=== PATIENT | female | born 1975 | race Caucasian/White ===

== ENCOUNTER 2017-04-06 07:52 | Emergency (ER) | payer OTHER ==
[2017-04-06 07:59] VITALS: TEMP 98.1; BMI 21.4
[2017-04-06] MEDS ORDERED: morphine CARPU-JECT 2 MG/1 ML DISP.SYRIN IVPUSH ONE ×2 (08:31→10:58)
[2017-04-06] MEDS ORDERED: SODIUM CHLORIDE 1,000 ML IV STA (08:31)
[2017-04-06] MEDS ORDERED: ONDANSETRON 4 MG/2 ML VIAL IVPUSH ONE ×2 (08:31→10:58)
--- NOTE | 2017-04-06 08:42 | PDOC ---
History of Present Illness - General Chief Complaint: Pain Stated Complaint: ABDOMINAL PAIN Time Seen by Provider: 04/06/17 08:20 History Source: Patient Exam Limitations: No Limitations - History of Present Illness Travel History: No Initial Comments: 04/06/17 09:10 41-year-old female presents to the emergency room with complaints of left lower abdominal pain which she describes as sharp and intermittent worsening severity over the past few days now associated with nausea and vomiting along with diarrhea and chills. Patient denies fever but states feels strain in weeks and she is unable to tolerate by mouth. Patient also states has frequency of urination the day prior to onset symptoms 2 days ago. Patient does have history of pancreatitis 6 years ago, gastric bypass 13 years ago, twisted bowel approximately 6 years ago secondary to adhesions from bypass, and anemia. Patient also states history of lumbar fusion is currently on oxycodone and morphine with good effect. Timing/Duration: reports: getting worse Quality: reports: moderate, cramping Abdominal Pain Onset Location: reports: LLQ Pain Radiation: reports: periumbilical Activities at Onset: reports: none Aggravating Factors: improves with: None Alleviating Factors: improves with: None Past History - Travel Traveled outside of the country in the last 30 days: No - Past Medical History Allergies/Adverse Reactions: Allergies Allergy/AdvReac Type Severity Reaction Status Date / Time ibuprofen [From Motrin] Allergy Severe Swelling Verified 04/06/17 07:59 Home Medications: Ambulatory Orders Morphine *Sr* [MS Contin -] 100 mg PO Q12H 07/13/15 Oxycodone HCl 10 mg PO TID PRN #0 07/15/15 Nitrofurantoin Monohyd/M-Cryst [Macrobid -] 100 mg PO BID #14 capsule 04/06/17 Ondansetron HCl [Zofran] 4 mg PO TID PRN #12 tablet 04/06/17 Oxycodone HCl/Acetaminophen [Percocet 5-325 mg Tablet] 1 - 2 tab PO Q6H PRN #6 tab MDD 4 04/06/17 Phenazopyridine HCl [Pyridium] 200 mg PO TID #6 tablet 04/06/17 Anemia: Yes Asthma: Yes Cardiac Disorders: Yes (SVT,MVP) COPD: No GI Disorders: Yes (ULCER,TWISTED BOWELS) HTN: (HYPOTENSION) Psychiatric Problems: Yes (ANXIETY) - Surgical History Abdominal Surgery: Yes (GASTRIC BYPASS, VENTRAL HERNIA, SCAR TISSUE REMOVAL FROM ABD.) Cholecystectomy: Yes - Immunization History Td Vaccination: Yes TDAP Vaccination: Yes Immunization Up to Date: Yes - Suicide/Smoking/Psychosocial Hx Smoking Status: Yes Smoking History: Never smoked Years of Tobacco Use: 25 Have you smoked in the past 12 months: Yes Number of Cigarettes Smoked Daily: 20 Cigars Per Day: 0 Information on smoking cessation initiated: Yes 'Breaking Loose' booklet given: 04/06/17 Hx Alcohol Use: No Drug/Substance Use Hx: No Substance Use Type: None Hx Substance Use Treatment: No Patient Lives Alone: Yes Lives with/in: lives alone Abd/GI Specific PMHX - Complaint Specific PMHX Diverticulitis: No Irritable Bowel Synd (IBS): No Pancreatitis: Yes Other History: gastric bypass, Review of Systems - Review of Systems Able to Perform ROS?: Yes Constitutional: Yes: Chills, Weakness. No: Fever, Unintentional Wgt. Loss Respiratory: No: Symptoms reported Cardiac (ROS): No: Symptoms Reported ABD/GI: Yes: Diarrhea, Nausea, Poor Appetite, Poor Fluid Intake, Vomiting, Abdominal cramping : Yes: Dysuria, Frequency Musculoskeletal: No: Symptoms Reported Integumentary: No: Symptoms Reported Neurological: No: Symptoms reported Hematologic/Lymphatic: Yes: Anemia *Physical Exam - Vital Signs Last Vital Signs Temp Pulse Resp BP Pulse Ox 98.1 F 100 H 19 140/82 99 04/06/17 07:56 04/06/17 07:56 04/06/17 07:56 04/06/17 07:56 04/06/17 07:56 - Physical Exam General Appearance: Yes: Nourished, Appropriately Dressed. No: Apparent Distress HEENT: positive: EOMI, KAREL, TMs Normal, Pharynx Normal (dry) Neck: positive: Supple Respiratory/Chest: positive: Lungs Clear, Normal Breath Sounds. negative: Respiratory Distress, Accessory Muscle Use Cardiovascular: positive: Regular Rhythm, Regular Rate. negative: Murmur Gastrointestinal/Abdominal: positive: Normal Bowel Sounds, Soft, Tenderness ( left lower quadrant left flank, left periumbilical/ mid suprapubic). negative: Distended, Guarding, Rebound Musculoskeletal: negative: CVA Tenderness Extremity: positive: Normal Range of Motion Integumentary: positive: Dry, Warm, Pale Neurologic: positive: Normal Mood/Affect, Motor Strength 5/5 (ambulatory) ED Treatment Course - LABORATORY CBC & Chemistry Diagram: 04/06/17 09:06 04/06/17 09:06 Medical Decision Making - Medical Decision Making 04/06/17 08:39 Patient complains of nausea vomiting diarrhea along with abdominal pain. Patient on exam had left lower quadrant tenderness and midsuprapubic tenderness. pt with urinary complaints. Patient also appears pale and dry. Patient ordered for labs including lipase, magnesium, urine and urine , Zofran, morphine IV and IV fluids. 04/06/17 10:39 Laboratory Tests 04/06/17 04/06/17 04/06/17 09:06 09:06 09:06 WBC 13.3 H Hgb 9.8 L D Hct 34.5 MCV 64.1 L MCH 18.2 L MCHC 28.4 L Plt Count 372 D Neutrophils % 77.3 Sodium 139 Potassium 4.9 D Chloride 106 Carbon Dioxide 27 Anion Gap 6 L BUN 9 D Creatinine 0.6 Random Glucose 97 Calcium 8.8 Magnesium 2.1 AST 23 D ALT 19 Lipase 103 Urine Ketones Negative Urine Nitrite Negative Urine Urobilinogen Negative Ur Leukocyte Esterase Pending Urine WBC (Auto) 5 Urine HCG, Qual Negative Patient tolerated saltines. Patient requesting more pain medication since she states the pain has gotten better but not completely resolved. Patient also will be given a second dose of Zofran since she states after she tolerated saltines the nausea returned slightly.Patient be discharged home with Macrobid and Pyridium, Zofran and a few tablets of Percocet due to her pain tolerance and daily opiate use *DC/Admit/Observation/Transfer Diagnosis at time of Disposition: UTI (urinary tract infection) Qualifiers: Urinary tract infection type: acute cystitis Hematuria presence: without hematuria Qualified Code(s): N30.00 - Acute cystitis without hematuria Abdominal pain Qualifiers: Abdominal location: lower abdomen, unspecified Qualified Code(s): R10.30 - Lower abdominal pain, unspecified - Discharge Dispostion Disposition: HOME Condition at time of disposition: Improved - Prescriptions Prescriptions: Nitrofurantoin Monohyd/M-Cryst [Macrobid -] 100 mg PO BID #14 capsule Ondansetron HCl [Zofran] 4 mg PO TID PRN #12 tablet PRN Reason: Nausea And/Or Vomiting Oxycodone HCl/Acetaminophen [Percocet 5-325 mg Tablet] 1 - 2 tab PO Q6H PRN #6 tab MDD 4 PRN Reason: Pain Phenazopyridine HCl [Pyridium] 200 mg PO TID #6 tablet - Referrals Referrals: Katia Campbell [Primary Care Provider] - Mathew Mendes MD [Staff Physician] - - Patient Instructions Printed Discharge Instructions: DI for Urinary Tract Infection (UTI) Additional Instructions: Please take Percocet as needed for severe pain otherwise continue with your previous pain medication, take the antibiotic and use Zofran as needed for nausea. I also given your new referral to a insurance processor that should take your insurance. - Post Discharge Activity
[2017-04-06] MEDS ORDERED: ONDANSETRON 4 MG/2 ML VIAL ONE ×2 (08:52→11:17)
[2017-04-06] MEDS ORDERED: morphine CARPU-JECT 8 MG/1 ML DISP.SYRIN ONE ×2 (08:52→11:17)
[2017-04-06 09:20] LABS: URINE APPEARANCE SLCLOUDY; URINE BILIRUBIN NEGATIVE (NEGATIVE); URINE BLOOD NEGATIVE (NEGATIVE); URINE COLOR YELLOW; URINE GLUCOSE (UA) NEGATIVE (NEGATIVE); URINE KETONE NEGATIVE (NEGATIVE); URINE NITRITE NEGATIVE (NEGATIVE); URINE PROTEIN NEGATIVE (NEGATIVE); URINE UROBILINOGEN NEGATIVE mg/dL (0.2-1.0)
[2017-04-06 09:26] LABS: BASO % 0.6 % (0-2.0); EOS % 1.2 % (0-4.5); MCHC 28.4 g/dl (32.0-36.0); MEAN CELL VOLUME 64.1 fl (80-96); MEAN PLT VOLUME 7.5 fl (7.5-11.1); NEUT % 77.3 % (42.8-82.8); PLATELET COUNT 372 K/MM3 (134-434); RDW 19.5 % (11.6-15.6); WHITE BLOOD COUNT 13.3 K/mm3 (4.0-10.0)
[2017-04-06 09:36] LABS: ALBUMIN 3.6 g/dl (3.4-5.0); ALK PHOS 91 U/L (45-117); ANION GAP 6 (8-16); BILIRUBIN,TOTAL 0.4 mg/dL (0.2-1.0); CALCIUM 8.8 mg/dL (8.5-10.1); CO2 27 mmol/L (21-32); CREATININE 0.6 mg/dL (0.55-1.02); GLUCOSE,RANDOM 97 mg/dL (74-106); MAGNESIUM 2.1 mg/dL (1.8-2.4); SGOT/AST 23 U/L (15-37); SGPT/ALT 19 U/L (12-78); TOT PROT 6.8 g/dl (6.4-8.2)
[2017-04-06 09:38] LABS: URINE LEUK ESTERASE 2+ (NEGATIVE)
[2017-04-06 09:40] LABS: MCH 18.2 pg (25.7-33.7)
[2017-04-06 09:41] LABS: URINE MUCUS RARE; URINE RBC <1 /hpf (0-3); URINE WBC 5 /hpf (3-5)
[2017-04-06 11:34] VITALS: BP 121/73; PULSE 85
[2017-04-06 12:26] LABS: ANISOCYTOSIS 1+; HYPOCHROMIA 3+; MICROCYTOSIS 2+
[2017-04-06 12:27] LABS: OVALOCYTE 1+; TARGET CELLS 1+; TEAR DROP CELLS 1+
[2017-04-06 14:37] LABS: URINE LEUK ESTERASE TRACE (NEGATIVE)
== END 2017-04-06 11:30 | disposition home or self-care (01) ==
LOC: JER 07:52
DX: N30.00 Acute cystitis without hematuria (principal)
CPT/HCPCS: 36415; 80053; 81003; 81015; 83690; 83735; 84703; 85025; 87086; 99284-25

== ENCOUNTER 2017-06-05 16:57 | Emergency (ER) | payer OTHER ==
[2017-06-05 17:16] VITALS: BP 99/61; PULSE 105; TEMP 98.2; BMI 22.3
--- NOTE | 2017-06-05 20:32 | PDOC ---
History of Present Illness - General Chief Complaint: Weakness Stated Complaint: PAIN Time Seen by Provider: 06/05/17 20:16 History Source: Patient Exam Limitations: No Limitations - History of Present Illness Initial Comments: 06/05/17 20:59 41-year-old female with a history of chronic back pains presents to the emergency department complaining of left-sided occipital dull nonradiating intermittent headache with ringing in the left ear and pins and needles to the left foot since yesterday. Patient states she woke up yesterday morning at approximately 0900 hrs. with a dull headache and slight weakness. Patient denies dizziness, lightheadedness, visual disturbance, diplopia, sore throat, facial pains, neck pain/stiffness, unusual back pains, chest pain, shortness of breath, abdominal pains, flank pains, urinary symptoms, bladder or bowel dysfunction. Patient states her pain is described as 6/10 dull nonradiating intermittent left-sided headache which is alleviated at rest and there are no exacerbating factors. Patient states she is able to eat and bili without any difficulties. Timing/Duration: 24 hours Past History - Past Medical History Allergies/Adverse Reactions: Allergies Allergy/AdvReac Type Severity Reaction Status Date / Time ibuprofen [From Motrin] Allergy Severe Swelling Verified 06/05/17 17:12 Home Medications: Ambulatory Orders Morphine *Sr* [MS Contin -] 100 mg PO Q12H 07/13/15 Oxycodone HCl 10 mg PO TID PRN #0 07/15/15 Nitrofurantoin Monohyd/M-Cryst [Macrobid -] 100 mg PO BID #14 capsule 04/06/17 Ondansetron HCl [Zofran] 4 mg PO TID PRN #12 tablet 04/06/17 Oxycodone HCl/Acetaminophen [Percocet 5-325 mg Tablet] 1 - 2 tab PO Q6H PRN #6 tab MDD 4 04/06/17 Phenazopyridine HCl [Pyridium] 200 mg PO TID #6 tablet 04/06/17 Anemia: Yes Asthma: Yes Cardiac Disorders: Yes (SVT,MVP) COPD: No GI Disorders: Yes (ULCER,TWISTED BOWELS) HTN: (HYPOTENSION) Psychiatric Problems: Yes (ANXIETY) - Surgical History Abdominal Surgery: Yes (GASTRIC BYPASS, VENTRAL HERNIA, SCAR TISSUE REMOVAL FROM ABD.) Cholecystectomy: Yes - Immunization History Td Vaccination: Yes TDAP Vaccination: Yes Immunization Up to Date: Yes - Suicide/Smoking/Psychosocial Hx Smoking Status: Yes Smoking History: Current every day smoker Years of Tobacco Use: 25 Have you smoked in the past 12 months: Yes Number of Cigarettes Smoked Daily: 20 Cigars Per Day: 0 Information on smoking cessation initiated: No 'Breaking Loose' booklet given: 04/06/17 Hx Alcohol Use: No Drug/Substance Use Hx: No Substance Use Type: None Hx Substance Use Treatment: No Review of Systems - Review of Systems Able to Perform ROS?: Yes Comments:: 06/05/17 21:01 CONSTITUTIONAL: Absent: fever, chills, diaphoresis, generalized weakness, malaise, loss of appetite HEENT: +left ear ringing Absent: rhinorrhea, nasal congestion, throat pain, throat swelling, difficulty swallowing, mouth swelling, ear pain, eye pain, visual Changes CARDIOVASCULAR: Absent: chest pain, loss of consciousness, palpitations, irregular heart rate, peripheral edema RESPIRATORY: Absent: cough, shortness of breath, dyspnea with exertion, orthopnea, wheezing, stridor, hemoptysis GASTROINTESTINAL: Absent: abdominal pain, abdominal distension, nausea, vomiting, diarrhea, constipation, melena, hematochezia GENITOURINARY: Absent: dysuria, frequency, urgency, hesitancy, hematuria, flank pain, genital pain MUSCULOSKELETAL: Absent: myalgia, arthralgia, joint swelling SKIN: Absent: rash, itching, pallor HEMATOLOGIC/IMMUNOLOGIC: Absent: easy bleeding, easy bruising, lymphadenopathy, frequent infections ENDOCRINE: Absent: unexplained weight gain, unexplained weight loss, heat intolerance, cold intolerance NEUROLOGIC: +left sided diego Absent: focal weakness or paresthesias, dizziness, unsteady gait, seizure, mental status changes, bladder or bowel incontinence PSYCHIATRIC: Absent: anxiety, depression, suicidal or homicidal ideation, hallucinations. Is the patient limited Congolese proficient: No *Physical Exam - Vital Signs Last Vital Signs Temp Pulse Resp BP Pulse Ox 98.2 F 105 H 19 99/61 100 06/05/17 17:12 18 17:12 06/05/17 17:12 06/05/17 17:12 06/05/17 17:12 - Physical Exam Comments: 06/05/17 21:02 GENERAL: Well developed, well nourished. Awake and alert. No acute distress. HEENT: Normocephalic, atraumatic. PERRLA, EOMI. No conjunctival pallor. Sclera are non- icteric. Moist mucous membranes. Oropharynx is clear. NECK: Supple. Full ROM. No JVD. Carotid pulses 2+ and symmetric, without bruits. No thyromegaly. No lymphadenopathy. CARDIOVASCULAR: Regular rate and rhythm. No murmurs, rubs, or gallops. Distal pulses are 2+ and symmetric. PULMONARY: No evidence of respiratory distress. Lungs clear to auscultation bilaterally. No wheezing, rales or rhonchi. ABDOMINAL: Soft. Non-tender. Non-distended. No rebound or guarding. No organomegaly. Normoactive bowel sounds. MUSCULOSKELETAL Normal range of motion at all joints. No bony deformities or tenderness. No CVA tenderness. EXTREMITIES: No cyanosis. No clubbing. No edema. No calf tenderness. SKIN: Warm and dry. Normal capillary refill. No rashes. No jaundice. NEUROLOGICAL: Alert, awake, appropriate. Cranial nerves 2-12 intact. No deficits to light touch and temperature in face, upper extremities and lower extremities. No motor deficits in the in face, upper extremities and lower extremities. Normoreflexic in the upper and lower extremities. Normal speech. Toes are down- going bilaterally. Gait is normal without ataxia. PSYCHIATRIC: Cooperative. Good eye contact. Appropriate mood and affect. ED Treatment Course - LABORATORY CBC & Chemistry Diagram: 06/05/17 20:24 06/05/17 20:24 - RADIOLOGY Radiograph Interpretation: 06/05/17 21:02 CT head w/o contrast: *DC/Admit/Observation/Transfer Diagnosis at time of Disposition: Headache - Discharge Dispostion Disposition: AGAINST MEDICAL ADVICE - Referrals Referrals: Katia Campbell [Primary Care Provider] - Anoop Mayer MD [Staff Physician] - - Patient Instructions Additional Instructions: You have fine our AGAINST MEDICAL ADVICE, You insists on going home prior to CAT scan results and blood results. You have been informed that signing out AGAINST MEDICAL ADVICE may result in , bleed, stroke, recurrent/worsening symptoms - Post Discharge Activity
[2017-06-05] MEDS ORDERED: SODIUM CHLORIDE 1,000 ML IV STA (20:33)
[2017-06-05] MEDS ORDERED: METOCLOPRAMIDE HCL INJECTION 10 MG/2 ML VIAL IVPB ONE (20:33)
[2017-06-05 20:51] LABS: BASO % 0.8 % (0-2.0); EOS % 0.4 % (0-4.5); HEMATOCRIT 33.4 % (32.4-45.2); HEMOGLOBIN 9.8 GM/dL (10.7-15.3); MCHC 29.4 g/dl (32.0-36.0); MEAN CELL VOLUME 62.5 fl (80-96); MEAN PLT VOLUME 7.7 fl (7.5-11.1); MONO % 6.8 % (3.8-10.2); PLATELET COUNT 480 K/MM3 (134-434); RBC 5.33 M/mm3 (3.60-5.2); RDW 18.8 % (11.6-15.6); WHITE BLOOD COUNT 11.3 K/mm3 (4.0-10.0)
[2017-06-05 21:03] LABS: MCH 18.4 pg (25.7-33.7)
[2017-06-05] MEDS ORDERED: METOCLOPRAMIDE HCL INJECTION 10 MG/2 ML VIAL ONE (21:10)
[2017-06-05 21:26] LABS: ALBUMIN 3.8 g/dl (3.4-5.0); ALK PHOS 93 U/L (45-117); ANION GAP 7 (8-16); BILIRUBIN,TOTAL 0.5 mg/dL (0.2-1.0); BLOOD UREA NITROGEN 21 mg/dL (7-18); CALCIUM 8.3 mg/dL (8.5-10.1); CHLORIDE 100 mmol/L (98-107); CO2 27 mmol/L (21-32); CREATININE 0.7 mg/dL (0.55-1.02); GLUCOSE,RANDOM 86 mg/dL (74-106); POTASSIUM 4.3 mmol/L (3.5-5.1); SGOT/AST 82 U/L (15-37); SGPT/ALT 76 U/L (12-78); SODIUM 134 mmol/L (136-145); TOT PROT 6.7 g/dl (6.4-8.2)
== END 2017-06-05 22:27 | disposition left against medical advice (07) ==
LOC: JER 16:57
PROC: 3E033GC Introduction of Other Therapeutic Substance into Peripheral Vein, Percutaneous Approach (ICD-10-PCS; principal; 2017-06-05)
DX: R51 Headache (principal); H93.11 Tinnitus, right ear
CPT/HCPCS: 70450-TC; 80053; 85025; 99282-25

== ENCOUNTER 2017-08-11 04:26 | Emergency (ER) | payer OTHER ==
[2017-08-11 04:39] VITALS: BP 103/61; PULSE 78; TEMP 98.9; BMI 20.4
--- NOTE | 2017-08-11 04:47 | PDOC ---
History of Present Illness - General Chief Complaint: Pain Stated Complaint: BI LATERAL KNEE PAIN Time Seen by Provider: 08/11/17 04:30 History Source: Patient Exam Limitations: No Limitations - History of Present Illness Initial Comments: 08/11/17 04:49 Best Contact:[phone] Pmhx: Chronic abdominal pains, chronic back pains Pshx: Gastric bypass, laparoscopic cholecystectomy, intestinal surgery/unknown procedure, lysis of adhesions, ventral hernia repair Allergies:NKDA 42-year-old female presents to the ER complaining of bilateral knee pain 4 hours without trauma/fall or injury. Patient states pain is described as 6/10 dull nonradiating intermittent discomfort. Patient denies neck/back pains, extremity numbness or tingling sensation. Patient is under the care of pain management And is currently on morphine 30 mg , oxycodone, Percocet. Past History - Past Medical History Allergies/Adverse Reactions: Allergies Allergy/AdvReac Type Severity Reaction Status Date / Time ibuprofen [From Motrin] Allergy Severe Swelling Verified 08/11/17 04:36 Home Medications: Ambulatory Orders Morphine *Sr* [MS Contin -] 60 mg PO Q12H 07/13/15 Gabapentin [Neurontin -] 800 mg PO Q8H 08/11/17 Oxycodone HCl 15 mg PO TID PRN 08/11/17 Anemia: Yes Asthma: Yes Cardiac Disorders: Yes (SVT,MVP) COPD: No GI Disorders: Yes (ULCER,TWISTED BOWELS) HTN: (HYPOTENSION) Psychiatric Problems: Yes (ANXIETY) - Surgical History Abdominal Surgery: Yes (GASTRIC BYPASS, VENTRAL HERNIA, SCAR TISSUE REMOVAL FROM ABD.) Cholecystectomy: Yes Neurologic Surgery: Yes (back) - Immunization History Td Vaccination: Yes TDAP Vaccination: Yes Immunization Up to Date: Yes - Suicide/Smoking/Psychosocial Hx Smoking Status: Yes Smoking History: Unknown if ever smoked Years of Tobacco Use: 25 Have you smoked in the past 12 months: Yes Number of Cigarettes Smoked Daily: 20 Cigars Per Day: 0 'Breaking Loose' booklet given: 04/06/17 Hx Alcohol Use: No Drug/Substance Use Hx: No Substance Use Type: None Hx Substance Use Treatment: No Review of Systems - Review of Systems Able to Perform ROS?: Yes Comments:: 08/11/17 04:53 CONSTITUTIONAL: Absent: fever, chills, diaphoresis, generalized weakness, malaise, loss of appetite HEENT: Absent: rhinorrhea, nasal congestion, throat pain, throat swelling, difficulty swallowing, mouth swelling, ear pain, eye pain, visual Changes CARDIOVASCULAR: Absent: chest pain, loss of consciousness, palpitations, irregular heart rate, peripheral edema RESPIRATORY: Absent: cough, shortness of breath, dyspnea with exertion, orthopnea, wheezing, stridor, hemoptysis GASTROINTESTINAL: Absent: abdominal pain, abdominal distension, nausea, vomiting, diarrhea, constipation, melena, hematochezia GENITOURINARY: Absent: dysuria, frequency, urgency, hesitancy, hematuria, flank pain, genital pain MUSCULOSKELETAL: Absent: myalgia, arthralgia, joint swelling SKIN: Absent: rash, itching, pallor HEMATOLOGIC/IMMUNOLOGIC: Absent: easy bleeding, easy bruising, lymphadenopathy, frequent infections ENDOCRINE: Absent: unexplained weight gain, unexplained weight loss, heat intolerance, cold intolerance NEUROLOGIC: Absent: headache, focal weakness or paresthesias, dizziness, unsteady gait, seizure, mental status changes, bladder or bowel incontinence PSYCHIATRIC: Absent: anxiety, depression, suicidal or homicidal ideation, hallucinations. Is the patient limited [place]utanese proficient: No *Physical Exam - Vital Signs Last Vital Signs Temp Pulse Resp BP Pulse Ox 98.9 F 78 20 103/61 100 08/11/17 04:37 08/11/17 04:37 08/11/17 04:37 08/11/17 04:37 08/11/17 04:37 - Physical Exam Comments: 08/11/17 04:53 GENERAL: Well developed, well nourished. Awake and alert. No acute distress. HEENT: Normocephalic, atraumatic. PERRLA, EOMI. No conjunctival pallor. Sclera are non- icteric. Moist mucous membranes. Oropharynx is clear. NECK: Supple. Full ROM. No JVD. Carotid pulses 2+ and symmetric, without bruits. No thyromegaly. No lymphadenopathy. CARDIOVASCULAR: Regular rate and rhythm. No murmurs, rubs, or gallops. Distal pulses are 2+ and symmetric. PULMONARY: No evidence of respiratory distress. Lungs clear to auscultation bilaterally. No wheezing, rales or rhonchi. ABDOMINAL: Soft. Non-tender. Non-distended. No rebound or guarding. No organomegaly. Normoactive bowel sounds. MUSCULOSKELETAL B/L knees: F.R.O.M. neg swelling Neg pain on palp Neg ant/posterior drawer Neg valrus/valgus B/L ankle 2+dp pulse Neg pain on pa;[p F.R.O.M. B/L hip F.R>O.M. neg pain on palp (excluding B/L knees) Normal range of motion at all joints. No bony deformities or tenderness. No CVA tenderness. EXTREMITIES: No cyanosis. No clubbing. No edema. No calf tenderness. SKIN: Warm and dry. Normal capillary refill. No rashes. No jaundice. ED Treatment Course - RADIOLOGY Radiograph Interpretation: 08/11/17 04:56 Xray right knee 2v neg xray left knee 2 v neg *DC/Admit/Observation/Transfer Diagnosis at time of Disposition: Knee pain, bilateral Qualifiers: Chronicity: acute Qualified Code(s): M25.561 - Pain in right knee - Discharge Dispostion Condition at time of disposition: Stable Admit: No - Referrals Referrals: Katia Campbell [Primary Care Provider] - Anoop Espinoza MD [Staff Physician] - - Patient Instructions Printed Discharge Instructions: DI for Knee Pain Additional Instructions: Ice; 20 mins on alternating with 20 mins off for 48 hours while awake. Rest Elevate Follow up with your orthopedic surgeon or the one listed on the discharge form. Return to the ER for severe/persistent/worsening symptoms, extremity numbness/ tingling sensation. - Post Discharge Activity
== END 2017-08-11 05:21 | disposition home or self-care (01) ==
LOC: JER 04:26
DX: M25.562 Pain in left knee (principal); M25.561 Pain in right knee; Z86.79 Personal history of other diseases of the circulatory system; Z87.09 Personal history of other diseases of the respiratory system; F41.9 Anxiety disorder, unspecified
CPT/HCPCS: 73560-TC-LT-FY; 73560-TC-RT-FY; 99281-25

== ENCOUNTER 2017-09-11 17:33 | Emergency (ER) | payer OTHER ==
--- NOTE | 2017-09-11 17:42 | PDOC ---
Rapid Medical Evaluation Time Seen by Provider: 09/11/17 17:36 Medical Evaluation: Allergies Allergy/AdvReac Type Severity Reaction Status Date / Time ibuprofen [From Motrin] Allergy Severe Swelling Verified 08/11/17 04:36 09/11/17 17:37 I have performed a brief in-person evaluation of this patient. The patient presents with a chief complaint of: R chest pain, worse w/ deep breath. Fell onto R chest 2 days ago after R side "went completely numb" per pt (numbness have been occurring for 1 month per pt). Pertinent physical exam findings:+ttp to r chest I have ordered the following:ekg, CXR and rib series The patient will proceed to the ED for further evaluation Discharge Disposition - Diagnosis Chest injury Qualifiers: Encounter type: initial encounter Qualified Code(s): S29.9XXA - Unspecified injury of thorax, initial encounter - Referrals Referrals: Katia Campbell [Primary Care Provider] - - Patient Instructions - Post Discharge Activity
[2017-09-11 17:47] VITALS: BP 123/81; PULSE 118; TEMP 99.2; BMI 21.0
--- NOTE | 2017-09-11 19:27 | PDOC ---
History of Present Illness - General Chief Complaint: Chest Pain Stated Complaint: CHEST PAIN Time Seen by Provider: 09/11/17 17:36 - History of Present Illness Initial Comments: Patient is a 42 year old female, with a significant past medical history of anxiety, asthma, anemia, SVT, SBO, HTN, who presents to the emergency department complaining of R sided chest pain for last two days after trauma to anterior chest from a mechanical fall. Pt states that she walking to bed around 230AM when the right side of her body went numbness and she suffered a mechanical fall onto the anterior right side of her body. Pt denies any LOC, dizziness, palpitations, SOB at the time. Denies any sensation of gross fractures. Since this fall, pt states she has had R sided anterior chest wall pain, worsened by deep inspiration for the last two days. Pt also endorses some residual numbness in her R arm and leg since incident, however this numbness was prior to fall. The patient denies shortness of breath, headache or dizziness. Denies fever, chills, nausea, vomiting, diarrhea and constipation. Denies dysuria, frequency, urgency and hematuria. Allergies: NKDA Past surgical history:Gastric bypass, laparoscopic cholecystectomy, intestinal surgery/unknown procedure, lysis of adhesions, ventral hernia repair, melissa tumor removal Social History: Current smoker, 1ppd; Denies alcohol, drug use PMD: Dr. Campbell 09/11/17 19:24 Past History - Past Medical History Allergies/Adverse Reactions: Allergies Allergy/AdvReac Type Severity Reaction Status Date / Time No Known Allergies Allergy Verified 09/11/17 17:38 Home Medications: Ambulatory Orders Morphine *Sr* [MS Contin -] 60 mg PO Q12H 07/13/15 Oxycodone HCl 15 mg PO TID PRN 08/11/17 Anemia: Yes Asthma: Yes Cardiac Disorders: Yes (SVT,MVP) COPD: No GI Disorders: Yes (ULCER,TWISTED BOWELS) HTN: (HYPOTENSION) Psychiatric Problems: Yes (ANXIETY) - Surgical History Abdominal Surgery: Yes (GASTRIC BYPASS, VENTRAL HERNIA, SCAR TISSUE REMOVAL FROM ABD.) Cholecystectomy: Yes Neurologic Surgery: Yes (back) - Immunization History Td Vaccination: Yes TDAP Vaccination: Yes Immunization Up to Date: Yes - Suicide/Smoking/Psychosocial Hx Smoking Status: Yes Smoking History: Current every day smoker Years of Tobacco Use: 25 Have you smoked in the past 12 months: Yes Number of Cigarettes Smoked Daily: 10 Cigars Per Day: 0 Information on smoking cessation initiated: No 'Breaking Loose' booklet given: 04/06/17 Hx Alcohol Use: No Drug/Substance Use Hx: No Substance Use Type: None Hx Substance Use Treatment: No Review of Systems - Review of Systems Comments:: GENERAL/CONSTITUTIONAL: No fever or chills. No weakness. HEAD, EYES, EARS, NOSE AND THROAT: No change in vision. No ear pain or discharge. No sore throat. CARDIOVASCULAR: No chest pain or shortness of breath RESPIRATORY: No cough, wheezing, or hemoptysis. GASTROINTESTINAL: No nausea, vomiting, diarrhea or constipation. GENITOURINARY: No dysuria, frequency, or change in urination. MUSCULOSKELETAL: Pain in anterior and lateral upper chest wall, in addition to pain in R upper back. No joint or muscle swelling or pain. No neck or back pain. SKIN: No rash NEUROLOGIC: +weakness at in R arm and leg. No headache, vertigo, loss of consciousness, or change in strength/sensation. ENDOCRINE: No increased thirst. No abnormal weight change HEMATOLOGIC/LYMPHATIC: No anemia, easy bleeding, or history of blood clots. ALLERGIC/IMMUNOLOGIC: No hives or skin allergy. 09/11/17 19:26 *Physical Exam - Vital Signs Last Vital Signs Temp Pulse Resp BP Pulse Ox 99.2 F 118 H 20 123/81 100 09/11/17 17:38 09/11/17 17:38 09/11/17 17:38 09/11/17 17:38 09/11/17 17:38 - Physical Exam Comments: GENERAL: Awake, alert, and fully oriented, in mild distress. HEAD: No signs of trauma, normocephalic, atraumatic EYES: PERRLA, EOMI, sclera anicteric, conjunctiva clear ENT: Auricles normal inspection, hearing grossly normal, nares patent, oropharynx clear without exudates. Moist mucosa NECK: Normal ROM, supple, no lymphadenopathy, JVD, or masses LUNGS: Poor effort secondary to pain. No distress, speaks full sentences. HEART: Pain on R anterior and lateral chest wall with palpation and passive movement of R arm. No obvious bony deformities or gross step-offs. Regular rate and rhythm, normal S1 and S2, no murmurs, rubs or gallops, peripheral pulses normal and equal bilaterally. ABDOMEN: Soft, nontender, normoactive bowel sounds. No guarding, no rebound. No masses EXTREMITIES : Normal inspection, Normal range of motion, no edema. No clubbing or cyanosis. NEUROLOGICAL: 4/5 strength flexion/extension in R arm at elbow, clinical director strength. 4 /5 flexion/extension at R knee and dorsi/plantarflexion. ALl other muscle groups 5/5. Decreased sensation to light touch in R arm and leg across all dermatomes. Cranial nerves II through XII grossly intact. Decreased sensation to palpation along V3 distribution of L face. Normal speech, slow gait, no focal sensorimotor deficits SKIN: Warm, Dry, normal turgor, no rashes or lesions noted 09/11/17 19:26 Medical Decision Making - Medical Decision Making Patient is a 42 year old female, with a significant past medical history of anxiety, asthma, anemia, SVT, SBO, HTN, who presents to the emergency department complaining of R sided chest pain for last two days after trauma to anterior chest from a mechanical fall. Pt likely suffering from occult rib fracture vs. soft tissue trauma of anterior chest. Plan for r/o pneumothorax given pain with deep breath. Plan: - f/u CXR, Rib XR - Pain control - Likely discharge with outpt follow-up with PMD - Will require neurology referral for lateralizing neuro symptoms. 09/11/17 19:46 Pt states R arm and leg weakness/numbness has been occurring intermittently, lasting 30 seconds in length, for the last month. Will discharge home with pain control and outpt f/u with neurology. Pt VSS, pain better controlled on current regimen. Will discharge home. 09/11/17 21:18 *DC/Admit/Observation/Transfer Diagnosis at time of Disposition: Chest injury Qualifiers: Encounter type: initial encounter Qualified Code(s): S29.9XXA - Unspecified injury of thorax, initial encounter - Discharge Dispostion Disposition: HOME Condition at time of disposition: Good Decision to Admit order: No - Referrals Referrals: Katia Campbell [Primary Care Provider] - 1 week Avel Luis MD [Staff Physician] - Call tomorrow - Patient Instructions Additional Instructions: During your visit to the [facility] ED, you were evaluated for right sided chest wall pain after your fall. You received pain medication and imaging of your chest wall, which was negative for any gross fractures or lung pathology. You are being discharged home with outpatient follow-up with your primary care provider and are being provided a referral to see our neurologist, Dr. Luis. Please take tylenol 650mg every four hours if you experience pain in your chest wall You may also take your home pain regimen of Oxycodone 15mg, three times a day by mouth for additional pain control. You are being provided a referral for follow-up with Dr. Luis, our neurologist for further evaluation of your intermittent right-sided arm and leg weakness. Please call the number provided in this packet to schedule an appointment as soon as possible. If you experience any of the following symptoms, please return to the ED: - Sudden shortness of breathing, significant worsening of pain with breathing - New pain or tightness in your chest, or numbness in your jaw, left arm or upper back. - Changes in vision, numbness/weakness in any extremities, or persistent dizziness/loss of consciousness - Any new or concerning symptoms - Post Discharge Activity
[2017-09-11] MEDS ORDERED: IBUPROFEN 600 MG TABLET (FP) PO ONE ×2 (19:49→19:53)
[2017-09-11] MEDS ORDERED: KETOROLAC TROMETHAMINE 30 MG/1 ML VIAL ONE (20:11)
[2017-09-11] MEDS ORDERED: KETOROLAC TROMETHAMINE 30 MG/1 ML VIAL IM ONE (20:11)
--- NOTE | 2017-09-11 22:06 | PDOC ---
Attending Attestation - Resident Resident Name: Dick Post - ED Attending Attestation I have performed the following: I have examined & evaluated the patient, The case was reviewed & discussed with the resident, I agree w/resident's findings & plan, Exceptions are as noted - Medical Decision Making 09/11/17 22:04 42yoF w/ 1 ryan hhistory of intermittent sudden onset episode of 30-second of hemibody numnbess (sometimes R side, sometimes L side) presents w/ severe R chest wall pain 2d after she had one of these episodes causing her to fall. Has not seen neurology for these episodes of hemibody numbness. - cxr and rib films WNL on my read, no PTX. - pain control - incentive spirometer given w/ instructions for use. - f/u w/ neurology.
--- NOTE | 2017-09-12 17:30 | EKG ---
Test Reason : Blood Pressure : / mmHG Vent. Rate : 114 BPM Atrial Rate : 114 BPM P-R Int : 130 ms QRS Dur : 078 ms QT Int : 328 ms P-R-T Axes : 078 056 066 degrees QTc Int : 452 ms SINUS TACHYCARDIA OTHERWISE NORMAL ECG WHEN COMPARED WITH ECG OF 13-JUL-2015 17:43, VENT. RATE HAS INCREASED BY 47 BPM Confirmed by BRUNILDA MORENO MD ([id number]) on 09/12/2017 5:30:07 PM Referred By: Confirmed By:BRUNILDA MORENO MD
== END 2017-09-11 21:38 | disposition home or self-care (01) ==
LOC: JER 17:33
PROC: 3E0233Z Introduction of Anti-inflammatory into Muscle, Percutaneous Approach (ICD-10-PCS; principal; 2017-09-11)
DX: S29.8XXA Other specified injuries of thorax, initial encounter (principal); W18.39XA Other fall on same level, initial encounter; Y93.89 Activity, other specified; Y92.013 Bedroom of single-family (private) house as the place of occurrence of the external cause; Y99.8 Other external cause status; F41.9 Anxiety disorder, unspecified; D64.9 Anemia, unspecified; J45.909 Unspecified asthma, uncomplicated; I10 Essential (primary) hypertension; Z86.79 Personal history of other diseases of the circulatory system
CPT/HCPCS: 71046-TC-FY; 71111-TC-FY; 93005; 93010; 96372; 99283-25

== ENCOUNTER 2017-09-15 18:05 | Inpatient (IN) | payer OTHER ==
--- NOTE | 2017-09-15 18:13 | PDOC ---
Rapid Medical Evaluation Chief Complaint: Chest Pain Time Seen by Provider: 09/15/17 18:07 Medical Evaluation: Allergies Allergy/AdvReac Type Severity Reaction Status Date / Time No Known Allergies Allergy Verified 09/15/17 18:06 09/15/17 18:07 Pt. with chest pain starting today with shortness of breath for one hour. States her right side is going numb, lost vision in her R eye, now blurry. Also with pain to R side of head. States she had similar episode a couple of days ago Exam: ambulatory, HR 125. Orders: CBC, CMP, PT/INR, Trop, EKG, CXR, magnesium, UA, urine preg, head CT Pt. to proceed to ED for further evaluation
--- NOTE | 2017-09-15 18:27 | PDOC ---
Attending Attestation - Resident Resident Name: Ang Logan - ED Attending Attestation I have performed the following: I have examined & evaluated the patient, The case was reviewed & discussed with the resident, I agree w/resident's findings & plan, Exceptions are as noted - HPI HPI: 09/15/17 18:26 42yo female has been experiencing tingling and numbness to her right side. This been intermittent. She said also earlier she experienced total right sided weakness and had temporary blurry vision when this occurred. 09/15/17 22:21 - Physicial Exam PE: 09/15/17 22:25 thin 42 yo female in acute distress head temporal wasting neck supple lungs cta b/l cvs [id number] abd flat,nontender ext no edema skin warm and dry neuro axox3,ambulates w cane,no drift on extremities,motor strength 5/5,no facila droop,no slurred speech - Medical Decision Making 09/15/17 22:22 Repeat vital signs blood pressure was 102/74, pulse is 86, she is 100% pulse ox on room ER and she is afebrile 09/15/17 22:31 pt admitted for MRI and neuro eval
--- NOTE | 2017-09-15 18:40 | PDOC ---
History of Present Illness - General Chief Complaint: CVA/TIA Stated Complaint: CHEST PAIN Time Seen by Provider: 09/15/17 18:07 History Source: Patient Exam Limitations: No Limitations - History of Present Illness Initial Comments: 09/15/17 18:29 The patient is a 42F with a PMH of anxiety, asthma, anemia, SVT, SBO, HTN, who presents to the ER with R sided numbness and pain. The patient states that 3-4 days ago, she had numbness on the entire R side of her body that caused her to lose balance and fall on her R chest. Since then, she states she's had pleuritic CP and shortness of breath. She states that this resolved and approximately 1 hour ago she felt tingling and numbness in her leg with blurred vision in her R eye and a headache on the R side of her body. She states that she still feels the CP, and currently has blurred vision. Last known well is 3 days ago. tPA Exclusion checklist 3-4.5h - Time Elapsed Date last known well: 09/11/17 Time last known well: 09:00 Elaspsed time: 4 Day(s) and 9 Hour(s) and 52 Minutes - Thrombolytic Therapy Candidate Is patient eligible for thrombolytic therapy: No - Ineligibility reason(s) Reasons No tPA given: Outside of window - delayed arrival NIH Stroke Scale - Last Known Well Date/Time & Onset Date Last Known Well: 09/11/17 Time Last Known Well: 09:00 - Initial Evaluation Level of consciousness: Alert Ask patient the month and their age: Answers both correctly Ask patient to open & close eyes; make fist and let go: Obeys both correctly Best gaze (horizontal eye movement): Normal Visual field testing: Partial hemianopia Facial paresis (Show teeth/raise eyebrows/close eyes tight): Normal symmetrical movement Motor Function: Left Arm: Normal Motor Function: Right Arm: Normal (extends arm 90 (or 45) degrees for 10 seconds without drift Motor Function: Left Leg: Normal (extends leg 30 degrees for 5 seconds without drift) Motor Function: Right Leg: Normal (extends leg 30 degrees for 5 seconds without drift) Limb Ataxia: Present in one limb Sensory(Use pinprick test arms,legs,trunk,face/side to side): Mild to moderate decrease in sensation Best language (Describe picture, name items, read sentences): No Aphasia Dysarthria (read several words): Normal articulation Extinction and Inattention: No abnormality - Total Score NIH Stroke Scale Score: 3 Past History - Past Medical History Allergies/Adverse Reactions: Allergies Allergy/AdvReac Type Severity Reaction Status Date / Time No Known Allergies Allergy Verified 09/15/17 18:06 Home Medications: Ambulatory Orders Morphine *Sr* [MS Contin -] 60 mg PO Q12H 07/13/15 Oxycodone HCl 15 mg PO TID PRN 08/11/17 Miscellaneous Drug Not in Syst 1 each .ROUTE ASDIR #1 each 09/11/17 Anemia: Yes Asthma: Yes Cardiac Disorders: Yes (SVT,MVP) COPD: No DVT: No Dementia: No GI Disorders: Yes (ULCER,TWISTED BOWELS,COLITIS) HTN: (HYPOTENSION) Psychiatric Problems: Yes (ANXIETY) - Surgical History Abdominal Surgery: Yes (GASTRIC BYPASS, VENTRAL HERNIA, SCAR TISSUE REMOVAL FROM ABD.) Cholecystectomy: Yes Neurologic Surgery: Yes (back X2) - Immunization History Td Vaccination: Yes TDAP Vaccination: Yes Immunization Up to Date: Yes - Suicide/Smoking/Psychosocial Hx Smoking Status: Yes Smoking History: Current every day smoker Years of Tobacco Use: 25 Have you smoked in the past 12 months: Yes Number of Cigarettes Smoked Daily: 10 Cigars Per Day: 0 Information on smoking cessation initiated: Yes 'Breaking Loose' booklet given: 04/06/17 Hx Alcohol Use: No Drug/Substance Use Hx: No Substance Use Type: None Hx Substance Use Treatment: No Review of Systems - Review of Systems Able to Perform ROS?: Yes Comments:: 09/15/17 18:41 GENERAL/CONSTITUTIONAL: No fever or chills. No weakness. HEAD, EYES, EARS, NOSE AND THROAT: No change in vision. No ear pain or discharge. No sore throat. CARDIOVASCULAR: Positive for chest pain. No palpitations, or lightheadedness. RESPIRATORY: Positive for shortness of breath. No cough, wheezing, or hemoptysis. GASTROINTESTINAL: No nausea, vomiting, diarrhea, constipation, or abdominal pain. GENITOURINARY: No dysuria, frequency, hematuria, or change in urination. MUSCULOSKELETAL: No joint or muscle swelling or pain. No neck or back pain. SKIN: No rash or lesions. NEUROLOGIC: Positive for headache, numbness, tingling, and unsteady gait. No weakness, loss of consciousness, or change in strength/sensation. ENDOCRINE: No increased thirst. No abnormal weight change. HEMATOLOGIC/LYMPHATIC: No anemia, easy bleeding, or history of blood clots. ALLERGIC/IMMUNOLOGIC: No hives or skin allergy. Is the patient limited [place] proficient: No *Physical Exam - Vital Signs Last Vital Signs Temp Pulse Resp BP Pulse Ox 99.0 F 120 H 18 111/74 100 09/15/17 18:07 09/15/17 18:07 09/15/17 18:07 09/15/17 18:07 09/15/17 18:07 - Physical Exam Comments: 09/15/17 18:47 GENERAL: Well developed, well nourished. Awake and alert. No acute distress. HEENT: Normocephalic, atraumatic. Hearing grossly normal. Moist mucous membranes. PERRLA, EOMI. No conjunctival pallor. Sclera are non-icteric. Oropharynx is mildly erythematous. NECK: Supple. Full ROM. No lymphadenopathy. CARDIOVASCULAR: Regular rate and rhythm. No murmurs, rubs, or gallops. PULMONARY: No evidence of respiratory distress. Lungs clear to auscultation bilaterally. No wheezing, rales or rhonchi. ABDOMINAL: Soft. Non-tender. Non-distended. No rebound or guarding. GENITOURINARY: No CVA tenderness bilaterally. MUSCULOSKELETAL: Normal range of motion at all joints. No bony deformities or tenderness. EXTREMITIES: No cyanosis. No clubbing. No edema. No calf tenderness or swelling. SKIN: Warm and dry. Normal capillary refill. No rashes. No jaundice. NEUROLOGICAL: Alert, awake, appropriate. Cranial nerves 2-12 intact. Deficits present in facial sensation 2/2 to facial surgery. Changes in sensation in upper extremities, sensation greater in L than R. No deficits in sensation in LE. No motor deficits in the in face, upper extremities and lower extremities. Finger to nose normal bilaterally. Normal speech. Gait is ataxic. PSYCHIATRIC: Cooperative. Good eye contact. Appropriate mood and affect. Medical Decision Making - Medical Decision Making 09/15/17 18:51 The patient is a 42F with a PMH of anxiety, asthma, anemia, SVT, SBO, HTN, who presents with worsening of her CP, headache, and numnbess on her R side since 3- 4 days ago. Last known well is 3-4 days ago when she came to the ER on the 25 for similar symptoms. Orders placed by RME which I agree with. Will likely need to admit the pt for an MRI. Pending labs/imaging. 09/15/17 19:03 Pt signed out to Dr. Rodrigues, night team.
[2017-09-15 18:57] LABS: BASO % 0.4 % (0-2.0); EOS % 2.8 % (0-4.5); HEMATOCRIT 28.3 % (32.4-45.2); HEMOGLOBIN 8.2 GM/dL (10.7-15.3); LYMPH % 22.8 % (8-40); MCH 18.2 pg (25.7-33.7); MEAN CELL VOLUME 62.7 fl (80-96); MEAN PLT VOLUME 7.5 fl (7.5-11.1); PLATELET COUNT 377 K/MM3 (134-434); RBC 4.52 M/mm3 (3.60-5.2); RDW 18.9 % (11.6-15.6); WHITE BLOOD COUNT 8.2 K/mm3 (4.0-10.0)
[2017-09-15 19:24] LABS: ALBUMIN 3.1 g/dl (3.4-5.0); ANION GAP 6 (8-16); BILIRUBIN,TOTAL 0.2 mg/dL (0.2-1.0); BLOOD UREA NITROGEN 8 mg/dL (7-18); CALCIUM 8.2 mg/dL (8.5-10.1); CHLORIDE 105 mmol/L (98-107); CO2 27 mmol/L (21-32); CREATININE 0.6 mg/dL (0.55-1.02); GLUCOSE,RANDOM 92 mg/dL (74-106); SGOT/AST 24 U/L (15-37); SGPT/ALT 13 U/L (12-78); SODIUM 138 mmol/L (136-145); TOT PROT 6.3 g/dl (6.4-8.2)
[2017-09-15 19:25] LABS: ALK PHOS 120 U/L (45-117)
[2017-09-15 19:29] LABS: INR 1.12 (0.82-1.09); PROTHROMBIN TIME (PATIENT) 12.6 SEC (9.7-13.0)
[2017-09-15 20:27] LABS: ANISOCYTOSIS 2+
[2017-09-15 20:28] LABS: PLATELET ESTIMATE ADEQUATE
[2017-09-15] MEDS ORDERED: ACETAMINOPHEN 1000 MG/100 ML VIAL (NON FORMULARY) IVPB ONE (21:36)
[2017-09-15] MEDS ORDERED: METOCLOPRAMIDE HCL INJECTION 10 MG/2 ML VIAL IVPUSH ONE (21:36)
--- NOTE | 2017-09-15 21:44 | PDOC ---
*Physical Exam - Vital Signs Last Vital Signs Temp Pulse Resp BP Pulse Ox 99.0 F 120 H 18 111/74 100 09/15/17 18:07 09/15/17 18:07 09/15/17 18:07 09/15/17 18:07 09/15/17 18:07 - Physical Exam Comments: 09/15/17 21:43 GENERAL: Awake, alert, and fully oriented, in no acute distress HEAD: No signs of trauma, normocephalic, atraumatic EYES: PERRLA, EOMI, sclera anicteric, conjunctiva clear ENT: Auricles normal inspection, hearing grossly normal, nares patent, oropharynx clear without exudates. Moist mucosa NECK: Normal ROM, supple, no lymphadenopathy, JVD, or masses LUNGS: No distress, speaks full sentences, clear to auscultation bilaterally HEART: Regular rate and rhythm, normal S1 and S2, no murmurs, rubs or gallops, peripheral pulses normal and equal bilaterally. EXTREMITIES: Normal inspection, Normal range of motion, no edema. No clubbing or cyanosis. NEUROLOGICAL: Cranial nerves II through XII grossly intact. Normal speech, no focal sensorimotor deficits SKIN: Warm, Dry, normal turgor, no rashes or lesions noted. ED Treatment Course - LABORATORY CBC & Chemistry Diagram: 09/15/17 18:43 09/15/17 18:43 - ADDITIONAL ORDERS Additional order review: Laboratory Results 09/15/17 09/15/17 09/15/17 18:52 18:52 18:52 PT with INR 12.60 INR 1.12 Sodium Potassium Chloride Carbon Dioxide Anion Gap BUN Creatinine Creat Clearance w eGFR Random Glucose Calcium Magnesium Total Bilirubin AST ALT Alkaline Phosphatase Creatine Kinase 45 Troponin I < 0.02 Total Protein Albumin Serum , Qual Negative 09/15/17 18:43 PT with INR INR Sodium 138 Potassium 4.0 Chloride 105 Carbon Dioxide 27 Anion Gap 6 L BUN 8 Creatinine 0.6 Creat Clearance w eGFR > 60 Random Glucose 92 Calcium 8.2 L Magnesium 2.0 Total Bilirubin 0.2 D AST 24 ALT 13 Alkaline Phosphatase 120 H Creatine Kinase Troponin I Total Protein 6.3 L Albumin 3.1 L Serum , Qual 09/15/17 18:43 RBC 4.52 MCV 62.7 L MCHC 29.0 L RDW 18.9 H MPV 7.5 Neutrophils % 66.0 Lymphocytes % 22.8 D Monocytes % 8.0 Eosinophils % 2.8 D Basophils % 0.4 Medical Decision Making - Medical Decision Making 09/15/17 21:[address] Logan. Patient PMH of anxiety, asthma, anemia, SVT, SBO, HTN, who presents to the ER with R sided numbness and pain. She is also complaining of headache at this time that she states started around this entire event. Patient still reporting chest pain. Patient reports that she is very anxious and normally takes klonopin at this time. Labs reviewed, no obvious abnormalities. Head ct negative. EKG shows sinus tachycardic. Not tachycardic on my exam. Given tylenol and reglan for headache. Given 0.5mg of ativan for anxiety. Patient will be admitted for further neuro deficits. 09/15/17 22:14 Accepted to obs tele by Angeles Huff. *DC/Admit/Observation/Transfer Diagnosis at time of Disposition: Neuropathy, Headache - Discharge Dispostion Condition at time of disposition: Stable Decision to Admit order: Yes - Referrals Referrals: Katia Campbell [Primary Care Provider] - - Patient Instructions - Post Discharge Activity
[2017-09-15] MEDS ORDERED: SODIUM CHLORIDE 1,000 ML IV STA (22:10)
[2017-09-15] MEDS ORDERED: ASPIRIN 81 MG CHEWABLE TABLETS PO ONE (22:13)
--- NOTE | 2017-09-15 22:22 | HP ---
CHIEF COMPLAINT: Chest Pain, R- sided Numbness PCP: Dr. Campbell HISTORY OF PRESENT ILLNESS: This is a 42 y/o woman PMH Anxiety, Asthma, Anemia, SVT, HTN, SBO, Chronic Pain (Pain Mgmt). Who presents to the ED with Chest Pain, R- sided numbness and syncope. Patient reports over the last 3-4 days she had right sided numbness. The patient reports having right chest wall pain after falling onto her right side after ?syncope. Patient had endorsed to the ED having right vision loss- now resolved, ER course was notable for: (1) CT Brain- neg ICH (2) Chest Xray image- no acute pathology (3) Trop I- 0.02 Recent Travel: None PAST MEDICAL HISTORY: See HPI PAST SURGICAL HISTORY: Social History: Smoking: Smokes cigarettes daily Alcohol: Denies Drugs: Denies Family History: Allergies No Known Allergies Allergy (Verified 09/15/17 18:06) HOME MEDICATIONS: Home Medications Medication Instructions Recorded Morphine *Sr* [MS Contin -] 60 mg PO Q12H 07/13/15 Oxycodone HCl 15 mg PO TID PRN 08/11/17 Miscellaneous Drug Not in Syst 1 each .ROUTE ASDIR #1 each 09/11/17 REVIEW OF SYSTEMS CONSTITUTIONAL: Absent: fever, chills, diaphoresis, generalized weakness, malaise, loss of appetite, weight change HEENT: visual changes Absent: rhinorrhea, nasal congestion, throat pain, throat swelling, difficulty swallowing, mouth swelling, ear pain, eye pain CARDIOVASCULAR: chest pain, syncope, Absent: palpitations, irregular heart rate, lightheadedness, peripheral edema RESPIRATORY: Absent: cough, shortness of breath, dyspnea with exertion, orthopnea, wheezing, stridor, hemoptysis GASTROINTESTINAL: Absent: abdominal pain, abdominal distension, nausea, vomiting, diarrhea, constipation, melena, hematochezia GENITOURINARY: Absent: dysuria, frequency, urgency, hesitancy, hematuria, flank pain, genital pain MUSCULOSKELETAL: back pain Absent: myalgia, arthralgia, joint swelling, neck pain SKIN: Absent: rash, itching, pallor HEMATOLOGIC/IMMUNOLOGIC: Absent: easy bleeding, easy bruising, lymphadenopathy, frequent infections ENDOCRINE: Absent: unexplained weight gain, unexplained weight loss, heat intolerance, cold intolerance NEUROLOGIC: paresthesias, focal weakness Absent: headache, dizziness, unsteady gait, seizure, mental status changes, bladder or bowel incontinence PSYCHIATRIC: Absent: anxiety, depression, suicidal or homicidal ideation, hallucinations. PHYSICAL EXAMINATION Vital Signs - 24 hr 09/15/17 18:07 Temperature 99.0 F Pulse Rate 120 H Respiratory 18 Rate Blood Pressure 111/74 O2 Sat by Pulse 100 Oximetry (%) GENERAL: Asleep but arousable, alert, and fully oriented, in no acute distress. HEAD: Normal with no signs of trauma. EYES: Pupils equal, round and reactive to light, extraocular movements intact, sclera anicteric, conjunctiva clear. No lid lag. EARS, NOSE, THROAT: Ears normal, nares patent, oropharynx clear without exudates. Moist mucous membranes. NECK: Normal range of motion, supple without lymphadenopathy, JVD, or masses. LUNGS: Breath sounds equal, clear to auscultation bilaterally. No wheezes, and no crackles. No accessory muscle use. HEART: Regular rate and rhythm, normal S1 and S2 without murmur, rub or gallop. CP is reproducible ABDOMEN: Soft, nontender, not distended, normoactive bowel sounds, no guarding, no rebound, no masses. No hepatomegaly or splenomegaly. MUSCULOSKELETAL: Normal range of motion at all joints. No bony deformities or tenderness. No CVA tenderness. UPPER EXTREMITIES: 2+ pulses, warm, well-perfused. No cyanosis. No clubbing. No peripheral edema. LOWER EXTREMITIES: 2+ pulses, warm, well-perfused. No calf tenderness. No peripheral edema. NEUROLOGICAL: Cranial nerves II-XII intact. Normal speech. Gait not observed. PSYCHIATRIC: Cooperative. Good eye contact. Appropriate mood and affect. SKIN: Warm, dry, normal turgor, no rashes or lesions noted, normal capillary refill. Laboratory Results - last 24 hr 09/15/17 09/15/17 09/15/17 18:43 18:43 18:52 WBC 8.2 RBC 4.52 Hgb 8.2 L D Hct 28.3 L D MCV 62.7 L MCH 18.2 L MCHC 29.0 L RDW 18.9 H Plt Count 377 D MPV 7.5 Neutrophils % 66.0 Lymphocytes % 22.8 D Monocytes % 8.0 Eosinophils % 2.8 D Basophils % 0.4 Nucleated RBC % 0 Hypochromia 3+ Platelet Estimate Adequate Platelet Comment Few lg.plts Anisocytosis 2+ PT with INR INR Sodium 138 Potassium 4.0 Chloride 105 Carbon Dioxide 27 Anion Gap 6 L BUN 8 Creatinine 0.6 Creat Clearance w eGFR > 60 Random Glucose 92 Calcium 8.2 L Magnesium 2.0 Total Bilirubin 0.2 D AST 24 ALT 13 Alkaline Phosphatase 120 H Creatine Kinase 45 Troponin I < 0.02 Total Protein 6.3 L Albumin 3.1 L Serum , Qual 09/15/17 09/15/17 18:52 18:52 WBC RBC Hgb Hct MCV MCH MCHC RDW Plt Count MPV Neutrophils % Lymphocytes % Monocytes % Eosinophils % Basophils % Nucleated RBC % Hypochromia Platelet Estimate Platelet Comment Anisocytosis PT with INR 12.60 INR 1.12 Sodium Potassium Chloride Carbon Dioxide Anion Gap BUN Creatinine Creat Clearance w eGFR Random Glucose Calcium Magnesium Total Bilirubin AST ALT Alkaline Phosphatase Creatine Kinase Troponin I Total Protein Albumin Serum , Qual Negative ASSESSMENT/PLAN: This is a 42 y/o woman with PMH Anxiety, Asthma, Anemia, SVT, HTN, SBO. Placed in Tele Observation for Chest Pain, TIA secondary to R-sided numbness, vision loss. Plan: Admit to Telemetry Observation for Chest Pain, TIA Serial Enzymes Cardiac Monitoring HEART Score 3 Appreciate Cardiology Consult Continue Asa Echo Neurochecks Appreciate Neurology consult NIHSS 3 Lipid Panel HgbA1c Repeat CBC, BMP in am UA- pending Fall precautions DVT ppx- OOB, SCDs, consider AC if LOS> 48hrs Code Status: Dispo: Tele Observation Problem List - Problem (1) Chest pain Code(s): R07.9 - CHEST PAIN, UNSPECIFIED (2) TIA (transient ischemic attack) Code(s): G45.9 - TRANSIENT CEREBRAL ISCHEMIC ATTACK, UNSPECIFIED (3) Neuropathy Code(s): G62.9 - POLYNEUROPATHY, UNSPECIFIED Visit type - Emergency Visit Emergency Visit: Yes ED Registration Date: 09/15/17 Care time: The patient presented to the Emergency Department on the above date and was hospitalized for further evaluation of their emergent condition. - New Patient This patient is new to me today: Yes Date on this admission: 09/16/17 - Critical Care Critical Care patient: No Hospitalist Screening - Colonoscopy Questionnaire Colonoscopy Questionnaire: Colonoscopy Questionnaire - Patient: 50 - 75 years old and never had a screening colonoscopy: No History of colon or rectal polyps, or CA: No History of IBD, Crohn's disease or UC: No History of abdominal radiation therapy as a child: No - Relative: 1 with colon or rectal CA, or polyps at age 60 or younger: No Colon or rectal CA diagnosed at age 45 or younger: No Multiple relatives with colon or rectal CA: No - Outcome: Screening Result: Negative Screen
[2017-09-15] MEDS ORDERED: METOCLOPRAMIDE HCL INJECTION 10 MG/2 ML VIAL ONE (23:01)
[2017-09-15] MEDS ORDERED: LORazepam 2 MG/ML SDV VIAL ONE (23:01)
[2017-09-15] MEDS ORDERED: ASPIRIN COATED 81 MG TABLET.EC ONE (23:02)
[2017-09-15] MEDS ORDERED: ACETAMINOPHEN INJECTION 100 ML IVPB ONE (23:02)
[2017-09-16 07:00] LABS: EOS % 5.4 % (0-4.5); HEMATOCRIT 24.7 % (32.4-45.2); HEMOGLOBIN 7.2 GM/dL (10.7-15.3); LYMPH % 35.2 % (8-40); MCHC 29.2 g/dl (32.0-36.0); MEAN CELL VOLUME 62.8 fl (80-96); MEAN PLT VOLUME 7.2 fl (7.5-11.1); MONO % 10.1 % (3.8-10.2); NEUT % 48.3 % (42.8-82.8); PLATELET COUNT 323 K/MM3 (134-434); RBC 3.94 M/mm3 (3.60-5.2); RDW 18.7 % (11.6-15.6); WHITE BLOOD COUNT 5.9 K/mm3 (4.0-10.0)
[2017-09-16 07:13] LABS: MCH 18.3 pg (25.7-33.7)
[2017-09-16 07:27] LABS: ANION GAP 4 (8-16); BLOOD UREA NITROGEN 10 mg/dL (7-18); CHLORIDE 106 mmol/L (98-107); CO2 30 mmol/L (21-32); GLUCOSE,RANDOM 80 mg/dL (74-106); POTASSIUM 4.1 mmol/L (3.5-5.1); SODIUM 140 mmol/L (136-145)
[2017-09-16 07:35] LABS: CHOLESTEROL 115 mg/dL (50-200); CREATININE 0.5 mg/dL (0.55-1.02); HDL CHOLESTEROL 19 mg/dL (40-60); TRIGLYCERIDES 123 mg/dL (35-160)
--- NOTE | 2017-09-16 09:47 | EKG ---
Test Reason : Blood Pressure : / mmHG Vent. Rate : 119 BPM Atrial Rate : 119 BPM P-R Int : 136 ms QRS Dur : 076 ms QT Int : 316 ms P-R-T Axes : 071 047 063 degrees QTc Int : 444 ms SINUS TACHYCARDIA OTHERWISE NORMAL ECG WHEN COMPARED WITH ECG OF 11-SEP-2017 17:40, NO SIGNIFICANT CHANGE WAS FOUND Confirmed by BRUNILDA MORENO MD ([id number]) on 09/16/2017 9:47:20 AM Referred By: Confirmed By:BRUNILDA MORENO MD
[2017-09-16] MEDS: ASPIRIN 81 MG CHEWABLE TABLETS PO SCH (10:21)
--- NOTE | 2017-09-16 10:30 | PN ---
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 She also had MRSA infection post laminectomy in 2014, was treated for it Patient sees Pain management Dr Dudley in the [place] Patient Name: Padmini Phillips Date: 1975 Address: [address] [place] [address] Sex: Female Rx Written Rx Dispensed Drug Quantity Days Supply Prescriber Name 08/31/2017 08/31/2017 clonazepam 1 mg tablet 60 30 Luis Enrique Bell M D 08/27/2017 08/29/2017 oxycodone hcl 15 mg tablet 90 30 Luis Enrique Bell M D 08/27/2017 08/27/2017 morphine sulf er 60 mg tablet 60 30 Luis Enrique Bell M D 08/26/2017 08/26/2017 oxycodone hcl 15 mg tablet 10 3 Lisa Tsang MD 08/26/2017 08/26/2017 morphine sulf er 30 mg tablet 12 4 Lisa Tsang MD 08/26/2017 08/26/2017 zolpidem tartrate 10 mg tablet 15 15 Lisa Tsang MD 08/13/2017 08/14/2017 diazepam 10 mg tablet 1 1 Katia Campbell MD 07/29/2017 07/31/2017 morphine sulf er 60 mg tablet 60 30 Luis Enrique Bell M D 07/29/2017 07/31/2017 oxycodone hcl 15 mg tablet 90 30 Luis Enrique Bell M D 07/29/2017 07/31/2017 zolpidem tartrate 10 mg tablet 30 30 Luis Enrique Bell M D 07/29/2017 07/29/2017 clonazepam 1 mg tablet 60 30 Luis Enrique Bell M D 07/24/2017 07/24/2017 oxycodone-acetaminophen 5-325 mg tab 20 3 Hunter Cook MD 07/15/2017 07/16/2017 morphine sulf er 60 mg tablet 30 15 Luis Enrique Bell M D 07/01/2017 07/02/2017 morphine sulf er 60 mg tablet 30 15 Luis Enrique Bell M D 07/01/2017 07/02/2017 oxycodone hcl 15 mg tablet 90 30 Luis Enrique Bell M D 07/01/2017 07/01/2017 zolpidem tartrate 10 mg tablet 30 30 Luis Enrique Bell M D 06/29/2017 06/29/2017 morphine sulf er 100 mg tablet 6 3 Lisa Tsang MD 06/29/2017 06/29/2017 oxycodone hcl 15 mg tablet 10 3 Lisa sTang MD 06/02/2017 06/06/2017 morphine sulf er 60 mg tablet 20 10 Luis Enrique Bell M D 05/26/2017 05/27/2017 oxycodone hcl 15 mg tablet 90 30 Luis Enrique Bell M D 05/26/2017 05/27/2017 zolpidem tartrate 10 mg tablet 30 30 Luis Enrique Bell M D 04/28/2017 05/11/2017 morphine sulf er 100 mg tablet 60 30 Luis Enrique Bell M D 04/28/2017 04/28/2017 oxycodone hcl 15 mg tablet 90 30 Luis Enrique Bell M D 04/28/2017 04/28/2017 zolpidem tartrate 10 mg tablet 30 30 Luis Enrique Bell M D - Current Medication List Current Medications: Active Medications Aspirin (Asa -) 81 mg PO DAILY MICHAEL Last Admin: 09/16/17 10:21 Dose: Not Given Iron Sucrose 300 mg/ Sodium (Chloride) 250 mls @ 250 mls/hr IVPB ONCE ONE Stop: 09/16/17 11:24 - Objective Vital Signs: Vital Signs Temperature 99.0 F 09/15/17 18:07 Pulse Rate 70 09/16/17 07:02 Respiratory Rate 16 09/16/17 07:02 Blood Pressure 97/66 09/16/17 07:02 O2 Sat by Pulse Oximetry (%) 97 09/16/17 07:02 Constitutional: Yes: Well Nourished, No Distress, Calm Cardiovascular: Yes: Regular Rate and Rhythm Respiratory: Yes: Regular Gastrointestinal: Yes: Normal Bowel Sounds, Soft Musculoskeletal: Yes: WNL Extremities: Yes: WNL Edema: No Peripheral Pulses WNL: Yes Neurological: Yes: Alert, Oriented Psychiatric: Yes: Alert, Oriented Labs: CBC, BMP 09/16/17 06:48 09/16/17 06:48 INR, PTT INR 1.12 (0.82-1.09) 09/15/17 18:52 Problem List - Problems (1) Syncope Assessment/Plan: -Cardiology and neurology consult -CT head unremarkable -EKG-ST -Tele monitoring -labs unremarkable except she is chronically anemic and gets iron infusions -MRI on neurology discretion- has had MRI post back surgery Code(s): R55 - SYNCOPE AND COLLAPSE (2) Chronic back pain Assessment/Plan: -restart Morphine ER 60 bid -Oxycodone 15 mg po TID PRN Code(s): M54.9 - DORSALGIA, UNSPECIFIED; G89.29 - OTHER CHRONIC PAIN (3) Chest pain Assessment/Plan: -EKG-ST -Cardiology consult -Serial Trops negative -Tele monitor -Echo pending -2/2 to anemia? Code(s): R07.9 - CHEST PAIN, UNSPECIFIED (4) Microcytic anemia Assessment/Plan: -Chronic -normal transfusion parameters, transfuse if Hg <7.0 -Venofer 300 mg IVPB once -stool OB Code(s): D50.9 - IRON DEFICIENCY ANEMIA, UNSPECIFIED Assessment/Plan see problem list
[2017-09-16] MEDS ORDERED: diphenhydrAMINE HCL 25 MG CAPSULE (FP) PO PRN (10:57)
[2017-09-16] MEDS ORDERED: IRON SUCROSE INJECTION 300 MG in SODIUM CHLORIDE 235 ML IVPB ONE (11:00)
[2017-09-16] MEDS ORDERED: oxyCODONE HCL 5 MG TABLET ONE (11:55)
[2017-09-16] MEDS ORDERED: clonazePAM 0.5 MG TABLET ONE (11:56)
[2017-09-16] MEDS ORDERED: morphine SULFATE IMMEDIATE RELEASE 30 MG TAB ONE (11:57)
[2017-09-16] MEDS ORDERED: morphine SO4 SUSTAINED ACTING 15 MG TABLET.SA ONE (12:06)
[2017-09-16] MEDS: clonazePAM 0.5 MG TABLET PO PRN ×2 (12:07→22:16)
[2017-09-16] MEDS: oxyCODONE HCL 5 MG TABLET PO PRN ×2 (12:08→19:05)
[2017-09-16] MEDS: morphine SO4 SUSTAINED ACTING 30 MG TABLET.SA PO SCH ×2 (12:12→22:16)
--- NOTE | 2017-09-16 15:00 | CON.CARD ---
Consult Consult Specialty:: Cardiology Referred by:: Hospitalist Reason for Consultation:: Chest pain - History of Present Illness Chief Complaint: R sided weakness History of Present Illness: 42 year old woman h/o HTN, PSVT, asthma, anemia, chronic back pain, admitted with R sided numbness and weakness and blurry vision. Pt seen and examined today in nad. Pt states that her symptoms began approx 3 days ago. states that she became weak on the right side and fell to the ground hitting the right side of her chest. States that she has had pain on the right side of her chest from the fall. Denies any syncope or near syncope. states the fall was from the right sided weakness. Continues to have numbness and weakness R side as well as intermittent blurry vision. Denies any other chest pain. No sob. Does feel her heart beating fast. H/o admission here approx 7 years ago with PSVT, never followed with a nutritional chemist. - Past Medical History ...LMP: 07/19/15 - Alcohol/Substance Use Hx Alcohol Use: No - Smoking History Smoking history: Current every day smoker Have you smoked in the past 12 months: Yes Aproximately how many cigarettes per day: 10 Home Medications - Allergies Allergies/Adverse Reactions: Allergies Allergy/AdvReac Type Severity Reaction Status Date / Time No Known Allergies Allergy Verified 09/15/17 18:06 - Home Medications Home Medications: Ambulatory Orders Morphine *Sr* [MS Contin -] 60 mg PO Q12H 07/13/15 Oxycodone HCl 15 mg PO TID PRN 08/11/17 Miscellaneous Drug Not in Syst 1 each .ROUTE ASDIR #1 each 09/11/17 Vital Signs: Vital Signs Temperature 98.2 F 09/16/17 13:38 Pulse Rate 75 09/16/17 13:38 Respiratory Rate 18 09/16/17 13:38 Blood Pressure 116/70 09/16/17 13:38 O2 Sat by Pulse Oximetry (%) 97 09/16/17 09:00 - Other Data Labs, Other Data: CBC, BMP 09/16/17 06:48 09/16/17 06:48 INR, PTT INR 1.12 (0.82-1.09) 09/15/17 18:52 Troponin, BNP 09/15/17 09/16/17 18:52 06:48 Troponin I < 0.02 < 0.02 Troponin, BNP 09/15/17 09/16/17 18:52 06:48 Troponin I < 0.02 < 0.02 Assessment/Plan 42 year old woman h/o HTN, PSVT, asthma, anemia, chronic back pain, admitted with R sided numbness and weakness and blurry vision. Pt states that her symptoms began approx 3 days ago. states that she became weak on the right side and fell to the ground hitting the right side of her chest. States that she has had pain on the right side of her chest from the fall. Denies any syncope or near syncope. states the fall was from the right sided weakness. Continues to have numbness and weakness R side as well as intermittent blurry vision. Chest pain-Right sided, pt states she hit this area of her chest when she fell 3 days ago -unlikely cardiac in origin -cardiac enzymes wnl -no ischemia on ekg -echo 09/06/17 showed normal LV systolic function, mild MR -No additional inpatient cardiac work up is needed at this point for chest pain R sided weakness/numbness/blurry vision -Neurology to consult -echo as above wnl -pt has a h/o PSVT but not Afib or aflutter -neurology to evaluate for CVA/TIA -if felt to be a CVA/TIA would arrange for longer term event monitor as outpatient -no additional inpatient cardiac work up is needed at this point Tachycardia-Sinus tachycardia, no arrhythmias recorded -would not medically treat at this time -check TFTs -maintain adequate hydration Please call with any additional questions.
[2017-09-16 17:16] VITALS: BMI 21.4
--- NOTE | 2017-09-16 18:46 | CONSULT ---
Consult Consult Specialty:: Hematology - History of Present Illness History of Present Illness: 42 y/o woman PMH Anxiety, Asthma, Anemia, SVT, HTN, SBO, Chronic Pain (Pain Mgmt ). Who presents to the ED with Chest Pain, R- sided numbness and syncope. Patient reports over the last 3-4 days she had right sided numbness. The patient reports having right chest wall pain after falling onto her right side after ?syncope.?TIA. Hematology consulted for severe anemia - Past Medical History ...LMP: 07/19/15 - Alcohol/Substance Use Hx Alcohol Use: No - Smoking History Smoking history: Current every day smoker Have you smoked in the past 12 months: Yes Aproximately how many cigarettes per day: 10 Home Medications - Allergies Allergies/Adverse Reactions: Allergies Allergy/AdvReac Type Severity Reaction Status Date / Time No Known Allergies Allergy Verified 09/15/17 18:06 - Home Medications Home Medications: Ambulatory Orders Morphine *Sr* [MS Contin -] 60 mg PO Q12H 07/13/15 Oxycodone HCl 15 mg PO TID PRN 08/11/17 Miscellaneous Drug Not in Syst 1 each .ROUTE ASDIR #1 each 09/11/17 Physical Exam Vital Signs: Vital Signs Temperature 98.3 F 09/16/17 14:45 Pulse Rate 76 09/16/17 14:45 Respiratory Rate 18 09/16/17 14:45 Blood Pressure 100/64 09/16/17 14:45 O2 Sat by Pulse Oximetry (%) 97 09/16/17 14:45 Constitutional: Yes: [place], Cachectic HENT: Yes: Atraumatic, Normocephalic Neck: Yes: Supple, Trachea Midline Cardiovascular: Yes: Regular Rate and Rhythm Respiratory: Yes: Regular, CTA Bilaterally Gastrointestinal: Yes: Normal Bowel Sounds, Soft Extremities: Yes: WNL Labs: CBC, BMP 09/16/17 06:48 09/16/17 06:48 Problem List - Problems (1) Microcytic anemia Code(s): D50.9 - IRON DEFICIENCY ANEMIA, UNSPECIFIED (2) TIA (transient ischemic attack) Code(s): G45.9 - TRANSIENT CEREBRAL ISCHEMIC ATTACK, UNSPECIFIED (3) Neuropathy Code(s): G62.9 - POLYNEUROPATHY, UNSPECIFIED (4) Chronic back pain Code(s): M54.9 - DORSALGIA, UNSPECIFIED; G89.29 - OTHER CHRONIC PAIN Assessment/Plan Chronic severe Iron deficiency anemia: s/p Gastric bypass poor compliance as per pt with 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
[2017-09-16] MEDS ORDERED: ACETAMINOPHEN 1000 MG/100 ML VIAL (NON FORMULARY) IVPB ONE (20:44)
[2017-09-16] MEDS ORDERED: SODIUM CHLORIDE 1,000 ML IV SCH (21:00)
--- NOTE | 2017-09-16 21:07 | HOSP ---
Physical Examination Vital Signs: Vital Signs Temperature 98.3 F 09/16/17 14:45 Pulse Rate 76 09/16/17 14:45 Respiratory Rate 18 09/16/17 14:45 Blood Pressure 100/64 09/16/17 14:45 O2 Sat by Pulse Oximetry (%) 97 09/16/17 14:45 Labs: CBC, BMP 09/16/17 06:48 09/16/17 06:48 Hospitalist Encounter Assessment: Called for fever 103 Will order urine cx, ua, blood cx, cxr, stool guiac Give 1gm tylenol x1 now CXR ordered 1L ns bolus for hypotension discussed with RN, pt has not received blood products yet
[2017-09-16] MEDS: ALBUTEROL SO4 0.083% IH SOL 2.5 MG/3 ML VIAL.NEB. NEB PRN (21:21)
[2017-09-16 21:33] LABS: URINE APPEARANCE CLEAR; URINE BILIRUBIN NEGATIVE (<2.0 mg/dL); URINE BLOOD NEGATIVE (NEGATIVE); URINE COLOR LTYELLOW; URINE GLUCOSE (UA) NEGATIVE (NEGATIVE); URINE KETONE NEGATIVE (NEGATIVE); URINE LEUK ESTERASE NEGATIVE (NEGATIVE); URINE NITRITE NEGATIVE (NEGATIVE); URINE PROTEIN NEGATIVE (NEGATIVE); URINE UROBILINOGEN NEGATIVE mg/dL (0.2-1.0)
[2017-09-16] MEDS ORDERED: morphine SO4 SUSTAINED ACTING 30 MG TABLET.SA PO SCH (22:00)
[2017-09-16] MEDS: DOCUSATE SODIUM 100 MG CAPSULE (FP) PO SCH (22:13)
[2017-09-17] MEDS: oxyCODONE HCL 5 MG TABLET PO PRN ×2 (07:59→23:00)
[2017-09-17 08:11] LABS: SERUM IRON SATURATION 3 % (15-55); TOTAL IRON BINDING CAPACITY 371 ug/dL (250-450); UIBC 360 ug/dL (131-425)
--- NOTE | 2017-09-17 09:19 | PN ---
Progress Note, Physician - Current Medication List Current Medications: Active Medications Albuterol Sulfate (Ventolin 0.083% Nebulizer Soln -) 1 amp NEB Q6H PRN PRN Reason: SHORT OF BREATH/WHEEZING Last Admin: 09/16/17 21:21 Dose: 1 amp Aspirin (Asa -) 81 mg PO DAILY [facility] Last Admin: 09/16/17 10:21 Dose: Not Given Clonazepam (Klonopin -) 1 mg PO BID PRN PRN Reason: ANXIETY Last Admin: 09/16/17 22:16 Dose: 1 mg Diphenhydramine HCl (Benadryl -) 50 mg PO HS PRN PRN Reason: INSOMNIA Last Admin: 09/16/17 22:18 Dose: 50 mg Docusate Sodium (Colace -) 300 mg PO HS [facility] Last Admin: 09/16/17 22:13 Dose: 300 mg Morphine Sulfate (Ms Contin -) 60 mg PO BID [facility] Last Admin: 09/16/17 22:16 Dose: Not Given Oxycodone HCl (Roxicodone -) 15 mg PO TID PRN PRN Reason: PAIN LEVEL 6-10 Last Admin: 09/17/17 07:59 Dose: 15 mg - Objective Vital Signs: Vital Signs Temperature 99.6 F 09/17/17 05:00 Pulse Rate 77 09/17/17 05:00 Respiratory Rate 19 09/17/17 05:00 Blood Pressure 102/58 09/17/17 05:00 O2 Sat by Pulse Oximetry (%) 96 09/16/17 21:00 Cardiovascular: Yes: Regular Rate and Rhythm Respiratory: Yes: Rhonchi, Wheezes Gastrointestinal: Yes: Normal Bowel Sounds, Soft, Tenderness (minimal left lower quadrant) Edema: No Labs: CBC, BMP 09/16/17 06:48 09/16/17 06:48 INR, PTT INR 1.12 (0.82-1.09) 09/15/17 18:52 Assessment/Plan - Problems (1) Syncope Assessment/Plan: -Cardiology and neurology consult -CT head unremarkable -EKG-ST -Tele monitoring -labs unremarkable except she is chronically anemic and gets iron infusions -MRI on neurology discretion- has had MRI post back surgery Code(s): R55 - SYNCOPE AND COLLAPSE (2) Chronic back pain Assessment/Plan: -restart Morphine ER 60 bid -Oxycodone 15 mg po TID PRN Code(s): M54.9 - DORSALGIA, UNSPECIFIED; G89.29 - OTHER CHRONIC PAIN (3) Chest pain Assessment/Plan: -EKG-ST -Cardiology consult -Serial Trops negative -Tele monitor -Echo pending -2/2 to anemia? Code(s): R07.9 - CHEST PAIN, UNSPECIFIED (4) Microcytic anemia Assessment/Plan: -Chronic -normal transfusion parameters, transfuse if Hg <7.0 -Venofer 300 mg IVPB once -stool OB Code(s): D50.9 - IRON DEFICIENCY ANEMIA, UNSPECIFIED (5) Fever Assessment/Plan: -Cultures -ID consult -ct abd
--- NOTE | 2017-09-17 10:35 | PN ---
Progress Note (short form) - Note Progress Note: ID Full note dictated Fever 103 says prior to transfusion Says feel like has "flu" but no respiratory complaints and no fever now Selected Entries 09/16/17 09/17/17 21:00 05:00 Temperature 103.8 F H 99.6 F Pulse Rate 77 Respiratory 19 Rate Blood Pressure 102/58 Exam Alert NAD Laboratory Tests 09/15/17 09/16/17 09/16/17 18:43 06:48 06:48 WBC 5.9 Hgb 7.2 L D Plt Count 323 Neutrophils % 48.3 D Lymphocytes % 35.2 D Monocytes % 10.1 BUN 10 Creatinine 0.5 L Total Bilirubin 0.2 D AST 24 ALT 13 Alkaline Phosphatase 120 H Ur Leukocyte Esterase 09/16/17 20:30 WBC Hgb Plt Count Neutrophils % Lymphocytes % Monocytes % BUN Creatinine Total Bilirubin AST ALT Alkaline Phosphatase Ur Leukocyte Esterase Negative Assessment Isolated fever Low grade now not acutely ill NO clear source ?Viral 1. Cultures sent chest xray neg 2. Observe for now off antibiotics 3. If fever recurs would not hesitate to start empiric antibiotic Vanco 1gr q 12H Cefepime 2 grs q 8 H 4. ESR CRP Ronda GALVEZ Problem List - Problems (1) FUO (fever of unknown origin) Code(s): R50.9 - FEVER, UNSPECIFIED (2) Neuropathy Code(s): G62.9 - POLYNEUROPATHY, UNSPECIFIED
[2017-09-17 10:48] LABS: BASO % 0.9 % (0-2.0); HEMATOCRIT 31.3 % (32.4-45.2); HEMOGLOBIN 9.5 GM/dL (10.7-15.3); LYMPH % 11.1 % (8-40); MCHC 30.3 g/dl (32.0-36.0); MEAN PLT VOLUME 7.9 fl (7.5-11.1); MONO % 8.2 % (3.8-10.2); NEUT % 75.8 % (42.8-82.8); PLATELET COUNT 292 K/MM3 (134-434); RBC 4.82 M/mm3 (3.60-5.2); RDW 21.2 % (11.6-15.6); WHITE BLOOD COUNT 6.7 K/mm3 (4.0-10.0)
[2017-09-17] MEDS: clonazePAM 0.5 MG TABLET PO PRN ×2 (10:52→21:30)
[2017-09-17] MEDS: ASPIRIN 81 MG CHEWABLE TABLETS PO SCH (10:52)
[2017-09-17] MEDS: morphine SO4 SUSTAINED ACTING 30 MG TABLET.SA PO SCH ×2 (10:52→21:29)
[2017-09-17 11:02] LABS: MCH 19.7 pg (25.7-33.7)
--- NOTE | 2017-09-17 11:15 | CONS ---
DATE OF CONSULTATION: DATE OF DICTATION: 09/17/2017 This is a 42-year-old female with a history of multiple medical issues including anxiety disorder, asthma, iron deficiency anemia, hypertension, SVT, small-bowel obstruction, status post lumbar laminectomy with hardware 2016. The patient is admitted with complaints of numbness on the entire right side of her body, mostly from the hip down, but also noted in the right arm. She experienced what was described as loss of balance and apparently fell on her right chest. She complained of some shortness of breath and pleuritic chest pain when she was initially admitted. She has now been in the hospital for 2 days, and though she did not come in with fever, she subsequently spiked temperature to 103.8 yesterday. She has been seen by Hematology, Dr. Krueger, on September 16 with clinical impression of iron deficiency anemia status post gastric bypass surgery, for which 2 units of packed cells was recommend. She was also given intravenous iron yesterday. I am not positive of the timing of the iron and red blood cell transfusion, but according to the patient, she had fever before transfusion. Subjectively, she notes feeling like she has the flu with generalized body aches. She currently has no fever, was not started on any antibiotic. She denies cough, abdominal pain, shortness of breath, or urinary complaints. She has no history of rash. She lives locally in a 2-family home with her mother. She has been HIV tested negative in the past. She has 2 cats at home which she has had for some time. She does occasional gardening but denies any history of tick bite. There was no travel or history of unusual hobbies or unusual exposures to persons with communicable illness. The patient had a history of lumbar laminectomy with hardware in the spring. She said that surgery was complicated by postoperative infection with Staph aureus for which she was taken back to the operating room with apparently debridement, but the hardware was left in place. She was treated with 6 weeks of antibiotics and possibly some oral antibiotic for a short period of time thereafter. She has had no recurrence of infection during this past year. PAST MEDICAL HISTORY: As noted above. CURRENT MEDICATIONS: Include Klonopin, aspirin, MS Contin. FAMILY HISTORY: Noncontributory. REVIEW OF SYSTEMS: Respiratory: No shortness of breath, cough. Cardiac: No chest pain, palpitations, murmur. History of SVT. Gastrointestinal: No abdominal pain, nausea, vomiting, diarrhea. Genitourinary: No dysuria, hematuria, urinary frequency. PHYSICAL EXAMINATION: General: She was an alert, thin woman in no acute distress. Vital Signs: Her temperature now 99.6, pulse 77, blood pressure 102/58, respirations 19. HEENT: Oropharynx benign. Neck: Supple. No adenopathy. Healed surgical scar, left neck. Lungs: Clear to P and A. Heart: S1, S2, regular rhythm without audible murmur. Abdomen: Soft, nontender, without hepatosplenomegaly. Extremities: Without clubbing, cyanosis, or edema. LABORATORY: White count yesterday 5.9, hemoglobin 7.2, hematocrit 24.7, platelets 323, with a normal differential counts, exception of mildly elevated eosinophil count of 5.4. The BUN, creatinine, liver enzymes within normal limit. Urinalysis negative. Two sets of blood cultures currently no growth. A urine culture pending. Chest x-ray was reviewed, shows no evidence of active infiltrate. ASSESSMENT: A 42-year-old Chinese female with history of a staphylococcal infection complicating spinal surgery September 2016 with no obvious recurrence since that time, presents with new onset of fever, "flu-like symptoms" but nothing specific at this time, and her temperature is down toward normal, 99. She appears stable hemodynamically. As no obvious source of infection and all IV sites look clean, I would elect to observe her off antibiotic at this time pending final blood and urine cultures. Fever may have been related to transfusion, although the patient says that this was prior to getting blood. Her chest x-ray was reviewed and shows no evidence of infiltrate. PLAN: Await final cultures. Observe off of antibiotics. Obtain a CRP and ESR to evaluate for possible chronic persistent spinal infection, and should there be any change in her condition and/or recurrent fever, would empirically start her on antibiotics with a combination of vancomycin and cefepime. BENI BUNCH M.D. JUSTIN/[id number]
--- NOTE | 2017-09-17 12:08 | CON.GI ---
Consult Consult Specialty:: GI Reason for Consultation:: anemia - History of Present Illness History of Present Illness: chart reviewed. Events noted. As per initial intake: 42 y/o woman PMH Anxiety , Asthma, Anemia, SVT, HTN, SBO, Chronic Pain (Pain Mgmt). Who presents to the ED with Chest Pain, R- sided numbness and syncope. Patient reports over the last 3-4 days she had right sided numbness. The patient reports having right chest wall pain after falling onto her right side after ?syncope.?TIA. Gastric dose was conducted for anemia. admission blood work reviewed reveals microcytic, hypochromic anemia with iron deficiency. Similar hematologic npicture was documented 1 year ago as well. At the time of this encountered the patient appears comfortable and not in distress. Denies recent, or recurrent melena, hematochezia, hematemesis. No reports of excessive bleeding, bruising. Had gastric bypass in 2002. Head post surgery EGD many years ago and was told she had inflammation. She was prescribed Protonix at that time. Patient reports no overt GERD-like symptoms however describes intermittent dysphagia to solids. Nonprogressive, occurring once or twice per month, short-lived, usually gets resolved without residual symptoms. The dysphagia is unrelated to any specific diet, activities, or stressors. - History Source History Provided By: Patient, Medical Record - Past Medical History ...LMP: 07/19/15 - Alcohol/Substance Use Hx Alcohol Use: No - Smoking History Smoking history: Current every day smoker Have you smoked in the past 12 months: Yes Aproximately how many cigarettes per day: 10 Home Medications - Allergies Allergies/Adverse Reactions: Allergies Allergy/AdvReac Type Severity Reaction Status Date / Time No Known Allergies Allergy Verified 09/15/17 18:06 - Home Medications Home Medications: Ambulatory Orders Morphine *Sr* [MS Contin -] 60 mg PO Q12H 07/13/15 Oxycodone HCl 15 mg PO TID PRN 08/11/17 Miscellaneous Drug Not in Syst 1 each .ROUTE ASDIR #1 each 09/11/17 Family Disease History - Family Disease History Family History: Unremarkable Review of Systems Findings/Remarks: As per H&P and HPI Physical Exam-GI Vital Signs: Vital Signs Temperature 98.6 F 09/17/17 09:00 Pulse Rate 76 09/17/17 09:00 Respiratory Rate 18 09/17/17 09:00 Blood Pressure 98/64 09/17/17 09:00 O2 Sat by Pulse Oximetry (%) 96 09/16/17 21:00 Constitutional: Yes: Calm, Ashen, Thin Eyes: Yes: Conjunctiva Clear HENT: Yes: Other ( stomatitis) Neck: Yes: Supple Respiratory: Yes: Regular Gastrointestinal Inspection: No: Distention ...Auscultate: Yes: Normoactive Bowel Sounds ...Palpate: Yes: Soft. No: Firm/Rigid, Guarding, Tenderness Neurological: Yes: Alert, Oriented Labs: CBC, BMP 09/17/17 10:25 09/16/17 06:48 INR, PTT INR 1.12 (0.82-1.09) 09/15/17 18:52 Laboratory Last Values WBC 6.7 K/mm3 (4.0-10.0) 09/17/17 10:25 RBC 4.82 M/mm3 (3.60-5.2) D 09/17/17 10:25 Hgb 9.5 GM/dL (10.7-15.3) L D 09/17/17 10:25 Hct 31.3 % (32.4-45.2) L D 09/17/17 10:25 MCV 65.0 fl (80-96) L 09/17/17 10:25 MCH 19.7 pg (25.7-33.7) L 09/17/17 10:25 MCHC 30.3 g/dl (32.0-36.0) L 09/17/17 10:25 RDW 21.2 % (11.6-15.6) H 09/17/17 10:25 Plt Count 292 K/MM3 (134-434) 09/17/17 10:25 MPV 7.9 fl (7.5-11.1) 09/17/17 10:25 Neutrophils % 75.8 % (42.8-82.8) D 09/17/17 10:25 Lymphocytes % 11.1 % (8-40) D 09/17/17 10:25 Monocytes % 8.2 % (3.8-10.2) 09/17/17 10:25 Eosinophils % 4.0 % (0-4.5) 09/17/17 10:25 Basophils % 0.9 % (0-2.0) 09/17/17 10:25 Nucleated RBC % 0 % (0-0) 09/17/17 10:25 Hypochromia 3+ 09/15/17 18:43 Platelet Estimate Adequate 09/15/17 18:43 Platelet Comment Few lg.plts 09/15/17 18:43 Anisocytosis 2+ 09/15/17 18:43 PT with INR 12.60 SEC (9.7-13.0) 09/15/17 18:52 INR 1.12 (0.82-1.09) 09/15/17 18:52 Sodium 140 mmol/L (136-145) 09/16/17 06:48 Potassium 4.1 mmol/L (3.5-5.1) 09/16/17 06:48 Chloride 106 mmol/L (98-107) 09/16/17 06:48 Carbon Dioxide 30 mmol/L (21-32) 09/16/17 06:48 Anion Gap 4 (8-16) L 09/16/17 06:48 BUN 10 mg/dL (7-18) 09/16/17 06:48 Creatinine 0.5 mg/dL (0.55-1.02) L 09/16/17 06:48 Creat Clearance w eGFR > 60 (>60) 09/15/17 18:43 Random Glucose 80 mg/dL (74-106) 09/16/17 06:48 Hemoglobin A1c % 4.8 % (4.8-6.0) 09/16/17 06:48 Calcium 8.0 mg/dL (8.5-10.1) L 09/16/17 06:48 Magnesium 2.0 mg/dL (1.8-2.4) 09/15/17 18:43 Iron 11 ug/dL (27-159) L 09/16/17 11:19 TIBC 371 ug/dL (250-450) 09/16/17 11:19 Iron Saturation 3 % (15-55) L 09/16/17 11:19 Ferritin 5.267 ng/ml (6.9-282.5) L 09/16/17 11:19 Total Bilirubin 0.2 mg/dL (0.2-1.0) D 09/15/17 18:43 AST 24 U/L (15-37) 09/15/17 18:43 ALT 13 U/L (12-78) 09/15/17 18:43 Alkaline Phosphatase 120 U/L (45-117) H 09/15/17 18:43 Creatine Kinase 45 IU/L (26-192) 09/15/17 18:52 Troponin I < 0.02 ng/ml (0.00-0.05) 09/16/17 06:48 C-Reactive Protein 3.1 MG/DL (0.00-0.3) H 09/17/17 10:25 Total Protein 6.3 g/dl (6.4-8.2) L 09/15/17 18:43 Albumin 3.1 g/dl (3.4-5.0) L 09/15/17 18:43 Triglycerides 123 mg/dL (35-160) 09/16/17 06:48 Cholesterol 115 mg/dL (50-200) 09/16/17 06:48 Total LDL Cholesterol 70 mg/dL (5-100) 09/16/17 06:48 HDL Cholesterol 19 mg/dL (40-60) L 09/16/17 06:48 Vitamin B12 412 pg/ml (180-914) 09/17/17 10:25 Serum Folate 20 ng/ml (3.1-17.5) H 09/17/17 10:25 TSH 0.35 uIU/ml (0.358-3.74) L 09/17/17 10:25 Free T4 0.79 ng/dl (0.76-1.46) 09/16/17 11:19 Serum , Qual Negative 09/15/17 18:52 Urine Color Ltyellow 09/16/17 20:30 Urine Appearance Clear 09/16/17 20:30 Urine pH 7.0 (5.0-8.0) D 09/16/17 20:30 Ur Specific [employer] 1.012 (1.001-1.035) 09/16/17 20:30 Urine Protein Negative (NEGATIVE) 09/16/17 20:30 Urine Glucose (UA) Negative (NEGATIVE) 09/16/17 20:30 Urine Ketones Negative (NEGATIVE) 09/16/17 20:30 Urine Blood Negative (NEGATIVE) 09/16/17 20:30 Urine Nitrite Negative (NEGATIVE) 09/16/17 20:30 Urine Bilirubin Negative (<2.0 mg/dL) 09/16/17 20:30 Urine Urobilinogen Negative mg/dL (0.2-1.0) 09/16/17 20:30 Ur Leukocyte Esterase Negative (NEGATIVE) 09/16/17 20:30 Blood Type O POSITIVE 09/16/17 20:00 Antibody Screen Negative 09/16/17 20:00 Crossmatch See Detail 09/16/17 20:00 Problem List - Problems (1) Iron deficiency anemia Code(s): D50.9 - IRON DEFICIENCY ANEMIA, UNSPECIFIED (2) Chronic anemia Code(s): D64.9 - ANEMIA, UNSPECIFIED (3) Microcytic hypochromic anemia Code(s): D50.9 - IRON DEFICIENCY ANEMIA, UNSPECIFIED (4) Dysphagia Code(s): R13.10 - DYSPHAGIA, UNSPECIFIED Assessment/Plan a 42-year-old female with the above medical problems presents with microcytic, hypochromic, iron deficiency, anemia which appears to be chronic. There is no stigmata of recent, or ongoing gastrointestinal blood loss. There is history of gastritis on EGD many years ago, after gastric bypass in 2002. As discussed with the patient, plan upper endoscopy to rule out ongoing gastritis, esophagitis, marginal ulcers, duodenitis, celiac, etc.. We will plan colonoscopy at the same time to rule rule out malignancy, angiectasia, colitis.
[2017-09-17 18:41] LABS: URINE APPEARANCE CLEAR; URINE BILIRUBIN NEGATIVE (<2.0 mg/dL); URINE BLOOD NEGATIVE (NEGATIVE); URINE COLOR LTYELLOW; URINE GLUCOSE (UA) NEGATIVE (NEGATIVE); URINE KETONE NEGATIVE (NEGATIVE); URINE LEUK ESTERASE NEGATIVE (NEGATIVE); URINE NITRITE NEGATIVE (NEGATIVE); URINE PROTEIN NEGATIVE (NEGATIVE)
[2017-09-17] MEDS: DOCUSATE SODIUM 100 MG CAPSULE (FP) PO SCH (21:29)
--- NOTE | 2017-09-17 21:33 | CONSULT ---
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 H/O recurrent anemia often requiring transfusions over many years. +Anxiety, insomnia. Chronic "migraine headaches" since age 12. Often with menses (catamenial). LI's have gradually increased in frequency and severity and now occur 3/week. Can be awakened from sleep with severe headaches. Rarely has warning during the day. Hemicranial or holocranial throbbing and pressing headaches witn nausea. vomiting, photophobia, phonophobia, osmophobia and kinesiophobia. H/O severe headaches in her mother. Takes imitrex PRN. Now admitted after transient right-sided numbness and tingling with right sided visual loss associated with a severe right sided headaches. CT of brain (reviewed): Normal Fe++=11; Fe Sat= 3%; Ferritin = 5.3 Progressive LB pain and b/l leg pains since 2006. Initially at night now "all day." Burning, shooting, stabbing pains worse at night with severe insomnia. s/p LS laminectomy 2014 complicated by staph infection. Leg pains "only got worse." Over the last few years, similar, albeit milder, pains in the legs at night. Legs stiff and painful in the morning. Can take up to 3 hours to loosen up. Chronic and severe Bruxism. Pt can find "bits of teeth" on her pillow in the morning. CHRISTOPHE: Thin. No head trauma. No bruits. - SLR. Well-healed LS scar. Poor dentition. NEURO: MS/speech: Normal CN II-XII: normal including monocular and binocular palacios. Motor: No drift or tremor. Normal strength, tone, bulk, and reflexes. Toes downgoing. Coord: NO FTN dystaxia Sensory: Normal. Romberg neg Gait: Initially stiff-legged then improves. IMP: Normal neurological exam. Migraine headaches. Admission event was a complicated migraine with prolonged aura. 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 Will be exacerbated by Iron deficiency. Thalassemia Minor (?). SUGGEST: Start depakote ER 250 mg/d x 4 days then 500 mg/day Start Pramipexole 0.125 mg q hs x 4 days then 0.25 mg PO q hs Iron supplementation (consider IV Iron). Neuro follow-up as out paatient. Thank you very much, Anoop Mayer MD
[2017-09-17] MEDS ORDERED: IRON SUCROSE INJECTION 200 MG in SODIUM CHLORIDE 240 ML IVPB ONE ×2 (22:40→22:56)
[2017-09-17] MEDS ORDERED: IRON SUCROSE INJECTION 200 MG in SODIUM CHLORIDE 100 ML IVPB ONE (23:15)
[2017-09-17] MEDS: PRAMIPEXOLE DIHYDROCHLORIDE 0.125 MG TABLET PO SCH (23:31)
[2017-09-17] MEDS: DIVALPROEX NA *ER* EXTEND REL 250 MG TABLET.SA PO SCH (23:32)
[2017-09-18] MEDS: ALBUTEROL SO4 0.083% IH SOL 2.5 MG/3 ML VIAL.NEB. NEB PRN ×2 (08:30→16:53)
[2017-09-18] MEDS: morphine SO4 SUSTAINED ACTING 30 MG TABLET.SA PO SCH ×2 (09:46→21:19)
[2017-09-18] MEDS: ASPIRIN 81 MG CHEWABLE TABLETS PO SCH (09:46)
[2017-09-18] MEDS: clonazePAM 0.5 MG TABLET PO PRN ×2 (10:12→21:20)
[2017-09-18] MEDS: oxyCODONE HCL 5 MG TABLET PO PRN ×2 (10:12→18:20)
--- NOTE | 2017-09-18 11:27 | PN ---
Progress Note, Physician Chief Complaint: AWAKE ALERT MILD DISTRESS C/O SOB AND CHILLS CHART REVIEWED - Current Medication List Current Medications: Active Medications Albuterol Sulfate (Ventolin 0.083% Nebulizer Soln -) 1 amp NEB Q6H PRN PRN Reason: SHORT OF BREATH/WHEEZING Last Admin: 09/18/17 08:30 Dose: 1 amp Aspirin (Asa -) 81 mg PO DAILY [facility] Last Admin: 09/18/17 09:46 Dose: 81 mg Clonazepam (Klonopin -) 1 mg PO BID PRN PRN Reason: ANXIETY Last Admin: 09/18/17 10:12 Dose: 1 mg Divalproex Sodium (Depakote *Er* -) 250 mg PO HS [facility] Last Admin: 09/17/17 23:32 Dose: 250 mg Docusate Sodium (Colace -) 300 mg PO HS [facility] Last Admin: 09/17/17 21:29 Dose: 300 mg Iron Sucrose 200 mg/ Sodium (Chloride) 250 mls @ 250 mls/hr IVPB DAILY ONE Stop: 09/17/17 23:39 Morphine Sulfate (Ms Contin -) 60 mg PO BID [facility] Last Admin: 09/18/17 09:46 Dose: 60 mg Oxycodone HCl (Roxicodone -) 15 mg PO TID PRN PRN Reason: PAIN LEVEL 6-10 Last Admin: 09/18/17 10:12 Dose: 15 mg Pramipexole Dihydrochloride (Mirapex -) 0.125 mg PO HS@2000 [facility] Last Admin: 09/17/17 23:31 Dose: 0.125 mg - Objective Vital Signs: Vital Signs Temperature 98.4 F 09/18/17 09:00 Pulse Rate 66 09/18/17 09:00 Respiratory Rate 18 09/18/17 09:00 Blood Pressure 91/58 09/18/17 09:00 O2 Sat by Pulse Oximetry (%) 98 09/18/17 09:00 Constitutional: Yes: Mild Distress Eyes: Yes: WNL HENT: Yes: WNL Neck: Yes: WNL Cardiovascular: Yes: WNL Respiratory: Yes: On Nasal O2, SOB Gastrointestinal: Yes: WNL Genitourinary: Yes: WNL Musculoskeletal: Yes: Back Pain Extremities: Yes: WNL Edema: No Peripheral Pulses WNL: Yes Integumentary: Yes: WNL Wound/Incision: Yes: Clean/Dry Neurological: Yes: Other ...Motor Strength: LLE Psychiatric: Yes: WNL Labs: CBC, BMP 09/17/17 10:25 09/16/17 06:48 INR, PTT INR 1.12 (0.82-1.09) 09/15/17 18:52 Problem List - Problems (1) Encephalitis and encephalomyelitis, unspecified Code(s): G04.90 - ENCEPHALITIS AND ENCEPHALOMYELITIS, UNSPECIFIED (2) Chest pain Code(s): R07.9 - CHEST PAIN, UNSPECIFIED (3) Chronic anemia Code(s): D64.9 - ANEMIA, UNSPECIFIED (4) Chronic back pain Code(s): M54.9 - DORSALGIA, UNSPECIFIED; G89.29 - OTHER CHRONIC PAIN (5) FUO (fever of unknown origin) Code(s): R50.9 - FEVER, UNSPECIFIED (6) Headache Code(s): R51 - HEADACHE (7) Iron deficiency anemia Code(s): D50.9 - IRON DEFICIENCY ANEMIA, UNSPECIFIED (8) Microcytic hypochromic anemia Code(s): D50.9 - IRON DEFICIENCY ANEMIA, UNSPECIFIED (9) Neuropathy Code(s): G62.9 - POLYNEUROPATHY, UNSPECIFIED (10) Abdominal pain Code(s): R10.9 - UNSPECIFIED ABDOMINAL PAIN Qualifiers: Abdominal location: lower abdomen, unspecified Qualified Code(s): R10.30 - Lower abdominal pain, unspecified (11) UTI (urinary tract infection) Code(s): N39.0 - URINARY TRACT INFECTION, SITE NOT SPECIFIED Qualifiers: Urinary tract infection type: acute cystitis Hematuria presence: without hematuria Qualified Code(s): N30.00 - Acute cystitis without hematuria (12) Back pain Code(s): M54.9 - DORSALGIA, UNSPECIFIED Assessment/Plan ANEMIA WORKUP IN PROGRESS EGD THURSDAY MORNING IRON VENOFER INJECTIONS CHECK CBC NOW NEUROLOGY WORKUP FOR HEADACHE INFCTION VS MIGRAINE ELEVATED ESR CHECK LYME TITERS, HSV, CMV, INFECTIOUS DISEASE WORKUP FOR FEVER 02 SUPPORT CHEST PAIN EKG, TROPONIN CHECKS
[2017-09-18 11:58] LABS: HEMOGLOBIN 9.7 GM/dL (10.7-15.3); MCHC 30.4 g/dl (32.0-36.0); MEAN CELL VOLUME 65.6 fl (80-96); PLATELET COUNT 271 K/MM3 (134-434); RBC 4.89 M/mm3 (3.60-5.2); RDW 20.9 % (11.6-15.6)
[2017-09-18 11:59] LABS: MCH 19.9 pg (25.7-33.7)
--- NOTE | 2017-09-18 12:19 | PN ---
Progress Note, Physician History of Present Illness: No acute events overnight. Tolerating liquids. Avoiding solid food. Pain- free. Comfortable. No stigmata of active gastrointestinal bleeding. - Current Medication List Current Medications: Active Medications Albuterol Sulfate (Ventolin 0.083% Nebulizer Soln -) 1 amp NEB Q6H PRN PRN Reason: SHORT OF BREATH/WHEEZING Last Admin: 09/18/17 08:30 Dose: 1 amp Aspirin (Asa -) 81 mg PO DAILY [facility] Last Admin: 09/18/17 09:46 Dose: 81 mg Clonazepam (Klonopin -) 1 mg PO BID PRN PRN Reason: ANXIETY Last Admin: 09/18/17 10:12 Dose: 1 mg Divalproex Sodium (Depakote *Er* -) 250 mg PO [facility] Last Admin: 09/17/17 23:32 Dose: 250 mg Docusate Sodium (Colace -) 300 mg PO [facility] Last Admin: 09/17/17 21:29 Dose: 300 mg Morphine Sulfate (Ms Contin -) 60 mg PO BID [facility] Last Admin: 09/18/17 09:46 Dose: 60 mg Oxycodone HCl (Roxicodone -) 15 mg PO TID PRN PRN Reason: PAIN LEVEL 6-10 Last Admin: 09/18/17 10:12 Dose: 15 mg Pramipexole Dihydrochloride (Mirapex -) 0.125 mg PO HS@2000 [facility] Last Admin: 09/17/17 23:31 Dose: 0.125 mg - Objective Vital Signs: Vital Signs Temperature 98.4 F 09/18/17 09:00 Pulse Rate 66 09/18/17 09:00 Respiratory Rate 18 09/18/17 09:00 Blood Pressure 91/58 09/18/17 09:00 O2 Sat by Pulse Oximetry (%) 98 09/18/17 09:00 Constitutional: Yes: Calm Eyes: Yes: Conjunctiva Clear Gastrointestinal: Yes: Normal Bowel Sounds, Soft. No: Tenderness Neurological: Yes: Alert, Oriented Labs: CBC, BMP 09/18/17 11:35 INR, PTT INR 1.12 (0.82-1.09) 09/15/17 18:52 Problem List - Problems (1) Iron deficiency anemia Code(s): D50.9 - IRON DEFICIENCY ANEMIA, UNSPECIFIED (2) Chronic anemia Code(s): D64.9 - ANEMIA, UNSPECIFIED (3) Microcytic hypochromic anemia Code(s): D50.9 - IRON DEFICIENCY ANEMIA, UNSPECIFIED (4) Dysphagia Code(s): R13.10 - DYSPHAGIA, UNSPECIFIED Assessment/Plan As discussed with the patient, plan upper endoscopy to rule out ongoing gastritis, esophagitis, marginal ulcers, duodenitis, celiac, etc.. We will plan colonoscopy at the same time to rule rule out malignancy, angiectasia, colitis.
[2017-09-18 12:43] LABS: ALBUMIN 2.8 g/dl (3.4-5.0); ANION GAP 4 (8-16); BILIRUBIN,TOTAL 0.4 mg/dL (0.2-1.0); BLOOD UREA NITROGEN 6 mg/dL (7-18); CALCIUM 8.2 mg/dL (8.5-10.1); CHLORIDE 105 mmol/L (98-107); CO2 31 mmol/L (21-32); CREATININE 0.6 mg/dL (0.55-1.02); GLUCOSE,RANDOM 114 mg/dL (74-106); POTASSIUM 4.4 mmol/L (3.5-5.1); SGOT/AST 46 U/L (15-37); SGPT/ALT 25 U/L (12-78); SODIUM 140 mmol/L (136-145); TOT PROT 5.7 g/dl (6.4-8.2)
[2017-09-18 12:44] LABS: ALK PHOS 117 U/L (45-117)
[2017-09-18] MEDS ORDERED: PT OWN MED DRAWER 7, Y5N ONE (20:25)
[2017-09-18] MEDS: PRAMIPEXOLE DIHYDROCHLORIDE 0.125 MG TABLET PO SCH (20:28)
[2017-09-18] MEDS: DIVALPROEX NA *ER* EXTEND REL 250 MG TABLET.SA PO SCH (21:19)
[2017-09-18] MEDS: DOCUSATE SODIUM 100 MG CAPSULE (FP) PO SCH (21:19)
--- NOTE | 2017-09-19 00:01 | PN ---
Progress Note (short form) - Note Progress Note: Patient seen and examined 42 y/o woman PMH Anxiety, Asthma, Anemia, SVT, HTN, SBO, Chronic Pain (Pain Mgmt ). Who presents to the ED with Chest Pain, R- sided numbness and syncope. Patient reports over the last 3-4 days she had right sided numbness. The patient reports having right chest wall pain after falling onto her right side after ?syncope.?TIA. We have been consulted for anemia--which has improved post transfusion reports some abdominal discomfort AFVSS Constitutional: Yes: Ashen, Cachectic HENT: Yes: Atraumatic, Normocephalic Neck: Yes: Supple, Trachea Midline Cardiovascular: Yes: Regular Rate and Rhythm Respiratory: Yes: Regular, CTA Bilaterally Gastrointestinal: Yes: Normal Bowel Sounds, Soft Extremities: Yes: WNL Labs: Abnormal Lab Results 09/18/17 09/18/17 09/18/17 07:52 11:35 11:35 Hgb 9.7 L Hct 32.0 L MCV 65.6 L MCH 19.9 L MCHC 30.4 L RDW 20.9 H ESR 22 H Anion Gap 4 L BUN 6 L Random Glucose 114 H Calcium 8.2 L AST 46 H Total Protein 5.7 L Albumin 2.8 L 09/19/17 06:00 Hgb 9.5 L Hct 31.7 L MCV 66.2 L MCH 19.8 L MCHC 29.9 L RDW 21.5 H ESR Anion Gap BUN Random Glucose Calcium AST Total Protein Albumin Problem List - Problems (1) Microcytic anemia Code(s): D50.9 - IRON DEFICIENCY ANEMIA, UNSPECIFIED (2) TIA (transient ischemic attack) Code(s): G45.9 - TRANSIENT CEREBRAL ISCHEMIC ATTACK, UNSPECIFIED (3) Neuropathy Code(s): G62.9 - POLYNEUROPATHY, UNSPECIFIED (4) Chronic back pain Code(s): M54.9 - DORSALGIA, UNSPECIFIED; G89.29 - OTHER CHRONIC PAIN Assessment/Plan Chronic severe Iron deficiency anemia: s/p Gastric bypass s/p PRBCS ferritin 5 will need ongoing iv iron replacement gor gi w/u CT abdomen--pancreatic divisum, thickening of stomach, mild splenomegaly will order iv iron
[2017-09-19 08:06] LABS: HEMATOCRIT 31.7 % (32.4-45.2); HEMOGLOBIN 9.5 GM/dL (10.7-15.3); MCHC 29.9 g/dl (32.0-36.0); MEAN CELL VOLUME 66.2 fl (80-96); MEAN PLT VOLUME 8.4 fl (7.5-11.1); PLATELET COUNT 277 K/MM3 (134-434); RBC 4.78 M/mm3 (3.60-5.2); RDW 21.5 % (11.6-15.6); WHITE BLOOD COUNT 6.1 K/mm3 (4.0-10.0)
[2017-09-19 08:23] LABS: MCH 19.8 pg (25.7-33.7)
[2017-09-19 08:35] LABS: CHLORIDE 104 mmol/L (98-107); POTASSIUM 4.4 mmol/L (3.5-5.1); SODIUM 141 mmol/L (136-145)
[2017-09-19 08:46] LABS: ANION GAP 8 (8-16); BLOOD UREA NITROGEN 7 mg/dL (7-18); CO2 29 mmol/L (21-32); CREATININE 0.5 mg/dL (0.55-1.02); GLUCOSE,RANDOM 67 mg/dL (74-106)
--- NOTE | 2017-09-19 09:03 | PN ---
Progress Note, Physician - Current Medication List Current Medications: Active Medications Albuterol Sulfate (Ventolin 0.083% Nebulizer Soln -) 1 amp NEB Q6H PRN PRN Reason: SHORT OF BREATH/WHEEZING Last Admin: 09/18/17 16:53 Dose: 1 amp Aspirin (Asa -) 81 mg PO DAILY [facility] Last Admin: 09/18/17 09:46 Dose: 81 mg Bisacodyl (Dulcolax -) 20 mg PO ONCE ONE Stop: 09/20/17 12:18 Clonazepam (Klonopin -) 1 mg PO BID PRN PRN Reason: ANXIETY Last Admin: 09/18/17 21:20 Dose: 1 mg Divalproex Sodium (Depakote *Er* -) 250 mg PO [facility] Last Admin: 09/18/17 21:19 Dose: 250 mg Docusate Sodium (Colace -) 300 mg PO HS [facility] Last Admin: 09/18/17 21:19 Dose: 300 mg Morphine Sulfate (Ms Contin -) 60 mg PO BID [facility] Last Admin: 09/18/17 21:19 Dose: 60 mg Oxycodone HCl (Roxicodone -) 15 mg PO TID PRN PRN Reason: PAIN LEVEL 6-10 Last Admin: 09/18/17 18:20 Dose: 15 mg Polyethylene Glycol/Electrolytes (Golytely Solution -) 4,000 ml PO ONCE ONE Stop: 09/20/17 17:01 Pramipexole Dihydrochloride (Mirapex -) 0.125 mg PO HS@1999 [facility] Last Admin: 09/18/17 20:28 Dose: 0.125 mg - Objective Vital Signs: Vital Signs Temperature 98.2 F 09/19/17 06:00 Pulse Rate 65 09/19/17 06:00 Respiratory Rate 18 09/19/17 06:00 Blood Pressure 102/52 09/19/17 06:00 O2 Sat by Pulse Oximetry (%) 98 09/18/17 21:00 Cardiovascular: Yes: Regular Rate and Rhythm Respiratory: Yes: Regular, CTA Bilaterally Gastrointestinal: Yes: Normal Bowel Sounds, Soft Labs: CBC, BMP 09/19/17 06:00 INR, PTT INR 1.12 (0.82-1.09) 09/15/17 18:52 Assessment/Plan - Problems (1) Syncope Assessment/Plan: -Cardiology and neurology consult -CT head unremarkable -EKG-ST -Tele monitoring -labs unremarkable except she is chronically anemic and gets iron infusions -MRI on neurology discretion- has had MRI post back surgery Code(s): R55 - SYNCOPE AND COLLAPSE (2) Chronic back pain Assessment/Plan: -restart Morphine ER 60 bid -Oxycodone 15 mg po TID PRN Code(s): M54.9 - DORSALGIA, UNSPECIFIED; G89.29 - OTHER CHRONIC PAIN (3) Chest pain Assessment/Plan: -EKG-ST -Cardiology consult -Serial Trops negative -Tele monitor -Echo pending -05/22 to anemia? Code(s): R07.9 - CHEST PAIN, UNSPECIFIED (4) Microcytic anemia Assessment/Plan: -Chronic -normal transfusion parameters, transfuse if Hg <7.0 -Venofer 300 mg IVPB once -endoscopy on thursday Code(s): D50.9 - IRON DEFICIENCY ANEMIA, UNSPECIFIED (5) Fever Assessment/Plan: -Cultures -ID consult -ct abd (6) abdominal Pain Assessment/Plan: -Endoscopies on thursday -Follow Labs
[2017-09-19 09:09] LABS: CALCIUM 8.2 mg/dL (8.5-10.1)
[2017-09-19] MEDS ORDERED: IRON SUCROSE INJECTION 100 MG in SODIUM CHLORIDE 95 ML IVPB ONE (09:16)
[2017-09-19] MEDS: ASPIRIN 81 MG CHEWABLE TABLETS PO SCH (09:24)
[2017-09-19] MEDS: morphine SO4 SUSTAINED ACTING 30 MG TABLET.SA PO SCH ×2 (09:24→21:23)
[2017-09-19] MEDS: oxyCODONE HCL 5 MG TABLET PO PRN ×2 (09:57→20:19)
[2017-09-19] MEDS: clonazePAM 0.5 MG TABLET PO PRN ×2 (09:57→21:22)
[2017-09-19] MEDS: ALBUTEROL SO4 0.083% IH SOL 2.5 MG/3 ML VIAL.NEB. NEB PRN (20:03)
[2017-09-19] MEDS ORDERED: PT OWN MED DRAWER 7, Y5N ONE (21:18)
[2017-09-19] MEDS: DOCUSATE SODIUM 100 MG CAPSULE (FP) PO SCH (21:23)
[2017-09-19] MEDS: DIVALPROEX NA *ER* EXTEND REL 250 MG TABLET.SA PO SCH (21:23)
[2017-09-20] MEDS: PRAMIPEXOLE DIHYDROCHLORIDE 0.125 MG TABLET PO SCH ×2 (01:37→21:02)
[2017-09-20] MEDS: ASPIRIN 81 MG CHEWABLE TABLETS PO SCH (09:16)
[2017-09-20] MEDS: morphine SO4 SUSTAINED ACTING 30 MG TABLET.SA PO SCH ×2 (09:16→21:01)
[2017-09-20] MEDS: clonazePAM 0.5 MG TABLET PO PRN (09:19)
--- NOTE | 2017-09-20 10:43 | PN ---
Progress Note, Physician - Current Medication List Current Medications: Active Medications Albuterol Sulfate (Ventolin 0.083% Nebulizer Soln -) 1 amp NEB Q6H PRN PRN Reason: SHORT OF BREATH/WHEEZING Last Admin: 09/19/17 20:03 Dose: 1 amp Aspirin (Asa -) 81 mg PO DAILY [facility] Last Admin: 09/20/17 09:16 Dose: 81 mg Bisacodyl (Dulcolax -) 20 mg PO ONCE ONE Stop: 09/20/17 12:18 Clonazepam (Klonopin -) 1 mg PO BID PRN PRN Reason: ANXIETY Last Admin: 09/20/17 09:19 Dose: 1 mg Divalproex Sodium (Depakote *Er* -) 250 mg PO [facility] Last Admin: 09/19/17 21:23 Dose: 250 mg Docusate Sodium (Colace -) 300 mg PO [facility] Last Admin: 09/19/17 21:23 Dose: 300 mg Morphine Sulfate (Ms Contin -) 60 mg PO BID [facility] Last Admin: 09/20/17 09:16 Dose: 60 mg Oxycodone HCl (Roxicodone -) 15 mg PO TID PRN PRN Reason: PAIN LEVEL 6-10 Last Admin: 09/19/17 20:19 Dose: 15 mg Polyethylene Glycol/Electrolytes (Golytely Solution -) 4,000 ml PO ONCE ONE Stop: 09/20/17 17:01 Pramipexole Dihydrochloride (Mirapex -) 0.125 mg PO HS@1999 [facility] Last Admin: 09/20/17 01:37 Dose: Not Given - Objective Vital Signs: Vital Signs Temperature 97.5 F L 09/20/17 06:00 Pulse Rate 66 09/20/17 08:39 Respiratory Rate 18 09/20/17 08:39 Blood Pressure 96/57 09/20/17 08:39 O2 Sat by Pulse Oximetry (%) 96 09/19/17 21:00 Cardiovascular: Yes: Regular Rate and Rhythm Respiratory: Yes: Regular, CTA Bilaterally Gastrointestinal: Yes: Normal Bowel Sounds, Soft, Tenderness Labs: CBC, BMP 09/19/17 06:00 09/19/17 07:30 INR, PTT INR 1.12 (0.82-1.09) 09/15/17 18:52 Assessment/Plan - Problems (1) Syncope Assessment/Plan: -Cardiology and neurology consult -CT head unremarkable -EKG-ST -Tele monitoring -labs unremarkable except she is chronically anemic and gets iron infusions -MRI on neurology discretion- has had MRI post back surgery Code(s): R55 - SYNCOPE AND COLLAPSE (2) Chronic back pain Assessment/Plan: -restart Morphine ER 60 bid -Oxycodone 15 mg po TID PRN Code(s): M54.9 - DORSALGIA, UNSPECIFIED; G89.29 - OTHER CHRONIC PAIN (3) Chest pain Assessment/Plan: -EKG-ST -Cardiology consult -Serial Trops negative -Tele monitor -Echo pending -05/22 to anemia? Code(s): R07.9 - CHEST PAIN, UNSPECIFIED (4) Microcytic anemia Assessment/Plan: -Chronic -normal transfusion parameters, transfuse if Hg <7.0 -Venofer 300 mg IVPB once -endoscopy on thursday Code(s): D50.9 - IRON DEFICIENCY ANEMIA, UNSPECIFIED (5) Fever Assessment/Plan: -Cultures -ID consult -ct abd (6) abdominal Pain Assessment/Plan: -Endoscopies on thursday -Follow Labs
[2017-09-20] MEDS: oxyCODONE HCL 5 MG TABLET PO PRN ×2 (12:07→21:01)
[2017-09-20] MEDS ORDERED: BISACODYL 5 MG TABLET.DR (FP) PO ONE (12:17)
[2017-09-20] MEDS ORDERED: PEG 3350/NA SULF BICARB CL/KCL 4000 ML SOLN.RECON PO ONE (17:00)
[2017-09-20] MEDS ORDERED: PT OWN MED DRAWER 7, Y5N ONE (20:47)
[2017-09-20] MEDS: DOCUSATE SODIUM 100 MG CAPSULE (FP) PO SCH (21:02)
[2017-09-20] MEDS: DIVALPROEX NA *ER* EXTEND REL 250 MG TABLET.SA PO SCH (21:03)
--- NOTE | 2017-09-21 01:35 | CONSULT ---
Consult Consult Specialty:: endocrine Referred by:: dr.annabi romero Reason for Consultation:: abnormal thyroid function - History of Present Illness Chief Complaint: palpitation restless and weight loss History of Present Illness: 42 y/o woman PMH Anxiety, Asthma, Anemia, SVT, HTN, SBO, Chronic Pain (Pain Mgmt ). Who presents to the ED with Chest Pain, R- sided numbness and syncope. Patient reports over the last 3-4 days she had right sided numbness. The patient reports having right chest wall pain after falling onto her right side she has lost weight and has difficulty gaining weight despite eating frequent meals,she gets panic attacks,and feels jittery at times - Past Medical History ...LMP: 07/19/15 - Alcohol/Substance Use Hx Alcohol Use: No - Smoking History Smoking history: Current every day smoker Have you smoked in the past 12 months: Yes Aproximately how many cigarettes per day: 10 Home Medications - Allergies Allergies/Adverse Reactions: Allergies Allergy/AdvReac Type Severity Reaction Status Date / Time No Known Allergies Allergy Verified 09/15/17 18:06 - Home Medications Home Medications: Ambulatory Orders Morphine *Sr* [MS Contin -] 60 mg PO Q12H 07/13/15 Oxycodone HCl 15 mg PO TID PRN 08/11/17 Miscellaneous Drug Not in Syst 1 each .ROUTE ASDIR #1 each 09/11/17 Review of Systems - Review of Systems Constitutional: reports: Loss of Appetite, Weakness Eyes: reports: No Symptoms HENT: reports: Throat Pain Neck: reports: No Symptoms Cardiovascular: reports: Shortness of Breath Respiratory: reports: SOB on Exertion Gastrointestinal: reports: Bloating, Constipation Genitourinary: reports: Frequency Breasts: reports: No Symptoms Reported Musculoskeletal: reports: Extremity Pain, Joint Swelling, Muscle Pain, Muscle Cramps Neurological: reports: Unsteady Gait Endocrine: reports: Unexplained Weight Loss Physical Exam Vital Signs: Vital Signs Temperature 97.9 F 09/20/17 22:00 Pulse Rate 62 09/20/17 22:00 Respiratory Rate 20 09/20/17 22:00 Blood Pressure 89/55 09/20/17 22:00 O2 Sat by Pulse Oximetry (%) 100 09/20/17 21:00 Constitutional: Yes: Anxious Eyes: Yes: EOM Intact HENT: Yes: Normocephalic Neck: Yes: Trachea Midline, Thyromegaly Cardiovascular: Yes: Regular Rate and Rhythm Respiratory: Yes: CTA Bilaterally Gastrointestinal: Yes: Normal Bowel Sounds ...Rectal Exam: Yes: Deferred Renal/: Yes: WNL Musculoskeletal: Yes: WNL, Back Pain, Muscle Weakness Neurological: Yes: Alert, Oriented Labs: CBC, BMP 09/19/17 06:00 09/19/17 07:30 Problem List - Problems (1) Autoimmune thyroiditis Code(s): E06.3 - AUTOIMMUNE THYROIDITIS (2) Chronic anemia Code(s): D64.9 - ANEMIA, UNSPECIFIED (3) Chronic back pain Code(s): M54.9 - DORSALGIA, UNSPECIFIED; G89.29 - OTHER CHRONIC PAIN (4) FUO (fever of unknown origin) Code(s): R50.9 - FEVER, UNSPECIFIED (5) Headache Code(s): R51 - HEADACHE (6) Iron deficiency anemia Code(s): D50.9 - IRON DEFICIENCY ANEMIA, UNSPECIFIED Assessment/Plan Current Active Problems Chest pain (Acute) Chronic anemia (Acute) Chronic back pain (Acute) Dysphagia (Acute) Encephalitis and encephalomyelitis, unspecified (Acute) FUO (fever of unknown origin) (Acute) Headache (Acute) Iron deficiency anemia (Acute) Microcytic hypochromic anemia (Acute) Neuropathy (Acute) Syncope (Acute) TIA (transient ischemic attack) (Acute) thyroiditis autoimmune thyroiditis Abnormal Lab Results 09/16/17 20:00 Crossmatch See Detail Laboratory Results - last 24 hr 09/16/17 20:00 Blood Type O POSITIVE Antibody Screen Negative Crossmatch See Detail Laboratory Tests 09/16/17 09/17/17 09/19/17 11:19 10:25 06:00 WBC 6.1 RBC 4.78 Hgb 9.5 L Hct 31.7 L MCV 66.2 L MCH 19.8 L MCHC 29.9 L Plt Count 277 Chloride Carbon Dioxide Anion Gap BUN Creatinine Random Glucose Calcium TSH 0.83 0.35 L Free T4 0.79 09/19/17 07:30 WBC RBC Hgb Hct MCV MCH MCHC Plt Count Chloride 104 Carbon Dioxide 29 Anion Gap 8 BUN 7 Creatinine 0.5 L Random Glucose 67 L Calcium 8.2 L TSH Free T4 plan: thyroid sonogram ck tpo thyroid antibody will need outpatient thyroid scan
[2017-09-21] MEDS ORDERED: SODIUM CHLORIDE 500 ML IV ONE (10:00)
[2017-09-21 10:13] LABS: HGB SOLUBILITY Negative (Negative); Hgb A 98.5 % (96.4-98.8); Hgb C 0 % (0.0); Hgb F 0 % (0.0-2.0); Hgb S 0 % (0.0)
[2017-09-21] MEDS ORDERED: SODIUM CHLORIDE 1,000 ML IV ONE (10:30)
[2017-09-21] MEDS: morphine SO4 SUSTAINED ACTING 30 MG TABLET.SA PO SCH ×2 (11:52→21:04)
[2017-09-21] MEDS: ASPIRIN 81 MG CHEWABLE TABLETS PO SCH (11:53)
[2017-09-21] MEDS: clonazePAM 0.5 MG TABLET PO PRN (11:54)
[2017-09-21] MEDS: oxyCODONE HCL 5 MG TABLET PO PRN ×2 (11:55→20:14)
--- NOTE | 2017-09-21 12:07 | PROC ---
Endoscopy Procedure Endoscopy procedure completed. Please see scanned procedure report. Gastro-duodenal anastomosis appeared edematous and erythematous. No marginal ulcers noted. Multiple biopsies taken. Small hiatal hernia and mild esophagitis were found, distal and mid esophageal biopsies taken. Inadequate colon prep. Liquid carafate 1 mg po qid x 2 weeks Protonix 40 mg po bid x 2 weeks Soft diet Repeat colonoscopy in 2-3 days after 2-day colon prep. Discussed with the patient
--- NOTE | 2017-09-21 16:10 | PN ---
Progress Note, Physician Chief Complaint: needs a bowel prep for her colonoscopy scheduled for tomorrow still having atypical chest pain no alarms on telemetry - Current Medication List Current Medications: Active Medications Albuterol Sulfate (Ventolin 0.083% Nebulizer Soln -) 1 amp NEB Q6H PRN PRN Reason: SHORT OF BREATH/WHEEZING Last Admin: 09/19/17 20:03 Dose: 1 amp Aspirin (Asa -) 81 mg PO DAILY [facility] Last Admin: 09/21/17 11:53 Dose: 81 mg Clonazepam (Klonopin -) 1 mg PO BID PRN PRN Reason: ANXIETY Last Admin: 09/21/17 11:54 Dose: 1 mg Divalproex Sodium (Depakote *Er* -) 250 mg PO [facility] Last Admin: 09/20/17 21:03 Dose: 250 mg Docusate Sodium (Colace -) 300 mg PO HS [facility] Last Admin: 09/20/17 21:02 Dose: 300 mg Sodium Chloride (Normal Saline -) 1,000 mls @ 100 mls/hr IV ONCE ONE Stop: 09/21/17 20:29 Last Admin: 09/21/17 11:54 Dose: 100 mls/hr Morphine Sulfate (Ms Contin -) 60 mg PO BID [facility] Last Admin: 09/21/17 11:52 Dose: 60 mg Oxycodone HCl (Roxicodone -) 15 mg PO TID PRN PRN Reason: PAIN LEVEL 6-10 Last Admin: 09/21/17 11:55 Dose: 15 mg Pantoprazole Sodium (Protonix -) 40 mg PO BID [facility] Pramipexole Dihydrochloride (Mirapex -) 0.125 mg PO HS@2000 [facility] Last Admin: 09/20/17 21:02 Dose: 0.125 mg Sucralfate (Carafate Oral Suspension -) 1 gm PO QID [facility] - Objective Vital Signs: Vital Signs Temperature 97.9 F 09/21/17 13:50 Pulse Rate 65 09/21/17 13:50 Respiratory Rate 18 09/21/17 13:50 Blood Pressure 98/66 09/21/17 13:50 O2 Sat by Pulse Oximetry (%) 99 09/21/17 11:37 Constitutional: Yes: Mild Distress Eyes: Yes: WNL HENT: Yes: WNL Neck: Yes: WNL Cardiovascular: Yes: WNL Respiratory: Yes: WNL Gastrointestinal: Yes: Tenderness Genitourinary: Yes: WNL Musculoskeletal: Yes: WNL Extremities: Yes: WNL Edema: No Peripheral Pulses WNL: Yes Integumentary: Yes: WNL Wound/Incision: Yes: Clean/Dry Neurological: Yes: WNL ...Motor Strength: WNL Psychiatric: Yes: Other Labs: CBC, BMP 09/19/17 06:00 09/19/17 07:30 INR, PTT INR 1.12 (0.82-1.09) 09/15/17 18:52 Problem List - Problems (1) Encephalitis and encephalomyelitis, unspecified Code(s): G04.90 - ENCEPHALITIS AND ENCEPHALOMYELITIS, UNSPECIFIED (2) Chest pain Code(s): R07.9 - CHEST PAIN, UNSPECIFIED (3) Chronic anemia Code(s): D64.9 - ANEMIA, UNSPECIFIED (4) Chronic back pain Code(s): M54.9 - DORSALGIA, UNSPECIFIED; G89.29 - OTHER CHRONIC PAIN (5) FUO (fever of unknown origin) Code(s): R50.9 - FEVER, UNSPECIFIED (6) Headache Code(s): R51 - HEADACHE (7) Iron deficiency anemia Code(s): D50.9 - IRON DEFICIENCY ANEMIA, UNSPECIFIED (8) Microcytic hypochromic anemia Code(s): D50.9 - IRON DEFICIENCY ANEMIA, UNSPECIFIED (9) Neuropathy Code(s): G62.9 - POLYNEUROPATHY, UNSPECIFIED (10) Abdominal pain Code(s): R10.9 - UNSPECIFIED ABDOMINAL PAIN Qualifiers: Abdominal location: lower abdomen, unspecified Qualified Code(s): R10.30 - Lower abdominal pain, unspecified (11) UTI (urinary tract infection) Code(s): N39.0 - URINARY TRACT INFECTION, SITE NOT SPECIFIED Qualifiers: Urinary tract infection type: acute cystitis Hematuria presence: without hematuria Qualified Code(s): N30.00 - Acute cystitis without hematuria (12) Back pain Code(s): M54.9 - DORSALGIA, UNSPECIFIED Assessment/Plan clear liquids started now remove all bread and solid food from room bowel prep per gi for colonoscopy scheduled pain control monitor labs
[2017-09-21] MEDS: SUCRALFATE 1 GM/10 ML UNIT DOSE CUPS PO SCH ×3 (17:04→21:04)
[2017-09-21] MEDS: PANTOPRAZOLE 40 MG TABLET (FP) PO SCH ×2 (17:05→21:04)
[2017-09-21] MEDS ORDERED: PT OWN MED DRAWER 7, Y5N ONE ×2 (20:13→21:03)
[2017-09-21] MEDS: PRAMIPEXOLE DIHYDROCHLORIDE 0.125 MG TABLET PO SCH (20:14)
[2017-09-21] MEDS: DIVALPROEX NA *ER* EXTEND REL 250 MG TABLET.SA PO SCH (21:04)
[2017-09-21] MEDS: DOCUSATE SODIUM 100 MG CAPSULE (FP) PO SCH (21:04)
[2017-09-22] MEDS: clonazePAM 0.5 MG TABLET PO PRN ×2 (01:37→14:51)
[2017-09-22] MEDS: SODIUM CHLORIDE 1,000 ML IV SCH ×2 (06:52→17:27)
[2017-09-22 06:53] LABS: HEMATOCRIT 32.2 % (32.4-45.2); HEMOGLOBIN 9.8 GM/dL (10.7-15.3); MCH 20.8 pg (25.7-33.7); MCHC 30.5 g/dl (32.0-36.0); MEAN CELL VOLUME 68.3 fl (80-96); MEAN PLT VOLUME 8.8 fl (7.5-11.1); PLATELET COUNT 262 K/MM3 (134-434); RBC 4.71 M/mm3 (3.60-5.2); RDW 22.8 % (11.6-15.6); WHITE BLOOD COUNT 5.5 K/mm3 (4.0-10.0)
[2017-09-22 07:15] LABS: ANION GAP 6 (8-16); BLOOD UREA NITROGEN 8 mg/dL (7-18); CALCIUM 8.4 mg/dL (8.5-10.1); CHLORIDE 105 mmol/L (98-107); CO2 30 mmol/L (21-32); GLUCOSE,RANDOM 74 mg/dL (74-106); MAGNESIUM 2.2 mg/dL (1.8-2.4); POTASSIUM 4.2 mmol/L (3.5-5.1); SODIUM 141 mmol/L (136-145)
[2017-09-22 07:17] LABS: CREATININE 0.5 mg/dL (0.55-1.02)
[2017-09-22] MEDS: morphine SO4 SUSTAINED ACTING 30 MG TABLET.SA PO SCH ×2 (09:35→22:07)
[2017-09-22] MEDS: ASPIRIN 81 MG CHEWABLE TABLETS PO SCH (09:35)
[2017-09-22] MEDS: SUCRALFATE 1 GM/10 ML UNIT DOSE CUPS PO SCH ×4 (09:35→22:07)
[2017-09-22] MEDS: PANTOPRAZOLE 40 MG TABLET (FP) PO SCH ×2 (09:35→22:06)
[2017-09-22] MEDS ORDERED: oxyCODONE HCL 5 MG TABLET ONE (11:46)
[2017-09-22] MEDS: oxyCODONE HCL 5 MG TABLET PO PRN ×2 (12:10→19:49)
--- NOTE | 2017-09-22 14:38 | PN ---
Progress Note, Physician Chief Complaint: ON A CLEAR DIET IN PREPERATION FOR COLONOSCOPY NAD FAMILY BEDSIDE NEEDS SLEEP AID - Current Medication List Current Medications: Active Medications Aspirin (Asa -) 81 mg PO DAILY [facility] Last Admin: 09/22/17 09:35 Dose: 81 mg Divalproex Sodium (Depakote *Er* -) 250 mg PO HS [facility] Last Admin: 09/21/17 21:04 Dose: 250 mg Docusate Sodium (Colace -) 300 mg PO HS [facility] Last Admin: 09/21/17 21:04 Dose: 300 mg Sodium Chloride (Normal Saline -) 1,000 mls @ 100 mls/hr IV ASDIR [facility] Last Admin: 09/22/17 06:52 Dose: 100 mls/hr Morphine Sulfate (Ms Contin -) 60 mg PO BID [facility] Last Admin: 09/22/17 09:35 Dose: 60 mg Oxycodone HCl (Roxicodone -) 15 mg PO Q8H PRN PRN Reason: PAIN LEVEL 6-10 Last Admin: 09/22/17 12:10 Dose: 15 mg Pantoprazole Sodium (Protonix -) 40 mg PO BID [facility] Last Admin: 09/22/17 09:35 Dose: 40 mg Pramipexole Dihydrochloride (Mirapex -) 0.125 mg PO HS@2000 [facility] Last Admin: 09/21/17 20:14 Dose: 0.125 mg Sucralfate (Carafate Oral Suspension -) 1 gm PO QID [facility] Last Admin: 09/22/17 09:35 Dose: 1 gm - Objective Vital Signs: Vital Signs Temperature 97.6 F 09/22/17 10:00 Pulse Rate 60 09/22/17 10:00 Respiratory Rate 20 09/22/17 10:00 Blood Pressure 99/58 09/22/17 10:00 O2 Sat by Pulse Oximetry (%) 97 09/22/17 10:00 Constitutional: Yes: No Distress Eyes: Yes: WNL HENT: Yes: WNL Neck: Yes: WNL Cardiovascular: Yes: WNL Respiratory: Yes: WNL Gastrointestinal: Yes: WNL Genitourinary: Yes: WNL Musculoskeletal: Yes: WNL Extremities: Yes: WNL Edema: Yes Peripheral Pulses WNL: Yes Integumentary: Yes: WNL Wound/Incision: Yes: Clean/Dry Neurological: Yes: WNL ...Motor Strength: WNL Psychiatric: Yes: WNL Labs: CBC, BMP 09/22/17 06:00 09/22/17 06:00 INR, PTT INR 1.12 (0.82-1.09) 09/15/17 18:52 Problem List - Problems (1) Encephalitis and encephalomyelitis, unspecified Code(s): G04.90 - ENCEPHALITIS AND ENCEPHALOMYELITIS, UNSPECIFIED (2) Chest pain Code(s): R07.9 - CHEST PAIN, UNSPECIFIED (3) Chronic anemia Code(s): D64.9 - ANEMIA, UNSPECIFIED (4) Chronic back pain Code(s): M54.9 - DORSALGIA, UNSPECIFIED; G89.29 - OTHER CHRONIC PAIN (5) FUO (fever of unknown origin) Code(s): R50.9 - FEVER, UNSPECIFIED (6) Headache Code(s): R51 - HEADACHE (7) Iron deficiency anemia Code(s): D50.9 - IRON DEFICIENCY ANEMIA, UNSPECIFIED (8) Microcytic hypochromic anemia Code(s): D50.9 - IRON DEFICIENCY ANEMIA, UNSPECIFIED (9) Neuropathy Code(s): G62.9 - POLYNEUROPATHY, UNSPECIFIED (10) Abdominal pain Code(s): R10.9 - UNSPECIFIED ABDOMINAL PAIN Qualifiers: Abdominal location: lower abdomen, unspecified Qualified Code(s): R10.30 - Lower abdominal pain, unspecified (11) UTI (urinary tract infection) Code(s): N39.0 - URINARY TRACT INFECTION, SITE NOT SPECIFIED Qualifiers: Urinary tract infection type: acute cystitis Hematuria presence: without hematuria Qualified Code(s): N30.00 - Acute cystitis without hematuria (12) Back pain Code(s): M54.9 - DORSALGIA, UNSPECIFIED Assessment/Plan COLONOSCOPYU PER GI ON CLEAR LIQUID DIET SERAQUEL QHS MONITO LABS AND H/H FOR ANMEIA
[2017-09-22] MEDS: ONDANSETRON 4 MG/2 ML VIAL IVPUSH PRN ×2 (14:51→22:05)
--- NOTE | 2017-09-22 17:27 | PATH ---
Surgical Pathology Report Patient Name: JELANI CUNNINGHAM [facility]. Rec. #: [id number] /Age/Gender: 1975 (Age: 42) / F Account: [id number] Location: [facility] PEDS/ADOL Taken: 09/21/2017 Received: 09/21/2017 Reported: 09/22/2017 Physicians: Rishabh Judd M.D. Specimen(s) Received A: SMALL BOWEL, BIOPSY B: BX BODY C: BX GE JUNCTION D: BX MID ESOPHAGUS Clinical History Dysphagia, anemia Postoperative diagnosis: Gastritis, esophagitis, poor prep, incomplete colonoscopy Final Diagnosis A. SMALL BOWEL, BIOPSY: SMALL INTESTINAL MUCOSA WITH NO DIAGNOSTIC ABNORMALITIES. B. GASTRIC BODY, BIOPSY: GASTRIC MUCOSA WITH MILD CHRONIC GASTRITIS. IMMUNOSTAIN IS NEGATIVE FOR H. PYLORI ORGANISMS. SEPARATE FRAGMENTS OF SMALL INTESTINAL VILLI WITH NO DIAGNOSTIC ABNORMALITIES. C. GE JUNCTION, BIOPSY: GASTROESOPHAGEAL JUNCTIONAL MUCOSA WITH MILD CHRONIC INFLAMMATION, IN A BACKGROUND OF FEATURES SUGGESTIVE OF REFLUX ESOPHAGITIS. NEGATIVE FOR INTESTINAL METAPLASIA. D. MID ESOPHAGUS, BIOPSY: ESOPHAGEAL (SQUAMOUS) MUCOSA WITH CHRONIC INFLAMMATION AND FEATURES COMPATIBLE WITH REFLUX ESOPHAGITIS. ONE SCANTY FRAGMENT OF COLUMNAR EPITHELIUM WITH CHRONIC INFLAMMATION, LYMPHOID AGGREGATE AND EPITHELIAL EROSION. NEGATIVE FOR INTESTINAL METAPLASIA. Electronically Signed Tamie Garcia M.D. Gross Description A. Received in formalin, labeled "biopsy small bowel" are 3 schwab, irregular portions of soft tissue ranging from 0.4-0.5 cm. in greatest dimension. The specimens are submitted in toto in one cassette. B. Received in formalin, labeled "biopsy gastric body" are 4 schwab, irregular portions of soft tissue ranging from 0.3-0.4 cm. in greatest dimension. The specimens are submitted in toto in one cassette. C. Received in formalin, labeled "biopsy GE junction" is a schwab, irregular portion of soft tissue measuring 0.5 cm. in greatest dimension. The specimen is submitted in toto in one cassette. D. Received in formalin, labeled "biopsy mid esophagus" are 3 schwab, irregular portions of soft tissue ranging from 0.2-0.3 cm. in greatest dimension. The specimens are submitted in toto in one cassette. DL/09/21/2017 saudi/09/21/2017
[2017-09-22] MEDS ORDERED: MAGNESIUM CITRATE 300 ML BOTTLE PO ONE (19:30)
[2017-09-22] MEDS ORDERED: BISACODYL 5 MG TABLET.DR (FP) PO ONE (19:30)
[2017-09-22] MEDS ORDERED: PT OWN MED DRAWER 7, Y5N ONE ×2 (19:41→22:01)
[2017-09-22] MEDS: PRAMIPEXOLE DIHYDROCHLORIDE 0.125 MG TABLET PO SCH (19:49)
[2017-09-22] MEDS: DOCUSATE SODIUM 100 MG CAPSULE (FP) PO SCH (22:06)
[2017-09-22] MEDS: DIVALPROEX NA *ER* EXTEND REL 250 MG TABLET.SA PO SCH (22:07)
[2017-09-22] MEDS: QUEtiapine FUMARATE 25 MG TABLET (FP) PO SCH (22:07)
[2017-09-23] MEDS: SUCRALFATE 1 GM/10 ML UNIT DOSE CUPS PO SCH ×4 (09:45→22:10)
[2017-09-23] MEDS: morphine SO4 SUSTAINED ACTING 30 MG TABLET.SA PO SCH (09:45)
[2017-09-23] MEDS: PANTOPRAZOLE 40 MG TABLET (FP) PO SCH ×2 (09:45→22:06)
[2017-09-23] MEDS: clonazePAM 0.5 MG TABLET PO PRN ×2 (09:46→22:06)
[2017-09-23] MEDS: ASPIRIN 81 MG CHEWABLE TABLETS PO SCH (09:46)
[2017-09-23] MEDS: oxyCODONE HCL 5 MG TABLET PO PRN ×3 (09:46→22:06)
--- NOTE | 2017-09-23 09:56 | PN ---
Progress Note, Physician Chief Complaint: AWAKE ALERT +BOWEL MOVEMENTS OVERNIGHT DENIES DIZZINESS OR CHEST PAIN - Current Medication List Current Medications: Active Medications Aspirin (Asa -) 81 mg PO DAILY [facility] Last Admin: 09/23/17 09:46 Dose: 81 mg Clonazepam (Klonopin -) 1 mg PO BID PRN PRN Reason: ANXIETY Last Admin: 09/23/17 09:46 Dose: 1 mg Divalproex Sodium (Depakote *Er* -) 250 mg PO [facility] Last Admin: 09/22/17 22:07 Dose: 250 mg Docusate Sodium (Colace -) 300 mg PO HS [facility] Last Admin: 09/22/17 22:06 Dose: 300 mg Sodium Chloride (Normal Saline -) 1,000 mls @ 100 mls/hr IV ASDIR [facility] Last Admin: 09/22/17 17:27 Dose: 100 mls/hr Morphine Sulfate (Ms Contin -) 60 mg PO BID [facility] Last Admin: 09/23/17 09:45 Dose: 60 mg Ondansetron HCl (Zofran Injection) 4 mg IVPUSH Q6H PRN PRN Reason: NAUSEA AND/OR VOMITING Last Admin: 09/22/17 22:05 Dose: 4 mg Oxycodone HCl (Roxicodone -) 15 mg PO Q8H PRN PRN Reason: PAIN LEVEL 6-10 Last Admin: 09/23/17 09:46 Dose: 15 mg Pantoprazole Sodium (Protonix -) 40 mg PO BID [facility] Last Admin: 09/23/17 09:45 Dose: 40 mg Pramipexole Dihydrochloride (Mirapex -) 0.125 mg PO HS@1999 [facility] Last Admin: 09/22/17 19:49 Dose: 0.125 mg Quetiapine Fumarate (Seroquel -) 25 mg PO HS [facility] Last Admin: 09/22/17 22:07 Dose: 25 mg Sucralfate (Carafate Oral Suspension -) 1 gm PO QID [facility] Last Admin: 09/23/17 09:45 Dose: 1 gm - Objective Vital Signs: Vital Signs Temperature 97.6 F 09/23/17 06:00 Pulse Rate 57 L 09/23/17 06:00 Respiratory Rate 18 09/23/17 06:00 Blood Pressure 90/54 09/23/17 06:00 O2 Sat by Pulse Oximetry (%) 97 09/22/17 21:00 Constitutional: Yes: No Distress Eyes: Yes: WNL HENT: Yes: WNL Neck: Yes: WNL Cardiovascular: Yes: WNL Respiratory: Yes: WNL Gastrointestinal: Yes: WNL Genitourinary: Yes: WNL Musculoskeletal: Yes: WNL Extremities: Yes: WNL Edema: No Peripheral Pulses WNL: Yes Integumentary: Yes: WNL Wound/Incision: Yes: Clean/Dry Neurological: Yes: Pre-Existing Deficit ...Motor Strength: WNL Psychiatric: Yes: WNL Labs: CBC, BMP 09/22/17 06:00 09/22/17 06:00 INR, PTT INR 1.12 (0.82-1.09) 09/15/17 18:52 Problem List - Problems (1) Encephalitis and encephalomyelitis, unspecified Code(s): G04.90 - ENCEPHALITIS AND ENCEPHALOMYELITIS, UNSPECIFIED (2) Chest pain Code(s): R07.9 - CHEST PAIN, UNSPECIFIED (3) Chronic anemia Code(s): D64.9 - ANEMIA, UNSPECIFIED (4) Chronic back pain Code(s): M54.9 - DORSALGIA, UNSPECIFIED; G89.29 - OTHER CHRONIC PAIN (5) FUO (fever of unknown origin) Code(s): R50.9 - FEVER, UNSPECIFIED (6) Headache Code(s): R51 - HEADACHE (7) Iron deficiency anemia Code(s): D50.9 - IRON DEFICIENCY ANEMIA, UNSPECIFIED (8) Microcytic hypochromic anemia Code(s): D50.9 - IRON DEFICIENCY ANEMIA, UNSPECIFIED (9) Neuropathy Code(s): G62.9 - POLYNEUROPATHY, UNSPECIFIED (10) Abdominal pain Code(s): R10.9 - UNSPECIFIED ABDOMINAL PAIN Qualifiers: Abdominal location: lower abdomen, unspecified Qualified Code(s): R10.30 - Lower abdominal pain, unspecified (11) UTI (urinary tract infection) Code(s): N39.0 - URINARY TRACT INFECTION, SITE NOT SPECIFIED Qualifiers: Urinary tract infection type: acute cystitis Hematuria presence: without hematuria Qualified Code(s): N30.00 - Acute cystitis without hematuria (12) Back pain Code(s): M54.9 - DORSALGIA, UNSPECIFIED Assessment/Plan COLONOSCOPY TODAY CAN RESTART FULL LIQUID DIET AFTER COLONOSCOPY TODAY ADVANCE TO FULL DIET TOMORROW ME PLANNING FOR TOMORROW HOME HEALTH AID WITH [facility]
[2017-09-23] MEDS ORDERED: LIDOCAINE HCL/PF 1% SDV 5ML VIAL ONE (11:56)
[2017-09-23] MEDS ORDERED: PROPOFOL 20 ML ONE ×3 (11:56)
--- NOTE | 2017-09-23 12:13 | PROC ---
Endoscopy Procedure Endoscopy procedure completed. Please see scanned procedure report. Inadequate colon prep. Procedure terminated. Resume previous diet. Follow up with GI as OP in 1 week.
[2017-09-23] MEDS: SODIUM CHLORIDE 1,000 ML IV SCH (14:13)
[2017-09-23] MEDS ORDERED: ACETAMINOPHEN 325 MG TABLET (FP) PO PRN (17:30)
[2017-09-23] MEDS ORDERED: SUMAtriptan SUCCINATE 50 MG TABLET PO ONE (17:30)
[2017-09-23] MEDS ORDERED: PT OWN MED DRAWER 7, Y5N ONE (22:01)
[2017-09-23] MEDS: DIVALPROEX NA *ER* EXTEND REL 250 MG TABLET.SA PO SCH (22:05)
[2017-09-23] MEDS: PRAMIPEXOLE DIHYDROCHLORIDE 0.125 MG TABLET PO SCH (22:06)
[2017-09-23] MEDS: QUEtiapine FUMARATE 25 MG TABLET (FP) PO SCH (22:07)
[2017-09-23] MEDS: DOCUSATE SODIUM 100 MG CAPSULE (FP) PO SCH (22:09)
[2017-09-23] MEDS ORDERED: morphine SO4 SUSTAINED ACTING 30 MG TABLET.SA PO ONE (22:15)
[2017-09-24 06:38] LABS: HEMATOCRIT 31.9 % (32.4-45.2); HEMOGLOBIN 9.6 GM/dL (10.7-15.3); MCH 20.9 pg (25.7-33.7); MCHC 30.2 g/dl (32.0-36.0); MEAN CELL VOLUME 69.3 fl (80-96); MEAN PLT VOLUME 8.8 fl (7.5-11.1); PLATELET COUNT 222 K/MM3 (134-434); RBC 4.61 M/mm3 (3.60-5.2); RDW 22.7 % (11.6-15.6); WHITE BLOOD COUNT 5.6 K/mm3 (4.0-10.0)
[2017-09-24 06:54] LABS: CHLORIDE 107 mmol/L (98-107); POTASSIUM 4.8 mmol/L (3.5-5.1); SODIUM 143 mmol/L (136-145)
[2017-09-24 07:07] LABS: ANION GAP 6 (8-16); BLOOD UREA NITROGEN 5 mg/dL (7-18); CALCIUM 8.5 mg/dL (8.5-10.1); CO2 30 mmol/L (21-32); CREATININE 0.4 mg/dL (0.55-1.02); GLUCOSE,RANDOM 77 mg/dL (74-106); MAGNESIUM 2.2 mg/dL (1.8-2.4)
[2017-09-24] MEDS ORDERED: PT OWN MED DRAWER 7, Y5N ONE (09:37)
[2017-09-24] MEDS: SODIUM CHLORIDE 1,000 ML IV SCH (09:42)
[2017-09-24] MEDS: SUCRALFATE 1 GM/10 ML UNIT DOSE CUPS PO SCH (09:45)
[2017-09-24] MEDS: PANTOPRAZOLE 40 MG TABLET (FP) PO SCH (09:45)
[2017-09-24] MEDS: ASPIRIN 81 MG CHEWABLE TABLETS PO SCH (09:45)
--- NOTE | 2017-09-24 10:06 | DS ---
Physical Examination Vital Signs: Vital Signs Temperature 97.7 F 09/24/17 06:00 Pulse Rate 67 09/24/17 06:00 Respiratory Rate 18 09/24/17 06:00 Blood Pressure 117/73 09/24/17 06:00 O2 Sat by Pulse Oximetry (%) 98 09/23/17 21:00 Constitutional: Yes: No Distress Eyes: Yes: WNL HENT: Yes: WNL Neck: Yes: WNL Cardiovascular: Yes: WNL Respiratory: Yes: WNL Gastrointestinal: Yes: WNL Renal/: Yes: WNL Musculoskeletal: Yes: WNL Extremities: Yes: WNL Edema: No Peripheral Pulses WNL: Yes Integumentary: Yes: WNL Wound/Incision: Yes: Clean/Dry Neurological: Yes: Pre-Existing Deficit ...Motor Strength: WNL Psychiatric: Yes: WNL Labs: CBC, BMP 09/24/17 06:00 09/24/17 06:00 Discharge Summary Reason For Visit: NEUROPATHY Current Active Problems Autoimmune thyroiditis (Acute) Chest pain (Acute) Chronic anemia (Acute) Chronic back pain (Acute) Dysphagia (Acute) Encephalitis and encephalomyelitis, unspecified (Acute) FUO (fever of unknown origin) (Acute) Headache (Acute) Iron deficiency anemia (Acute) Microcytic hypochromic anemia (Acute) Neuropathy (Acute) Syncope (Acute) TIA (transient ischemic attack) (Acute) Procedures: Principal: CT SCAN/ENDOSCOPY/COLONOSCOPY Hospital Course: ADMITTED GI BLEED ACUTE BLOOD LOSS, GASTRITIS, TREATED WITH IV PROTONIX CARAFATE AND ENDOSCOPY/COLONOSCOPY AND WILL F/U OUTPATIENT Condition: Stable - Instructions Referrals: Katia Campbell [Primary Care Provider] - Disposition: VNS/HOME HEALTH CARE - Home Medications Comprehensive Discharge Medication List: Ambulatory Orders Morphine *Sr* [MS Contin -] 60 mg PO Q12H 07/13/15 Oxycodone HCl 15 mg PO TID PRN 08/11/17 Miscellaneous Drug Not in Syst 1 each .ROUTE ASDIR #1 each 09/11/17 Acetaminophen [Tylenol .Regular Strength -] 650 mg PO Q6H PRN tablet 09/24/17 Divalproex *ER* [Depakote *ER* -] 250 mg PO HS #30 tablet.sa 09/24/17 Docusate Sodium [Colace -] 300 mg PO HS #30 capsule 09/24/17 Pantoprazole Sodium [Protonix -] 40 mg PO BID #60 tablet.ec 09/24/17 Pramipexole Dihydrochloride [Mirapex -] 0.125 mg PO HS@2000 #30 tablet 09/24/17 Quetiapine Fumarate [Seroquel -] 25 mg PO HS #30 tablet 09/24/17 Sucralfate Oral Suspension [Carafate Oral Suspension -] 1 gm PO QID 10 Days ml 09/24/17 clonazePAM [Klonopin -] 1 mg PO BID PRN tablet MDD 2 09/24/17
[2017-09-24 12:31] VITALS: BP 118/65; PULSE 66; TEMP 98.9
== END 2017-09-24 12:34 | disposition home health service (06) | DRG 253 ==
LOC: JER 18:05 → JERBED 22:16 → J4S 09-16 14:30 → OBSVTOIN 09-18 11:19
PROVIDERS: ADMIT Internal Medicine; ATTEND Family Medicine
PROC: 30233N1 Transfusion of Nonautologous Red Blood Cells into Peripheral Vein, Percutaneous Approach (ICD-10-PCS; 2017-09-16)
PROC: 0DD58ZX Extraction of Esophagus, Via Natural or Artificial Opening Endoscopic, Diagnostic (ICD-10-PCS; 2017-09-21)
PROC: 0DD68ZX Extraction of Stomach, Via Natural or Artificial Opening Endoscopic, Diagnostic (ICD-10-PCS; principal; 2017-09-21 11:00)
PROC: 0DJD8ZZ Inspection of Lower Intestinal Tract, Via Natural or Artificial Opening Endoscopic (ICD-10-PCS; 2017-09-23)
DX: K92.2 Gastrointestinal hemorrhage, unspecified (principal); G62.9 Polyneuropathy, unspecified; R07.9 Chest pain, unspecified; D62 Acute posthemorrhagic anemia; K29.70 Gastritis, unspecified, without bleeding; R13.10 Dysphagia, unspecified; K29.50 Unspecified chronic gastritis without bleeding; D50.9 Iron deficiency anemia, unspecified; Z68.21 Body mass index [BMI] 21.0-21.9, adult; I10 Essential (primary) hypertension; J45.909 Unspecified asthma, uncomplicated; G45.9 Transient cerebral ischemic attack, unspecified; N39.0 Urinary tract infection, site not specified; R64 Cachexia; G04.90 Encephalitis and encephalomyelitis, unspecified; G25.81 Restless legs syndrome; R50.9 Fever, unspecified; G43.909 Migraine, unspecified, not intractable, without status migrainosus; F17.210 Nicotine dependence, cigarettes, uncomplicated; K44.9 Diaphragmatic hernia without obstruction or gangrene
CPT/HCPCS: 36415; 36430; 70450-TC; 71045-TC-FY; 71046-TC-FY; 74177-TC; 80048; 80053; 80061; 81003; 82550; 82607; 82728; 82746; 83021; 83036; 83540; 83550; 83721; 83735; 84439; 84443; 84481; 84484; 84703; 85025; 85027; 85610; 85651; 85660; 86140; 86376; 86850; 86900; 86901; 86922; 87040; 87086; 87186; 88305-TC; 93005; 93010; 93306-TC; 94640; 99284-25; G0378; J0131; J1756; J7030; P9038; P9058

== ENCOUNTER 2017-10-22 00:22 | Observation (INO) | payer OTHER ==
--- NOTE | 2017-10-22 01:08 | PDOC ---
History of Present Illness - General Stated Complaint: CHEST PAIN Time Seen by Provider: 10/22/17 01:07 - History of Present Illness Initial Comments: 10/22/17 01:39 The patient is a 42 year old female with a history of Anemia, Asthma, Anxiety, SVT, Mitral valve prolapse who presents for evaluation of multiple medical complaints. The patient reports experiencing decreased urination and pain with urination over the past 2 days. She noted some severe poorly described abdominal pain with radiation to her back beginning earlier today while traveling back to [place] from [place]. She then noted worsening chest tightness and chest pain with associated SOB as well as a headache with reported temporary vision loss in the right eye and continued tingling along the right sided of her body prompting her presentation to the ED for further evaluation. She notes that she was admitted to the hospital 1 month ago for similar complaints and discharged after being cleared by both cardiology and neurology. She otherwise denies fevers, chills, cough, vomiting, or changes with bowel movements. tPA Exclusion Checklist 0-3hr - Time Elapsed Date last known well: 10/21/17 Time last known well: 20:00 Elaspsed time: Day(s) and 10 Hour(s) and 7 Minutes - Thrombolytic Therapy Candidate Is the patient eligible for Thrombolytic Therapy?: No - Relative Exclusion Criteria 0-3h Rapid improvement: Yes Stroke severity too mild: Yes - Ineligibility reason(s) Reasons No tPA given: See reason(s) noted above NIH Stroke Scale - Last Known Well Date/Time & Onset Date Last Known Well: 10/21/17 Time Last Known Well: 20:00 - Initial Evaluation Level of consciousness: Alert Ask patient the month and their age: Answers both correctly Ask patient to open & close eyes; make fist and let go: Obeys both correctly Best gaze (horizontal eye movement): Normal Visual field testing: No visual field loss Facial paresis (Show teeth/raise eyebrows/close eyes tight): Normal symmetrical movement Motor Function: Left Arm: Normal Motor Function: Right Arm: Normal (extends arm 90 (or 45) degrees for 10 seconds without drift Motor Function: Left Leg: Normal (extends leg 30 degrees for 5 seconds without drift) Motor Function: Right Leg: Normal (extends leg 30 degrees for 5 seconds without drift) Limb Ataxia: No ataxia Sensory(Use pinprick test arms,legs,trunk,face/side to side): Normal Best language (Describe picture, name items, read sentences): No Aphasia Dysarthria (read several words): Normal articulation Extinction and Inattention: No abnormality - Total Score NIH Stroke Scale Score: 0 Past History - Past Medical History Allergies/Adverse Reactions: Allergies Allergy/AdvReac Type Severity Reaction Status Date / Time No Known Allergies Allergy Verified 10/22/17 01:16 Home Medications: Ambulatory Orders Morphine *Sr* [MS Contin -] 60 mg PO Q12H 07/13/15 Oxycodone HCl 15 mg PO TID PRN 08/11/17 Miscellaneous Drug Not in Syst 1 each .ROUTE ASDIR #1 each 09/11/17 Acetaminophen [Tylenol .Regular Strength -] 650 mg PO Q6H PRN tablet 09/24/17 Divalproex *ER* [Depakote *ER* -] 250 mg PO HS #30 tablet.sa 09/24/17 Docusate Sodium [Colace -] 300 mg PO HS #30 capsule 09/24/17 Pantoprazole Sodium [Protonix -] 40 mg PO BID #60 tablet.ec 09/24/17 Pramipexole Dihydrochloride [Mirapex -] 0.125 mg PO HS@2000 #30 tablet 09/24/17 Quetiapine Fumarate [Seroquel -] 25 mg PO HS #30 tablet 09/24/17 Sucralfate Oral Suspension [Carafate Oral Suspension -] 1 gm PO QID 10 Days ml 09/24/17 clonazePAM [Klonopin -] 1 mg PO BID PRN tablet MDD 2 09/24/17 Anemia: Yes Asthma: Yes Cardiac Disorders: Yes (SVT,MVP) COPD: No DVT: No Dementia: No Diabetes: No GI Disorders: Yes (ULCER,TWISTED BOWELS,COLITIS) HTN: (HYPOTENSION) Psychiatric Problems: Yes (ANXIETY) Seizures: No - Surgical History Abdominal Surgery: Yes (GASTRIC BYPASS, VENTRAL HERNIA, SCAR TISSUE REMOVAL FROM ABD.) Cholecystectomy: Yes Neurologic Surgery: Yes (back X2) - Immunization History Td Vaccination: Yes TDAP Vaccination: Yes Immunization Up to Date: Yes - Suicide/Smoking/Psychosocial Hx Smoking Status: Yes Smoking History: Current every day smoker Years of Tobacco Use: 25 Have you smoked in the past 12 months: Yes Number of Cigarettes Smoked Daily: 10 Cigars Per Day: 0 'Breaking Loose' booklet given: 04/06/17 Hx Alcohol Use: No Drug/Substance Use Hx: No Substance Use Type: None Hx Substance Use Treatment: No Review of Systems - Review of Systems Comments:: 10/22/17 01:43 Constitutional: No fevers, chills, fatigue, malaise HEENT: Temporary vision loss in the right eye. No Rhinorrhea, nasal congestion, Cardiovascular:Chest pain. No syncope, palpitations, lightheadedness Respiratory: SOB. No Cough, Hemoptysis, Gastrointestinal: Abdominal pain, nausea. No Vomiting, Constipation, Diarrhea, Melena Genitourinary: Dysuria, Decreased Frequency. No Urgency, Hesitancy, Hematuria, Flank pain Musculoskeletal: No Myalgia, arthralgia Skin: No rashes, itching, bruising, pallor Neurologic: Headache, Tingling. No Dizziness, Numbness, Weakness, Psychiatric: No Hallucinations. No SI or HI *Physical Exam - Physical Exam Comments: 10/22/17 01:45 General Appearance: Nourished. Anxious Appearing On Exam. No Apparent Distress HEENT: EOMI, KAREL. No Pharyngeal Erythema, Tonsillar Exudate, Tonsillar Erythema Neck: No Cervical Lymphadenopathy Respiratory/Chest: Lungs Clear, Normal Breath Sounds. No Crackles, Rales, Rhonchi, Wheezing Cardiovascular: Regular Rhythm, Regular Rate. No Murmur, Gallops, Rubs Gastrointestinal/Abdominal: Normal Bowel Sounds, Soft. No Guarding, Rebound, Tenderness Musculoskeletal: No CVA Tenderness Extremity: Normal Capillary Refill Integumentary: Normal Color, Dry, Warm Neurologic: trackmobile operator II-XII NML intact, Fully Oriented, Alert, Normal Mood/Affect, Normal Response, Motor Strength 5/5. Normal Finger to Nose and Heel to [place] Heart Score/ECG Review #1 ECG reviewed & interpreted by me at: 01:46 General ECG Interpretation: Sinus Rhythm, Normal Rate, Normal Intervals, No acute ischemic changes ED Treatment Course - LABORATORY CBC & Chemistry Diagram: 10/22/17 02:20 10/22/17 02:20 Medical Decision Making - Medical Decision Making 10/22/17 01:46 The patient is a 42 year old female with a history of Anemia, Asthma, Anxiety, SVT, Mitral valve prolapse who presents for evaluation of multiple medical complaints. Differential includes but is not limited to: ACS, Arrhythmia, Gastritis, Intracranial process, Infectious, Metabolic derangement, UTI. Given the patient's history and physical exam, we will obtain a cbc, cmp, lipase, troponin, ekg, UA, urine culture, chest plain film, ct head to evaluate further for possible etiologies. We will treat the patient with iv fluids, benadryl, reglan in the meantime and continue to monitor and reassess while here in the ED. 10/22/17 05:35 CBC, cmp, lipase, troponin are unremarkable. UA demonstrates positive leuk esterase with elevated wbc consistent with a UTI. Head CT was unremarkable as preliminarily read by our substation operator radiologist. The patient's symptoms are likely due to a UTI. However, given her reported symptoms of numbness and loss of vision on the right side, we will observation admit the patient for TIA. *DC/Admit/Observation/Transfer Diagnosis at time of Disposition: UTI (urinary tract infection) Qualifiers: Urinary tract infection type: site unspecified Hematuria presence: without hematuria Qualified Code(s): N39.0 - Urinary tract infection, site not specified TIA (transient ischemic attack) Qualifiers: Transient cerebral ischemia type: unspecified Qualified Code(s): G45.9 - Transient cerebral ischemic attack, unspecified - Discharge Dispostion Condition at time of disposition: Stable Decision to Admit order: Yes - Referrals Referrals: Katia Campbell [Primary Care Provider] - - Patient Instructions - Post Discharge Activity
[2017-10-22] MEDS ORDERED: METOCLOPRAMIDE HCL INJECTION 10 MG/2 ML VIAL IVPUSH ONE (01:37)
[2017-10-22] MEDS ORDERED: SODIUM CHLORIDE 1,000 ML IV STA (01:37)
--- NOTE | 2017-10-22 01:44 | PDOC ---
Attending Attestation - HPI HPI: 10/22/17 01:45 The patient is a 42 year old female, with a significant past medical history of anemia, SVT, mitral valve prolapse, asthma, and anxiety, who presents to the emergency department with, acute onset of multiple symptoms. She report abdominal pain which radiates to her back. She is experiencing urinary retention and dysuria, chest pain without shortness of breath, a headache with associated tingling on the right side, and inability to see out of her right eye. She recently experienced similar symptoms, where she was admitted with cardiology and neurology consults. She denies recent fevers, chills, or dizziness. She denies recent nausea, vomit , diarrhea or constipation. She denies recent frequency or hematuria. Allergies: NKA Social history: Former smoker. Denies EtOH use and recreational drug use. Primary Care Physician: Dr. Campbell <Denise Monroe - Last Filed: 10/22/17 01:45> - Resident Resident Name: Titi Langley - ED Attending Attestation I have performed the following: I have examined & evaluated the patient, The case was reviewed & discussed with the resident, I agree w/resident's findings & plan, Exceptions are as noted - Physicial Exam PE: 10/22/17 19:26 Physical Exam General Appearance: Yes: Appropriately Dressed. No: Apparent Distress, Intoxicated HEENT: positive: EOMI, KAREL, Normal ENT Inspection, Normal Voice, TMs Normal, Pharynx Normal. negative: Pale Conjunctivae, Photophobia, Scleral Icterus (R), Scleral Icterus (L) Neck: positive: Trachea midline, Normal Thyroid, Supple. negative: Tender, Rigid, Carotid bruit, Stridor, Lymphadenopathy (R), Lymphadenopathy (L), Thyromegaly Respiratory/Chest: positive: Lungs Clear, Normal Breath Sounds. negative: Chest Tender, Respiratory Distress, Accessory Muscle Use, Labored Respiration, RES, Crackles, Rales, Rhonchi, Stridor, Wheezing, Dullness Cardiovascular: positive: Regular Rhythm, Regular Rate, S1, S2. negative: Edema , JVD, Murmur, Bradycardia, Tachycardia Vascular Pulses: Dorsalis-Pedis (R): 2+, Doralis-Pedis (L): 2+ Gastrointestinal/Abdominal: positive: Normal Bowel Sounds, Flat, Soft. negative : Tender, Organomegaly, Pulsatile Mass, Increased Bowel Sounds, Decreased BS, Distended, Guarding, Rebound, Hernia, Hepatomegaly, Spleenomegaly Lymphatic: negative: Adenopathy, Tenderness Musculoskeletal: positive: Normal Inspection. negative: CVA Tenderness, Decreased Range of Motion Extremity: positive: Normal Capillary Refill, Normal Inspection, Normal Range of Motion, Pelvis Stable. negative: Tender, Pedal Edema, Swelling, Erythema Integumentary: positive: Normal Color, Dry, Warm. negative: Cyanotic, Erythema , Jaundice, Rash Neurologic: positive: arborer II-XII NML intact, Fully Oriented, Alert, Normal Mood/ Affect, Motor Strength 5/5. negative: EOM Palsy, Facial Droop, Sensory Deficit - Medical Decision Making 10/22/17 19:27 Pt admitted to Tele <Oleg Ramirez - Last Filed: 10/22/17 19:27> Attestations - Attestations 10/22/17 01:45 Documentation prepared by Denise Monroe, acting as medical record librarian for Oleg Ramirez DO. <Denise Monroe - Last Filed: 10/22/17 01:45>
[2017-10-22] MEDS ORDERED: METOCLOPRAMIDE HCL INJECTION 10 MG/2 ML VIAL ONE (02:06)
[2017-10-22 02:25] LABS: URINE APPEARANCE SLCLOUDY; URINE BILIRUBIN NEGATIVE (<2.0 mg/dL); URINE COLOR LTYELLOW; URINE GLUCOSE (UA) NEGATIVE (NEGATIVE); URINE KETONE 1+ (NEGATIVE); URINE NITRITE NEGATIVE (NEGATIVE); URINE PROTEIN NEGATIVE (NEGATIVE); URINE UROBILINOGEN NEGATIVE mg/dL (0.2-1.0)
[2017-10-22] MEDS ORDERED: ACETAMINOPHEN 1000 MG/100 ML VIAL (NON FORMULARY) IVPB ONE (02:33)
[2017-10-22 02:35] LABS: URINE LEUK ESTERASE 3+ (NEGATIVE)
[2017-10-22 02:36] LABS: EPI CELLS FEW /HPF (FEW); URINE BACTERIA RARE /hpf (NONE SEEN); URINE MUCUS RARE
[2017-10-22 02:52] LABS: BASO % 0.6 % (0-2.0); EOS % 1.6 % (0-4.5); HEMATOCRIT 44.7 % (32.4-45.2); HEMOGLOBIN 13.9 GM/dL (10.7-15.3); LYMPH % 18.7 % (8-40); MCH 23.8 pg (25.7-33.7); MCHC 31.1 g/dl (32.0-36.0); MEAN CELL VOLUME 76.4 fl (80-96); MEAN PLT VOLUME 8.9 fl (7.5-11.1); MONO % 5.8 % (3.8-10.2); NEUT % 73.3 % (42.8-82.8); PLATELET COUNT 269 K/MM3 (134-434); RBC 5.85 M/mm3 (3.60-5.2); RDW 29.7 % (11.6-15.6); WHITE BLOOD COUNT 8.6 K/mm3 (4.0-10.0)
[2017-10-22] MEDS ORDERED: traMADol HCL 50 MG TABLET PO ONE (03:04)
[2017-10-22 03:15] LABS: ALBUMIN 3.9 g/dl (3.4-5.0); ALK PHOS 90 U/L (45-117); ANION GAP 12 (8-16); BILIRUBIN,TOTAL 0.8 mg/dL (0.2-1.0); BLOOD UREA NITROGEN 14 mg/dL (7-18); CALCIUM 9.2 mg/dL (8.5-10.1); CHLORIDE 100 mmol/L (98-107); CO2 25 mmol/L (21-32); CREATININE 0.7 mg/dL (0.55-1.02); GLUCOSE,RANDOM 74 mg/dL (74-106); LIPASE 38 U/L (73-393); POTASSIUM 4.4 mmol/L (3.5-5.1); SGOT/AST 36 U/L (15-37); SGPT/ALT 38 U/L (12-78); SODIUM 137 mmol/L (136-145); TOT PROT 7.1 g/dl (6.4-8.2)
[2017-10-22] MEDS ORDERED: traMADol HCL 50 MG TABLET ONE (03:16)
[2017-10-22] MEDS ORDERED: ACETAMINOPHEN INJECTION 100 ML IVPB ONE (03:16)
[2017-10-22] MEDS ORDERED: oxyCODONE HCL 5 MG TABLET PO ONE (04:02)
[2017-10-22] MEDS ORDERED: morphine SO4 SUSTAINED ACTING 15 MG TABLET.SA PO ONE (04:02)
[2017-10-22] MEDS ORDERED: oxyCODONE HCL 5 MG TABLET ONE (04:15)
[2017-10-22] MEDS ORDERED: morphine SO4 SUSTAINED ACTING 15 MG TABLET.SA ONE (04:15)
--- NOTE | 2017-10-22 06:22 | HP ---
CHIEF COMPLAINT: abd pain, head pressure, loss of vision, chest pain PCP: Adrian HISTORY OF PRESENT ILLNESS: This is a 42 year old female with a significant past medical history anemia, SVT , MVP, migraines who presented to the ED with multiple medical complaints. Pt reports that she had abdominal pain that radiates to her back. Pt also has pressure in the right side of her head with reported vision loss and tingling in her right side of her body. She also reports chest pressure earlier in the day as well as decreased urine output today. ER course was notable for: (1) troponin neg x 1 (2) CT head without acute findings (3) Recent Travel: pt denies PAST MEDICAL HISTORY: anemia, asthma, anxiety, SVT, MVP, gastric ulcer, "twisted bowels", colitis, migraines PAST SURGICAL HISTORY: gastric bypass, ventral hernia, scar tissue removal cholecystecomty, spine x 2 Social History: Smokinppd Alcohol: pt denies Drugs: pt denies Family History: mother alive, s/p TIA, thyroid disease father with HTN brother with ESRD, DM sister alive and well Allergies No Known Allergies Allergy (Verified 10/22/17 01:16) HOME MEDICATIONS: 3 Medication Instructions Recorded Morphine *Sr* [MS Contin -] 60 mg PO Q12H 07/13/15 Oxycodone HCl 15 mg PO TID PRN 08/11/17 Miscellaneous Drug Not in Syst 1 each .ROUTE ASDIR #1 each 09/11/17 Acetaminophen [Tylenol .Regular 650 mg PO Q6H PRN tablet 09/24/17 Strength -] Divalproex *ER* [Depakote *ER* -] 250 mg PO HS #30 tablet.sa 09/24/17 Docusate Sodium [Colace -] 300 mg PO HS #30 capsule 09/24/17 Pantoprazole Sodium [Protonix -] 40 mg PO BID #60 tablet.ec 09/24/17 Pramipexole Dihydrochloride 0.125 mg PO HS@2000 #30 tablet 09/24/17 [Mirapex -] Quetiapine Fumarate [Seroquel -] 25 mg PO HS #30 tablet 09/24/17 Sucralfate Oral Suspension 1 gm PO QID 10 Days ml 09/24/17 [Carafate Oral Suspension -] clonazePAM [Klonopin -] 1 mg PO BID PRN tablet MDD 2 09/24/17 REVIEW OF SYSTEMS CONSTITUTIONAL: Absent: fever, chills, diaphoresis, generalized weakness, malaise, loss of appetite, weight change HEENT: Absent: rhinorrhea, nasal congestion, throat pain, throat swelling, difficulty swallowing, mouth swelling, ear pain, eye pain, visual changes CARDIOVASCULAR: Present: chest pain Absent: syncope, palpitations, irregular heart rate, lightheadedness, peripheral edema RESPIRATORY: Absent: cough, shortness of breath, dyspnea with exertion, orthopnea, wheezing, stridor, hemoptysis GASTROINTESTINAL: Present: abdominal pain Absent: abdominal distension, nausea, vomiting, diarrhea, constipation, melena, hematochezia GENITOURINARY: Present: decreased urine output Absent: dysuria, frequency, urgency, hesitancy, hematuria, flank pain, genital pain MUSCULOSKELETAL: Absent: myalgia, arthralgia, joint swelling, back pain, neck pain SKIN: Absent: rash, itching, pallor HEMATOLOGIC/IMMUNOLOGIC: Absent: easy bleeding, easy bruising, lymphadenopathy, frequent infections ENDOCRINE: Absent: unexplained weight gain, unexplained weight loss, heat intolerance, cold intolerance NEUROLOGIC: Present: headache, paresthesias Absent: focal weakness, dizziness, unsteady gait, seizure, mental status changes , bladder or bowel incontinence PSYCHIATRIC: Absent: anxiety, depression, suicidal or homicidal ideation, hallucinations. PHYSICAL EXAMINATION Vital Signs - 24 hr 3 10/22/17 10/22/17 10/22/17 01:17 04:20 06:12 Temperature 98.9 F 98.6 F 98.8 F Pulse Rate 85 Pulse Rate [ 79 86 Apical] Respiratory 17 18 17 Rate Blood Pressure 109/57 Blood Pressure 118/76 121/88 [Left Arm] O2 Sat by Pulse 97 99 96 Oximetry (%) GENERAL: Awake, alert, and fully oriented, in no acute distress. HEAD: Normal with no signs of trauma. EYES: Pupils equal, round and reactive to light, extraocular movements intact, sclera anicteric, conjunctiva clear. No lid lag. EARS, NOSE, THROAT: Ears normal, nares patent, oropharynx clear without exudates. Moist mucous membranes. NECK: Normal range of motion, supple without lymphadenopathy, JVD, or masses. LUNGS: Breath sounds equal, clear to auscultation bilaterally. No wheezes, and no crackles. No accessory muscle use. HEART: Regular rate and rhythm, normal S1 and S2 without murmur, rub or gallop. ABDOMEN: Soft, nontender, not distended, normoactive bowel sounds, no guarding, no rebound, no masses. No hepatomegaly or splenomegaly. MUSCULOSKELETAL: Normal range of motion at all joints. No bony deformities or tenderness. No CVA tenderness. UPPER EXTREMITIES: 2+ pulses, warm, well-perfused. No cyanosis. No clubbing. No peripheral edema. LOWER EXTREMITIES: 2+ pulses, warm, well-perfused. No calf tenderness. No peripheral edema. NEUROLOGICAL: Cranial nerves II-XII intact. Normal speech. no neurological deficits noted. PSYCHIATRIC: Cooperative. Good eye contact. Appropriate mood and affect. SKIN: Warm, dry, normal turgor, no rashes or lesions noted, normal capillary refill. Laboratory Results - last 24 hr 3 10/22/17 10/22/17 10/22/17 02:10 02:20 02:20 WBC 8.6 RBC 5.85 H Hgb 13.9 Hct 44.7 D MCV 76.4 L MCH 23.8 L D MCHC 31.1 L RDW 29.7 H Plt Count 269 D MPV 8.9 Absolute Neuts (auto) 6.3 Neutrophils % 73.3 Lymphocytes % 18.7 D Monocytes % 5.8 Eosinophils % 1.6 Basophils % 0.6 Nucleated RBC % 0 Sodium 137 Potassium 4.4 Chloride 100 Carbon Dioxide 25 Anion Gap 12 BUN 14 Creatinine 0.7 Creat Clearance w eGFR > 60 Random Glucose 74 Calcium 9.2 Total Bilirubin 0.8 AST 36 ALT 38 Alkaline Phosphatase 90 Creatine Kinase 32 Troponin I < 0.02 Total Protein 7.1 Albumin 3.9 Lipase 38 L Serum , Qual Negative Urine Color Ltyellow Urine Appearance Slcloudy Urine pH 6.0 Ur Specific [place] 1.011 Urine Protein Negative Urine Glucose (UA) Negative Urine Ketones 1+ H Urine Blood Negative Urine Nitrite Negative Urine Bilirubin Negative Urine Urobilinogen Negative Ur Leukocyte Esterase 3+ H Urine WBC (Auto) 92 Urine RBC (Auto) 2 Ur Epithelial Cells Few Urine Bacteria Rare Urine Mucus Rare ECG normal sinus rhythm vent rate 94, QTC 455 possible left atrial enlargement no acute ST/T wave changes Radiology Reports CT head noncontrast ASSESSMENT/PLAN: 42yF PMH anemia, asthma, anxiety, SVT, MVP, gastric ulcer, "twisted bowels", colitis, migraines presented to the ED with multiple complaints including abdominal pain radiating to the back with chest discomfort, head fullness with right sided parasthesias. chest pain - atypical, doubtful cardiac - telemetry monitoring - trend troponin x 3 - consider cardiology consult headache with parasthesias - likely due to migraine - no pain at present - CT head negative - neuro consult - cont home depakote UTI - cont levaquin 250mg IVPB - follow urine culture results - abdominal pain likely due to UTI chronic pain - cont home meds anemia - Hgb WNL, cont to monitor Anxiety - cont home klonopin DVT PPX - heparin deferred as LOS expected <48h FEN - tolerating po - BMP in am - regular diet as tolerated Dispo: Pt requires further observation for management of her emergent condition. Visit type - Emergency Visit Emergency Visit: Yes ED Registration Date: 10/22/17 Care time: The patient presented to the Emergency Department on the above date and was hospitalized for further evaluation of their emergent condition. - New Patient This patient is new to me today: Yes Date on this admission: 10/22/17 - Critical Care Critical Care patient: No Hospitalist Screening - Colonoscopy Questionnaire Colonoscopy Questionnaire: Colonoscopy Questionnaire - Patient: 50 - 75 years old and never had a screening colonoscopy: No History of colon or rectal polyps, or CA: No History of IBD, Crohn's disease or UC: No History of abdominal radiation therapy as a child: No - Relative: 1 with colon or rectal CA, or polyps at age 60 or younger: No Colon or rectal CA diagnosed at age 45 or younger: No Multiple relatives with colon or rectal CA: No - Outcome: Screening Result: Negative Screen
[2017-10-22 07:44] VITALS: BMI 20.4
[2017-10-22] MEDS: PANTOPRAZOLE 40 MG TABLET (FP) PO SCH ×2 (08:59→21:37)
[2017-10-22] MEDS: morphine SO4 SUSTAINED ACTING 30 MG TABLET.SA PO SCH ×2 (08:59→21:36)
[2017-10-22] MEDS: SUCRALFATE 1 GM/10 ML UNIT DOSE CUPS PO SCH ×4 (08:59→21:32)
[2017-10-22] MEDS: clonazePAM 0.5 MG TABLET PO PRN ×2 (09:02→21:38)
--- NOTE | 2017-10-22 11:29 | EKG ---
Test Reason : Blood Pressure : / mmHG Vent. Rate : 094 BPM Atrial Rate : 094 BPM P-R Int : 142 ms QRS Dur : 082 ms QT Int : 364 ms P-R-T Axes : 080 071 071 degrees QTc Int : 455 ms NORMAL SINUS RHYTHM POSSIBLE LEFT ATRIAL ENLARGEMENT BORDERLINE ECG WHEN COMPARED WITH ECG OF 15-SEP-2017 18:13, NO SIGNIFICANT CHANGE WAS FOUND Confirmed by RENATO GALVEZ, MONICA ([id number]) on 10/22/2017 11:28:54 AM Referred By: Confirmed By:MONICA GROSS MD
--- NOTE | 2017-10-22 11:29 | PN ---
Progress Note, Physician Chief Complaint: patient seen and examined when i walked in room she was asleep then i woke her up and she started complaining of chest pressure and tningling in her RLE and RUE with vision changes in her right eye she claims she seeing spots also says she is headache also says decreased urination since she has come to hospital - Current Medication List Current Medications: Active Medications Clonazepam (Klonopin -) 1 mg PO Q12H PRN PRN Reason: ANXIETY Last Admin: 10/22/17 09:02 Dose: 1 mg Divalproex Sodium (Depakote *Er* -) 250 mg PO HS [facility] Docusate Sodium (Colace -) 300 mg PO HS [facility] Morphine Sulfate (Ms Contin -) 60 mg PO BID [facility] Last Admin: 10/22/17 08:59 Dose: 60 mg Oxycodone HCl (Roxicodone -) 15 mg PO Q8H PRN PRN Reason: PAIN LEVEL 6-10 Pantoprazole Sodium (Protonix -) 40 mg PO BID [facility] Last Admin: 10/22/17 08:59 Dose: 40 mg Pramipexole Dihydrochloride (Mirapex -) 0.125 mg PO DAILY@1999 [facility] Quetiapine Fumarate (Seroquel -) 25 mg PO HS [facility] Sucralfate (Carafate Oral Suspension -) 1 gm PO QID [facility] Last Admin: 10/22/17 08:59 Dose: 1 gm - Objective Vital Signs: Vital Signs Temperature 98.2 F 10/22/17 09:42 Pulse Rate 71 10/22/17 09:42 Respiratory Rate 18 10/22/17 09:42 Blood Pressure 141/91 10/22/17 09:42 O2 Sat by Pulse Oximetry (%) 98 10/22/17 06:30 Constitutional: Yes: Calm Cardiovascular: Yes: Regular Rate and Rhythm, S1, S2 Respiratory: Yes: CTA Bilaterally Gastrointestinal: Yes: Normal Bowel Sounds, Soft Musculoskeletal: Yes: Other (back midline scar no tenderness on exam) Edema: No Neurological: Yes: Alert, Oriented, Other (decreased sensation in RLE) Labs: CBC, BMP 10/22/17 02:20 10/22/17 02:20 Problem List - Problems (1) Chest pain Assessment/Plan: tele monitoring troponin cardiology eval looks like atypical chest pain Code(s): R07.9 - CHEST PAIN, UNSPECIFIED (2) Headache Assessment/Plan: ct head negative neurology evaluation MRI depakote Code(s): R51 - HEADACHE (3) Chronic back pain Assessment/Plan: raffi need imaging of her back given increased tingling and numbness of RLE morphine oxycodone Code(s): M54.9 - DORSALGIA, UNSPECIFIED; G89.29 - OTHER CHRONIC PAIN
[2017-10-22] MEDS: oxyCODONE HCL 5 MG TABLET PO PRN ×2 (12:20→20:15)
--- NOTE | 2017-10-22 12:21 | PN ---
Progress Note (short form) - Note Progress Note: patient bladder scan done over 500ml of urine raffi insert torres cath and get urology to see patient as well Problem List - Problems (1) Chest pain Code(s): R07.9 - CHEST PAIN, UNSPECIFIED (2) Headache Code(s): R51 - HEADACHE (3) Chronic back pain Code(s): M54.9 - DORSALGIA, UNSPECIFIED; G89.29 - OTHER CHRONIC PAIN
--- NOTE | 2017-10-22 17:38 | CON.CARD ---
Consult Consult Specialty:: Cardiology Reason for Consultation:: Chest pain - History of Present Illness Chief Complaint: Chest pain History of Present Illness: This is a 42 year old female with a PMH of SVT, mitral valve prolapse, asthma, and anxiety. She presented to the ED this visit with multiple complaints, including chest discomfort. She experienced a mid sternal chest pain which radiated to her neck. This was not associated with exertion and she did not feel short of breath. The pain resolved after 20 minutes. Troponin levels negative. EKG - NSR at 94 BPM with normal intervals, normal axis, and NSSTTW changes. - Past Medical History ...LMP: 07/19/15 ...: No - Alcohol/Substance Use Hx Alcohol Use: No - Smoking History Smoking history: Current every day smoker Have you smoked in the past 12 months: Yes Aproximately how many cigarettes per day: 10 Home Medications - Allergies Allergies/Adverse Reactions: Allergies Allergy/AdvReac Type Severity Reaction Status Date / Time No Known Allergies Allergy Verified 10/22/17 01:16 - Home Medications Home Medications: Ambulatory Orders Morphine *Sr* [MS Contin -] 60 mg PO Q12H 07/13/15 Oxycodone HCl 15 mg PO TID PRN 08/11/17 Miscellaneous Drug Not in Syst 1 each .ROUTE ASDIR #1 each 09/11/17 Acetaminophen [Tylenol .Regular Strength -] 650 mg PO Q6H PRN tablet 09/24/17 Divalproex *ER* [Depakote *ER* -] 250 mg PO HS #30 tablet.sa 09/24/17 Docusate Sodium [Colace -] 300 mg PO HS #30 capsule 09/24/17 Pantoprazole Sodium [Protonix -] 40 mg PO BID #60 tablet.ec 09/24/17 Pramipexole Dihydrochloride [Mirapex -] 0.125 mg PO HS@2000 #30 tablet 09/24/17 Quetiapine Fumarate [Seroquel -] 25 mg PO HS #30 tablet 09/24/17 Sucralfate Oral Suspension [Carafate Oral Suspension -] 1 gm PO QID 10 Days ml 09/24/17 clonazePAM [Klonopin -] 1 mg PO BID PRN tablet MDD 2 09/24/17 Review of Systems Findings/Remarks: As per HPI Vital Signs: Vital Signs Temperature 98.3 F 10/22/17 13:55 Pulse Rate 97 H 10/22/17 13:55 Respiratory Rate 20 10/22/17 14:24 Blood Pressure 98/57 10/22/17 13:55 O2 Sat by Pulse Oximetry (%) 98 10/22/17 14:24 Constitutional: Yes: Well Nourished, No Distress HENT: Yes: WNL Neck: Yes: WNL Respiratory: Yes: CTA Bilaterally Gastrointestinal: Yes: Normal Bowel Sounds Cardiovascular: Yes: Regular Rate and Rhythm (NL S1S2 no MRHG) Extremities: Yes: WNL Edema: No Neurological: Yes: Alert, Oriented (Grossly non focal) - Other Data Labs, Other Data: CBC, BMP 10/22/17 02:20 10/22/17 02:20 Troponin, BNP 10/22/17 10/22/17 10/22/17 02:20 07:45 13:40 Troponin I < 0.02 0.02 < 0.02 Troponin, BNP 10/22/17 10/22/17 10/22/17 02:20 07:45 13:40 Troponin I < 0.02 0.02 < 0.02 Assessment/Plan 42 year old female with a PMH of SVT, mitral valve prolapse, asthma, and anxiety. She presented to the ED this visit with multiple complaints, including chest discomfort. She experienced a mid sternal chest pain which radiated to her neck. This was not associated with exertion and she did not feel short of breath. The pain resolved after 20 minutes. Troponin levels negative. EKG - NSR at 94 BPM with normal intervals, normal axis, and NSSTTW changes Chest Pain Most likely non coronary Would have her do an EKG Treadmill Stress Test (can be done as either inpatient or outpatient) Obtain an echocardiogram (can be done as either inpatient or outpatient)
[2017-10-22] MEDS ORDERED: LORazepam 2 MG/ML SDV VIAL IVPUSH ONE (18:45)
--- NOTE | 2017-10-22 19:51 | CONSULT ---
Consult - text type - Consultation Consultation Note: NEUROLOGY CONSULTATION is greatly appreciated: Please review my detailed consultation of 09/17/17 regarding this 42 yo woman with chronic migraine headaches and severe RLS. Admitted 09/16 after transient visual loss, right sided paresthesia and severe right holocranial headache. Extensive w/u was unremarkable. Did well on Depakote ER and pramipexole but upon D/C she noted "her prescriptions were sent to the wrong pharmacy" and all symptoms promptly recurred. Now readmitted with similar features that occurred on 09/16 with transient scotoma, right sided paresthesia and right sided headache beginning last [address] of head (reviewed): Normal Pt refused MRI (cancelled by me). CHRISTOPHE: No bruits. Cor reg. Edentulous due to severe bruxism. NEURO: Normal exam. IMP: Normal Neurological exam Classical/complicated migraine. SUGGEST: Agree completely with your plan as outlined. Check Fe++, TIBC, Ferritin Resume Depakote ER 500 mg and pramipexole .25 mg q HS. Neuro f/u as out patient. Thank you very much. Anoop Mayer MD
[2017-10-22] MEDS ORDERED: PRAMIPEXOLE DIHYDROCHLORIDE 0.125 MG TABLET PO SCH (20:00)
[2017-10-22] MEDS ORDERED: PRAMIPEXOLE DIHYDROCHLORIDE 0.25 MG TABLET PO SCH (20:00)
[2017-10-22] MEDS ORDERED: PT OWN MED DRAWER 7, Y5N ONE ×3 (21:22→21:39)
[2017-10-22] MEDS ORDERED: DIVALPROEX NA *ER* EXTEND REL 500 MG TABLET.SA (FP) PO SCH (22:00)
[2017-10-22] MEDS ORDERED: DOCUSATE SODIUM 100 MG CAPSULE (FP) PO SCH (22:00)
[2017-10-22] MEDS ORDERED: QUEtiapine FUMARATE 25 MG TABLET (FP) PO SCH (22:00)
[2017-10-22] MEDS ORDERED: DIVALPROEX NA *ER* EXTEND REL 250 MG TABLET.SA PO SCH (22:00)
[2017-10-23 06:07] LABS: SERUM IRON SATURATION 14 % (15-55); TOTAL IRON BINDING CAPACITY 339 ug/dL (250-450); UIBC 293 ug/dL (131-425)
[2017-10-23 07:01] LABS: BASO % 0.6 % (0-2.0); EOS % 5.8 % (0-4.5); HEMATOCRIT 37.1 % (32.4-45.2); HEMOGLOBIN 11.6 GM/dL (10.7-15.3); LYMPH % 36.9 % (8-40); MCH 23.8 pg (25.7-33.7); MCHC 31.2 g/dl (32.0-36.0); MEAN CELL VOLUME 76.3 fl (80-96); MEAN PLT VOLUME 8.7 fl (7.5-11.1); MONO % 8.3 % (3.8-10.2); NEUT % 48.4 % (42.8-82.8); PLATELET COUNT 215 K/MM3 (134-434); RBC 4.87 M/mm3 (3.60-5.2); RDW 29.9 % (11.6-15.6)
--- NOTE | 2017-10-23 08:10 | CON.GU ---
Consult Consult Specialty:: urology Referred by:: Dr. Norwood Reason for Consultation:: urinary retention - History of Present Illness Chief Complaint: urinary retention History of Present Illness: Patient is a 42 yo female with history of migraine headaches and significant use of pain meds who was evaluated for a stroke. The patient had a ua which was suspicious for a uti. Patient was evaluated by Dr. Mayer and found to have migraine headaches. The patient was found to have a palpable bladder with a volume of greater than 500cc. Patient was subsequently able to void with minimal post void residuals on multiple studies. The patient denies dysuria, incontinence, hematuria, colic, urinary frequency and urgency, or nocturia. She denies history of recurrent uti's. Patient is currently comfortable and voiding well. Patient is also constipated most likely to pain meds and was told this can excacerbate urinary symptoms. - History Source History Provided By: Patient, Medical Record, Caregiver Limitations to Obtaining History: No Limitations - Past Medical History ...LMP: 07/19/15 ...: No - Alcohol/Substance Use Hx Alcohol Use: No - Smoking History Smoking history: Current every day smoker Have you smoked in the past 12 months: Yes Aproximately how many cigarettes per day: 10 Home Medications - Allergies Allergies/Adverse Reactions: Allergies Allergy/AdvReac Type Severity Reaction Status Date / Time No Known Allergies Allergy Verified 10/22/17 01:16 - Home Medications Home Medications: Ambulatory Orders Morphine *Sr* [MS Contin -] 60 mg PO Q12H 07/13/15 Oxycodone HCl 15 mg PO TID PRN 08/11/17 Miscellaneous Drug Not in Syst 1 each .ROUTE ASDIR #1 each 09/11/17 Acetaminophen [Tylenol .Regular Strength -] 650 mg PO Q6H PRN tablet 09/24/17 Divalproex *ER* [Depakote *ER* -] 250 mg PO HS #30 tablet.sa 09/24/17 Docusate Sodium [Colace -] 300 mg PO HS #30 capsule 09/24/17 Pantoprazole Sodium [Protonix -] 40 mg PO BID #60 tablet.ec 09/24/17 Pramipexole Dihydrochloride [Mirapex -] 0.125 mg PO HS@2000 #30 tablet 09/24/17 Quetiapine Fumarate [Seroquel -] 25 mg PO HS #30 tablet 09/24/17 Sucralfate Oral Suspension [Carafate Oral Suspension -] 1 gm PO QID 10 Days ml 09/24/17 clonazePAM [Klonopin -] 1 mg PO BID PRN tablet MDD 2 09/24/17 Physical Exam- Vital Signs: Vital Signs Temperature 98.4 F 10/23/17 06:00 Pulse Rate 70 10/23/17 06:00 Respiratory Rate 20 10/23/17 06:00 Blood Pressure 101/62 10/23/17 06:00 O2 Sat by Pulse Oximetry (%) 100 10/22/17 22:00 Constitutional: Yes: No Distress, Calm, Cachectic Eyes: Yes: WNL, Conjunctiva Clear, EOM Intact HENT: Yes: WNL, Atraumatic, Normocephalic Neck: Yes: WNL, Supple, Trachea Midline Cardiovascular: Yes: WNL, Regular Rate and Rhythm Respiratory: Yes: WNL, Regular, CTA Bilaterally Gastrointestinal: Yes: WNL, Normal Bowel Sounds, Soft Renal/: Yes: WNL Kidneys: Yes: WNL Pelvis: Yes: WNL, Bladder Non Palpable External Genitalia: Yes: WNL Labs: CBC, BMP 10/23/17 06:20 Assessment/Plan imp migrain headaches uti urinary retention plan ambulation pain management consultation consider management of constipation continue levaquin and follow urine culture which is pending
[2017-10-23 08:24] LABS: ANION GAP 7 (8-16); BLOOD UREA NITROGEN 16 mg/dL (7-18); CALCIUM 8.7 mg/dL (8.5-10.1); CHLORIDE 103 mmol/L (98-107); CO2 31 mmol/L (21-32); GLUCOSE,RANDOM 73 mg/dL (74-106); MAGNESIUM 2.1 mg/dL (1.8-2.4); SODIUM 141 mmol/L (136-145)
[2017-10-23 08:27] LABS: CREATININE 0.5 mg/dL (0.55-1.02); PHOSPHOROUS 3.6 mg/dL (2.5-4.9)
[2017-10-23 08:54] LABS: CHOLESTEROL 108 mg/dL (50-200); HDL CHOLESTEROL 35 mg/dL (40-60); TRIGLYCERIDES 52 mg/dL (35-160)
[2017-10-23] MEDS: SUCRALFATE 1 GM/10 ML UNIT DOSE CUPS PO SCH (09:14)
[2017-10-23] MEDS: morphine SO4 SUSTAINED ACTING 30 MG TABLET.SA PO SCH (09:14)
[2017-10-23] MEDS: clonazePAM 0.5 MG TABLET PO PRN (09:15)
[2017-10-23] MEDS: PANTOPRAZOLE 40 MG TABLET (FP) PO SCH (09:15)
[2017-10-23 09:34] VITALS: BP 109/74; PULSE 74; TEMP 98.2
[2017-10-23] MEDS: oxyCODONE HCL 5 MG TABLET PO PRN (10:50)
--- NOTE | 2017-10-23 12:14 | DS ---
Physical Examination Vital Signs: Vital Signs Temperature 98.2 F 10/23/17 09:33 Pulse Rate 74 10/23/17 09:33 Respiratory Rate 20 10/23/17 09:33 Blood Pressure 109/74 10/23/17 09:33 O2 Sat by Pulse Oximetry (%) 100 10/22/17 22:00 Constitutional: Yes: No Distress Eyes: Yes: WNL HENT: Yes: WNL Neck: Yes: WNL Cardiovascular: Yes: WNL Respiratory: Yes: WNL Gastrointestinal: Yes: WNL Renal/: Yes: WNL Musculoskeletal: Yes: WNL Extremities: Yes: WNL Edema: No Peripheral Pulses WNL: Yes Integumentary: Yes: WNL Wound/Incision: Yes: Clean/Dry Neurological: Yes: Loss of Sensation, Numbness, Pre-Existing Deficit ...Motor Strength: LUE, RUE Psychiatric: Yes: Other Labs: CBC, BMP 10/23/17 06:20 10/23/17 06:20 Discharge Summary Reason For Visit: URINARY TRACT INFECTION,TRANSIENT CEREBRAL ISCHEMI Current Active Problems TIA (transient ischemic attack) (Acute) UTI (urinary tract infection) (Acute) Procedures: Principal: CT HEAD Hospital Course: LABS, CT HEAD, NEUROLOGY EVAL, NO ACUTE CVA, LIKELY MIGRAINE FOLLOW UP DR SANDHU OUTPATIENT Condition: Stable - Instructions Diet, Activity, Other Instructions: SEE DR RAMIREZ IN [address] CAMPBELL IN 1 WEEK Referrals: Katia Campbell [Primary Care Provider] - Disposition: HOME - Home Medications Comprehensive Discharge Medication List: Ambulatory Orders Morphine *Sr* [MS Contin -] 60 mg PO Q12H 07/13/15 Oxycodone HCl 15 mg PO TID PRN 08/11/17 Miscellaneous Drug Not in Syst 1 each .ROUTE ASDIR #1 each 09/11/17 Acetaminophen [Tylenol .Regular Strength -] 650 mg PO Q6H PRN tablet 09/24/17 Divalproex *ER* [Depakote *ER* -] 250 mg PO HS #30 tablet.sa 09/24/17 Docusate Sodium [Colace -] 300 mg PO HS #30 capsule 09/24/17 Pantoprazole Sodium [Protonix -] 40 mg PO BID #60 tablet.ec 09/24/17 Pramipexole Dihydrochloride [Mirapex -] 0.125 mg PO HS@2000 #30 tablet 09/24/17 Quetiapine Fumarate [Seroquel -] 25 mg PO HS #30 tablet 09/24/17 Sucralfate Oral Suspension [Carafate Oral Suspension -] 1 gm PO QID 10 Days ml 09/24/17 clonazePAM [Klonopin -] 1 mg PO BID PRN tablet MDD 2 09/24/17
== END 2017-10-23 13:56 | disposition home or self-care (01) ==
LOC: JER 00:22 → INTOOBSV 06:06 → JERBED 06:06 → J4S 06:07
PROVIDERS: ADMIT Internal Medicine; ATTEND Family Medicine
PROC: 3E033NZ Introduction of Analgesics, Hypnotics, Sedatives into Peripheral Vein, Percutaneous Approach (ICD-10-PCS; principal; 2017-10-22)
PROC: 3E033GC Introduction of Other Therapeutic Substance into Peripheral Vein, Percutaneous Approach (ICD-10-PCS; 2017-10-22)
PROC: 3E0337Z Introduction of Electrolytic and Water Balance Substance into Peripheral Vein, Percutaneous Approach (ICD-10-PCS; 2017-10-22)
DX: N39.0 Urinary tract infection, site not specified (principal); G45.9 Transient cerebral ischemic attack, unspecified; R07.9 Chest pain, unspecified; R51 Headache; G89.29 Other chronic pain; F41.9 Anxiety disorder, unspecified; D64.9 Anemia, unspecified; R20.2 Paresthesia of skin; M54.9 Dorsalgia, unspecified; J45.909 Unspecified asthma, uncomplicated; I34.1 Nonrheumatic mitral (valve) prolapse; I95.9 Hypotension, unspecified; G43.909 Migraine, unspecified, not intractable, without status migrainosus; F17.210 Nicotine dependence, cigarettes, uncomplicated; Z98.84 Bariatric surgery status
CPT/HCPCS: 36415; 70450-TC; 71045-TC-FY; 80048; 80053; 80061; 81003; 81015; 82550; 82728; 83540; 83550; 83690; 83721; 83735; 84100; 84484; 84703; 85025; 87086; 93005; 93010; 96361; 96374; 96375; 97116-GP; 97162-GP; 99283-25; G0378; J0131; J7030

== ENCOUNTER 2017-11-15 16:31 | Emergency (ER) | payer OTHER ==
[2017-11-15 16:37] VITALS: BP 113/84; PULSE 115; TEMP 98.4; BMI 20.9
--- NOTE | 2017-11-15 16:59 | PDOC ---
History of Present Illness - General Chief Complaint: Weakness Stated Complaint: LOSS VISION/FATIGUE Time Seen by Provider: 11/15/17 16:58 History Source: Patient Exam Limitations: No Limitations - History of Present Illness Initial Comments: 11/15/17 17:34 42 year old female with extensive PMH including anemia, GIB, pancreatitis, SBO, colitis, asthma, hypoglycemia, hypotension presents to ED complaining of extremity weakness and falling x3 days. She denies head injury, syncope. She also complains of blurry vision, double vision, headache, lower abdominal pain, chilla, SOB, dysuria. No current chest pain, fever, chills. Past History - Past Medical History Allergies/Adverse Reactions: Allergies Allergy/AdvReac Type Severity Reaction Status Date / Time No Known Allergies Allergy Verified 11/15/17 16:37 Home Medications: Ambulatory Orders Morphine *Sr* [MS Contin -] 60 mg PO Q12H 07/13/15 Oxycodone HCl 15 mg PO TID PRN 08/11/17 Acetaminophen [Tylenol .Regular Strength -] 650 mg PO Q6H PRN tablet 09/24/17 Docusate Sodium [Colace -] 300 mg PO HS #30 capsule 09/24/17 Pantoprazole Sodium [Protonix -] 40 mg PO BID #60 tablet.ec 09/24/17 Pramipexole Dihydrochloride [Mirapex -] 0.125 mg PO HS@2000 #30 tablet 09/24/17 Quetiapine Fumarate [Seroquel -] 25 mg PO HS #30 tablet 09/24/17 Sucralfate Oral Suspension [Carafate Oral Suspension -] 1 gm PO QID 10 Days ml 09/24/17 clonazePAM [Klonopin -] 1 mg PO BID PRN tablet MDD 2 09/24/17 Cephalexin Monohydrate [Keflex -] 500 mg PO BID #14 capsule 11/15/17 Anemia: Yes Asthma: Yes Cardiac Disorders: Yes (SVT,MVP) COPD: No DVT: No Dementia: No Diabetes: No GI Disorders: Yes (ULCER,TWISTED BOWELS,COLITIS) HTN: (HYPOTENSION) Psychiatric Problems: Yes (ANXIETY) Seizures: No - Surgical History Abdominal Surgery: Yes (GASTRIC BYPASS, VENTRAL HERNIA, SCAR TISSUE REMOVAL FROM ABD.) Cholecystectomy: Yes Neurologic Surgery: Yes (back X2) - Immunization History Td Vaccination: Yes TDAP Vaccination: Yes Immunization Up to Date: Yes - Suicide/Smoking/Psychosocial Hx Smoking Status: Yes Smoking History: Current every day smoker Years of Tobacco Use: 25 Have you smoked in the past 12 months: Yes Number of Cigarettes Smoked Daily: 20 Cigars Per Day: 0 Information on smoking cessation initiated: No 'Breaking Loose' booklet given: 04/06/17 Hx Alcohol Use: No Drug/Substance Use Hx: No Substance Use Type: None Hx Substance Use Treatment: No Review of Systems - Review of Systems Able to Perform ROS?: Yes Comments:: 11/15/17 17:30 General: admits to chills, generalized weakness. denies fever. HEENT: admits to blurry and double vision. denies sore throat, rhinorrhea, ear pain. Heart: denies chest pain, palpitations, syncope, lower extremity swelling. Respiratory: admits to shortness of breath. denies cough, sputum production, hematemesis. Abdomen: admits to abdominal pain. denies nausea, vomiting, diarrhea, constipation, blood in stool. : admits to dysuria. urinary frequency, hematuria. Back: denies back pain, flank pain. Musculoskeletal: admits to pain to all extremities. Neurological: admits to headache, numbness, tingling. Skin: denies rash, laceration, abrasion. *Physical Exam - Vital Signs Last Vital Signs Temp Pulse Resp BP Pulse Ox 98.4 F 115 H 20 113/84 99 11/15/17 16:35 11/15/17 16:35 11/15/17 16:35 11/15/17 16:35 11/15/17 16:35 - Physical Exam Comments: 11/15/17 17:32 Appearance: comfortable. HEENT: head is normocephalic, atraumatic. EOMI. PERRLA. Neck: supple. Full ROM. Heart: regular rhythm. no murmurs, rubs or gallops. Lungs: bilateral wheezing noted on auscultation. Abdomen: soft, flat. tenderness to suprapubic area, RLQ, LLQ, worst in suprapubic area. normal bowel sounds. no rebound, guarding, masses. Back: no CVA tenderness. No c-spine, t-spine or l-spine tenderness. No low back tenderness. Extremities: Peripheral pulses intact. No lower extremity edema. Neurological: Alert. Oriented x3. CN2-12 intact. 4/5 strength right lower extremity. 5/5 strength all other extremities. No sensation to light touch on right leg. Full sensation all other extremities and bilateral face. Romberg negative. Finger to nose normal. Gait normal. Heart Score/ECG Review - ECG Impressions Comment:: 11/15/17 18:12 Rate 80. Regular rhythm. Normal axis. No acute ST changes. ED Treatment Course - LABORATORY CBC & Chemistry Diagram: 11/15/17 19:16 11/15/17 19:16 Medical Decision Making - Medical Decision Making 11/15/17 17:41 42 year old female with extensive PMH and multiple ED visits presents to ED today for leg weakness and falling. Right LE 4/5 strength, no sensation to light touch. Otherwise completely neurologically intact. Initial Vital Signs Temp Pulse Resp BP Pulse Ox 98.4 F 115 H 20 113/84 99 11/15/17 16:35 11/15/17 16:35 11/15/17 16:35 11/15/17 16:35 11/15/17 16:35 Afebrile. Tachycardic. No hypotension. No hypertension. No hypoxia. Pending labs, UA, CXR, CT head. 11/15/17 19:55 I discussed the case with Dr. Rodrigues, who will take over care for the patient. *DC/Admit/Observation/Transfer Diagnosis at time of Disposition: Weakness - Discharge Dispostion Disposition: ELOPED Condition at time of disposition: Stable - Prescriptions Prescriptions: Cephalexin Monohydrate [Keflex -] 500 mg PO BID #14 capsule - Referrals Referrals: Katia Campbell [Primary Care Provider] - - Patient Instructions - Post Discharge Activity
--- NOTE | 2017-11-15 19:21 | PDOC ---
Attending Attestation - Resident Resident Name: Madina Ndiaye - ED Attending Attestation I have performed the following: I have examined & evaluated the patient, The case was reviewed & discussed with the resident, I agree w/resident's findings & plan - HPI HPI: 11/15/17 20:23 Pt comes with weakness; she has chronic pain and she is on multiple narcotics: Patient Name: Padmini Phillips Date: 1975 Address: [address] [place] [address] Sex: Female Rx Written Rx Dispensed Drug Quantity Days Supply Prescriber Name 10/23/2017 10/31/2017 clonazepam 1 mg tablet 60 30 Luis Enrique Bell M D 10/29/2017 10/29/2017 morphine sulf er 60 mg tablet 60 30 Luis Enrique Bell,Sergio D 10/23/2017 10/28/2017 oxycodone hcl 15 mg tablet 90 30 Luis Enrique Bell,Sergio D 10/23/2017 10/27/2017 zolpidem tartrate 10 mg tablet 30 30 Luis Enrique Bell,Sergio D 09/30/2017 09/30/2017 clonazepam 1 mg tablet 60 30 Luis Enrique Bell, Sergio D 09/25/2017 09/28/2017 oxycodone hcl 15 mg tablet 90 30 Luis Enrique Bell,Sergio D 09/25/2017 09/25/2017 morphine sulf er 60 mg tablet 60 30 Luis Enrique Bell,Sergio D 08/27/2017 09/24/2017 zolpidem tartrate 10 mg tablet 30 30 Luis Enrique Bell,Sergio D 08/31/2017 08/31/2017 clonazepam 1 mg tablet 60 30 Luis Enrique Bell, Sergio D 08/27/2017 08/29/2017 oxycodone hcl 15 mg tablet 90 30 Luis Enrique Bell M D 08/27/2017 08/27/2017 morphine sulf er 60 mg tablet 60 30 Luis Enrique Bell,Sergio D 08/26/2017 08/26/2017 oxycodone hcl 15 mg tablet 10 3 Lsia Tsang MD 08/26/2017 08/26/2017 morphine sulf er 30 mg tablet 12 4 Lisa Tsang MD 08/26/2017 08/26/2017 zolpidem tartrate 10 mg tablet 15 15 Lisa Tsang MD 08/13/2017 08/14/2017 diazepam 10 mg tablet 1 1 Katia Campbell MD 07/29/2017 07/31/2017 morphine sulf er 60 mg tablet 60 30 Luis Enrique Bell M D 07/29/2017 07/31/2017 oxycodone hcl 15 mg tablet 90 30 Luis Enrique Bell M D 07/29/2017 07/31/2017 zolpidem tartrate 10 mg tablet 30 30 Luis Enrique Bell M D 07/29/2017 07/29/2017 clonazepam 1 mg tablet 60 30 Luis Enrique Bell M D 07/24/2017 07/24/2017 oxycodone-acetaminophen 5-325 mg tab 20 3 Hunter Cook MD 07/15/2017 07/16/2017 morphine sulf er 60 mg tablet 30 15 Luis Enrique Bell M D 07/01/2017 07/02/2017 morphine sulf er 60 mg tablet 30 15 Luis Enrique Bell M D 07/01/2017 07/02/2017 oxycodone hcl 15 mg tablet 90 30 Luis Enrique Bell M D 07/01/2017 07/01/2017 zolpidem tartrate 10 mg tablet 30 30 Luis Enrique Bell M D 06/29/2017 06/29/2017 morphine sulf er 100 mg tablet 6 3 Lisa Tsang MD 06/29/2017 06/29/2017 oxycodone hcl 15 mg tablet 10 3 Lisa Tsang MD 06/02/2017 06/06/2017 morphine sulf er 60 mg tablet 20 10 Luis Enrique Bell M D 05/26/2017 05/27/2017 oxycodone hcl 15 mg tablet 90 30 Luis Enrique Bell M D 05/26/2017 05/27/2017 zolpidem tartrate 10 mg tablet 30 30 Luis Enrique Bell M D 04/28/2017 05/11/2017 morphine sulf er 100 mg tablet 60 30 Luis Enrique Bell M D 04/28/2017 04/28/2017 oxycodone hcl 15 mg tablet 90 30 Luis Enrique Bell,Sergio D 04/28/2017 04/28/2017 zolpidem tartrate 10 mg tablet 30 30 Ray Luis Enrique,Sergio D 03/27/2017 04/09/2017 morphine sulf er 100 mg tablet 60 30 Luis Enrique Bell,Sergio D 03/27/2017 03/30/2017 oxycodone hcl 15 mg tablet 90 30 Brunamanuel Luis Enrique,Sergio D 03/27/2017 03/30/2017 zolpidem tartrate 10 mg tablet 30 30 Luis Enrique BellSergio D 02/27/2017 03/11/2017 morphine sulf er 100 mg tablet 60 30 Brunamanuel Luis Enrique,Sergio D 02/27/2017 03/01/2017 oxycodone hcl 15 mg tablet 90 30 Ray Luis Enrique,Sergio D 02/27/2017 03/01/2017 zolpidem tartrate 10 mg tablet 30 30 Brunamanuel Luis Enrique,Sergio D 01/30/2017 02/11/2017 morphine sulf er 100 mg tablet 60 30 Luis Enrique BellSergio D 01/30/2017 01/31/2017 oxycodone hcl 15 mg tablet 90 30 Brunamanuel Luis Enrique,Sergio D 01/30/2017 01/31/2017 zolpidem tartrate 10 mg tablet 30 30 Ray Luis EnriqueSergio D 01/02/2017 01/15/2017 morphine sulf er 100 mg tablet 60 30 Brunasnehalynnettemed Luis EnriqueSergio D 01/02/2017 01/02/2017 oxycodone hcl 15 mg tablet 90 30 Brunasnehalynnettemed Luis Enrique,Sergio D 01/02/2017 01/02/2017 zolpidem tartrate 10 mg tablet 30 30 Brunasnehalynnettemed Luis EnriqueSergio D 12/01/2016 12/19/2016 morphine sulf er 100 mg tablet 20 10 Luis Enrique Bell M D 12/01/2016 12/03/2016 oxycodone hcl 15 mg tablet 90 30 BrynmedLuis Enrique M D 12/01/2016 12/03/2016 zolpidem tartrate 10 mg tablet 30 30 Luis Enrique Bell M D - Physicial Exam PE: 11/15/17 20:24 Agree with resident - Medical Decision Making 11/15/17 20:24 Home with PMD follow up. Labs normal. Exam normal.
[2017-11-15 19:23] LABS: HEMATOCRIT 40.3 % (32.4-45.2); HEMOGLOBIN 12.9 GM/dL (10.7-15.3); MCH 25.4 pg (25.7-33.7); MCHC 32.1 g/dl (32.0-36.0); MEAN PLT VOLUME 7.6 fl (7.5-11.1); PLATELET COUNT 273 K/MM3 (134-434); RBC 5.09 M/mm3 (3.60-5.2); RDW 25.8 % (11.6-15.6); WHITE BLOOD COUNT 7.4 K/mm3 (4.0-10.0)
[2017-11-15] MEDS ORDERED: ALBUTEROL SO4 2.5/IPRATROPIUM 0.5 INH SOL 3 ML VIAL.NEB. NEB ONE (19:25)
[2017-11-15] MEDS: ALBUTEROL SO4 2.5/IPRATROPIUM 0.5 INH SOL 3 ML VIAL.NEB. NEB SCH ×4 (19:30→20:15)
[2017-11-15 19:44] LABS: ALBUMIN 3.4 g/dl (3.4-5.0); ANION GAP 6 (8-16); BILIRUBIN,TOTAL 0.3 mg/dL (0.2-1.0); BLOOD UREA NITROGEN 7 mg/dL (7-18); CALCIUM 8.9 mg/dL (8.5-10.1); CHLORIDE 105 mmol/L (98-107); CO2 30 mmol/L (21-32); CREATININE 0.5 mg/dL (0.55-1.02); GLUCOSE,RANDOM 83 mg/dL (74-106); LIPASE 54 U/L (73-393); POTASSIUM 3.8 mmol/L (3.5-5.1); SGOT/AST 15 U/L (15-37); SGPT/ALT 16 U/L (12-78); SODIUM 141 mmol/L (136-145); TOT PROT 6.1 g/dl (6.4-8.2)
[2017-11-15 19:46] LABS: ALK PHOS 85 U/L (45-117)
--- NOTE | 2017-11-15 20:25 | PDOC ---
*Physical Exam - Vital Signs Last Vital Signs Temp Pulse Resp BP Pulse Ox 98.4 F 115 H 20 113/84 99 11/15/17 16:35 11/15/17 16:35 11/15/17 16:35 11/15/17 16:35 11/15/17 16:35 <Chiiks Moulton - Last Filed: 11/15/17 20:48> - Vital Signs Last Vital Signs Temp Pulse Resp BP Pulse Ox 98.4 F 115 H 20 113/84 99 11/15/17 16:35 11/15/17 16:35 11/15/17 16:35 11/15/17 16:35 11/15/17 16:35 - Physical Exam Comments: 11/15/17 20:25 GENERAL: Awake, alert, and fully oriented, in no acute distress, sitting up in bed HEAD: No signs of trauma, normocephalic, atraumatic EYES: PERRLA, EOMI, sclera anicteric, conjunctiva clear LUNGS: No distress, speaks full sentences, clear to auscultation bilaterally HEART: Regular rate and rhythm, normal S1 and S2, no murmurs, rubs or gallops, peripheral pulses normal and equal bilaterally. ABDOMEN: Soft, nontender, normoactive bowel sounds. No guarding, no rebound. No masses EXTREMITIES: Normal inspection, Normal range of motion, no edema. No clubbing or cyanosis. NEUROLOGICAL: Cranial nerves II through XII grossly intact. Normal speech, normal gait, no focal sensorimotor deficits SKIN: Warm, Dry, normal turgor, no rashes or lesions noted. <Herbert Rodrigues - Last Filed: 11/15/17 21:04> ED Treatment Course - LABORATORY CBC & Chemistry Diagram: 11/15/17 19:16 11/15/17 19:16 - ADDITIONAL ORDERS Additional order review: Laboratory Results 11/15/17 19:16 Sodium 141 Potassium 3.8 Chloride 105 Carbon Dioxide 30 Anion Gap 6 L BUN 7 Creatinine 0.5 L Creat Clearance w eGFR > 60 Random Glucose 83 Calcium 8.9 Total Bilirubin 0.3 AST 15 ALT 16 Alkaline Phosphatase 85 Creatine Kinase 36 Troponin I < 0.02 Total Protein 6.1 L Albumin 3.4 Lipase 54 L 11/15/17 19:16 RBC 5.09 MCV 79.0 L MCHC 32.1 RDW 25.8 H MPV 7.6 D - Medications Given in the ED: ED Medications Discontinued Medications Generic Name Dose Route Start Last Admin Trade Name Freq PRN Reason Stop Dose Admin Albuterol/Ipratropium 1 amp 11/15/17 17:15 11/15/17 20:15 Duoneb - NEB 11/15/17 18:01 1 amp Q15M MICHAEL Administration <Chikis Moulton - Last Filed: 11/15/17 20:48> - LABORATORY CBC & Chemistry Diagram: 11/15/17 19:16 11/15/17 19:16 - ADDITIONAL ORDERS Additional order review: Laboratory Results 11/15/17 19:16 Sodium 141 Potassium 3.8 Chloride 105 Carbon Dioxide 30 Anion Gap 6 L BUN 7 Creatinine 0.5 L Creat Clearance w eGFR > 60 Random Glucose 83 Calcium 8.9 Total Bilirubin 0.3 AST 15 ALT 16 Alkaline Phosphatase 85 Creatine Kinase 36 Troponin I < 0.02 Total Protein 6.1 L Albumin 3.4 Lipase 54 L 11/15/17 19:16 RBC 5.09 MCV 79.0 L MCHC 32.1 RDW 25.8 H MPV 7.6 D - Medications Given in the ED: ED Medications Discontinued Medications Generic Name Dose Route Start Last Admin Trade Name Freq PRN Reason Stop Dose Admin Albuterol/Ipratropium 1 amp 11/15/17 17:15 11/15/17 20:15 Duoneb - NEB 11/15/17 18:01 1 amp Q15M MICHAEL Administration <Herbert Rodrigues - Last Filed: 11/15/17 21:04> Medical Decision Making - Medical Decision Making 11/15/17 20:[address] Ndiaye. Patient is 42F with extensive PMH including anemia, GIB, pancreatitis, SBO, colitis, asthma, hypoglycemia, hypotension presents to ED complaining of extremity weakness and falling x3 days. Vital signs notable for tachycardia. EKG unchanged from prior visit, tachycardia resolved at that time. Labs normal. CT head negative. CXR normal. Patient expressing frustration at the uncertainty of her diagnosis. Do not believe patient had head bleed, acs, arrhythmia given history, exam, ekg, and lab results. Syncope possible, but patient does not endorse loss of consciousness. Stroke would be extremely atypical. Patient is requesting further workup, will refer to neurology, optho, and PCP for further workup. Believe most likely cause of patient's falls is her opiate use. Patient takes 60mg of morphine XR BID, oxycodone 15mg TID, zolpidem, and klonopin. Last filled in early October. Pending UA. 11/15/17 20:52 Patient ambulatory in ED. UA collected. 11/15/17 21:02 UA positive. Patient has eloped. Keflex sent to preferred pharmacy. Patient notified via telephone, answered call, expressed understanding. <Herbert Rodrigues - Last Filed: 11/15/17 21:04> *DC/Admit/Observation/Transfer <Chikis Moulton - Last Filed: 11/15/17 20:48> <Herbert Rodrigues - Last Filed: 11/15/17 21:04> Diagnosis at time of Disposition: Weakness - Discharge Dispostion Disposition: ELOPED Condition at time of disposition: Stable - Prescriptions Prescriptions: Cephalexin Monohydrate [Keflex -] 500 mg PO BID #14 capsule - Referrals Referrals: Katia Campbell [Primary Care Provider] - - Patient Instructions - Post Discharge Activity
--- NOTE | 2017-11-15 20:49 | PDOC ---
*Physical Exam - Vital Signs Last Vital Signs Temp Pulse Resp BP Pulse Ox 98.4 F 115 H 20 113/84 99 11/15/17 16:35 11/15/17 16:35 11/15/17 16:35 11/15/17 16:35 11/15/17 16:35 <Sadia Mendoza - Last Filed: 11/15/17 20:49> - Vital Signs Last Vital Signs Temp Pulse Resp BP Pulse Ox 98.4 F 115 H 20 113/84 99 11/15/17 16:35 11/15/17 16:35 11/15/17 16:35 11/15/17 16:35 11/15/17 16:35 <Chikis Moulton - Last Filed: 11/16/17 02:01> ED Treatment Course - LABORATORY CBC & Chemistry Diagram: 11/15/17 19:16 11/15/17 19:16 - ADDITIONAL ORDERS Additional order review: Laboratory Results 11/15/17 19:16 Sodium 141 Potassium 3.8 Chloride 105 Carbon Dioxide 30 Anion Gap 6 L BUN 7 Creatinine 0.5 L Creat Clearance w eGFR > 60 Random Glucose 83 Calcium 8.9 Total Bilirubin 0.3 AST 15 ALT 16 Alkaline Phosphatase 85 Creatine Kinase 36 Troponin I < 0.02 Total Protein 6.1 L Albumin 3.4 Lipase 54 L 11/15/17 19:16 RBC 5.09 MCV 79.0 L MCHC 32.1 RDW 25.8 H MPV 7.6 D - Medications Given in the ED: ED Medications Discontinued Medications Generic Name Dose Route Start Last Admin Trade Name Freq PRN Reason Stop Dose Admin Albuterol/Ipratropium 1 amp 11/15/17 17:15 11/15/17 20:15 Duoneb - NEB 11/15/17 18:01 1 amp Q15M MICHAEL Administration <Sadia Mendoza - Last Filed: 11/15/17 20:49> - LABORATORY CBC & Chemistry Diagram: 11/15/17 19:16 11/15/17 19:16 - ADDITIONAL ORDERS Additional order review: Laboratory Results 11/15/17 19:16 Sodium 141 Potassium 3.8 Chloride 105 Carbon Dioxide 30 Anion Gap 6 L BUN 7 Creatinine 0.5 L Creat Clearance w eGFR > 60 Random Glucose 83 Calcium 8.9 Total Bilirubin 0.3 AST 15 ALT 16 Alkaline Phosphatase 85 Creatine Kinase 36 Troponin I < 0.02 Total Protein 6.1 L Albumin 3.4 Lipase 54 L 11/15/17 19:16 RBC 5.09 MCV 79.0 L MCHC 32.1 RDW 25.8 H MPV 7.6 D - Medications Given in the ED: ED Medications Discontinued Medications Generic Name Dose Route Start Last Admin Trade Name Darren PRN Reason Stop Dose Admin Albuterol/Ipratropium 1 amp 11/15/17 17:15 11/15/17 20:15 Duoneb - NEB 11/15/17 18:01 1 amp Q15M MICHAEL Administration <Chikis Moulton - Last Filed: 11/16/17 02:01> Medical Decision Making - Medical Decision Making 11/15/17 20:49 The patient is a 42-year-old female with past medical history of SVT, MVP, Anemia (blood transfusions), Chronic Back Pain, Colitis, Ventral Hernia, GI bleed, Pancreatitis, asthma, HTN, and anxiety presents to the emergency department with weakness. The patient presents s/p multiple episodes of falls in the last few days, states her legs would give out. The patient reports the additional concerns of blurry vision, headache, lower abdominal pain, chills, dysuria, and shortness of breath. Denies head injury or syncope. Denies chest pain. Denies fever, cough or a headache. Denies hematuria, frequency or urgency to urinate. The patient was admitted recently on 10/24/2017 with intractable low back pain and discharged on 10/28/2017 with a referral for outpatient colonoscopy with Dr. Judd. Allergies: NKDA Social history: Current smoker. Denies the use of alcohol or recreational drugs. Surgical history: Gastric Bypass, Cholecystectomy, and Lumbar x2 (Fusion, 2015) PCP: Dr. Campbell <Sadia Mendoza - Last Filed: 11/15/17 20:49> - Medical Decision Making 11/15/17 20:49 Patient Name: JELANI CUNNINGHAM THIS IS A PRELIMINARY REPORT FROM [facility] DATE OF SERVICE: 2017-11-15 18:14:22 IMAGES: 233 EXAM: CT HEAD WITHOUT IV CONTRAST TECHNIQUE: Axial images from the skull base to the vertex. Bone and soft tissue windows were reviewed. One or more of the following dose reduction techniques were used: automated exposure control, adjustment of the mA and/or kV according to patient size, use of iterative reconstructive technique. Contrast: None REASON FOR EXAM: Weakness COMPARISON: CT brain performed on October 22, 2017 FINDINGS: Minimal parenchymal atrophy with preservation of the cid-white differentiation. There is no acute intracranial hemorrhage, mass effect or midline shift. No abnormal intra-axial or extra-axial fluid collection is seen. The periventricular white matter is unremarkable. The ventricles and basilar cisterns are maintained. The bones of the calvarium and imaged skull base demonstrate no acute abnormality. The imaged paranasal sinuses and mastoid air cells : Partial opacification of the right maxillary antrum. IMPRESSION: No acute territorial infarct, hemorrhage, or space-occupying mass. This CT exam has been performed using low dose protocols to limit radiation exposure 11/16/17 02:01 Pt will be treated for UTI <Chikis Moulton - Last Filed: 11/16/17 02:01> *DC/Admit/Observation/Transfer <Sadia Mendoza - Last Filed: 11/15/17 20:49> <Chikis Moulton - Last Filed: 11/16/17 02:01> Diagnosis at time of Disposition: Weakness - Discharge Dispostion Disposition: ELOPED Condition at time of disposition: Stable - Prescriptions Prescriptions: Cephalexin Monohydrate [Keflex -] 500 mg PO BID #14 capsule - Referrals Referrals: Katia Campbell [Primary Care Provider] - - Patient Instructions - Post Discharge Activity
[2017-11-15 20:58] LABS: URINE APPEARANCE SLCLOUDY; URINE BILIRUBIN NEGATIVE (<2.0 mg/dL); URINE COLOR DKYELLOW; URINE GLUCOSE (UA) NEGATIVE (NEGATIVE); URINE KETONE NEGATIVE (NEGATIVE); URINE NITRITE NEGATIVE (NEGATIVE); URINE PROTEIN NEGATIVE (NEGATIVE)
[2017-11-15 21:00] LABS: URINE LEUK ESTERASE 3+ (NEGATIVE)
[2017-11-15 21:03] LABS: EPI CELLS RARE /HPF (FEW); URINE MUCUS MANY
--- NOTE | 2017-11-16 10:14 | EKG ---
Test Reason : Blood Pressure : / mmHG Vent. Rate : 080 BPM Atrial Rate : 080 BPM P-R Int : 138 ms QRS Dur : 086 ms QT Int : 382 ms P-R-T Axes : 073 067 073 degrees QTc Int : 440 ms NORMAL SINUS RHYTHM NORMAL ECG WHEN COMPARED WITH ECG OF 22-OCT-2017 01:09, NO SIGNIFICANT CHANGE WAS FOUND Confirmed by CALE PATTERSON MD ([id number]) on 11/16/2017 10:13:55 AM Referred By: Confirmed By:CALE PATTERSON MD
== END 2017-11-15 21:30 | disposition left against medical advice (07) ==
LOC: JER 16:31
PROC: 3E0F7GC Introduction of Other Therapeutic Substance into Respiratory Tract, Via Natural or Artificial Opening (ICD-10-PCS; principal; 2017-11-15)
DX: R53.1 Weakness (principal); R29.6 Repeated falls; D64.9 Anemia, unspecified; J45.909 Unspecified asthma, uncomplicated; Z87.19 Personal history of other diseases of the digestive system; Z86.79 Personal history of other diseases of the circulatory system
CPT/HCPCS: 36415; 70450-TC; 71045-TC-FY; 80053; 81003; 81015; 82550; 83690; 84484; 85027; 93005; 93010; 94640; 99282-25; J7620

== ENCOUNTER 2017-11-16 12:11 | Emergency (ER) | payer OTHER ==
[2017-11-16 12:33] VITALS: BP 102/67; PULSE 97; TEMP 98.3; BMI 20.9
--- NOTE | 2017-11-16 13:36 | PDOC ---
Attending Attestation - Resident Resident Name: CarlosChristine - ED Attending Attestation I have performed the following: I have examined & evaluated the patient, The case was reviewed & discussed with the resident, I agree w/resident's findings & plan, Exceptions are as noted - HPI HPI: 11/16/17 14:21 The patient is a 42 year old female, with a significant past medical history of anemia, GIB, pancreatitis, SBO, colitis, asthma, hypoglycemia, and hypotension, who presents to the emergency department with, 3 days of abdominal pain. She describes her pain as a stabbing, ranking an 8/10, and diffuse across her abdomen. She reports associated nausea and one episode of rectal bleeding this morning. She reports intermittent rectal bleeding since her gastric bypass in 2002. She reports shortness of breath and pressure when urinating. She denies recent fevers, chills, headache or dizziness. She denies recent diarrhea or constipation. She denies recent frequency, urgency or hematuria. She denies recent chest pain. Allergies: NKA Social History: Nonsmoker. Denies EtOH use and recreational drug use. Primary Care Physician: Dr. Campbell - Physicial Exam PE: 11/16/17 14:22 GENERAL: Awake, alert, and fully oriented, in no acute distress HEAD: No signs of trauma EYES: PERRLA, EOMI, sclera anicteric, conjunctiva clear ENT: Auricles normal inspection, hearing grossly normal, nares patent, oropharynx clear without exudates. Moist mucosa NECK: Normal ROM, supple, no lymphadenopathy, JVD, or masses LUNGS: Breath sounds equal, clear to auscultation bilaterally. No wheezes, and no crackles HEART: Regular rate and rhythm, normal S1 and S2, no murmurs, rubs or gallops ABDOMEN: Soft, nontender, normoactive bowel sounds. No guarding, no rebound. No masses EXTREMITIES: Normal range of motion, no edema. No clubbing or cyanosis. No cords, erythema, or tenderness NEUROLOGICAL: Cranial nerves II through XII grossly intact. Normal speech, normal gait SKIN: Warm, Dry, normal turgor, no rashes or lesions noted. <Denise Monroe - Last Filed: 11/16/17 16:28> - Medical Decision Making 11/16/17 18:49 pt presents to the ED complaining of diffuse abdominal pain and intermittent rectal bleeding. History of multiple visits for similar complaints. Patient is guiac negative on my exam and labs are within normal limits. Tolerating Po and passing flatus, so obstruction is unlikely. Negative CT less than one month ago for similar complaints. Patient is now feeling improved. Will discharge home. <Taniya Loyola - Last Filed: 11/16/17 18:59> Attestations - Attestations 11/16/17 14:22 Documentation prepared by Denise Monroe, acting as medical legal investigator for Taniya Loyola MD. <Denise Monore - Last Filed: 11/16/17 16:28>
--- NOTE | 2017-11-16 13:53 | PDOC ---
History of Present Illness - General Chief Complaint: Bleeding from Anus Stated Complaint: WEAKNESS Time Seen by Provider: 11/16/17 13:23 - History of Present Illness Initial Comments: 11/16/17 13:44 42 year old w/ history of anemia, GIB, pancreatitis, SBO, colitis, asthma, hypoglycemia, hypotension who presents with 3 days of abdominal pain rated 8/10 described as "stabbing, as if kicked in the stomache" and associated with nausea. She reports that she has had intermittent blood in stool since her gastric bypass in 2002 and notes that her last BM this AM had significant blood in the stool and she had diarrhea. She also complains of shortness of breath, and pain and pressure when urinating. She no longer has her mense. She has no other complaints at bedside. Medications: Morphine *Sr* [MS Contin -] 60 mg PO Q12H 07/13/15 Oxycodone HCl 15 mg PO TID PRN 08/11/17 Acetaminophen [Tylenol .Regular Strength -] 650 mg PO Q6H PRN tablet 09/24/17 Docusate Sodium [Colace -] 300 mg PO HS #30 capsule 09/24/17 Pantoprazole Sodium [Protonix -] 40 mg PO BID #60 tablet.ec 09/24/17 Pramipexole Dihydrochloride [Mirapex -] 0.125 mg PO HS@2000 #30 tablet 09/24/17 Quetiapine Fumarate [Seroquel -] 25 mg PO HS #30 tablet 09/24/17 Sucralfate Oral Suspension [Carafate Oral Suspension -] 1 gm PO QID 10 Days ml 09/24/17 clonazePAM [Klonopin -] 1 mg PO BID PRN tablet MDD 2 09/24/17 Cephalexin Monohydrate [Keflex -] 500 mg PO BID #14 capsule 11/15/17 11/19/17 19:29 Past History - Past Medical History Allergies/Adverse Reactions: Allergies Allergy/AdvReac Type Severity Reaction Status Date / Time No Known Allergies Allergy Verified 11/15/17 16:37 Home Medications: Ambulatory Orders Morphine *Sr* [MS Contin -] 60 mg PO Q12H 07/13/15 Oxycodone HCl 15 mg PO TID PRN 08/11/17 Acetaminophen [Tylenol .Regular Strength -] 650 mg PO Q6H PRN tablet 09/24/17 Docusate Sodium [Colace -] 300 mg PO HS #30 capsule 09/24/17 Pantoprazole Sodium [Protonix -] 40 mg PO BID #60 tablet.ec 09/24/17 Pramipexole Dihydrochloride [Mirapex -] 0.125 mg PO HS@2000 #30 tablet 09/24/17 Quetiapine Fumarate [Seroquel -] 25 mg PO HS #30 tablet 09/24/17 Sucralfate Oral Suspension [Carafate Oral Suspension -] 1 gm PO QID 10 Days ml 09/24/17 clonazePAM [Klonopin -] 1 mg PO BID PRN tablet MDD 2 09/24/17 Cephalexin Monohydrate [Keflex -] 500 mg PO BID #14 capsule 11/15/17 Anemia: Yes Asthma: Yes Cardiac Disorders: Yes (SVT,MVP) COPD: No DVT: No Dementia: No Diabetes: No GI Disorders: Yes (ULCER,TWISTED BOWELS,COLITIS) HTN: (HYPOTENSION) Psychiatric Problems: Yes (ANXIETY) Seizures: No Other medical history: rectal bleed, blood transfusions - Surgical History Abdominal Surgery: Yes (GASTRIC BYPASS, VENTRAL HERNIA, SCAR TISSUE REMOVAL FROM ABD.) Cholecystectomy: Yes Neurologic Surgery: Yes (back X2) - Immunization History Td Vaccination: Yes TDAP Vaccination: Yes Immunization Up to Date: Yes - Suicide/Smoking/Psychosocial Hx Smoking Status: Yes Smoking History: Current every day smoker Years of Tobacco Use: 25 Have you smoked in the past 12 months: Yes Number of Cigarettes Smoked Daily: 20 Cigars Per Day: 0 Information on smoking cessation initiated: Yes 'Breaking Loose' booklet given: 04/06/17 Hx Alcohol Use: No Drug/Substance Use Hx: No Substance Use Type: None Hx Substance Use Treatment: No *Physical Exam - Vital Signs Last Vital Signs Temp Pulse Resp BP Pulse Ox 98.3 F 97 H 20 102/67 99 11/16/17 12:28 11/16/17 12:28 11/16/17 12:28 11/16/17 12:28 11/16/17 12:28 - Physical Exam Comments: GENERAL: Awake, alert, and fully oriented, in no acute distress HEAD: No signs of trauma, normocephalic, atraumatic EYES: EOMI, sclera anicteric, conjunctiva clear ENT: oropharynx clear without exudates. Moist mucosa NECK: Normal ROM, supple, no masses LUNGS: No distress, speaks full sentences, clear to auscultation bilaterally HEART: Regular rate and rhythm, normal S1 and S2, no murmurs, rubs or gallops, peripheral pulses normal and equal bilaterally. ABDOMEN: Soft, nontender, normoactive bowel sounds. No guarding, no rebound. No masses EXTREMITIES : Normal inspection, Normal range of motion, no edema. No clubbing or cyanosis. NEUROLOGICAL: Normal speech, normal gait, no focal sensorimotor deficits SKIN: Warm, Dry, normal turgor, no rashes or lesions noted ED Treatment Course - LABORATORY CBC & Chemistry Diagram: 11/16/17 14:23 11/16/17 14:23 Medical Decision Making - Medical Decision Making 11/16/17 14:07 Patient is a 42 year old with a history of anemia, GIB, colitis and SBO who presents with abdominal pain. The patient was last seen in the ED 1 day ago and has had extensive imaging over the past month - 6 months. Most likely patient has ongoing symptoms of colitis. We will evaluate for GIB and SBO, given her history. Also consider gastroenteritis. Prior imaging was referenced and new labwork was done. Laboratory results were unremarkable, including stool guaic, making GIB less likely. Patient was treated symptomatically for abdominal pain. On resassessment patient is tolerating PO and passing flatus, making SBO less likely. Patient stable for discharge and given f/u instructions and strict return precautions. *DC/Admit/Observation/Transfer Diagnosis at time of Disposition: Abdominal pain - Discharge Dispostion Disposition: HOME Condition at time of disposition: Stable Decision to Admit order: No - Referrals Referrals: Katia Campbell [Primary Care Provider] - - Patient Instructions Printed Discharge Instructions: DI for Abdominal Pain-Adult Additional Instructions: You were seen in the ED for complaints of abdominal pain and rectal bleeding. You were evaluated with labwork that was unremarkable and did not show immediate need for hospitalization. You have had recent imaging that was referred to and was reassuring in regards to your complaints today. You are advised to follow up with your primary care physician within 1 week for further follow up and treatment. Return to the ED immediately if there is elias blood in stool or vaginal bleeding, fevers, nausea, vomiting, significant abdominal pain, lightheadedness , chest pain or shortness of breathe. - Post Discharge Activity
[2017-11-16] MEDS ORDERED: morphine CARPU-JECT 4 MG/1 ML DISP.SYRIN IVPUSH ONE (14:06)
[2017-11-16] MEDS ORDERED: SODIUM CHLORIDE 1,000 ML IV SCH (14:15)
[2017-11-16 14:33] LABS: BASO % 0.4 % (0-2.0); EOS % 1.6 % (0-4.5); HEMATOCRIT 42.1 % (32.4-45.2); HEMOGLOBIN 13.6 GM/dL (10.7-15.3); LYMPH % 18.5 % (8-40); MCH 25.5 pg (25.7-33.7); MCHC 32.3 g/dl (32.0-36.0); MEAN PLT VOLUME 8.6 fl (7.5-11.1); MONO % 6.2 % (3.8-10.2); NEUT % 73.3 % (42.8-82.8); PLATELET COUNT 283 K/MM3 (134-434); RBC 5.32 M/mm3 (3.60-5.2); RDW 26.1 % (11.6-15.6); WHITE BLOOD COUNT 7.4 K/mm3 (4.0-10.0)
[2017-11-16 14:40] LABS: URINE APPEARANCE CLEAR; URINE BILIRUBIN NEGATIVE (<2.0 mg/dL); URINE COLOR YELLOW; URINE GLUCOSE (UA) NEGATIVE (NEGATIVE); URINE KETONE NEGATIVE (NEGATIVE); URINE NITRITE NEGATIVE (NEGATIVE); URINE PROTEIN NEGATIVE (NEGATIVE)
[2017-11-16 14:44] LABS: URINE LEUK ESTERASE 1+ (NEGATIVE)
[2017-11-16 14:46] LABS: CHLORIDE 102 mmol/L (98-107); POTASSIUM 4.5 mmol/L (3.5-5.1); SODIUM 139 mmol/L (136-145)
[2017-11-16] MEDS ORDERED: morphine SULFATE 4 MG/ML VIAL ONE (14:47)
[2017-11-16 14:52] LABS: EPI CELLS RARE /HPF (FEW); URINE MUCUS FEW
[2017-11-16 14:54] LABS: ALBUMIN 3.8 g/dl (3.4-5.0); ANION GAP 4 (8-16); BLOOD UREA NITROGEN 8 mg/dL (7-18); CALCIUM 9.2 mg/dL (8.5-10.1); CO2 33 mmol/L (21-32); CREATININE 0.6 mg/dL (0.55-1.02); GLUCOSE,RANDOM 88 mg/dL (74-106); SGOT/AST 22 U/L (15-37); SGPT/ALT 20 U/L (12-78)
[2017-11-16 14:55] LABS: ALK PHOS 91 U/L (45-117); BILIRUBIN,TOTAL 0.4 mg/dL (0.2-1.0); TOT PROT 6.8 g/dl (6.4-8.2)
== END 2017-11-16 16:12 | disposition home or self-care (01) ==
LOC: JER 12:11
PROC: 3E0337Z Introduction of Electrolytic and Water Balance Substance into Peripheral Vein, Percutaneous Approach (ICD-10-PCS; principal; 2017-11-16)
PROC: 3E033NZ Introduction of Analgesics, Hypnotics, Sedatives into Peripheral Vein, Percutaneous Approach (ICD-10-PCS; 2017-11-16)
DX: R10.84 Generalized abdominal pain (principal); Z86.2 Personal history of diseases of the blood and blood-forming organs and certain disorders involving the immune mechanism; Z87.19 Personal history of other diseases of the digestive system; Z86.19 Personal history of other infectious and parasitic diseases; F41.9 Anxiety disorder, unspecified; F17.210 Nicotine dependence, cigarettes, uncomplicated
CPT/HCPCS: 36415; 80053; 81003; 81015; 82272; 84703; 85025; 87086; 96361; 96374; 99284-25; J7030

== ENCOUNTER 2018-03-03 15:01 | Emergency (ER) | payer OTHER ==
--- NOTE | 2018-03-03 15:09 | PDOC ---
Rapid Medical Evaluation Time Seen by Provider: 03/03/18 15:05 Medical Evaluation: Allergies Allergy/AdvReac Type Severity Reaction Status Date / Time No Known Allergies Allergy Verified 11/15/17 16:37 03/03/18 15:05 I have performed a brief in-person evaluation of this patient. The patient presents with a chief complaint of: ABD pain with n/V/D Pertinent physical exam findings: +BS. LLQ tenderness I have ordered the following: labs, urine, CTAP w/ PO/IV, IVF The patient will proceed to the ED for further evaluation. Discharge Disposition - Diagnosis Abdominal pain - Referrals - Patient Instructions - Post Discharge Activity
[2018-03-03 15:11] VITALS: BP 126/75; PULSE 114; TEMP 98.3; BMI 19.3
--- NOTE | 2018-03-03 16:13 | PDOC ---
Attending Attestation - Resident Resident Name: PérezmargeAng - ED Attending Attestation I have performed the following: I have examined & evaluated the patient, The case was reviewed & discussed with the resident, I agree w/resident's findings & plan, Exceptions are as noted - HPI HPI: 03/03/18 16:48 42yo female with a 4-5 day hx of tunnel vision, n/v/d and abd pain. bilious but nonbloody. Diarrhea about 4 episodes a day for 4 days. Passing flatus. Nonbloody vomitus. Abd is nondistended. Pt c/o lower abd pain, suprapubic pain and b/l flank pain. Hx of gastric bypass, shubham, bowel resection and ANGELO. Pt denies f/c. C/o dysuria, but no hematuria. No cp/sob. Pt states she has only been able to tolerate sips of sprite. - Physicial Exam PE: 03/03/18 16:53 Gen: aaox3, speaking in full sentences, appears uncomfortable heent: eomi, dry mm heart: +s1s2 reg lungs: cta b/l abd: soft, ttp b/l lower quadrants, b/l cva ttp, mild epigastric ttp, no rebound , no guarding ext: no c/c/e neuro: no focal neuro deficits skin: dry, warm, no erythema - Medical Decision Making 03/03/18 16:13 I, Dr. Doris Almazan, DO, attest that this document has been prepared under my direction and personally reviewed by me in its entirety. I further attest, that it accurately reflects all work, treatment, procedures and medical decision -making performed by me. 03/03/18 17:11 a/p: 42yo female with tunnel vision this week along with n/v/d -hx of colitis -suspect colitis flair - will obtain ct abd/pelvis -suspect tunnel vision from dehydration, will hydrate, will perform visual acuity -bedside ultrasound of abd negative for hydro or FF -bedside ultraosund ocular is negative for acute intraocular pathology, no widening or swelling of the optic nerve -will check labs, ct -will hydrate -will monitor and reassess 03/03/18 20:07 ct without acute findings pt with a UTI on labs given IV ceftiaxone 03/03/18 20:14 pt still with diego - will send for head ct and will give reglan and benadryl 03/03/18 23:21 pt with persistent diego. head ct negative hx of an MRI that showed an incidental cyst pt stated she no longer wanted to stay for further treatment and had her nurse remove her IV i went to discuss the head ct, abd ct results and discuss need for neuro eval and further treatment of her headache but the patient eloped from the ED. no acute ICH seen on the head ct pt however with change in vision x 5 days - will need further eval and management 03/03/18 23:26 attempted to call the patient to go over her results with her but no answer *DC/Admit/Observation/Transfer Diagnosis at time of Disposition: Headache Abdominal pain Qualifiers: Abdominal location: lower abdomen, unspecified Qualified Code(s): R10.30 - Lower abdominal pain, unspecified UTI (urinary tract infection) Qualifiers: Urinary tract infection type: site unspecified Hematuria presence: without hematuria Qualified Code(s): N39.0 - Urinary tract infection, site not specified - Discharge Dispostion Disposition: ELOPED Condition at time of disposition: Unchanged/Unknown - Prescriptions Prescriptions: Cephalexin Monohydrate [Keflex -] 500 mg PO BID #14 capsule - Referrals Referrals: Katia Campbell [Primary Care Provider] - - Patient Instructions Printed Discharge Instructions: DI for Abdominal Pain-Adult Additional Instructions: Please follow up with your primary care physician in 2-3 days. Please return to the ER if you have any signs or symptoms of chest pain, shortness of breath, uncontrollable fever, chills, nausea, vomiting, numbness, tingling, or weakness in any part of your body, changes in vision, or slurred speech. Please take your medications as prescribed. Please return to the ER if symptoms persist, worsen, or new symptoms arise. - Post Discharge Activity Heart Score/ECG Review - ECG Intrepretation Comment:: 03/03/18 17:12 sinus at 96, nl axis, nl interval, no acute st/t wave findings
[2018-03-03] MEDS ORDERED: FAMOTIDINE 20 MG/50 ML IVPB 20 MG/50 ML MG IVPB ONE ×2 (16:27→17:39)
[2018-03-03] MEDS ORDERED: ONDANSETRON 4 MG/2 ML VIAL IVPUSH ONE (16:27)
[2018-03-03] MEDS ORDERED: ACETAMINOPHEN 1000 MG/100 ML VIAL (NON FORMULARY) IVPB ONE (16:27)
[2018-03-03] MEDS ORDERED: SODIUM CHLORIDE 0.9% 1000 ML INFUS.BAG IV ONE (16:43)
[2018-03-03] MEDS ORDERED: morphine CARPU-JECT 4 MG/1 ML DISP.SYRIN IVPUSH ONE (16:43)
--- NOTE | 2018-03-03 16:44 | PDOC ---
History of Present Illness - General Chief Complaint: Pain, Acute Stated Complaint: STOMACH/BACK PAIN Time Seen by Provider: 03/03/18 15:05 History Source: Patient Exam Limitations: No Limitations - History of Present Illness Initial Comments: 03/03/18 16:44 The patient is a 42F with a PMH of anemia, GIB, pancreatitis, SBO, colitis, asthma, hypoglycemia, hypotension who presents to the ER with complaints of abdominal pain and headache. The patient states that she's had 4-5 days of headache which she describes as "pain" in her occiput, radiating down her spine. She states that this pain is different than the headache that she normally has. She states that the pain is associated with phono and photophobia and changes in her vision. She describes seeing "stars" in her peripheral visual palacios, as well as blurriness in her R eye. She also complains of lower quadrant abdominal pain. The pain started also 4-5 days ago, is a sharp, constant pain, and radiating to her b/l flanks associated with nausea, vomiting , and diarrhea. She denies CP and SOB. Past History - Past Medical History Allergies/Adverse Reactions: Allergies Allergy/AdvReac Type Severity Reaction Status Date / Time No Known Allergies Allergy Verified 11/15/17 16:37 Home Medications: Ambulatory Orders Morphine *Sr* [MS Contin -] 60 mg PO Q12H 07/13/15 Oxycodone HCl 15 mg PO TID PRN 08/11/17 Acetaminophen [Tylenol .Regular Strength -] 650 mg PO Q6H PRN tablet 09/24/17 Docusate Sodium [Colace -] 300 mg PO HS #30 capsule 09/24/17 Pantoprazole Sodium [Protonix -] 40 mg PO BID #60 tablet.ec 09/24/17 Pramipexole Dihydrochloride [Mirapex -] 0.125 mg PO HS@2000 #30 tablet 09/24/17 Quetiapine Fumarate [Seroquel -] 25 mg PO HS #30 tablet 09/24/17 Sucralfate Oral Suspension [Carafate Oral Suspension -] 1 gm PO QID 10 Days ml 09/24/17 clonazePAM [Klonopin -] 1 mg PO BID PRN tablet MDD 2 09/24/17 Cephalexin Monohydrate [Keflex -] 500 mg PO BID #14 capsule 03/03/18 Anemia: Yes Asthma: Yes Cardiac Disorders: Yes (SVT,MVP) COPD: No DVT: No Dementia: No Diabetes: No GI Disorders: Yes (ULCER,TWISTED BOWELS,COLITIS) HTN: (HYPOTENSION) Psychiatric Problems: Yes (ANXIETY) Seizures: No - Surgical History Abdominal Surgery: Yes (GASTRIC BYPASS, VENTRAL HERNIA, SCAR TISSUE REMOVAL FROM ABD.) Cholecystectomy: Yes Neurologic Surgery: Yes (back X2) - Immunization History Td Vaccination: Yes TDAP Vaccination: Yes Immunization Up to Date: Yes - Suicide/Smoking/Psychosocial Hx Smoking Status: Yes Smoking History: Never smoked Years of Tobacco Use: 25 Have you smoked in the past 12 months: Yes Number of Cigarettes Smoked Daily: 20 Cigars Per Day: 0 Information on smoking cessation initiated: No 'Breaking Loose' booklet given: 04/06/17 Hx Alcohol Use: No Drug/Substance Use Hx: No Substance Use Type: None Hx Substance Use Treatment: No Review of Systems - Review of Systems Able to Perform ROS?: Yes Comments:: 03/03/18 17:23 GENERAL/CONSTITUTIONAL: No fever or chills. No weakness. HEAD, EYES, EARS, NOSE AND THROAT: Positive for change in vision. No ear pain or discharge. No sore throat. CARDIOVASCULAR: No chest pain, palpitations, or lightheadedness. RESPIRATORY: No cough, wheezing, shortness of breath, or hemoptysis. GASTROINTESTINAL: Positive for nausea, vomiting, diarrhea, and abdominal pain. GENITOURINARY: No dysuria, frequency, hematuria, or change in urination. MUSCULOSKELETAL: No joint or muscle swelling or pain. No neck or back pain. SKIN: No rash or lesions. NEUROLOGIC: Positive for headache. No numbness, tingling, focal weakness, loss of consciousness, or change in strength/sensation. Is the patient limited Sami proficient: No *Physical Exam - Vital Signs Last Vital Signs Temp Pulse Resp BP Pulse Ox 98.3 F 114 H 16 126/75 100 03/03/18 15:06 03/03/18 15:06 03/03/18 15:06 03/03/18 15:06 03/03/18 15:06 - Physical Exam Comments: 03/03/18 17:37 GENERAL: Well developed, well nourished. Awake and alert. No acute distress. HEENT: Normocephalic, atraumatic. Hearing grossly normal. Dry mucous membranes. PERRLA, EOMI. No conjunctival pallor. Sclera are non-icteric. NECK: Supple. Full ROM. CARDIOVASCULAR: Regular rate and rhythm. No murmurs, rubs, or gallops. PULMONARY: No evidence of respiratory distress. Lungs clear to auscultation bilaterally. No wheezing, rales or rhonchi. ABDOMINAL: Soft. TTP over suprapubic and LLQ abdomen. Non-distended. No rebound or guarding. GENITOURINARY: CVA tenderness bilaterally. MUSCULOSKELETAL: Normal range of motion at all joints. No bony deformities or tenderness. EXTREMITIES: No cyanosis. No clubbing. No edema. No calf tenderness or swelling. SKIN: Warm and dry. Normal capillary refill. No rashes. No jaundice. NEUROLOGICAL: Alert, awake, appropriate. Cranial nerves 2-12 grossly intact. Normal speech. PSYCHIATRIC: Cooperative. Good eye contact. Appropriate mood and affect. Heart Score/ECG Review #1 General ECG Interpretation: Sinus Rhythm, Normal Rate, Normal Intervals, No acute ischemic changes Compared to previous ECG there are: No significant change 03/03/18 17:37 NSR vent rate 90 CO 138 QRS 88 QTc 457 No STD or NANCY No signs of acute ischemia J point elevation noted in V3 Criteria for LVH met in V1 and V5 ED Treatment Course - LABORATORY CBC & Chemistry Diagram: 03/03/18 17:20 03/03/18 17:20 Medical Decision Making - Medical Decision Making 03/03/18 17:38 The patient is a 42F with an extensive PMH who presents to the ER with complaints of a headache and abdominal pain. Pending CTAP and labs. Will give tylenol and morphine for pain control. Pending labs and imaging. Concern for diverticulitis, nephrolithiasis, bacterial gastroenteritis. SBO less likely as the patient has diarrhea. 03/03/18 20:04 CTAP negative. UA shows UTI. Treating with ceftriaxone. All other labs and imaging negative. Will d/c home with keflex and PCP f/u. 03/03/18 20:44 When informing the patient about discharge, the patient states that her headache is just as bad as when it got here. Visual field testing did show blurriness in the R visual field. Will order head CT. Pt is continuing to request pain medication. She does not have an appointment with her neurologist until the end of the month and states that "if she is discharged, she will come back in a few hours". 03/03/18 21:53 Attending will continue care of pt, Dr. Almazan. *DC/Admit/Observation/Transfer Diagnosis at time of Disposition: Abdominal pain Qualifiers: Abdominal location: lower abdomen, unspecified Qualified Code(s): R10.30 - Lower abdominal pain, unspecified UTI (urinary tract infection) Qualifiers: Urinary tract infection type: site unspecified Hematuria presence: without hematuria Qualified Code(s): N39.0 - Urinary tract infection, site not specified - Discharge Dispostion Disposition: HOME Condition at time of disposition: Stable Decision to Admit order: No - Prescriptions Prescriptions: Cephalexin Monohydrate [Keflex -] 500 mg PO BID #14 capsule - Referrals Referrals: Katia Campbell [Primary Care Provider] - - Patient Instructions Printed Discharge Instructions: DI for Abdominal Pain-Adult Additional Instructions: Please follow up with your primary care physician in 2-3 days. Please return to the ER if you have any signs or symptoms of chest pain, shortness of breath, uncontrollable fever, chills, nausea, vomiting, numbness, tingling, or weakness in any part of your body, changes in vision, or slurred speech. Please take your medications as prescribed. Please return to the ER if symptoms persist, worsen, or new symptoms arise. - Post Discharge Activity
[2018-03-03 17:13] LABS: URINE APPEARANCE SLCLOUDY; URINE BILIRUBIN NEGATIVE (<2.0 mg/dL); URINE COLOR AMBER; URINE GLUCOSE (UA) NEGATIVE (NEGATIVE); URINE KETONE TRACE (NEGATIVE); URINE LEUK ESTERASE 2+ (NEGATIVE); URINE NITRITE NEGATIVE (NEGATIVE); URINE PROTEIN 1+ (NEGATIVE); URINE UROBILINOGEN 4.0 E.U/dl mg/dL (0.2-1.0)
[2018-03-03 17:17] LABS: EPI CELLS RARE /HPF (FEW); URINE BACTERIA RARE /hpf (NONE SEEN); URINE HYALINE CAST 2 /lpf; URINE MUCUS MANY
[2018-03-03] MEDS: SODIUM CHLORIDE 1,000 ML IV STA ×2 (17:36→17:45)
[2018-03-03] MEDS ORDERED: ONDANSETRON 4 MG/2 ML VIAL ONE (17:38)
[2018-03-03] MEDS ORDERED: MORPHINE SULFATE 2 MG/ML VIAL ONE (17:38)
[2018-03-03] MEDS ORDERED: ACETAMINOPHEN INJECTION 100 ML IVPB ONE (17:39)
[2018-03-03] MEDS: SODIUM CHLORIDE 0.9% 1000 ML INFUS.BAG IV ONE ×2 (17:48→18:14)
[2018-03-03 17:55] LABS: BASO % 0.3 % (0-2.0); EOS % 0.7 % (0-4.5); HEMATOCRIT 44.3 % (32.4-45.2); HEMOGLOBIN 14.4 GM/dL (10.7-15.3); LYMPH % 18.7 % (8-40); MCH 26.7 pg (25.7-33.7); MCHC 32.5 g/dl (32.0-36.0); MEAN PLT VOLUME 8.9 fl (7.5-11.1); MONO % 7.1 % (3.8-10.2); NEUT % 73.2 % (42.8-82.8); PLATELET COUNT 273 K/MM3 (134-434); RBC 5.39 M/mm3 (3.60-5.2); RDW 17.5 % (11.6-15.6); WHITE BLOOD COUNT 9.3 K/mm3 (4.0-10.0)
[2018-03-03 18:06] LABS: ALBUMIN 3.6 g/dl (3.4-5.0); ALK PHOS 96 U/L (45-117); ANION GAP 6 MMOL/L (8-16); BILIRUBIN,TOTAL 0.6 mg/dL (0.2-1); BLOOD UREA NITROGEN 8 mg/dL (7-18); CALCIUM 9.1 mg/dL (8.5-10.1); CHLORIDE 102 mmol/L (98-107); CO2 30 mmol/L (21-32); CREATININE 0.6 mg/dL (0.55-1.3); GLUCOSE,RANDOM 80 mg/dL (74-106); LIPASE 63 U/L (73-393); SGOT/AST 19 U/L (15-37); SGPT/ALT 18 U/L (13-61); SODIUM 138 mmol/L (136-145); TOT PROT 6.6 g/dl (6.4-8.2)
[2018-03-03] MEDS ORDERED: CEFTRIAXONE 1,000 MG in DEXTROSE 5%-WATER - 50 ML IVPB ONE (18:37)
[2018-03-03] MEDS ORDERED: CEFTRIAXONE 1 GM/50 ML BAG ONE (19:31)
[2018-03-03] MEDS ORDERED: CEFTRIAXONE 1 GM in DEXTROSE 5%-WATER - 100 ML IVPB ONE (19:52)
[2018-03-03] MEDS ORDERED: METOCLOPRAMIDE HCL INJECTION 10 MG/2 ML VIAL IVPUSH ONE (20:10)
[2018-03-03] MEDS ORDERED: METOCLOPRAMIDE HCL INJECTION 10 MG/2 ML VIAL ONE (20:20)
[2018-03-03] MEDS ORDERED: oxyCODONE HCL 5 MG TABLET PO ONE (21:29)
[2018-03-03] MEDS ORDERED: oxyCODONE HCL 5 MG TABLET ONE (21:31)
--- NOTE | 2018-03-04 11:51 | EKG ---
Test Reason : Blood Pressure : / mmHG Vent. Rate : 096 BPM Atrial Rate : 096 BPM P-R Int : 138 ms QRS Dur : 088 ms QT Int : 362 ms P-R-T Axes : 077 064 061 degrees QTc Int : 457 ms NORMAL SINUS RHYTHM NORMAL ECG WHEN COMPARED WITH ECG OF 15-NOV-2017 18:03, NO SIGNIFICANT CHANGE WAS FOUND Confirmed by MONICA GROSS MD ([id number]) on 03/04/2018 11:51:18 AM Referred By: Confirmed By:MONICA GROSS MD
== END 2018-03-03 23:24 | disposition home or self-care (01) ==
LOC: JER 15:01
PROC: 3E033NZ Introduction of Analgesics, Hypnotics, Sedatives into Peripheral Vein, Percutaneous Approach (ICD-10-PCS; principal; 2018-03-03)
PROC: 3E03329 Introduction of Other Anti-infective into Peripheral Vein, Percutaneous Approach (ICD-10-PCS; 2018-03-03)
PROC: 3E033GC Introduction of Other Therapeutic Substance into Peripheral Vein, Percutaneous Approach (ICD-10-PCS; 2018-03-03)
PROC: 3E0337Z Introduction of Electrolytic and Water Balance Substance into Peripheral Vein, Percutaneous Approach (ICD-10-PCS; 2018-03-03)
DX: R10.30 Lower abdominal pain, unspecified (principal); N39.0 Urinary tract infection, site not specified; E03.9 Hypothyroidism, unspecified
CPT/HCPCS: 36415; 70450-TC; 74177-TC; 80053; 81003; 81015; 83690; 84703; 85025; 87086; 93005; 93010; 96361; 96365; 96375; 99282-25; J0131; J7030

== ENCOUNTER 2018-03-04 00:21 | Inpatient (IN) | payer OTHER ==
[2018-03-04] MEDS ORDERED: SODIUM CHLORIDE 0.9% 1000 ML INFUS.BAG IV ONE (00:42)
[2018-03-04] MEDS ORDERED: KETOROLAC TROMETHAMINE 30 MG/1 ML VIAL IVPUSH ONE (00:42)
[2018-03-04] MEDS ORDERED: KETOROLAC TROMETHAMINE 30 MG/1 ML VIAL ONE (01:03)
--- NOTE | 2018-03-04 01:08 | PDOC ---
History of Present Illness - General History Source: Patient Exam Limitations: No Limitations - History of Present Illness Initial Comments: 03/04/18 01:09 The patient is a 42-year-old female with past medical history significant for anemia, GIB, hx of SBO, hypotension, and hypoglycemia presents to the emergency department complaining of abdominal pain and a headache. The patient presents with 4-5 days of an occipital headache, that radiates down to her back. The patient reports the pain is associated with photophobia and changes in her vision. The patient reports an additional concern of lower abdominal pain, that s sharp in quality, thats radiating to the flank region, associated with nausea , NBNB vomiting, and diarrhea, dysuria. Denies chest pain, shortness of breath, fever, chills, constipation, hematuria, urgency or frequency to urinate. Allergies: NKA PCP: Dr. Campbell. <Sadia Mendoza - Last Filed: 03/04/18 01:09> <Doris Almazan - Last Filed: 03/04/18 01:28> - General Chief Complaint: Headache Stated Complaint: HEADACHE Time Seen by Provider: 03/04/18 00:35 tPA Exclusion checklist 3-4.5h - Time Elapsed Date last known well: 02/27/18 Time last known well: 10:00 Elaspsed time: 4 Day(s) and 15 Hour(s) and 27 Minutes - Thrombolytic Therapy Candidate Is patient eligible for thrombolytic therapy: No - Ineligibility reason(s) Reasons No tPA given: Outside of window - delayed arrival (5 days of symptoms) <Doris Almazan - Last Filed: 03/04/18 01:28> NIH Stroke Scale - Last Known Well Date/Time & Onset Date Last Known Well: 02/27/18 - Initial Evaluation Level of consciousness: Alert Ask patient the month and their age: Answers both correctly Ask patient to open & close eyes; make fist and let go: Obeys both correctly Best gaze (horizontal eye movement): Normal Visual field testing: Partial hemianopia (R peripheral vision is blurred) Facial paresis (Show teeth/raise eyebrows/close eyes tight): Normal symmetrical movement Motor Function: Left Arm: Normal Motor Function: Right Arm: Normal (extends arm 90 (or 45) degrees for 10 seconds without drift Motor Function: Left Leg: Normal (extends leg 30 degrees for 5 seconds without drift) Motor Function: Right Leg: Normal (extends leg 30 degrees for 5 seconds without drift) Limb Ataxia: No ataxia Sensory(Use pinprick test arms,legs,trunk,face/side to side): Normal Best language (Describe picture, name items, read sentences): No Aphasia Dysarthria (read several words): Normal articulation Extinction and Inattention: No abnormality - Total Score NIH Stroke Scale Score: 1 <Doris Almazan - Last Filed: 03/04/18 01:28> Past History <Sadia Mendoza - Last Filed: 03/04/18 01:09> - Past Medical History Anemia: Yes Asthma: Yes Cardiac Disorders: Yes (SVT,MVP) COPD: No DVT: No Dementia: No Diabetes: No GI Disorders: Yes (ULCER,TWISTED BOWELS,COLITIS) HTN: (HYPOTENSION) Psychiatric Problems: Yes (ANXIETY) Seizures: No - Surgical History Abdominal Surgery: Yes (GASTRIC BYPASS, VENTRAL HERNIA, SCAR TISSUE REMOVAL FROM ABD.) Cholecystectomy: Yes Neurologic Surgery: Yes (back X2) - Immunization History Td Vaccination: Yes TDAP Vaccination: Yes Immunization Up to Date: Yes - Suicide/Smoking/Psychosocial Hx Smoking Status: Yes Smoking History: Never smoked Years of Tobacco Use: 25 Have you smoked in the past 12 months: No Number of Cigarettes Smoked Daily: 20 Cigars Per Day: 0 Information on smoking cessation initiated: No 'Breaking Loose' booklet given: 04/06/17 Hx Alcohol Use: No Drug/Substance Use Hx: No Substance Use Type: None Hx Substance Use Treatment: No <Doris Almazan - Last Filed: 03/04/18 01:28> - Past Medical History Allergies/Adverse Reactions: Allergies Allergy/AdvReac Type Severity Reaction Status Date / Time No Known Allergies Allergy Verified 03/04/18 00:30 Home Medications: Ambulatory Orders Morphine *Sr* [MS Contin -] 60 mg PO Q12H 07/13/15 Oxycodone HCl 15 mg PO TID PRN 08/11/17 Acetaminophen [Tylenol .Regular Strength -] 650 mg PO Q6H PRN tablet 09/24/17 Docusate Sodium [Colace -] 300 mg PO HS #30 capsule 09/24/17 Pantoprazole Sodium [Protonix -] 40 mg PO BID #60 tablet.ec 06/07/18 Pramipexole Dihydrochloride [Mirapex -] 0.125 mg PO HS@2000 #30 tablet 09/24/17 Quetiapine Fumarate [Seroquel -] 25 mg PO HS #30 tablet 09/24/17 Sucralfate Oral Suspension [Carafate Oral Suspension -] 1 gm PO QID 10 Days ml 09/24/17 clonazePAM [Klonopin -] 1 mg PO BID PRN tablet MDD 2 09/24/17 Cephalexin Monohydrate [Keflex -] 500 mg PO BID #14 capsule 03/03/18 Review of Systems - Review of Systems Able to Perform ROS?: Yes Comments:: 03/04/18 01:09 GENERAL/CONSTITUTIONAL: No fever or chills. No weakness. HEAD, EYES, EARS, NOSE AND THROAT: + change in vision. No ear pain or discharge. No sore throat. CARDIOVASCULAR: No chest pain or shortness of breath. RESPIRATORY: No cough, wheezing, or hemoptysis. GASTROINTESTINAL: + abdominal pain, nausea, vomiting and diarrhea. No constipation. GENITOURINARY: + dysuria. No frequency, or change in urination. MUSCULOSKELETAL: No joint or muscle swelling or pain. No neck or back pain. SKIN: No rash NEUROLOGIC: + headache. No vertigo, loss of consciousness, or change in strength /sensation. ENDOCRINE: No increased thirst. No abnormal weight change. HEMATOLOGIC/LYMPHATIC: No anemia, easy bleeding, or history of blood clots. ALLERGIC/IMMUNOLOGIC: No hives or skin allergy. <Sadia Mendoza - Last Filed: 03/04/18 01:09> *Physical Exam - Vital Signs Last Vital Signs Temp Pulse Resp BP Pulse Ox 97.9 F 102 H 20 132/76 99 03/04/18 00:30 03/04/18 00:30 03/04/18 00:30 03/04/18 00:30 03/04/18 00:30 - Physical Exam Comments: 03/04/18 01:10 GENERAL: Awake, alert, and fully oriented, in no acute distress HEAD: No signs of trauma EYES: + Peripheral vision blurry. PERRLA, EOMI, sclera anicteric, conjunctiva clear ENT: Auricles normal inspection, hearing grossly normal, nares patent, oropharynx clear without exudates. Moist mucosa NECK: Normal ROM, supple, no lymphadenopathy, JVD, or masses LUNGS: Breath sounds equal, clear to auscultation bilaterally. No wheezes, and no crackles HEART: + Mildly tachycardia. Regular rate and rhythm, normal S1 and S2, no murmurs, rubs or gallops ABDOMEN: +Diffused tender, no rebound or guarding. B/l CVA tenderness. Soft. No masses EXTREMITIES: Normal range of motion, no edema. No clubbing or cyanosis. No cords, erythema, or tenderness NEUROLOGICAL: Cranial nerves II through XII grossly intact. Normal speech, normal gait SKIN: Warm, Dry, normal turgor, no rashes or lesions noted. <Sadia Mendoza - Last Filed: 03/04/18 01:09> - Vital Signs Last Vital Signs Temp Pulse Resp BP Pulse Ox 97.9 F 102 H 20 132/76 99 03/04/18 00:30 03/04/18 00:30 03/04/18 00:30 03/04/18 00:30 03/04/18 00:30 <Doris Almazan - Last Filed: 03/04/18 01:28> ED Treatment Course - RADIOLOGY Radiology Studies Ordered: Category Date Time Status BRAIN MRI W/O CONTRAST [MRI] Stat MRI 03/04/18 00:42 Ordered <Doris Almazan - Last Filed: 03/04/18 01:28> Medical Decision Making - Medical Decision Making 03/04/18 01:17 a/p: 42yo female with diego, R blurred vision and n/v/dysuria x 5 days -pt was seen in the ED earlier tonight -pt eloped, but i called her to come back for further eval of diego and blurred vision given hx of cyst in brain -labs performed earlier showed a UTI -rocephin was given earlier in the day on 03/03 -will place in obs for MRI brain -will remedicate for diego 03/04/18 01:19 case discussed with [place] from [facility] covering for Dr. Chase who covers for dr. campbell neuro consult placed [facility] accepts to obs MRI pending <Doris Almazan - Last Filed: 03/04/18 01:28> *DC/Admit/Observation/Transfer - Attestations Scribe Attestion: 03/04/18 01:10 Documentation prepared by Sadia Mendoza, acting as chief medical officer for Doris Almazan DO. <Sadia Mendoza - Last Filed: 03/04/18 01:09> - Discharge Dispostion Decision to Admit order: Yes Decision to Admit order Date/Time: Decision to Admit Order Category Date Time Status Decision to Admit to Hospital Routine Admission 03/04/18 00:46 Ordered - Attestations Physician Attestion: 03/04/18 01:28 I, Dr. Doris Almazan DO, attest that this document has been prepared under my direction and personally reviewed by me in its entirety. I further attest, that it accurately reflects all work, treatment, procedures and medical decision -making performed by me. <Doris Almazan - Last Filed: 03/04/18 01:28> Diagnosis at time of Disposition: UTI (urinary tract infection), Headache, Peripheral visual field defect of right eye - Discharge Dispostion Condition at time of disposition: Fair - Referrals Referrals: Katia Campbell [Primary Care Provider] - - Patient Instructions - Post Discharge Activity
[2018-03-04] MEDS ORDERED: ONDANSETRON 4 MG/2 ML VIAL IVPUSH ONE (01:23)
[2018-03-04] MEDS ORDERED: ONDANSETRON 4 MG/2 ML VIAL ONE (01:31)
--- NOTE | 2018-03-04 02:12 | HP ---
CHIEF COMPLAINT: Headache, Vision Changes, Flank Pain, Abdominal Pain, PCP: Dr. Campbell HISTORY OF PRESENT ILLNESS: 42 y/o woman with a PMHx of SBO, Colitis, Bowel Resection, Pancreatitis, GIB, Anemia, Hypotension, Hypoglycemia, Anxiety, Chronic Back Pain, MRI Brain hx incidental cyst. Who returns to the ED after eloping 03/03/18 from the ED for right peripheral vision loss, occipital LI, Abdominal Pain, B/L Flank Pain, bilious non-bloody vomiting, non-bloody loose diarrhea x 4-5 days. Patient reports having a mechanical fall hitting her left ankle last Thursday. Patient denies LOC or head injury. Patient reports having dysuria. Patient denies fever , chills, dizziness, SOB, CP, constipation, melena, hematochezia, hematuria. ER course was notable for: (1) Head CT- neg ICH (2) UA- +2 leukocyte esterase, +1 protein (3) CTAP- neg diverticulitis or acute pathology Recent Travel: None PAST MEDICAL HISTORY: See HPI PAST SURGICAL HISTORY: Gastric Bypass Cholestectomy Bowel Resection Social History: SmokinPPD x 20yrs Alcohol: None Drugs: None Family History: Mother: CVA, Hypothyroid Father: HTN Allergies No Known Allergies Allergy (Verified 03/04/18 00:30) HOME MEDICATIONS: Home Medications Medication Instructions Recorded Morphine *Sr* [MS Contin -] 60 mg PO Q12H 07/13/15 Oxycodone HCl 15 mg PO TID PRN 08/11/17 Acetaminophen [Tylenol .Regular 650 mg PO Q6H PRN tablet 09/24/17 Strength -] Docusate Sodium [Colace -] 300 mg PO HS #30 capsule 09/24/17 Pantoprazole Sodium [Protonix -] 40 mg PO BID #60 tablet.ec 09/24/17 Pramipexole Dihydrochloride 0.125 mg PO HS@2000 #30 tablet 09/24/17 [Mirapex -] Quetiapine Fumarate [Seroquel -] 25 mg PO HS #30 tablet 09/24/17 Sucralfate Oral Suspension 1 gm PO QID 10 Days ml 09/24/17 [Carafate Oral Suspension -] clonazePAM [Klonopin -] 1 mg PO BID PRN tablet MDD 2 09/24/17 Cephalexin Monohydrate [Keflex -] 500 mg PO BID #14 capsule 03/03/18 REVIEW OF SYSTEMS CONSTITUTIONAL: loss of appetite Absent: fever, chills, diaphoresis, generalized weakness, malaise, weight change HEENT: Absent: rhinorrhea, nasal congestion, throat pain, throat swelling, difficulty swallowing, mouth swelling, ear pain, eye pain, visual changes CARDIOVASCULAR: Absent: chest pain, syncope, palpitations, irregular heart rate, lightheadedness , peripheral edema RESPIRATORY: Absent: cough, shortness of breath, dyspnea with exertion, orthopnea, wheezing, stridor, hemoptysis GASTROINTESTINAL:abdominal pain, nausea, vomiting, diarrhea Absent: abdominal distension, constipation, melena, hematochezia GENITOURINARY: dysuria, flank pain Absent: frequency, urgency, hesitancy, hematuria, genital pain MUSCULOSKELETAL: Absent: myalgia, arthralgia, joint swelling, back pain, neck pain SKIN: Absent: rash, itching, pallor HEMATOLOGIC/IMMUNOLOGIC: Absent: easy bleeding, easy bruising, lymphadenopathy, frequent infections ENDOCRINE: Absent: unexplained weight gain, unexplained weight loss, heat intolerance, cold intolerance NEUROLOGIC: headache, photophobia Absent: focal weakness or paresthesias, dizziness, unsteady gait, seizure, mental status changes, bladder or bowel incontinence PSYCHIATRIC: Absent: anxiety, depression, suicidal or homicidal ideation, hallucinations. PHYSICAL EXAMINATION Vital Signs - 24 hr 03/04/18 03/04/18 00:30 01:44 Temperature 97.9 F 97.8 F Pulse Rate 102 H Pulse Rate [ 68 Right Apical] Respiratory 20 18 Rate Blood Pressure 132/76 Blood Pressure 106/66 [Right Arm] O2 Sat by Pulse 99 100 Oximetry (%) GENERAL: Awake, alert, and fully oriented, in no acute distress. HEAD: Normal with no signs of trauma. EYES: Pupils equal, round and reactive to light, extraocular movements intact, sclera anicteric, conjunctiva clear. No lid lag. EARS, NOSE, THROAT: Ears normal, nares patent, oropharynx clear without exudates. Dry mucous membranes. NECK: Normal range of motion, supple without lymphadenopathy, JVD, or masses. LUNGS: Breath sounds equal, clear to auscultation bilaterally. No wheezes, and no crackles. No accessory muscle use. HEART: Regular rate and rhythm, normal S1 and S2 without murmur, rub or gallop. ABDOMEN: +Epigastic, LLQ, RLQ tenderness. soft, not distended, normoactive bowel sounds, no guarding, no rebound, no masses. No hepatomegaly or splenomegaly. MUSCULOSKELETAL: B/L CVA tenderness. Normal range of motion at all joints. No bony deformities or tenderness. UPPER EXTREMITIES: 2+ pulses, warm, well-perfused. No cyanosis. No clubbing. No peripheral edema. LOWER EXTREMITIES: 2+ pulses, warm, well-perfused. No calf tenderness. No peripheral edema. NEUROLOGICAL: + Right partial hemianopia. Cranial nerves III-XII intact. Normal speech. Gait not observed. PSYCHIATRIC: Cooperative. Good eye contact. Appropriate mood and affect. SKIN: Warm, dry, normal turgor, no rashes or lesions noted, normal capillary refill. Confidential Drug Utilization Report Search Terms: Padmini Phillips, 1975 Search Date: 03/04/2018 03:00:56 AM Others' Prescriptions 3 Patient Name: Padmini Phillips Date: 1975 Address: [address] [place] [address] Sex: Female 3 Rx Written Rx Dispensed Drug Quantity Days Supply Prescriber Name 02/08/2018 02/10/2018 morphine sulf er 60 mg tablet 60 30 Luis Enrique Bell M D 02/08/2018 02/10/2018 clonazepam 1 mg tablet 60 30 Luis Enrique Bell M D 02/08/2018 02/10/2018 zolpidem tartrate 10 mg tablet 30 30 Luis Enrique Bell M D 02/08/2018 02/08/2018 oxycodone hcl 10 mg tablet 90 30 Luis Enrique Bell M D ASSESSMENT/PLAN: 42 y/o woman placed in Observation for Intractable Headache, Visual Changes, UTI for further evaluation of their emergent condition. FEN PO Fluids as tolerated Replete lytes prn Regular Diet DVT ppx OOB SCDs Consider AC if LOS > 48hrs Dispo: Observation Problem List - Problem (1) Headache Assessment/Plan: r/o Migraines vs Malignancy Brain CT- neg ICH, mass or tumor Reglan and Benadryl given in ED with some relief Appreciate Neurology Consult MRA Brain- pending Continue neuro checks Monitor vitals Seizure Precautions Monitor CBC, BMP Code(s): R51 - HEADACHE (2) Peripheral visual field defect of right eye Assessment/Plan: Concern for CVA vs Tumor NIHSS 1 +partial R- hemianopia Brain CT- neg ICH, mass or lesion Brain MRA-pending Appreciate Neurology consult Fall Precautions Monitor vitals Monitor CBC, BMP Code(s): H53.451 - OTHER LOCALIZED VISUAL FIELD DEFECT, RIGHT EYE (3) Abdominal pain Assessment/Plan: Likely secondary to Gastritis vs Viral Syndrome CTAP- neg Diverticulitis or acute pathology Monitor CBC, BMP Monitor vitals Code(s): R10.9 - UNSPECIFIED ABDOMINAL PAIN Qualifiers: Abdominal location: lower abdomen, unspecified Qualified Code(s): R10.30 - Lower abdominal pain, unspecified (4) UTI (urinary tract infection) Assessment/Plan: UA done on 03/03/18- +1 protein, trace ketones, +2 leukocytes esterase, +4 urobilinogen Urine culture-pending Rocephin given in ED will continue Code(s): N39.0 - URINARY TRACT INFECTION, SITE NOT SPECIFIED (5) Chronic back pain Assessment/Plan: Patient Code(s): M54.9 - DORSALGIA, UNSPECIFIED; G89.29 - OTHER CHRONIC PAIN (6) Microcytic anemia Assessment/Plan: stable Will transfuse if Hgb < 7.0 Repeat CBC in am Code(s): D50.9 - IRON DEFICIENCY ANEMIA, UNSPECIFIED Visit type - Emergency Visit Emergency Visit: Yes ED Registration Date: 03/04/18 Care time: The patient presented to the Emergency Department on the above date and was hospitalized for further evaluation of their emergent condition. - New Patient This patient is new to me today: Yes Date on this admission: 03/04/18 - Critical Care Critical Care patient: No
[2018-03-04 03:50] VITALS: BMI 20.7
[2018-03-04] MEDS: oxyCODONE HCL 5 MG TABLET PO PRN ×2 (04:27→15:38)
[2018-03-04] MEDS ORDERED: DEXTROSE 5%-WATER - 50 ML IVPB ONE (09:16)
[2018-03-04] MEDS ORDERED: cefTRIAXone SODIUM 1 GM VIAL ONE (09:16)
[2018-03-04] MEDS: CEFTRIAXONE 1 GM in DEXTROSE 5%-WATER - 50 ML IVPB SCH (09:19)
[2018-03-04] MEDS: morphine SO4 SUSTAINED ACTING 30 MG TABLET.SA PO SCH ×2 (09:19→21:35)
--- NOTE | 2018-03-04 10:44 | PN ---
Progress Note, Physician Chief Complaint: AWAKE ALERT C/O HEADACHE AND DIZZINESS N/V - Current Medication List Current Medications: Active Medications Clonazepam (Klonopin -) 1 mg PO BID PRN PRN Reason: ANXIETY Ceftriaxone Sodium 1 gm/ (Dextrose) 50 mls @ 100 mls/hr IVPB DAILY [facility]; Protocol Last Admin: 03/04/18 09:19 Dose: 100 mls/hr Morphine Sulfate (Ms Contin -) 60 mg PO BID [facility] Last Admin: 03/04/18 09:19 Dose: 60 mg Ondansetron HCl (Zofran Injection) 4 mg IVPUSH Q6H PRN PRN Reason: NAUSEA Oxycodone HCl (Roxicodone -) 10 mg PO Q8H PRN PRN Reason: PAIN LEVEL 6-10 Last Admin: 03/04/18 04:27 Dose: 10 mg Quetiapine Fumarate (Seroquel -) 25 mg PO HS [facility] - Objective Vital Signs: Vital Signs Temperature 98.4 F 03/04/18 10:00 Pulse Rate 84 03/04/18 10:00 Respiratory Rate 18 03/04/18 10:00 Blood Pressure 108/64 03/04/18 10:00 O2 Sat by Pulse Oximetry (%) 96 03/04/18 03:00 Constitutional: Yes: No Distress Eyes: Yes: WNL HENT: Yes: WNL Neck: Yes: WNL Cardiovascular: Yes: WNL Respiratory: Yes: WNL Gastrointestinal: Yes: WNL Genitourinary: Yes: WNL Musculoskeletal: Yes: WNL Extremities: Yes: WNL Edema: No Peripheral Pulses WNL: Yes Integumentary: Yes: WNL Wound/Incision: Yes: Clean/Dry Neurological: Yes: WNL ...Motor Strength: WNL Psychiatric: Yes: WNL Problem List - Problems (1) Cerebral cyst Code(s): G93.0 - CEREBRAL CYSTS (2) Headache Code(s): R51 - HEADACHE (3) Peripheral visual field defect of right eye Code(s): H53.451 - OTHER LOCALIZED VISUAL FIELD DEFECT, RIGHT EYE (4) Abdominal pain Code(s): R10.9 - UNSPECIFIED ABDOMINAL PAIN Qualifiers: Abdominal location: lower abdomen, unspecified Qualified Code(s): R10.30 - Lower abdominal pain, unspecified Assessment/Plan NEUROLOGY EVAL ZOFRAN PRN FOR N/V NEURO SURGERY PAIN CONTROL DVT PROPHYLAXIS
[2018-03-04] MEDS: clonazePAM 0.5 MG TABLET PO PRN (11:15)
--- NOTE | 2018-03-04 13:48 | PN ---
Progress Note (short form) - Note Progress Note: Patient was seen in October By Dr Santana off Chief of Neurology Please redirect the consulkt to the prior treating neurologist Best regards
--- NOTE | 2018-03-04 18:04 | CONS ---
DATE OF CONSULTATION: 03/04/2018 INPATIENT CONSULTATION REQUESTED BY: Dr. Chase One of multiple admissions for this patient with vague complaints of abdominal pain. Multiple intestinal issues including history of obesity and bariatric surgery in 2002. Her pain is mostly abdominal and not pelvic. It is done, sometimes severe, on and off, and totally nonspecific. During this admission, patient had a CT scan of pelvis and abdomen done which was essentially negative. PAST GYNECOLOGICAL HISTORY: Characteristic for her being para zero. Her last menstrual period was 1-1/2 years ago when she was about 40. The reason for it was never investigated. Patient complains still of hot flashes and night sweats. Patient is not sexually active due to chronic pain. No Pap smear for several years. Patient has a history of left ovarian cyst that seems to be both small and stable. REVIEW OF SYSTEMS: Within normal limits. Patient is on multiple medications including opioids. PHYSICAL EXAMINATION: General: Well-developed, slim, white female, alert, oriented, in no apparent distress. Abdomen: Soft with excessive abdominal wall which is typical of the massive weight loss. It is flat, nontender, and soft. Bowel sounds normal. No CVA tenderness. Pelvic: Examination is limited. External Genitalia: Vulva nulliparous, mild atrophy. Bimanual Examination: Differed as per patient's request. She would like to have it done as an outpatient with Pap smear and complete evaluation. IMPRESSION: 1. Chronic abdominal and pelvic pain. 2. History of persistent ovarian cyst. 3. Young age onset of menopause. 4. Menopausal symptoms. PLAN: I do not believe patient's pain is of gynecological origin, but I will be happy to follow her on the outpatient basis. Patient clearly needs full examinations, Pap smear, mammography, and followup transvaginal sonogram to have better assessment of adnexa. Thank you very much for the courtesy of this consultation. MD AKHIL ARGUELLO/[id number] MTDChela
[2018-03-04] MEDS: QUEtiapine FUMARATE 25 MG TABLET (FP) PO SCH (21:35)
[2018-03-04] MEDS ORDERED: PRAMIPEXOLE DIHYDROCHLORIDE 0.25 MG TABLET PO SCH (22:00)
[2018-03-04] MEDS ORDERED: DIVALPROEX NA *ER* EXTEND REL 250 MG TABLET.SA PO SCH (22:00)
[2018-03-05] MEDS: oxyCODONE HCL 5 MG TABLET PO PRN ×3 (01:24→20:19)
[2018-03-05] MEDS: clonazePAM 0.5 MG TABLET PO PRN ×2 (01:24→14:12)
[2018-03-05 07:14] LABS: BASO % 0.6 % (0-2.0); EOS % 3.6 % (0-4.5); HEMATOCRIT 37.1 % (32.4-45.2); HEMOGLOBIN 11.7 GM/dL (10.7-15.3); LYMPH % 36.9 % (8-40); MCHC 31.4 g/dl (32.0-36.0); MEAN CELL VOLUME 82.9 fl (80-96); MONO % 7.7 % (3.8-10.2); NEUT % 51.2 % (42.8-82.8); PLATELET COUNT 200 K/MM3 (134-434); RBC 4.48 M/mm3 (3.60-5.2); RDW 17.4 % (11.6-15.6)
[2018-03-05 07:47] LABS: ALBUMIN 2.8 g/dl (3.4-5.0); ALK PHOS 74 U/L (45-117); ANION GAP 5 MMOL/L (8-16); BILIRUBIN,TOTAL 0.3 mg/dL (0.2-1); BLOOD UREA NITROGEN 8 mg/dL (7-18); CALCIUM 8.1 mg/dL (8.5-10.1); CHLORIDE 109 mmol/L (98-107); CO2 29 mmol/L (21-32); CREATININE 0.6 mg/dL (0.55-1.3); GLUCOSE,RANDOM 68 mg/dL (74-106); MAGNESIUM 2.1 mg/dL (1.8-2.4); PHOSPHOROUS 3.4 mg/dL (2.5-4.9); POTASSIUM 4.3 mmol/L (3.5-5.1); SGOT/AST 10 U/L (15-37); SGPT/ALT 14 U/L (13-61); SODIUM 142 mmol/L (136-145); TOT PROT 5.1 g/dl (6.4-8.2)
[2018-03-05] MEDS ORDERED: DEXTROSE 5%-WATER - 50 ML IVPB ONE (09:04)
[2018-03-05] MEDS ORDERED: cefTRIAXone SODIUM 1 GM VIAL ONE (09:04)
[2018-03-05] MEDS: CEFTRIAXONE 1 GM in DEXTROSE 5%-WATER - 50 ML IVPB SCH (09:07)
[2018-03-05] MEDS: morphine SO4 SUSTAINED ACTING 30 MG TABLET.SA PO SCH ×2 (09:07→21:20)
[2018-03-05] MEDS: ONDANSETRON 4 MG/2 ML VIAL IVPUSH PRN (09:22)
--- NOTE | 2018-03-05 10:19 | PN ---
Progress Note, Physician Chief Complaint: AWAKE ALERT STILL IN PAIN - Current Medication List Current Medications: Active Medications Clonazepam (Klonopin -) 1 mg PO BID PRN PRN Reason: ANXIETY Last Admin: 03/05/18 01:24 Dose: 1 mg Divalproex Sodium (Depakote *Er* -) 250 mg PO [facility] Last Admin: 03/04/18 23:10 Dose: 250 mg Ceftriaxone Sodium 1 gm/ (Dextrose) 50 mls @ 100 mls/hr IVPB DAILY [facility]; Protocol Last Admin: 03/05/18 09:07 Dose: 100 mls/hr Morphine Sulfate (Ms Contin -) 60 mg PO BID [facility] Last Admin: 03/05/18 09:07 Dose: 60 mg Ondansetron HCl (Zofran Injection) 4 mg IVPUSH Q6H PRN PRN Reason: NAUSEA Last Admin: 03/05/18 09:22 Dose: 4 mg Oxycodone HCl (Roxicodone -) 10 mg PO Q8H PRN PRN Reason: PAIN LEVEL 6-10 Last Admin: 03/05/18 01:24 Dose: 10 mg Pramipexole Dihydrochloride (Mirapex -) 0.25 mg PO [facility] Last Admin: 03/04/18 23:10 Dose: 0.25 mg Quetiapine Fumarate (Seroquel -) 25 mg PO [facility] Last Admin: 03/04/18 21:35 Dose: 25 mg - Objective Vital Signs: Vital Signs Temperature 98.3 F 03/05/18 08:58 Pulse Rate 72 03/05/18 08:58 Respiratory Rate 18 03/05/18 08:58 Blood Pressure 125/76 03/05/18 08:58 O2 Sat by Pulse Oximetry (%) 97 03/05/18 02:00 Constitutional: Yes: Mild Distress Eyes: Yes: Other HENT: Yes: WNL, Thrush Cardiovascular: Yes: WNL Respiratory: Yes: WNL Genitourinary: Yes: WNL Musculoskeletal: Yes: Back Pain Extremities: Yes: WNL Edema: No Peripheral Pulses WNL: Yes Integumentary: Yes: WNL Wound/Incision: Yes: Clean/Dry Neurological: Yes: Pre-Existing Deficit ...Motor Strength: LLE, RLE Psychiatric: Yes: WNL Labs: CBC, BMP 03/05/18 06:00 03/05/18 06:00 Problem List - Problems (1) Cerebral cyst Code(s): G93.0 - CEREBRAL CYSTS (2) Headache Code(s): R51 - HEADACHE (3) Peripheral visual field defect of right eye Code(s): H53.451 - OTHER LOCALIZED VISUAL FIELD DEFECT, RIGHT EYE (4) Abdominal pain Code(s): R10.9 - UNSPECIFIED ABDOMINAL PAIN Qualifiers: Abdominal location: lower abdomen, unspecified Qualified Code(s): R10.30 - Lower abdominal pain, unspecified Assessment/Plan NEUROLOGY EVAL DIGNA PRN FOR N/V NEURO SURGERY PAIN CONTROL DVT PROPHYLAXIS
[2018-03-05] MEDS: MULTIVITAMINS (DAILY MVI) TABLET (FP) PO SCH (10:38)
--- NOTE | 2018-03-05 13:23 | CONSULT ---
Consult - text type - Consultation Consultation Note: Padmini Phillips is a 42 year old female with a history of headaches and visual changes over the past week. CT Head was unremarkable, however, patient gives a report of MRI of the brain revealing a "cyst." This exam was performed at an outside institution and neither the images nor the report are available for our review. Repeat MRI was offered and declined by the patient secondary to claustrophobia. Patient also has a history of chronic back pain with prior L34 fusion and Lumbar scoliosis with vacuum phenomenon and endplate sclerosis which are worst at L5S1 and L23. There is facet arthropathy suggested on the abdominal CT images. The patient reports also having had Lumbar MRI in December 2017 and will have her mother bring in the imaging. I am currently concerned about the visual changes which she varyingly describes as field cuts, blurryness, and restricted and returning visual palacios. I am concerned about retinal detachment versus carotid artery disease. The Head CT does not show any pathology mandating emergent Neurosurgical attention, however , review of the MRI or repeating the exam would be prudent. Ophthalmology consultation would also be reasonable. With regards to her chronic low back pain, it is both mechanical and radicular in nature. She describes aggravation by vibrations and jostling such as riding in a car over a bumpy road, pot holes or rail road tracks. She describes one particular location that she travels past regularly as: "it just kills me." She has some increase as well with Valsalva's maneuver. She has had extensive conservative managment with exercises, Physical Therapy, injections, medications and activity modification without sustained improvement. I discussed the risks, benefits and alternatives to revision surgery with correction of her scoliosis in detail. I explained that the risks included, but were not limited to: , coma, paralysis, bleeding, infection, CSF leak possibly requiring spinal drainage or additional surgery, failure to improve, instrumentation migration/malfunction/malposition and the need for additional surgery. I described removal of hardware and exploration of spinal fusion with reoperative laminectomies L34 and either L2-S1 or T12-S2 decompression, osteotomies and fusion with correction of deformity in great detail. All questions were answered. I offered her the option of seeking another opinion or another surgeon. Informed consent was obtained. Prior to proceeding with possible scoliosis surgery, she will need to be medically clear and her visual symptoms should be confirmed not to represent an active or progressive problem warranting medical attention. Review of the Brain abnormality she refers to, by examination of the outside or repeat MRI would also be important. With regards to the spine itself, I need to review the MRI of the Lumbar spine as well as scoliosis imaging which I will order (Standing films with lateral bending and dynamic flexion/extension views).
[2018-03-05] MEDS: AMINO ACIDS/PROTEIN HYDROLYS 30 ML LIQUID.PKT PO SCH (16:38)
--- NOTE | 2018-03-05 18:19 | CONSULT ---
Consult - text type - Consultation Consultation Note: NEUROLOGY CONSULTATION is greatly appreciated: This 42yo RH div woman lives with her mother. Chronic migraine headaches, most recently with bilateral visual scotomata. Recurrent anemia. > 10 years of progressive nocturnal pains with burning, shooting, stabbing and severe insomnia. LS laminectomy without benefit. Nocturnal arm pains x few years. Morning leg pains and stiffness. ++severe bruxism. Recently has fallen without warning, prodroma or LOC. Apparently admitted [facility] x 3 weeks for left Tibial fracture. CHRISTOPHE: Thin. Neck supple. Neg SLR NEURO: MS/Speech: Normal CN II-XII: Normal Motor: No drift or tremor. Normal strength, tone, bulk and reflexes. Toes downgoing. Coord: No FTN dystaxia Sensory: Normal. Romberg neg Gait: Normal. IMP: Normal neurological exam. Migraine headaches with visual auras. 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 No evidence for Peripheral neuropathy, LS radiculopathy. SUGGEST: Review recent neuroimaging studies from [facility] Gradually increase Depakote ER towards 1000mg/day for migraine prophylaxis. Gradually increase pramipexole to .5 mg BID while following orthostatic BP's. Check B12, Fe++, TIBC, Ferritin. Please continue above meds at discharge and encourage neuro f/u as out patient. Thank you very much, Anoop Mayer MD
[2018-03-05] MEDS ORDERED: PT OWN MED DRAWER 7, Y5N ONE (20:18)
[2018-03-05] MEDS: PRAMIPEXOLE DIHYDROCHLORIDE 0.25 MG TABLET PO SCH (21:21)
[2018-03-05] MEDS: QUEtiapine FUMARATE 25 MG TABLET (FP) PO SCH (21:21)
[2018-03-05] MEDS: DIVALPROEX NA *ER* EXTEND REL 500 MG TABLET.SA (FP) PO SCH (21:22)
[2018-03-06] MEDS: PRAMIPEXOLE DIHYDROCHLORIDE 0.25 MG TABLET PO SCH ×3 (05:54→21:07)
[2018-03-06] MEDS: oxyCODONE HCL 5 MG TABLET PO PRN ×2 (05:58→18:27)
[2018-03-06] MEDS ORDERED: cefTRIAXone SODIUM 1 GM VIAL ONE (10:10)
[2018-03-06] MEDS ORDERED: DEXTROSE 5%-WATER - 50 ML IVPB ONE (10:10)
[2018-03-06] MEDS: CEFTRIAXONE 1 GM in DEXTROSE 5%-WATER - 50 ML IVPB SCH (10:11)
[2018-03-06] MEDS: MULTIVITAMINS (DAILY MVI) TABLET (FP) PO SCH (10:12)
[2018-03-06] MEDS: morphine SO4 SUSTAINED ACTING 30 MG TABLET.SA PO SCH ×2 (10:12→21:06)
[2018-03-06] MEDS: AMINO ACIDS/PROTEIN HYDROLYS 30 ML LIQUID.PKT PO SCH ×2 (10:12→18:27)
[2018-03-06] MEDS: clonazePAM 0.5 MG TABLET PO PRN ×2 (10:15→21:06)
--- NOTE | 2018-03-06 11:07 | PN ---
Progress Note, Physician Chief Complaint: PREVIOUS NOTED AND EVENTS REVIEWED AWAKE AND ALERT COMPLAIN OF NO BOWEL MOVEMENT X 3 DAYS STATES HEADACHES ARE IMPROVING - Current Medication List Current Medications: Active Medications Amino Acids (Prosource No Carb Liquid Pkt) 30 ml PO BID@0800,1730 [facility] Last Admin: 03/06/18 10:12 Dose: 30 ml Clonazepam (Klonopin -) 1 mg PO BID PRN PRN Reason: ANXIETY Last Admin: 03/06/18 10:15 Dose: 1 mg Divalproex Sodium (Depakote *Er* -) 500 mg PO HS [facility] Last Admin: 03/05/18 21:22 Dose: 500 mg Ceftriaxone Sodium 1 gm/ (Dextrose) 50 mls @ 100 mls/hr IVPB DAILY [facility]; Protocol Last Admin: 03/06/18 10:11 Dose: 100 mls/hr Morphine Sulfate (Ms Contin -) 60 mg PO BID [facility] Last Admin: 03/06/18 10:12 Dose: 60 mg Multivitamins/Minerals/Vitamin C (Tab-A-Vit -) 1 tab PO DAILY [facility] Last Admin: 03/06/18 10:12 Dose: 1 tab Ondansetron HCl (Zofran Injection) 4 mg IVPUSH Q6H PRN PRN Reason: NAUSEA Last Admin: 03/05/18 09:22 Dose: 4 mg Oxycodone HCl (Roxicodone -) 10 mg PO Q8H PRN PRN Reason: PAIN LEVEL 6-10 Last Admin: 03/06/18 05:58 Dose: 10 mg Pramipexole Dihydrochloride (Mirapex -) 0.25 mg PO TID [facility] Last Admin: 03/06/18 05:54 Dose: 0.25 mg Quetiapine Fumarate (Seroquel -) 25 mg PO HS [facility] Last Admin: 03/05/18 21:21 Dose: 25 mg - Objective Vital Signs: Vital Signs Temperature 98.2 F 03/06/18 05:48 Pulse Rate 67 03/06/18 05:00 Respiratory Rate 20 03/06/18 02:00 Blood Pressure 106/75 03/06/18 05:00 O2 Sat by Pulse Oximetry (%) 98 03/06/18 02:00 Constitutional: Yes: Well Nourished, No Distress Eyes: Yes: PERRL Cardiovascular: Yes: Regular Rate and Rhythm Respiratory: Yes: CTA Bilaterally Gastrointestinal: Yes: WNL, Soft Musculoskeletal: Yes: Muscle Weakness Edema: No Integumentary: Yes: Other (VERTICAL SCAR NOTED TO LOWER BACK) Neurological: Yes: Weakness Labs: CBC, BMP 03/05/18 06:00 03/05/18 06:00 Problem List - Problems (1) Cerebral cyst Code(s): G93.0 - CEREBRAL CYSTS (2) Headache Code(s): R51 - HEADACHE (3) Peripheral visual field defect of right eye Code(s): H53.451 - OTHER LOCALIZED VISUAL FIELD DEFECT, RIGHT EYE (4) Abdominal pain Code(s): R10.9 - UNSPECIFIED ABDOMINAL PAIN Qualifiers: Abdominal location: lower abdomen, unspecified Qualified Code(s): R10.30 - Lower abdominal pain, unspecified Assessment/Plan NEUROLOGY EVAL ZOFRAN PRN FOR N/V NEURO SURGERY PAIN CONTROL DVT PROPHYLAXIS TO START ON BOWEL REGIMEN
[2018-03-06] MEDS ORDERED: MAGNESIUM HYDROX 2400MG/30ML ORAL SUSPENSION 30 ML CUP PO ONE (11:11)
[2018-03-06] MEDS ORDERED: LORazepam 2 MG/ML SDV VIAL IVPUSH ONE (17:00)
[2018-03-06] MEDS ORDERED: PT OWN MED DRAWER 7, Y5N ONE (20:49)
[2018-03-06] MEDS: SENNOSIDES 8.6MG TABLET (FP) PO SCH (21:07)
[2018-03-06] MEDS: DIVALPROEX NA *ER* EXTEND REL 500 MG TABLET.SA (FP) PO SCH (21:07)
[2018-03-06] MEDS: QUEtiapine FUMARATE 25 MG TABLET (FP) PO SCH (21:09)
[2018-03-07] MEDS: PRAMIPEXOLE DIHYDROCHLORIDE 0.25 MG TABLET PO SCH ×3 (05:47→21:44)
[2018-03-07] MEDS ORDERED: ACETAMINOPHEN 500 MG TABLET (FP) PO ONE (05:51)
[2018-03-07] MEDS ORDERED: PT OWN MED DRAWER 7, Y5N ONE ×2 (06:36→18:11)
[2018-03-07 06:38] LABS: SERUM IRON SATURATION 8 % (15-55); TOTAL IRON BINDING CAPACITY 292 ug/dL (250-450); UIBC 270 ug/dL (131-425)
[2018-03-07] MEDS ORDERED: DEXTROSE 5%-WATER - 50 ML IVPB ONE (09:01)
[2018-03-07] MEDS ORDERED: cefTRIAXone SODIUM 1 GM VIAL ONE (09:01)
[2018-03-07] MEDS: CEFTRIAXONE 1 GM in DEXTROSE 5%-WATER - 50 ML IVPB SCH (09:13)
[2018-03-07] MEDS: AMINO ACIDS/PROTEIN HYDROLYS 30 ML LIQUID.PKT PO SCH ×2 (09:14→18:02)
[2018-03-07] MEDS: morphine SO4 SUSTAINED ACTING 30 MG TABLET.SA PO SCH ×2 (09:14→21:43)
[2018-03-07] MEDS: MULTIVITAMINS (DAILY MVI) TABLET (FP) PO SCH (09:15)
--- NOTE | 2018-03-07 12:07 | PN ---
Progress Note, Physician Chief Complaint: AWAKE ALERT STILL HAVING DISCOMFORT FROM BACK PAIN - Current Medication List Current Medications: Active Medications Amino Acids (Prosource No Carb Liquid Pkt) 30 ml PO BID@0800,1730 [facility] Last Admin: 03/07/18 09:14 Dose: 30 ml Clonazepam (Klonopin -) 1 mg PO BID PRN PRN Reason: ANXIETY Divalproex Sodium (Depakote *Er* -) 500 mg PO [facility] Last Admin: 03/06/18 21:07 Dose: 500 mg Ceftriaxone Sodium 1 gm/ (Dextrose) 50 mls @ 100 mls/hr IVPB DAILY [facility]; Protocol Last Admin: 03/07/18 09:13 Dose: 100 mls/hr Morphine Sulfate (Ms Contin -) 60 mg PO BID [facility] Last Admin: 03/07/18 09:14 Dose: 60 mg Multivitamins/Minerals/Vitamin C (Tab-A-Vit -) 1 tab PO DAILY [facility] Last Admin: 03/07/18 09:15 Dose: 1 tab Ondansetron HCl (Zofran Injection) 4 mg IVPUSH Q6H PRN PRN Reason: NAUSEA Last Admin: 03/05/18 09:22 Dose: 4 mg Oxycodone HCl (Roxicodone -) 15 mg PO Q8H PRN PRN Reason: PAIN LEVEL 7 - 10 Pramipexole Dihydrochloride (Mirapex -) 0.25 mg PO TID [facility] Last Admin: 03/07/18 05:47 Dose: 0.25 mg Quetiapine Fumarate (Seroquel -) 25 mg PO [facility] Last Admin: 03/06/18 21:09 Dose: 25 mg Senna (Senna -) 2 tab PO [facility] Last Admin: 03/06/18 21:07 Dose: 2 tab - Objective Vital Signs: Vital Signs Temperature 98.8 F 03/07/18 09:18 Pulse Rate 82 03/07/18 09:18 Respiratory Rate 18 03/07/18 09:18 Blood Pressure 106/53 L 03/07/18 09:18 O2 Sat by Pulse Oximetry (%) 100 03/07/18 10:00 Constitutional: Yes: Mild Distress Eyes: Yes: WNL, Occular Prosthesis Neck: Yes: WNL Cardiovascular: Yes: WNL Respiratory: Yes: WNL Gastrointestinal: Yes: WNL Genitourinary: Yes: WNL Musculoskeletal: Yes: Back Pain Extremities: Yes: WNL Edema: No Peripheral Pulses WNL: Yes Integumentary: Yes: WNL Wound/Incision: Yes: Clean/Dry Neurological: Yes: WNL ...Motor Strength: WNL Psychiatric: Yes: WNL Labs: CBC, BMP 03/05/18 06:00 03/05/18 06:00 Problem List - Problems (1) Cerebral cyst Code(s): G93.0 - CEREBRAL CYSTS (2) Headache Code(s): R51 - HEADACHE (3) Peripheral visual field defect of right eye Code(s): H53.451 - OTHER LOCALIZED VISUAL FIELD DEFECT, RIGHT EYE (4) Abdominal pain Code(s): R10.9 - UNSPECIFIED ABDOMINAL PAIN Qualifiers: Abdominal location: lower abdomen, unspecified Qualified Code(s): R10.30 - Lower abdominal pain, unspecified Assessment/Plan NEUROLOGY EVAL APPRECIATED MRI RESULTS PENDING ZOFRAN PRN FOR N/V NEURO SURGERY PAIN CONTROL DVT PROPHYLAXIS TO START ON BOWEL REGIMEN
[2018-03-07] MEDS ORDERED: IRON SUCROSE INJECTION 200 MG in SODIUM CHLORIDE 90 ML IVPB ONE (12:08)
[2018-03-07] MEDS: clonazePAM 0.5 MG TABLET PO PRN ×2 (12:26→21:43)
[2018-03-07] MEDS: oxyCODONE HCL 5 MG TABLET PO PRN ×2 (12:26→21:43)
[2018-03-07] MEDS: QUEtiapine FUMARATE 25 MG TABLET (FP) PO SCH (21:44)
[2018-03-07] MEDS: DIVALPROEX NA *ER* EXTEND REL 500 MG TABLET.SA (FP) PO SCH (21:44)
[2018-03-07] MEDS: SENNOSIDES 8.6MG TABLET (FP) PO SCH (21:44)
[2018-03-08] MEDS: PRAMIPEXOLE DIHYDROCHLORIDE 0.25 MG TABLET PO SCH ×3 (06:32→21:12)
[2018-03-08] MEDS: oxyCODONE HCL 5 MG TABLET PO PRN ×2 (06:34→15:17)
[2018-03-08] MEDS ORDERED: PT OWN MED DRAWER 7, Y5N ONE ×2 (06:48→21:04)
[2018-03-08] MEDS ORDERED: DEXTROSE 5%-WATER - 50 ML IVPB ONE (08:38)
[2018-03-08] MEDS ORDERED: cefTRIAXone SODIUM 1 GM VIAL ONE (08:38)
--- NOTE | 2018-03-08 08:56 | PN ---
Progress Note, Physician Chief Complaint: PATIENT IN BACK PAIN NO FEVER - Current Medication List Current Medications: Active Medications Amino Acids (Prosource No Carb Liquid Pkt) 30 ml PO BID@0800,1730 [facility] Last Admin: 03/07/18 18:02 Dose: 30 ml Clonazepam (Klonopin -) 1 mg PO BID PRN PRN Reason: ANXIETY Last Admin: 03/07/18 21:43 Dose: 1 mg Divalproex Sodium (Depakote *Er* -) 500 mg PO [facility] Last Admin: 03/07/18 21:44 Dose: 500 mg Ceftriaxone Sodium 1 gm/ (Dextrose) 50 mls @ 100 mls/hr IVPB DAILY [facility]; Protocol Last Admin: 03/07/18 09:13 Dose: 100 mls/hr Morphine Sulfate (Ms Contin -) 60 mg PO BID [facility] Last Admin: 03/07/18 21:43 Dose: 60 mg Multivitamins/Minerals/Vitamin C (Tab-A-Vit -) 1 tab PO DAILY [facility] Last Admin: 03/07/18 09:15 Dose: 1 tab Ondansetron HCl (Zofran Injection) 4 mg IVPUSH Q6H PRN PRN Reason: NAUSEA Last Admin: 03/05/18 09:22 Dose: 4 mg Oxycodone HCl (Roxicodone -) 15 mg PO Q8H PRN PRN Reason: PAIN LEVEL 7 - 10 Last Admin: 03/08/18 06:34 Dose: 15 mg Pramipexole Dihydrochloride (Mirapex -) 0.25 mg PO TID [facility] Last Admin: 03/08/18 06:32 Dose: 0.25 mg Quetiapine Fumarate (Seroquel -) 25 mg PO [facility] Last Admin: 03/07/18 21:44 Dose: 25 mg Senna (Senna -) 2 tab PO [facility] Last Admin: 03/07/18 21:44 Dose: 2 tab - Objective Vital Signs: Vital Signs Temperature 98.0 F 03/08/18 06:00 Pulse Rate 80 03/08/18 06:00 Respiratory Rate 18 03/08/18 06:00 Blood Pressure 113/70 03/08/18 06:00 O2 Sat by Pulse Oximetry (%) 99 03/07/18 22:00 Constitutional: Yes: Mild Distress Eyes: Yes: WNL HENT: Yes: WNL Neck: Yes: WNL Cardiovascular: Yes: WNL Respiratory: Yes: WNL Gastrointestinal: Yes: WNL Genitourinary: Yes: WNL Musculoskeletal: Yes: WNL Extremities: Yes: WNL Edema: No Peripheral Pulses WNL: Yes Integumentary: Yes: WNL Wound/Incision: Yes: Clean/Dry Neurological: Yes: Weakness ...Motor Strength: LLE, RLE Psychiatric: Yes: WNL Labs: CBC, BMP 03/05/18 06:00 03/05/18 06:00 Problem List - Problems (1) Cerebral cyst Code(s): G93.0 - CEREBRAL CYSTS (2) Headache Code(s): R51 - HEADACHE (3) Peripheral visual field defect of right eye Code(s): H53.451 - OTHER LOCALIZED VISUAL FIELD DEFECT, RIGHT EYE (4) Abdominal pain Code(s): R10.9 - UNSPECIFIED ABDOMINAL PAIN Qualifiers: Abdominal location: lower abdomen, unspecified Qualified Code(s): R10.30 - Lower abdominal pain, unspecified Assessment/Plan AWAIT NEUROSURGERY F/U MRI BRAIN NO ACUTE CHANGES PAIN CONTROL STOP ABX PREOP CLEARANCE NO CONTRAINDICATION MEDICALLY FOR NEUROSURGERY
[2018-03-08] MEDS: AMINO ACIDS/PROTEIN HYDROLYS 30 ML LIQUID.PKT PO SCH ×2 (09:00→17:30)
[2018-03-08] MEDS: CEFTRIAXONE 1 GM in DEXTROSE 5%-WATER - 50 ML IVPB SCH (09:35)
[2018-03-08] MEDS: MULTIVITAMINS (DAILY MVI) TABLET (FP) PO SCH (09:36)
[2018-03-08] MEDS: morphine SO4 SUSTAINED ACTING 30 MG TABLET.SA PO SCH ×2 (09:36→21:09)
[2018-03-08] MEDS: clonazePAM 0.5 MG TABLET PO PRN ×2 (09:39→21:48)
--- NOTE | 2018-03-08 17:13 | SPA.PREOP ---
- PRE-OP NOTE Dx: Scoliosis, chronic low back pain (mechanical and radicular in nature) Planned Procedure: Exploration of spinal fusion with reoperative laminectomies L3/4 and either L2-S1 or T12-S2 decompression, osteotomies and fusion with correction of deformity Surgeon: Spencer Lewis Consent: To be obtained by surgeon after all risks, benefits and alternatives explained to patient. Last Vital Signs Temp Pulse Resp BP Pulse Ox 98.7 F 90 20 108/65 99 03/08/18 16:43 03/08/18 16:43 03/08/18 16:43 03/08/18 16:43 03/08/18 10:00 Lab Results WBC 6.0 K/mm3 (4.0-10.0) 03/05/18 06:00 RBC 4.48 M/mm3 (3.60-5.2) 03/05/18 06:00 Hgb 11.7 GM/dL (10.7-15.3) 03/05/18 06:00 Hct 37.1 % (32.4-45.2) D 03/05/18 06:00 MCV 82.9 fl (80-96) 03/05/18 06:00 MCHC 31.4 g/dl (32.0-36.0) L 03/05/18 06:00 RDW 17.4 % (11.6-15.6) H 03/05/18 06:00 Plt Count 200 K/MM3 (134-434) D 03/05/18 06:00 Sodium 142 mmol/L (136-145) 03/05/18 06:00 Potassium 4.3 mmol/L (3.5-5.1) 03/05/18 06:00 Chloride 109 mmol/L (98-107) H 03/05/18 06:00 Carbon Dioxide 29 mmol/L (21-32) 03/05/18 06:00 Anion Gap 5 MMOL/L (8-16) L 03/05/18 06:00 BUN 8 mg/dL (7-18) 03/05/18 06:00 Creatinine 0.6 mg/dL (0.55-1.3) 03/05/18 06:00 Random Glucose 68 mg/dL (74-106) L 03/05/18 06:00 Calcium 8.1 mg/dL (8.5-10.1) L 03/05/18 06:00 - IMAGING MRI: Report Reviewed, Image Reviewed - ASSESSMENT/PLAN 1. Make NPO after midnight except po meds 2. GI/DVT PPX 3. Medical optimization / clearance 4. Hibiclens 5. PRBC x2 on-hold for OR Visit type - Case Type Case Type: ED Admission
[2018-03-08] MEDS: ONDANSETRON 4 MG/2 ML VIAL IVPUSH PRN (20:28)
[2018-03-08] MEDS: QUEtiapine FUMARATE 25 MG TABLET (FP) PO SCH (21:09)
[2018-03-08] MEDS: DIVALPROEX NA *ER* EXTEND REL 500 MG TABLET.SA (FP) PO SCH (21:09)
[2018-03-08] MEDS: SENNOSIDES 8.6MG TABLET (FP) PO SCH (21:09)
[2018-03-08] MEDS ORDERED: CHLORHEXIDINE GLUCONATE 4% CLEANSER FOR DECOLONIZATION TP SCH (22:00)
[2018-03-09] MEDS: oxyCODONE HCL 5 MG TABLET PO PRN (03:21)
[2018-03-09] MEDS: PRAMIPEXOLE DIHYDROCHLORIDE 0.25 MG TABLET PO SCH ×2 (05:58→21:23)
[2018-03-09] MEDS ORDERED: LACTATED RINGERS SOLUTION 1,000 ML IV SCH (07:45)
[2018-03-09] MEDS ORDERED: PROMETHAZINE HCL 25 MG/1 ML VIAL IVPB PRN (07:45)
[2018-03-09] MEDS ORDERED: DEXAMETHASONE SOD PHOSPHATE 4 MG/1 ML VIAL IVPUSH PRN (07:45)
[2018-03-09] MEDS ORDERED: ONDANSETRON 4 MG/2 ML VIAL IVPUSH PRN (07:45)
[2018-03-09] MEDS ORDERED: GENTAMICIN SO4 80 MG/2 ML VIAL ONE (08:16)
[2018-03-09] MEDS ORDERED: BUPIVACAINE HCL/PF 0.5% (5MG/ML) 10 ML VIAL ONE ×2 (08:17→12:54)
[2018-03-09] MEDS ORDERED: LIDOCAINE 1%/EPI 1:100000 (20 ML MULTI DOSE VIAL) ONE (08:17)
[2018-03-09] MEDS ORDERED: VANCOMYCIN 1,000 MG VIAL (RESTRICTED TO ID ONLY) ONE ×2 (08:17→10:20)
[2018-03-09] MEDS ORDERED: THROMBIN (BOVINE) 20,000 UNIT VIAL TP ONE (08:31)
[2018-03-09] MEDS: AMINO ACIDS/PROTEIN HYDROLYS 30 ML LIQUID.PKT PO SCH ×2 (09:12→18:20)
[2018-03-09 09:15] LABS: INR 0.94 (0.83-1.09); PROTHROMBIN TIME (PATIENT) 11.1 SEC (9.7-13.0)
[2018-03-09 09:17] LABS: ACTIVATED PTT 32.5 SECONDS (25.2-36.5)
[2018-03-09 09:24] LABS: BASO % 0.7 % (0-2.0); EOS % 6.7 % (0-4.5); HEMATOCRIT 38.2 % (32.4-45.2); HEMOGLOBIN 12.7 GM/dL (10.7-15.3); LYMPH % 31.2 % (8-40); MCH 27.5 pg (25.7-33.7); MCHC 33.3 g/dl (32.0-36.0); MEAN CELL VOLUME 82.6 fl (80-96); MEAN PLT VOLUME 8.9 fl (7.5-11.1); MONO % 12.3 % (3.8-10.2); NEUT % 49.1 % (42.8-82.8); PLATELET COUNT 185 K/MM3 (134-434); RBC 4.62 M/mm3 (3.60-5.2); RDW 17.6 % (11.6-15.6); WHITE BLOOD COUNT 5.5 K/mm3 (4.0-10.0)
[2018-03-09] MEDS ORDERED: morphine SULFATE/Preservative Free 0.5 MG/ML (1cc Syringe) ONE (09:41)
[2018-03-09] MEDS ORDERED: MIDAZOLAM HCL 2 MG/2 ML SINGLE DOSE VIAL ONE (09:46)
[2018-03-09] MEDS ORDERED: ROCURONIUM BROMIDE 50 MG/5 ML VIAL ONE ×2 (09:46→11:14)
[2018-03-09] MEDS ORDERED: PROPOFOL 20 ML ONE ×2 (09:46)
[2018-03-09] MEDS ORDERED: LIDOCAINE HCL/PF 2% SDV 5ML VIAL ONE (09:47)
[2018-03-09 09:55] LABS: ANION GAP 6 MMOL/L (8-16); BLOOD UREA NITROGEN 12 mg/dL (7-18); CALCIUM 8.6 mg/dL (8.5-10.1); CHLORIDE 102 mmol/L (98-107); CO2 31 mmol/L (21-32); CREATININE 0.6 mg/dL (0.55-1.3); GLUCOSE,RANDOM 74 mg/dL (74-106); SODIUM 139 mmol/L (136-145)
[2018-03-09] MEDS ORDERED: SODIUM CHLORIDE 0.9% P/F 10 ML VIAL IJ ONE ×2 (10:20→10:23)
[2018-03-09] MEDS ORDERED: ceFAZolin SODIUM 1 GM VIAL ONE ×2 (10:20→18:13)
[2018-03-09] MEDS ORDERED: DEXAMETHASONE SOD PHOSPHATE 4 MG/1 ML VIAL ONE (10:35)
[2018-03-09] MEDS ORDERED: ONDANSETRON 4 MG/2 ML VIAL ONE (10:35)
[2018-03-09] MEDS ORDERED: ceFAZolin SODIUM 1 GM VIAL IVPB ONE (10:36)
[2018-03-09] MEDS ORDERED: VANCOMYCIN 1,000 MG VIAL (RESTRICTED TO ID ONLY) IVPB ONE (10:40)
[2018-03-09] MEDS ORDERED: LIDOCAINE 1%/EPI 1:100000 (50 ML MULTI DOSE VIAL) INF ONE (10:48)
[2018-03-09] MEDS ORDERED: GENTAMICIN SO4 80 MG/2 ML VIAL IVPB ONE (10:55)
[2018-03-09] MEDS ORDERED: BACITRACIN 50,000 UNITS VIAL TP ONE ×2 (10:55→13:58)
[2018-03-09] MEDS ORDERED: GELATIN, ABSORBABLE 100 EACH SPONGE TP ONE (11:03)
[2018-03-09] MEDS ORDERED: THROMBIN (BOVINE) 5,000 UNIT VIAL TP ONE (11:03)
[2018-03-09] MEDS ORDERED: GELATIN, ABSORBABLE 12-7MM EACH SPONGE TP ONE (11:03)
[2018-03-09] MEDS ORDERED: PT OWN MED DRAWER 7, Y5N ONE ×5 (11:05→21:07)
[2018-03-09] MEDS: MULTIVITAMINS (DAILY MVI) TABLET (FP) PO SCH (11:34)
[2018-03-09] MEDS: morphine SO4 SUSTAINED ACTING 30 MG TABLET.SA PO SCH ×2 (13:08→21:25)
[2018-03-09] MEDS ORDERED: BUPIVACAINE LIPOSOME/PF (EXPAREL) 266 MG/20 ML VIAL NR ONE ×3 (13:15→14:10)
[2018-03-09] MEDS ORDERED: GLYCOPYRROLATE 0.2 MG/1 ML VIAL ONE (14:08)
[2018-03-09] MEDS ORDERED: NEOSTIGMINE METHYLSULFATE 0.5 MG/1 ML - 10 ML MDV ONE (14:08)
[2018-03-09] MEDS ORDERED: BUPIVACAINE HCL/PF (5 MG/ML) 30 ML VIAL IJ ONE ×2 (14:10)
[2018-03-09] MEDS ORDERED: oxyCODONE HCL 5 MG TABLET PO PRN (15:06)
--- NOTE | 2018-03-09 15:13 | OP ---
Operative Note - Note: Operative Date: 03/09/18 Pre-Operative Diagnosis: Scoliosis, chronic low back pain (mechanical and radicular in nature) Operation: Exploration of spinal fusion with reoperative laminectomies L3/4 and either L2-S1 or T12-S2 decompression, osteotomies and fusion with correction of deformity Post-Operative Diagnosis: Same as Pre-op Surgeon: Spencer Lewis Civil Engineer Land [employer]: Diego Conti Anesthesiologist/FILTER PRESS SUPERVISOR: Moreno Warner Anesthesia: General Estimated Blood Loss (mls): 2,000 Blood Volume Replaced (mls): 700 Operative Report Dictated: Yes
--- NOTE | 2018-03-09 15:14 | SURG ---
Surgery Indian Blanket Weaver Note Indian Blanket Weaver: Diego Conti PA-C Date of Service: 03/09/18 Diagnosis: Scoliosis, chronic low back pain (mechanical and radicular in nature) Procedure: Exploration of spinal fusion with reoperative laminectomies L3/4 and with L2-S1 decompression, osteotomies and fusion with correction of deformity I was present for the entirety of the operative procedure. For further detail, please refer to operative report.
--- NOTE | 2018-03-09 15:24 | PN ---
Progress Note, Physician Chief Complaint: SCHEDULED FOR LUMBAR SURGERY PATIENT IN POST OP SEDATED - Current Medication List Current Medications: Active Medications Amino Acids (Prosource No Carb Liquid Pkt) 30 ml PO BID@0800,1730 [facility] Last Admin: 03/09/18 09:12 Dose: Not Given Clonazepam (Klonopin -) 1 mg PO BID PRN PRN Reason: ANXIETY Last Admin: 03/08/18 21:48 Dose: 1 mg Dexamethasone Sodium Phosphate (Decadron Injection -) 4 mg IVPUSH ONCE PRN PRN Reason: NAUSEA AND/OR VOMITING Diphenhydramine HCl (Benadryl Injection -) 12.5 mg IVPUSH ONCE PRN PRN Reason: FOR ITCHING Divalproex Sodium (Depakote *Er* -) 500 mg PO [facility] Last Admin: 03/08/18 21:09 Dose: 500 mg Fentanyl (Sublimaze Injection -) 50 mcg IVPUSH [id number] PRN PRN Reason: PAIN-PACU ORDER X 4 DOSES ONLY Ferrous Sulfate (Feosol -) 325 mg PO DAILY [facility] Folic Acid (Folic Acid -) 1 mg PO DAILY [facility] Heparin Sodium (Porcine) (Heparin -) 5,000 unit SQ TID [facility] Hydromorphone HCl (Dilaudid Pediatric Psychiatrist -) 10 mg PVC LOADER PVC LOADER [facility]; Protocol Stop: 03/16/18 07:46 Cefazolin Sodium (Ancef 1 Gm Premixed Ivpb -) 1 gm in 50 mls @ 100 mls/hr IVPB Q8H-IV [facility] Stop: 03/10/18 17:59 Lactated Ringer's (Lactated Ringers Solution) 1,000 ml in 1,000 mls @ 125 mls/ hr IV ASDIR [facility] Morphine Sulfate (Ms Contin -) 60 mg PO BID [facility] Last Admin: 03/09/18 13:08 Dose: Not Given Multivitamins/Minerals/Vitamin C (Tab-A-Vit -) 1 tab PO DAILY [facility] Last Admin: 03/09/18 11:34 Dose: Not Given Ondansetron HCl (Zofran Injection) 4 mg IVPUSH Q4H PRN PRN Reason: NAUSEA AND/OR VOMITING Oxycodone HCl (Roxicodone -) 5 mg PO Q4H PRN PRN Reason: PAIN LEVEL 1-5 Oxycodone HCl (Roxicodone -) 10 mg PO Q4H PRN PRN Reason: PAIN LEVEL 6-10 Pramipexole Dihydrochloride (Mirapex -) 0.25 mg PO TID [facility] Last Admin: 03/09/18 05:58 Dose: 0.25 mg Promethazine HCl (Phenergan Injection -) 12.5 mg IVPB Q6H PRN PRN Reason: NAUSEA AND/OR VOMITING Quetiapine Fumarate (Seroquel -) 25 mg PO [facility] Last Admin: 03/08/18 21:09 Dose: 25 mg Senna (Senna -) 2 tab PO [facility] Last Admin: 03/08/18 21:09 Dose: 2 tab - Objective Vital Signs: Vital Signs Temperature 98.2 F 03/09/18 08:42 Pulse Rate 79 03/09/18 08:42 Respiratory Rate 20 03/09/18 08:42 Blood Pressure 93/69 03/09/18 08:42 O2 Sat by Pulse Oximetry (%) 99 03/09/18 02:00 Constitutional: Yes: Other Cardiovascular: Yes: WNL Respiratory: Yes: CTA Bilaterally, On Nasal O2 Gastrointestinal: Yes: Soft Genitourinary: Yes: Valentine Present Musculoskeletal: Yes: Muscle Weakness Integumentary: Yes: WNL Wound/Incision: Yes: Clean/Dry Neurological: Yes: Other Labs: CBC, BMP 03/09/18 08:00 03/09/18 08:00 INR, PTT INR 0.94 (0.83-1.09) 03/09/18 08:00 Problem List - Problems (1) Cerebral cyst Code(s): G93.0 - CEREBRAL CYSTS (2) Headache Code(s): R51 - HEADACHE (3) Peripheral visual field defect of right eye Code(s): H53.451 - OTHER LOCALIZED VISUAL FIELD DEFECT, RIGHT EYE (4) Abdominal pain Code(s): R10.9 - UNSPECIFIED ABDOMINAL PAIN Qualifiers: Abdominal location: lower abdomen, unspecified Qualified Code(s): R10.30 - Lower abdominal pain, unspecified Assessment/Plan S/P LUMBAR SURGERY AWAIT NEUROSURGERY FOLLOWUP DVT PROPHYLAXIS PAIN CONTROL PT EVAL
[2018-03-09] MEDS ORDERED: HYDROmorphone *PCA* 10MG/50ML DISP.SYRIN PCA ONE (15:37)
[2018-03-09] MEDS: HYDROmorphone *PCA* 10MG/50ML DISP.SYRIN PCA SCH (15:45)
[2018-03-09] MEDS ORDERED: INSULIN (NOVOLOG) ASPART 100 UNITS/ML 10ML VIAL ONE (16:23)
[2018-03-09 16:47] LABS: HEMOGLOBIN 12.7 GM/dL (10.7-15.3); MCH 28.2 pg (25.7-33.7); MCHC 34.2 g/dl (32.0-36.0); MEAN CELL VOLUME 82.6 fl (80-96); MEAN PLT VOLUME 9.4 fl (7.5-11.1); PLATELET COUNT 268 K/MM3 (134-434); RBC 4.48 M/mm3 (3.60-5.2); RDW 15.8 % (11.6-15.6); WHITE BLOOD COUNT 14.1 K/mm3 (4.0-10.0)
[2018-03-09 17:10] LABS: ALBUMIN 2.5 g/dl (3.4-5.0); ALK PHOS 125 U/L (45-117); ANION GAP 9 MMOL/L (8-16); BILIRUBIN,TOTAL 0.7 mg/dL (0.2-1); BLOOD UREA NITROGEN 11 mg/dL (7-18); CALCIUM 7.7 mg/dL (8.5-10.1); CHLORIDE 105 mmol/L (98-107); CO2 25 mmol/L (21-32); CREATININE 0.6 mg/dL (0.55-1.3); GLUCOSE,RANDOM 186 mg/dL (74-106); POTASSIUM 4.3 mmol/L (3.5-5.1); SGOT/AST 1751 U/L (15-37); SGPT/ALT 615 U/L (13-61); SODIUM 139 mmol/L (136-145); TOT PROT 4.7 g/dl (6.4-8.2)
[2018-03-09] MEDS: LACTATED RINGERS SOLUTION 1,000 ML/1,000 ML INFUS.BAG IV SCH (17:15)
[2018-03-09] MEDS ORDERED: DEXTROSE 5%-WATER - 50 ML IVPB ONE (18:14)
[2018-03-09] MEDS: CEFAZOLIN 1 GM in DEXTROSE 5%-WATER - 50 ML IVPB SCH (18:20)
[2018-03-09] MEDS: HEPARIN NA (PORCINE) 5,000 UNITS/ML 1ML VIAL SQ SCH (21:24)
[2018-03-09] MEDS: DIVALPROEX NA *ER* EXTEND REL 500 MG TABLET.SA (FP) PO SCH (21:26)
[2018-03-09] MEDS: SENNOSIDES 8.6MG TABLET (FP) PO SCH (21:27)
[2018-03-09] MEDS: QUEtiapine FUMARATE 25 MG TABLET (FP) PO SCH (21:28)
[2018-03-09] MEDS: clonazePAM 0.5 MG TABLET PO PRN (21:31)
[2018-03-10] MEDS ORDERED: ceFAZolin SODIUM 1 GM VIAL ONE ×2 (01:17→09:33)
[2018-03-10] MEDS ORDERED: DEXTROSE 5%-WATER - 50 ML IVPB ONE ×2 (01:18→09:33)
[2018-03-10] MEDS: CEFAZOLIN 1 GM in DEXTROSE 5%-WATER - 50 ML IVPB SCH ×2 (01:21→10:28)
[2018-03-10] MEDS: HYDROmorphone *PCA* 10MG/50ML DISP.SYRIN PCA SCH (03:26)
[2018-03-10 07:31] LABS: HEMATOCRIT 27.6 % (32.4-45.2); HEMOGLOBIN 9.8 GM/dL (10.7-15.3); MCH 28.8 pg (25.7-33.7); MCHC 35.4 g/dl (32.0-36.0); MEAN CELL VOLUME 81.3 fl (80-96); MEAN PLT VOLUME 9.3 fl (7.5-11.1); PLATELET COUNT 174 K/MM3 (134-434); RBC 3.39 M/mm3 (3.60-5.2); RDW 15.6 % (11.6-15.6); WHITE BLOOD COUNT 10.3 K/mm3 (4.0-10.0)
[2018-03-10 08:57] LABS: ANION GAP 10 MMOL/L (8-16); BLOOD UREA NITROGEN 9 mg/dL (7-18); CALCIUM 7.9 mg/dL (8.5-10.1); CHLORIDE 98 mmol/L (98-107); CO2 28 mmol/L (21-32); CREATININE 0.5 mg/dL (0.55-1.3); GLUCOSE,RANDOM 80 mg/dL (74-106); POTASSIUM 4.9 mmol/L (3.5-5.1); SODIUM 136 mmol/L (136-145)
--- NOTE | 2018-03-10 09:00 | PN ---
Progress Note, Physician - Current Medication List Current Medications: Active Medications Amino Acids (Prosource No Carb Liquid Pkt) 30 ml PO BID@0800,1730 [facility] Last Admin: 03/09/18 18:20 Dose: 30 ml Clonazepam (Klonopin -) 1 mg PO BID PRN PRN Reason: ANXIETY Last Admin: 03/09/18 21:31 Dose: 1 mg Dexamethasone Sodium Phosphate (Decadron Injection -) 4 mg IVPUSH ONCE PRN PRN Reason: NAUSEA AND/OR VOMITING Diphenhydramine HCl (Benadryl Injection -) 12.5 mg IVPUSH ONCE PRN PRN Reason: FOR ITCHING Divalproex Sodium (Depakote *Er* -) 500 mg PO HS [facility] Last Admin: 03/09/18 21:26 Dose: 500 mg Fentanyl (Sublimaze Injection -) 50 mcg IVPUSH [id number] PRN PRN Reason: PAIN-PACU ORDER X 4 DOSES ONLY Last Admin: 03/09/18 15:35 Dose: 50 mcg Ferrous Sulfate (Feosol -) 325 mg PO DAILY [facility] Folic Acid (Folic Acid -) 1 mg PO DAILY [facility] Heparin Sodium (Porcine) (Heparin -) 5,000 unit SQ TID [facility] Last Admin: 03/09/18 21:24 Dose: 5,000 unit Hydromorphone HCl (Dilaudid Supervisor Winter -) 10 mg WEALTH MANAGEMENT CONSULTANT WEALTH MANAGEMENT CONSULTANT [facility]; Protocol Stop: 03/16/18 07:46 Last Admin: 03/10/18 03:26 Dose: 10 mg Cefazolin Sodium 1 gm/ (Dextrose) 50 mls @ 100 mls/hr IVPB Q8H-IV [facility] Stop: 03/10/18 17:59 Last Admin: 03/10/18 01:21 Dose: 100 mls/hr Lactated Ringer's (Lactated Ringers Solution) 1,000 ml in 1,000 mls @ 125 mls/ hr IV ASDIR [facility] Last Admin: 03/09/18 17:15 Dose: 0 mls Morphine Sulfate (Ms Contin -) 60 mg PO BID [facility] Last Admin: 03/09/18 21:25 Dose: Not Given Multivitamins/Minerals/Vitamin C (Tab-A-Vit -) 1 tab PO DAILY [facility] Last Admin: 03/09/18 11:34 Dose: Not Given Ondansetron HCl (Zofran Injection) 4 mg IVPUSH Q4H PRN PRN Reason: NAUSEA AND/OR VOMITING Oxycodone HCl (Roxicodone -) 5 mg PO Q4H PRN PRN Reason: PAIN LEVEL 1-5 Oxycodone HCl (Roxicodone -) 10 mg PO Q4H PRN PRN Reason: PAIN LEVEL 6-10 Pramipexole Dihydrochloride (Mirapex -) 0.25 mg PO TID [facility] Last Admin: 03/09/18 21:23 Dose: 0.25 mg Promethazine HCl (Phenergan Injection -) 12.5 mg IVPB Q6H PRN PRN Reason: NAUSEA AND/OR VOMITING Quetiapine Fumarate (Seroquel -) 25 mg PO [facility] Last Admin: 03/09/18 21:28 Dose: 25 mg Senna (Senna -) 2 tab PO [facility] Last Admin: 03/09/18 21:27 Dose: 2 tab - Objective Vital Signs: Vital Signs Temperature 99.1 F 03/10/18 08:38 Pulse Rate 101 H 03/10/18 08:38 Respiratory Rate 18 03/10/18 06:00 Blood Pressure 117/62 03/10/18 08:38 O2 Sat by Pulse Oximetry (%) 100 03/09/18 21:00 Cardiovascular: Yes: Regular Rate and Rhythm Respiratory: Yes: Regular, CTA Bilaterally Gastrointestinal: Yes: Normal Bowel Sounds, Soft Wound/Incision: Yes: Dressing Dry and Intact, Other (drain) Labs: CBC, BMP 03/10/18 05:30 03/10/18 05:30 INR, PTT INR 0.94 (0.83-1.09) 03/09/18 08:00 Problem List - Problems (1) Headache Assessment/Plan: -migraine same meds Code(s): R51 - HEADACHE (2) Back pain Assessment/Plan: Operative Date: 03/09/18 Pre-Operative Diagnosis: Scoliosis, chronic low back pain (mechanical and radicular in nature) Operation: Exploration of spinal fusion with reoperative laminectomies L3/4 and either L2-S1 or T12-S2 decompression, osteotomies and fusion with correction of deformity Post-Operative Diagnosis: Same as Pre-op Surgeon: [facility] Sales Representative: Diego Conti Code(s): M54.9 - DORSALGIA, UNSPECIFIED (3) Abnormal LFTs Assessment/Plan: -repeat -gi Code(s): R94.5 - ABNORMAL RESULTS OF LIVER FUNCTION STUDIES
[2018-03-10] MEDS: FOLIC ACID 1 MG TABLET (FP) PO SCH (10:15)
--- NOTE | 2018-03-10 10:22 | PN ---
Progress Note (short form) - Note Progress Note: POD #1 s/p Exploration of spinal fusion with reoperative laminectomies L3/4 and with L2 -S1 decompression, osteotomies and fusion with correction of deformity Alert. Supine in bed. Despite the extensive surgery she just had, patient looks and feels good. C/o incisional tenderness. Pain management via [employer] SUPERVISOR. Hasn't been oob yet. Torres in place. Denies n/v/f/c, CP, SOB, numbness/tingling/weakness to her lower extremities. Last Vital Signs Temp Pulse Resp BP Pulse Ox 99.1 F 101 H 18 117/62 100 03/10/18 08:38 03/10/18 08:38 03/10/18 06:00 03/10/18 08:38 03/09/18 21:00 CBC, BMP 03/10/18 05:30 03/10/18 05:30 OUTPUT 03/09/18 03/09/18 03/10/18 03/10/18 18:23 23:00 06:00 07:47 PEDRO 50 250 Torres 500 800 Gen: alert. nad Back: dressing c/d/i. No palpable hematoma. No drainage. No erythema. PEDRO on bulb suction (sanguinous) : torres to gravity LE: soft. supple. non-tender Neuro: GMNVI bilat in all extrem Problem List - Problems (1) Intractable low back pain Assessment/Plan: POD #1 s/p Exploration of spinal fusion with reoperative laminectomies L3/4 and with L2-S1 decompression, osteotomies and fusion with correction of deformity Doing well. COAL AND ASH SUPERVISOR for pain management Tylenol 650mg PO for fever > 100.3F Incentive spirometer Pulmonary Toileting Educate on importance of smoking cessation OOB with Physical Therapy Monitor/record I/Os TLSO brace Diet as tolerated IV abx to continue while PEDRO drain in. Can dc torres once patien tis OOB Code(s): M54.5 - LOW BACK PAIN (2) Scoliosis Code(s): M41.9 - SCOLIOSIS, UNSPECIFIED
[2018-03-10] MEDS: HEPARIN NA (PORCINE) 5,000 UNITS/ML 1ML VIAL SQ SCH ×4 (10:28→21:16)
[2018-03-10] MEDS: MULTIVITAMINS (DAILY MVI) TABLET (FP) PO SCH (10:29)
[2018-03-10] MEDS: morphine SO4 SUSTAINED ACTING 30 MG TABLET.SA PO SCH ×2 (10:29→21:13)
[2018-03-10] MEDS: FERROUS SO4 325 MG TABLET (FP) PO SCH (10:30)
[2018-03-10] MEDS: oxyCODONE HCL 5 MG TABLET PO PRN ×2 (11:41→17:40)
[2018-03-10] MEDS: clonazePAM 0.5 MG TABLET PO PRN ×2 (11:42→22:09)
[2018-03-10] MEDS ORDERED: PT OWN MED DRAWER 7, Y5N ONE ×3 (13:48→20:59)
[2018-03-10 14:06] LABS: ALBUMIN 2.3 g/dl (3.4-5.0); BILIRUBIN,DIRECT 0.1 mg/dL (0.0-0.2); BILIRUBIN,TOTAL 0.6 mg/dL (0.2-1); TOT PROT 4.4 g/dl (6.4-8.2)
[2018-03-10] MEDS: AMINO ACIDS/PROTEIN HYDROLYS 30 ML LIQUID.PKT PO SCH ×2 (14:06→17:43)
[2018-03-10] MEDS: PRAMIPEXOLE DIHYDROCHLORIDE 0.25 MG TABLET PO SCH ×3 (14:55→21:16)
--- NOTE | 2018-03-10 16:00 | PN ---
Progress Note, Physician Chief Complaint: POD #1 LAMINECTOMY LUMBAR WITH EXPLORATION COMFORTABLE - Current Medication List Current Medications: Active Medications Amino Acids (Prosource No Carb Liquid Pkt) 30 ml PO BID@0800,1730 [facility] Last Admin: 03/10/18 14:06 Dose: Not Given Clonazepam (Klonopin -) 1 mg PO BID PRN PRN Reason: ANXIETY Last Admin: 03/10/18 11:42 Dose: 1 mg Dexamethasone Sodium Phosphate (Decadron Injection -) 4 mg IVPUSH ONCE PRN PRN Reason: NAUSEA AND/OR VOMITING Diphenhydramine HCl (Benadryl Injection -) 12.5 mg IVPUSH ONCE PRN PRN Reason: FOR ITCHING Divalproex Sodium (Depakote *Er* -) 500 mg PO [facility] Last Admin: 03/09/18 21:26 Dose: 500 mg Fentanyl (Sublimaze Injection -) 50 mcg IVPUSH [id number] PRN PRN Reason: PAIN-PACU ORDER X 4 DOSES ONLY Last Admin: 03/09/18 15:35 Dose: 50 mcg Ferrous Sulfate (Feosol -) 325 mg PO DAILY [facility] Last Admin: 03/10/18 10:30 Dose: 325 mg Folic Acid (Folic Acid -) 1 mg PO DAILY [facility] Last Admin: 03/10/18 10:15 Dose: 1 mg Heparin Sodium (Porcine) (Heparin -) 5,000 unit SQ TID [facility] Last Admin: 03/10/18 14:03 Dose: 5,000 unit Cefazolin Sodium 1 gm/ (Dextrose) 50 mls @ 100 mls/hr IVPB Q8H-IV [facility] Stop: 03/10/18 17:59 Last Admin: 03/10/18 10:28 Dose: 100 mls/hr Lactated Ringer's (Lactated Ringers Solution) 1,000 ml in 1,000 mls @ 125 mls/ hr IV ASDIR [facility] Last Admin: 03/09/18 17:15 Dose: 0 mls Morphine Sulfate (Ms Contin -) 60 mg PO BID [facility] Last Admin: 03/10/18 10:29 Dose: 60 mg Multivitamins/Minerals/Vitamin C (Tab-A-Vit -) 1 tab PO DAILY [facility] Last Admin: 03/10/18 10:29 Dose: 1 tab Ondansetron HCl (Zofran Injection) 4 mg IVPUSH Q4H PRN PRN Reason: NAUSEA AND/OR VOMITING Oxycodone HCl (Roxicodone -) 5 mg PO Q4H PRN PRN Reason: PAIN LEVEL 1-5 Oxycodone HCl (Roxicodone -) 10 mg PO Q4H PRN PRN Reason: PAIN LEVEL 6-10 Last Admin: 03/10/18 11:41 Dose: 10 mg Pramipexole Dihydrochloride (Mirapex -) 0.25 mg PO TID [facility] Last Admin: 03/09/18 21:23 Dose: 0.25 mg Promethazine HCl (Phenergan Injection -) 12.5 mg IVPB Q6H PRN PRN Reason: NAUSEA AND/OR VOMITING Quetiapine Fumarate (Seroquel -) 25 mg PO HS [facility] Last Admin: 03/09/18 21:28 Dose: 25 mg Senna (Senna -) 2 tab PO [facility] Last Admin: 03/09/18 21:27 Dose: 2 tab - Objective Vital Signs: Vital Signs Temperature 98.8 F 03/10/18 14:00 Pulse Rate 119 H 03/10/18 14:00 Respiratory Rate 21 H 03/10/18 14:00 Blood Pressure 107/68 03/10/18 14:00 O2 Sat by Pulse Oximetry (%) 100 03/09/18 21:00 Constitutional: Yes: Mild Distress Eyes: Yes: WNL HENT: Yes: WNL Neck: Yes: WNL Cardiovascular: Yes: WNL Respiratory: Yes: WNL Gastrointestinal: Yes: WNL Genitourinary: Yes: WNL Musculoskeletal: Yes: Back Pain Extremities: Yes: WNL Edema: No Peripheral Pulses WNL: Yes Integumentary: Yes: WNL Wound/Incision: Yes: Dressing Dry and Intact Neurological: Yes: Other ...Motor Strength: LLE, RLE Psychiatric: Yes: Other Labs: CBC, BMP 03/10/18 05:30 03/10/18 05:30 INR, PTT INR 0.94 (0.83-1.09) 03/09/18 08:00 Problem List - Problems (1) Cerebral cyst Code(s): G93.0 - CEREBRAL CYSTS (2) Headache Code(s): R51 - HEADACHE (3) Peripheral visual field defect of right eye Code(s): H53.451 - OTHER LOCALIZED VISUAL FIELD DEFECT, RIGHT EYE (4) Abdominal pain Code(s): R10.9 - UNSPECIFIED ABDOMINAL PAIN Qualifiers: Abdominal location: lower abdomen, unspecified Qualified Code(s): R10.30 - Lower abdominal pain, unspecified Assessment/Plan S/P LUMBAR SURGERY POD#2 AWAIT NEUROSURGERY FOLLOWUP DVT PROPHYLAXIS PAIN CONTROL PT EVAL STOP ALL IV MEDS
--- NOTE | 2018-03-10 16:03 | PN ---
Progress Note (short form) - Note Progress Note: ANESTHESIOLOGY POST-OP CHECK 42F s/p Lumbar exploration, decompression and fusion POD #1. Pain 9/10 with pain meds. dilaudid CANDLE WICKER d/c this morning by primary team. Rajanies N/V. Sees chronic pain medicine specialist in the [place] Vital Signs Temperature 98.8 F 03/10/18 14:00 Pulse Rate 119 H 03/10/18 14:00 Respiratory Rate 21 H 03/10/18 14:00 Blood Pressure 107/68 03/10/18 14:00 O2 Sat by Pulse Oximetry (%) 100 03/09/18 21:00 Active Medications Amino Acids (Prosource No Carb Liquid Pkt) 30 ml PO BID@0800,1730 [facility] Last Admin: 03/10/18 14:06 Dose: Not Given Clonazepam (Klonopin -) 1 mg PO BID PRN PRN Reason: ANXIETY Last Admin: 03/10/18 11:42 Dose: 1 mg Dexamethasone Sodium Phosphate (Decadron Injection -) 4 mg IVPUSH ONCE PRN PRN Reason: NAUSEA AND/OR VOMITING Diphenhydramine HCl (Benadryl Injection -) 12.5 mg IVPUSH ONCE PRN PRN Reason: FOR ITCHING Divalproex Sodium (Depakote *Er* -) 500 mg PO HS [facility] Last Admin: 03/09/18 21:26 Dose: 500 mg Fentanyl (Sublimaze Injection -) 50 mcg IVPUSH [id number] PRN PRN Reason: PAIN-PACU ORDER X 4 DOSES ONLY Last Admin: 03/09/18 15:35 Dose: 50 mcg Ferrous Sulfate (Feosol -) 325 mg PO DAILY [facility] Last Admin: 03/10/18 10:30 Dose: 325 mg Folic Acid (Folic Acid -) 1 mg PO DAILY [facility] Last Admin: 03/10/18 10:15 Dose: 1 mg Heparin Sodium (Porcine) (Heparin -) 5,000 unit SQ TID [facility] Last Admin: 03/10/18 14:03 Dose: 5,000 unit Cefazolin Sodium 1 gm/ (Dextrose) 50 mls @ 100 mls/hr IVPB Q8H-IV [facility] Stop: 03/10/18 17:59 Last Admin: 03/10/18 10:28 Dose: 100 mls/hr Lactated Ringer's (Lactated Ringers Solution) 1,000 ml in 1,000 mls @ 125 mls/ hr IV ASDIR [facility] Last Admin: 03/09/18 17:15 Dose: 0 mls Morphine Sulfate (Ms Contin -) 60 mg PO BID [facility] Last Admin: 03/10/18 10:29 Dose: 60 mg Multivitamins/Minerals/Vitamin C (Tab-A-Vit -) 1 tab PO DAILY [facility] Last Admin: 03/10/18 10:29 Dose: 1 tab Ondansetron HCl (Zofran Injection) 4 mg IVPUSH Q4H PRN PRN Reason: NAUSEA AND/OR VOMITING Oxycodone HCl (Roxicodone -) 5 mg PO Q4H PRN PRN Reason: PAIN LEVEL 1-5 Oxycodone HCl (Roxicodone -) 10 mg PO Q4H PRN PRN Reason: PAIN LEVEL 6-10 Last Admin: 03/10/18 11:41 Dose: 10 mg Pramipexole Dihydrochloride (Mirapex -) 0.25 mg PO TID [facility] Last Admin: 03/10/18 16:01 Dose: 0.25 mg Promethazine HCl (Phenergan Injection -) 12.5 mg IVPB Q6H PRN PRN Reason: NAUSEA AND/OR VOMITING Quetiapine Fumarate (Seroquel -) 25 mg PO HS [facility] Last Admin: 03/09/18 21:28 Dose: 25 mg Senna (Senna -) 2 tab PO [facility] Last Admin: 03/09/18 21:27 Dose: 2 tab Gen: Awake, alert, NAD No apparent anesthesi complications. Recommend pain medicine consult - endorsed to nurse. Continue management as per primary team
--- NOTE | 2018-03-10 16:40 | CONS ---
GASTROINTESTINAL CONSULTATION DATE OF CONSULTATION: DATE OF DICTATION: 03/10/2018 HISTORY OF PRESENT ILLNESS: The patient is a 42-year-old female with past medical history of SBO, colitis, bowel resection, pancreatitis, GI bleed, status post 3 units of blood, hypotension, anemia, anxiety, chronic back pain, brain cyst. She was recently hospitalized, but left the ER, and then returned with complaints of peripheral vision loss, occipital headache, abdominal pain, vomiting, and diarrhea. Apparently, she also fell and hit her ankle the week prior to admission. Current consultation is for abnormal liver tests. She states she has a history of jaundice, but cannot give any details. She denies being told she had viral hepatitis in the past. She denies sexual promiscuity, tattoos, herbal supplements or antibiotics as an outpatient or new medicines. She had an upper endoscopy approximately 2 years ago which I believed revealed peptic ulcer disease and colonoscopy which was incomplete secondary to poor bowel prep. PAST MEDICAL AND SURGICAL HISTORY: As listed in the HPI, with the addition of gastric bypass surgery, cholecystectomy, and bowel resection. ALLERGIES: No known drug allergies. SOCIAL HISTORY: Smokes a pack per day for 20 years. Denies any alcohol use. States her last drink was in 2011 and previous to that she did not abuse alcohol. Drugs: Denies. FAMILY HISTORY: Significant for coronary artery disease and stroke. HOME MEDICATIONS: Reviewed and include oxycodone, Colace, Protonix, Mirapex, Seroquel, Carafate, and Keflex. REVIEW OF SYSTEMS: Negative, except for the pertinent positives in the HPI. PHYSICAL EXAMINATION: Vital Signs: Temperature 98, pulse 120, 101 repeated, blood pressure 107/68, respiratory rate 12, oxygen saturation 98% on room air. General: In no acute distress. Pleasant female. HEENT: Anicteric sclera. Cardiovascular: S1, S2. Regular rate and rhythm. Lungs: Bilaterally clear to auscultation. Abdomen: Soft. Nontender. Extremities: No edema. LABORATORIES: White blood cell count 14 on the , currently 10. Hemoglobin and hematocrit 9.8 over 27. Baseline appears between 11 and 12. MCV 81, platelet count 174. INR 0.94. Sodium 136, potassium 4.9, BUN over creatinine 9 over 0.5, glucose 80, total bilirubin 0.6, AST 216, ALT 284. Yesterday, AST was 1751 and ALT 615, bilirubin 0.7, INR 0.94, and her viral hepatitis serologies are pending at this time. Apparently, on March 09, yesterday, she had an exploratory spinal fusion with re-operative laminectomies at L3, L4, L2, S1 compression with correction of the deformity. There is no Microbiology from this visit and no abdominal imaging was performed on this admission. IMPRESSION: Transaminitis, hepatocellular pattern. I believe her transaminitis was in the setting of a surgical procedure, anesthesia, and perhaps transient episode of mild hypotension during the procedure. Chronic and inherited liver disease cannot be excluded at this time. PLAN: serologies for chronic and inherited liver disease will be ordered for completeness. We will also order abdominal ultrasound to rule out any obstructive process, although that is low on the differential. Continue to avoid hepatotoxic medications. Trend liver tests and INR daily while hospitalized. This patient will be followed by the GI service. DO JESSICA PANIAGUA/[id number] MTDD
[2018-03-10] MEDS: ACETAMINOPHEN 325 MG TABLET (FP) PO PRN (20:17)
[2018-03-10] MEDS: SENNOSIDES 8.6MG TABLET (FP) PO SCH (21:13)
[2018-03-10] MEDS: QUEtiapine FUMARATE 25 MG TABLET (FP) PO SCH (21:13)
[2018-03-10] MEDS: DIVALPROEX NA *ER* EXTEND REL 500 MG TABLET.SA (FP) PO SCH (21:17)
[2018-03-11] MEDS: ACETAMINOPHEN 325 MG TABLET (FP) PO PRN (02:25)
[2018-03-11] MEDS: oxyCODONE HCL 5 MG TABLET PO PRN ×4 (03:06→22:11)
[2018-03-11] MEDS: PRAMIPEXOLE DIHYDROCHLORIDE 0.25 MG TABLET PO SCH ×4 (06:00→21:05)
[2018-03-11 06:06] LABS: HEP.C VIRUS AB <0.1 s/co ratio (0.0-0.9)
[2018-03-11] MEDS: HEPARIN NA (PORCINE) 5,000 UNITS/ML 1ML VIAL SQ SCH ×3 (06:15→21:05)
[2018-03-11] MEDS: AMINO ACIDS/PROTEIN HYDROLYS 30 ML LIQUID.PKT PO SCH ×3 (08:06→17:29)
[2018-03-11] MEDS: clonazePAM 0.5 MG TABLET PO PRN ×2 (08:09→21:39)
[2018-03-11 08:23] LABS: BASO % 0.4 % (0-2.0); EOS % 3.7 % (0-4.5); HEMATOCRIT 23.8 % (32.4-45.2); HEMOGLOBIN 7.8 GM/dL (10.7-15.3); LYMPH % 18.1 % (8-40); MCH 27.5 pg (25.7-33.7); MEAN CELL VOLUME 83.4 fl (80-96); MEAN PLT VOLUME 9.2 fl (7.5-11.1); MONO % 11.5 % (3.8-10.2); NEUT % 66.3 % (42.8-82.8); PLATELET COUNT 182 K/MM3 (134-434); RBC 2.85 M/mm3 (3.60-5.2); RDW 15.9 % (11.6-15.6); WHITE BLOOD COUNT 9.8 K/mm3 (4.0-10.0)
[2018-03-11 08:40] LABS: ALBUMIN 2.3 g/dl (3.4-5.0); ALK PHOS 73 U/L (45-117); ANION GAP 8 MMOL/L (8-16); BILIRUBIN,TOTAL 0.4 mg/dL (0.2-1); BLOOD UREA NITROGEN 12 mg/dL (7-18); CALCIUM 7.5 mg/dL (8.5-10.1); CHLORIDE 99 mmol/L (98-107); CO2 32 mmol/L (21-32); CREATININE 0.5 mg/dL (0.55-1.3); GLUCOSE,RANDOM 84 mg/dL (74-106); POTASSIUM 4.1 mmol/L (3.5-5.1); SGOT/AST 80 U/L (15-37); SGPT/ALT 170 U/L (13-61); SODIUM 139 mmol/L (136-145); TOT PROT 4.7 g/dl (6.4-8.2)
[2018-03-11 08:45] LABS: LDH 137 U/L (84-246); LIPASE 38 U/L (73-393)
--- NOTE | 2018-03-11 09:53 | PN ---
GI Progress Note Subjective: No abdominal pain Abd US ordered States having some back pain - Objective Vital Signs: Vital Signs Temperature 100.0 F H 03/11/18 05:58 Pulse Rate 106 H 03/11/18 05:58 Respiratory Rate 20 03/11/18 05:58 Blood Pressure 100/59 L 03/11/18 05:58 O2 Sat by Pulse Oximetry (%) 98 03/10/18 22:00 Constitutional: Calm Eyes: No: Sclera Icterus Cardiovascular: Yes: Tachycardia Respiratory: Yes: CTA Bilaterally Gastrointestinal Inspection: No: Distention ...Auscultate: Yes: Normoactive Bowel Sounds ...Palpate: No: Hepatomegaly, Tenderness ...Percussion: No: Tympanitic Edema: No (No LE edema) Neurological: Yes: Alert Labs: CBC, BMP 03/11/18 06:00 03/11/18 06:00 INR, PTT INR 0.94 (0.83-1.09) 03/09/18 08:00 Hepatic Panel Total Bilirubin 0.4 mg/dL (0.2-1) 03/11/18 06:00 Direct Bilirubin 0.1 mg/dL (0.0-0.2) 03/10/18 13:15 AST 80 U/L (15-37) H 03/11/18 06:00 ALT 170 U/L (13-61) H 03/11/18 06:00 Alkaline Phosphatase 73 U/L (45-117) 03/11/18 06:00 Albumin 2.3 g/dl (3.4-5.0) L 03/11/18 06:00 Problem List - Problems (1) Abnormal LFTs Assessment/Plan: Hepatocellular pattern: Asymptomatic Seems to have occurred during hospitalization Improving. Suspect to be multifactorial in etiology as noted in Dr. Mott's consult Continue to monitor Avoid hepatotoxic agents Code(s): R94.5 - ABNORMAL RESULTS OF LIVER FUNCTION STUDIES (2) Constipation Assessment/Plan: Constipation history and on opiate analgesia Added MiraLAX 17g PO BID PRN to standing senna order Code(s): K59.00 - CONSTIPATION, UNSPECIFIED
[2018-03-11] MEDS: FOLIC ACID 1 MG TABLET (FP) PO SCH (09:54)
[2018-03-11] MEDS ORDERED: POLYETHYLENE GLYCOL 3350 119 GM BTL PO PRN (09:54)
[2018-03-11] MEDS: FERROUS SO4 325 MG TABLET (FP) PO SCH (09:54)
[2018-03-11] MEDS: MULTIVITAMINS (DAILY MVI) TABLET (FP) PO SCH (09:54)
[2018-03-11] MEDS: morphine SO4 SUSTAINED ACTING 30 MG TABLET.SA PO SCH ×2 (09:55→21:05)
[2018-03-11 10:48] LABS: URINE APPEARANCE CLEAR; URINE BILIRUBIN NEGATIVE (<2.0 mg/dL); URINE COLOR YELLOW; URINE GLUCOSE (UA) NEGATIVE (NEGATIVE); URINE KETONE NEGATIVE (NEGATIVE); URINE LEUK ESTERASE NEGATIVE (NEGATIVE); URINE NITRITE NEGATIVE (NEGATIVE); URINE PROTEIN NEGATIVE (NEGATIVE); URINE UROBILINOGEN NEGATIVE mg/dL (0.2-1.0)
--- NOTE | 2018-03-11 13:20 | PN ---
Progress Note, Physician - Current Medication List Current Medications: Active Medications Acetaminophen (Tylenol -) 650 mg PO Q6H PRN PRN Reason: FEVER Last Admin: 03/11/18 02:25 Dose: 650 mg Amino Acids (Prosource No Carb Liquid Pkt) 30 ml PO BID@0800,1730 [facility] Last Admin: 03/11/18 08:06 Dose: 30 ml Clonazepam (Klonopin -) 1 mg PO BID PRN PRN Reason: ANXIETY Last Admin: 03/11/18 08:09 Dose: 1 mg Dexamethasone Sodium Phosphate (Decadron Injection -) 4 mg IVPUSH ONCE PRN PRN Reason: NAUSEA AND/OR VOMITING Diphenhydramine HCl (Benadryl Injection -) 12.5 mg IVPUSH ONCE PRN PRN Reason: FOR ITCHING Divalproex Sodium (Depakote *Er* -) 500 mg PO [facility] Last Admin: 03/10/18 21:17 Dose: 500 mg Fentanyl (Sublimaze Injection -) 50 mcg IVPUSH [id number] PRN PRN Reason: PAIN-PACU ORDER X 4 DOSES ONLY Last Admin: 03/09/18 15:35 Dose: 50 mcg Ferrous Sulfate (Feosol -) 325 mg PO DAILY [facility] Last Admin: 03/11/18 09:54 Dose: 325 mg Folic Acid (Folic Acid -) 1 mg PO DAILY [facility] Last Admin: 03/11/18 09:54 Dose: 1 mg Heparin Sodium (Porcine) (Heparin -) 5,000 unit SQ TID [facility] Last Admin: 03/11/18 06:15 Dose: 5,000 unit Lactated Ringer's (Lactated Ringers Solution) 1,000 ml in 1,000 mls @ 125 mls/ hr IV ASDIR [facility] Last Admin: 03/09/18 17:15 Dose: 0 mls Morphine Sulfate (Ms Contin -) 60 mg PO BID [facility] Last Admin: 03/11/18 09:55 Dose: 60 mg Multivitamins/Minerals/Vitamin C (Tab-A-Vit -) 1 tab PO DAILY [facility] Last Admin: 03/11/18 09:54 Dose: 1 tab Ondansetron HCl (Zofran Injection) 4 mg IVPUSH Q4H PRN PRN Reason: NAUSEA AND/OR VOMITING Oxycodone HCl (Roxicodone -) 5 mg PO Q4H PRN PRN Reason: PAIN LEVEL 1-5 Oxycodone HCl (Roxicodone -) 10 mg PO Q4H PRN PRN Reason: PAIN LEVEL 6-10 Last Admin: 03/11/18 08:08 Dose: 10 mg Polyethylene Glycol (Miralax (For Daily Use) -) 17 gm PO BID PRN PRN Reason: CONSTIPATION Pramipexole Dihydrochloride (Mirapex -) 0.25 mg PO TID [facility] Last Admin: 03/11/18 06:00 Dose: 0.25 mg Promethazine HCl (Phenergan Injection -) 12.5 mg IVPB Q6H PRN PRN Reason: NAUSEA AND/OR VOMITING Quetiapine Fumarate (Seroquel -) 25 mg PO [facility] Last Admin: 03/10/18 21:13 Dose: 25 mg Senna (Senna -) 2 tab PO [facility] Last Admin: 03/10/18 21:13 Dose: 2 tab - Objective Vital Signs: Vital Signs Temperature 100.0 F H 03/11/18 05:58 Pulse Rate 110 H 03/11/18 09:00 Respiratory Rate 20 03/11/18 09:00 Blood Pressure 98/55 L 03/11/18 09:00 O2 Sat by Pulse Oximetry (%) 98 03/10/18 22:00 Cardiovascular: Yes: Regular Rate and Rhythm Respiratory: Yes: Regular, CTA Bilaterally Gastrointestinal: Yes: Normal Bowel Sounds, Soft Labs: CBC, BMP 03/11/18 06:00 03/11/18 06:00 INR, PTT INR 0.94 (0.83-1.09) 03/09/18 08:00 Problem List - Problems (1) Headache Assessment/Plan: -migraine same meds Code(s): R51 - HEADACHE (2) Back pain Assessment/Plan: Operative Date: 03/09/18 Pre-Operative Diagnosis: Scoliosis, chronic low back pain (mechanical and radicular in nature) Operation: Exploration of spinal fusion with reoperative laminectomies L3/4 and either L2-S1 or T12-S2 decompression, osteotomies and fusion with correction of deformity Post-Operative Diagnosis: Same as Pre-op Surgeon: Spencer Lewis Care Worker: Diego Conti Code(s): M54.9 - DORSALGIA, UNSPECIFIED (3) Abnormal LFTs Assessment/Plan: -repeat -gi -improving Code(s): R94.5 - ABNORMAL RESULTS OF LIVER FUNCTION STUDIES (4) Anemia Assessment/Plan: -follow Code(s): D64.9 - ANEMIA, UNSPECIFIED
[2018-03-11 16:02] LABS: BASO % 0.5 % (0-2.0); EOS % 3.7 % (0-4.5); HEMATOCRIT 25.3 % (32.4-45.2); HEMOGLOBIN 8.2 GM/dL (10.7-15.3); LYMPH % 18.6 % (8-40); MCH 27.1 pg (25.7-33.7); MCHC 32.2 g/dl (32.0-36.0); MEAN CELL VOLUME 84.1 fl (80-96); MEAN PLT VOLUME 9.1 fl (7.5-11.1); MONO % 11.1 % (3.8-10.2); NEUT % 66.1 % (42.8-82.8); PLATELET COUNT 228 K/MM3 (134-434); RBC 3.01 M/mm3 (3.60-5.2); WHITE BLOOD COUNT 13.3 K/mm3 (4.0-10.0)
[2018-03-11] MEDS ORDERED: PT OWN MED DRAWER 7, Y5N ONE ×2 (16:24→22:02)
[2018-03-11] MEDS ORDERED: ONDANSETRON 4 MG/2 ML VIAL IVPUSH PRN (19:56)
[2018-03-11] MEDS ORDERED: PROMETHAZINE HCL 25 MG/1 ML VIAL IVPB PRN (19:56)
[2018-03-11] MEDS ORDERED: BUPIVACAINE LIPOSOME/PF (EXPAREL) 266 MG/20 ML VIAL NR ONE (19:56)
[2018-03-11] MEDS ORDERED: DEXAMETHASONE SOD PHOSPHATE 4 MG/1 ML VIAL IVPUSH PRN (19:56)
[2018-03-11] MEDS: QUEtiapine FUMARATE 25 MG TABLET (FP) PO SCH (21:04)
[2018-03-11] MEDS: SENNOSIDES 8.6MG TABLET (FP) PO SCH (21:04)
[2018-03-11] MEDS ORDERED: DIVALPROEX NA *ER* EXTEND REL 500 MG TABLET.SA (FP) PO SCH (22:00)
[2018-03-12] MEDS: oxyCODONE HCL 5 MG TABLET PO PRN ×2 (05:14→14:15)
[2018-03-12] MEDS ORDERED: PT OWN MED DRAWER 7, Y5N ONE ×3 (05:46→15:53)
[2018-03-12] MEDS: HEPARIN NA (PORCINE) 5,000 UNITS/ML 1ML VIAL SQ SCH ×3 (06:16→21:21)
[2018-03-12] MEDS: PRAMIPEXOLE DIHYDROCHLORIDE 0.25 MG TABLET PO SCH ×2 (06:16→13:53)
[2018-03-12] MEDS: LACTATED RINGERS SOLUTION 1,000 ML/1,000 ML INFUS.BAG IV SCH ×2 (07:40→17:52)
[2018-03-12] MEDS: clonazePAM 0.5 MG TABLET PO PRN ×2 (08:01→22:15)
[2018-03-12 08:15] LABS: BASO % 0.3 % (0-2.0); HEMATOCRIT 22.8 % (32.4-45.2); LYMPH % 20.1 % (8-40); MCH 29.3 pg (25.7-33.7); MCHC 35.1 g/dl (32.0-36.0); MEAN CELL VOLUME 83.6 fl (80-96); MEAN PLT VOLUME 9.1 fl (7.5-11.1); MONO % 11.5 % (3.8-10.2); NEUT % 62.1 % (42.8-82.8); PLATELET COUNT 255 K/MM3 (134-434); RBC 2.73 M/mm3 (3.60-5.2); RDW 15.7 % (11.6-15.6); WHITE BLOOD COUNT 10.8 K/mm3 (4.0-10.0)
[2018-03-12 08:35] LABS: ALBUMIN 2.5 g/dl (3.4-5.0); ALK PHOS 74 U/L (45-117); ANION GAP 6 MMOL/L (8-16); BILIRUBIN,TOTAL 0.4 mg/dL (0.2-1); BLOOD UREA NITROGEN 10 mg/dL (7-18); CALCIUM 8.1 mg/dL (8.5-10.1); CHLORIDE 101 mmol/L (98-107); CO2 30 mmol/L (21-32); CREATININE 0.5 mg/dL (0.55-1.3); GLUCOSE,RANDOM 83 mg/dL (74-106); SGOT/AST 36 U/L (15-37); SGPT/ALT 116 U/L (13-61); SODIUM 137 mmol/L (136-145); TOT PROT 5.4 g/dl (6.4-8.2)
[2018-03-12] MEDS: FERROUS SO4 325 MG TABLET (FP) PO SCH (09:02)
[2018-03-12] MEDS: MULTIVITAMINS (DAILY MVI) TABLET (FP) PO SCH (09:03)
[2018-03-12] MEDS: morphine SO4 SUSTAINED ACTING 30 MG TABLET.SA PO SCH ×2 (09:03→21:21)
[2018-03-12] MEDS: FOLIC ACID 1 MG TABLET (FP) PO SCH (09:03)
[2018-03-12] MEDS: AMINO ACIDS/PROTEIN HYDROLYS 30 ML LIQUID.PKT PO SCH ×2 (09:03→16:49)
--- NOTE | 2018-03-12 11:20 | PN ---
Progress Note, Physician - Current Medication List Current Medications: Active Medications Acetaminophen (Tylenol -) 650 mg PO Q6H PRN PRN Reason: FEVER Last Admin: 03/11/18 02:25 Dose: 650 mg Amino Acids (Prosource No Carb Liquid Pkt) 30 ml PO BID@0800,1730 [facility] Last Admin: 03/12/18 09:03 Dose: 30 ml Clonazepam (Klonopin -) 1 mg PO BID PRN PRN Reason: ANXIETY Last Admin: 03/12/18 08:01 Dose: 1 mg Dexamethasone Sodium Phosphate (Decadron Injection -) 4 mg IVPUSH ONCE PRN PRN Reason: NAUSEA AND/OR VOMITING Diphenhydramine HCl (Benadryl Injection -) 12.5 mg IVPUSH ONCE PRN PRN Reason: FOR ITCHING Divalproex Sodium (Depakote *Er* -) 500 mg PO [facility] Last Admin: 03/11/18 21:04 Dose: 500 mg Fentanyl (Sublimaze Injection -) 50 mcg IVPUSH [id number] PRN PRN Reason: PAIN-PACU ORDER X 4 DOSES ONLY Ferrous Sulfate (Feosol -) 325 mg PO DAILY [facility] Last Admin: 03/12/18 09:02 Dose: 325 mg Folic Acid (Folic Acid -) 1 mg PO DAILY [facility] Last Admin: 03/12/18 09:03 Dose: 1 mg Heparin Sodium (Porcine) (Heparin -) 5,000 unit SQ TID [facility] Last Admin: 03/12/18 06:16 Dose: 5,000 unit Lactated Ringer's (Lactated Ringers Solution) 1,000 ml in 1,000 mls @ 125 mls/ hr IV ASDIR [facility] Last Admin: 03/12/18 07:40 Dose: Not Given Morphine Sulfate (Ms Contin -) 60 mg PO BID [facility] Last Admin: 03/12/18 09:03 Dose: 60 mg Multivitamins/Minerals/Vitamin C (Tab-A-Vit -) 1 tab PO DAILY [facility] Last Admin: 03/12/18 09:03 Dose: 1 tab Ondansetron HCl (Zofran Injection) 4 mg IVPUSH Q4H PRN PRN Reason: NAUSEA AND/OR VOMITING Oxycodone HCl (Roxicodone -) 5 mg PO Q4H PRN PRN Reason: PAIN LEVEL 1-5 Oxycodone HCl (Roxicodone -) 10 mg PO Q4H PRN PRN Reason: PAIN LEVEL 6-10 Last Admin: 03/12/18 05:14 Dose: 10 mg Polyethylene Glycol (Miralax (For Daily Use) -) 17 gm PO BID PRN PRN Reason: CONSTIPATION Pramipexole Dihydrochloride (Mirapex -) 0.25 mg PO TID [facility] Last Admin: 03/12/18 06:16 Dose: 0.25 mg Promethazine HCl (Phenergan Injection -) 12.5 mg IVPB Q6H PRN PRN Reason: NAUSEA AND/OR VOMITING Quetiapine Fumarate (Seroquel -) 25 mg PO [facility] Last Admin: 03/11/18 21:04 Dose: 25 mg Senna (Senna -) 2 tab PO [facility] Last Admin: 03/11/18 21:04 Dose: 2 tab - Objective Vital Signs: Vital Signs Temperature 99.0 F 03/12/18 05:50 Pulse Rate 96 H 03/12/18 09:00 Respiratory Rate 20 03/12/18 09:00 Blood Pressure 102/64 03/12/18 09:00 O2 Sat by Pulse Oximetry (%) 98 03/12/18 01:03 Cardiovascular: Yes: S1, S2 Respiratory: Yes: Regular, CTA Bilaterally Gastrointestinal: Yes: Normal Bowel Sounds, Soft Labs: CBC, BMP 03/12/18 07:00 03/12/18 07:00 INR, PTT INR 0.94 (0.83-1.09) 03/09/18 08:00 Problem List - Problems (1) Headache Assessment/Plan: -migraine -same meds Code(s): R51 - HEADACHE (2) Back pain Assessment/Plan: Operative Date: 03/09/18 Pre-Operative Diagnosis: Scoliosis, chronic low back pain (mechanical and radicular in nature) Operation: Exploration of spinal fusion with reoperative laminectomies L3/4 and either L2-S1 or T12-S2 decompression, osteotomies and fusion with correction of deformity Post-Operative Diagnosis: Same as Pre-op Surgeon: Spencer Lewis Band Top Maker: Diego Conti Code(s): M54.9 - DORSALGIA, UNSPECIFIED (3) Abnormal LFTs Assessment/Plan: -repeat trending down -gi -improving Code(s): R94.5 - ABNORMAL RESULTS OF LIVER FUNCTION STUDIES (4) Anemia Assessment/Plan: -follow Code(s): D64.9 - ANEMIA, UNSPECIFIED
--- NOTE | 2018-03-12 15:14 | CONSULT ---
Consult - text type - Consultation Consultation Note: NEUROLOGY FOLLOW-UP: Events reviewed and patient examined. This 42 yo woman with long h/o migraine headaches and severe, chronic, nocturnal painsin both legs due to RLS. S/P 1 failed back surgery in the past. Now s/p broad LS laminectomy L2-S1), removal of instrumentation and fusion 03/09. Surgical operative note not found. Fe++=15 mg%. Feritn =253 Pt continues to c/o LBP. Leg pains better controlled on Morphine sulfate. LS Wound still draining serosanguinous fluid. Neurological exam remains normal. IMP: Normal neurological exam. Migraine headaches. Restless legs syndrome (RLS). Will increase in states of Fe++ deficiency. SUGGEST: Increase Depakote ER to 500 mg q 12 hrs. Increase Pramipexole to 0.5 mg PO TID Continue Fe++ supplementation Neuro f/u as out patient. Thank you very much, Anoop Mayer MD
--- NOTE | 2018-03-12 15:36 | PN ---
Progress Note (short form) - Note Progress Note: POD 3 Pt seen and examined. States she is doing well. Has been oob ambulating in the room and reilly. Voiding without issue, reports 2 BMS. Tolerating PO without n/v. Denies cp/sob, headaches, dizziness, worsening motor/sensory deficits. Reports migraines in the past which she feels has improved since the surgery. Vital Signs Temp 99.0 F 03/12/18 14:00 Pulse 107 H 03/12/18 14:00 Resp 21 H 03/12/18 14:00 BP 96/51 L 03/12/18 14:00 Pulse Ox 98 03/12/18 01:03 Intake & Output 03/11/18 03/12/18 03/12/18 23:59 11:59 23:59 Intake Total 1500 480 500 Output Total 105 50 40 Balance 1395 430 460 Weight 117 lb Intake: Oral 1500 480 500 Output: Drainage 105 50 40 Back 105 50 40 Other: Voiding Method Toilet Toilet Toilet # Unmeasured Voids Void 3 5 Bowel Movement No No # Bowel Movements 0 Height 5 ft 3 in Body Mass Index (BMI) 20.7 CBC, BMP 03/12/18 07:00 03/12/18 07:00 Gen: awake, alert, nad. Walking around room without issue. Resp: cta b/l CV: rrr, s1s2 UE's: Able to lift b/l ue's antigravity to 90 degrees. B/L watch engineer strength intact , biceps/triceps/deltoids 5/5 b/l. Sensation diminished in L hand (baseline per pt) LE's: B/L le dorsiflexion/plantar flexion/ knee flexion/extension 5/5. Sensation diminished in L leg/foot (baseline per pt) Back: Lower back dressing rolled up on edge, [facility] off, Dressing removed. incision with dermabond intact, no erythema or drainage. New dressing placed ( 4x4 and tegaderm). PEDRO drain stripped. PEDRO with approx 20cc serosanguionous drainage in reservoir. A/P: 42 y/o F w/ PMHx of SBO s/p bowel resection, Colitis, h/o Pancreatitis, GIB , Anemia, Hypotension, Hypoglycemia, Anxiety, Chronic Back Pain/Scoliosis, Brain cyst, now s/p exploration of spinal fusion with reoperative laminectomies L3/4 and with L2-S1 decompression, osteotomies and fusion with correction of deformity on 03/09. Doing well post op. Has been oob, voiding, +BM, neuro exam stable incision without signs of infection. PEDRO output 90ml overnight, approx 40ml during the day today. Had fevers Tmax 101.5 yesterday, now resolving. Being followed and worked up for transaminitis by GI. Keep PEDRO in place, monitor I&Os Incentive spirometer strongly encouraged Pain control as ordered (chronic pain pt) DVT prophylaxis with b/l scds, heparin sq 5000 units TID Pulmonary Toileting OOB with Physical Therapy Monitor/record I/Os TLSO brace Diet as tolerated IV abx to continue while PEDRO drain in. above d/w attending Dr Goodwin
[2018-03-12] MEDS: PRAMIPEXOLE DIHYDROCHLORIDE 0.5 MG TABLET PO SCH ×2 (15:49→21:22)
[2018-03-12] MEDS: DIVALPROEX NA *ER* EXTEND REL 500 MG TABLET.SA (FP) PO SCH ×2 (16:49→21:22)
[2018-03-12] MEDS ORDERED: oxyCODONE HCL 5 MG TABLET PO ONE (17:45)
[2018-03-12] MEDS: SENNOSIDES 8.6MG TABLET (FP) PO SCH (21:21)
[2018-03-12] MEDS: QUEtiapine FUMARATE 25 MG TABLET (FP) PO SCH (21:21)
[2018-03-13] MEDS ORDERED: oxyCODONE HCL 5 MG TABLET PO ONE ×2 (01:30→06:45)
[2018-03-13] MEDS: HEPARIN NA (PORCINE) 5,000 UNITS/ML 1ML VIAL SQ SCH ×3 (06:53→21:40)
[2018-03-13] MEDS: PRAMIPEXOLE DIHYDROCHLORIDE 0.5 MG TABLET PO SCH ×3 (06:53→22:27)
[2018-03-13] MEDS: ACETAMINOPHEN 325 MG TABLET (FP) PO PRN (06:54)
[2018-03-13] MEDS ORDERED: PT OWN MED DRAWER 7, Y5N ONE ×2 (09:12→21:18)
[2018-03-13] MEDS: MULTIVITAMINS (DAILY MVI) TABLET (FP) PO SCH (09:33)
[2018-03-13] MEDS: AMINO ACIDS/PROTEIN HYDROLYS 30 ML LIQUID.PKT PO SCH ×2 (09:33→18:02)
[2018-03-13] MEDS: FOLIC ACID 1 MG TABLET (FP) PO SCH (09:33)
[2018-03-13] MEDS: FERROUS SO4 325 MG TABLET (FP) PO SCH (09:33)
[2018-03-13] MEDS: morphine SO4 SUSTAINED ACTING 30 MG TABLET.SA PO SCH ×2 (09:35→21:40)
[2018-03-13] MEDS: DIVALPROEX NA *ER* EXTEND REL 500 MG TABLET.SA (FP) PO SCH ×2 (09:37→22:27)
[2018-03-13] MEDS: clonazePAM 0.5 MG TABLET PO PRN ×2 (10:07→21:48)
--- NOTE | 2018-03-13 12:12 | PN ---
Progress Note, Physician - Current Medication List Current Medications: Active Medications Acetaminophen (Tylenol -) 650 mg PO Q6H PRN PRN Reason: FEVER Last Admin: 03/13/18 06:54 Dose: 650 mg Amino Acids (Prosource No Carb Liquid Pkt) 30 ml PO BID@0800,1730 [facility] Last Admin: 03/13/18 09:33 Dose: 30 ml Clonazepam (Klonopin -) 1 mg PO BID PRN PRN Reason: ANXIETY Last Admin: 03/13/18 10:07 Dose: 1 mg Diphenhydramine HCl (Benadryl Injection -) 12.5 mg IVPUSH ONCE PRN PRN Reason: FOR ITCHING Divalproex Sodium (Depakote *Er* -) 500 mg PO BID [facility] Last Admin: 03/13/18 09:37 Dose: 500 mg Fentanyl (Sublimaze Injection -) 50 mcg IVPUSH [id number] PRN PRN Reason: PAIN-PACU ORDER X 4 DOSES ONLY Ferrous Sulfate (Feosol -) 325 mg PO DAILY [facility] Last Admin: 03/13/18 09:33 Dose: 325 mg Folic Acid (Folic Acid -) 1 mg PO DAILY [facility] Last Admin: 03/13/18 09:33 Dose: 1 mg Heparin Sodium (Porcine) (Heparin -) 5,000 unit SQ TID [facility] Last Admin: 03/13/18 06:53 Dose: 5,000 unit Morphine Sulfate (Ms Contin -) 60 mg PO BID [facility] Last Admin: 03/13/18 09:35 Dose: 60 mg Multivitamins/Minerals/Vitamin C (Tab-A-Vit -) 1 tab PO DAILY [facility] Last Admin: 03/13/18 09:33 Dose: 1 tab Ondansetron HCl (Zofran Injection) 4 mg IVPUSH Q4H PRN PRN Reason: NAUSEA AND/OR VOMITING Polyethylene Glycol (Miralax (For Daily Use) -) 17 gm PO BID PRN PRN Reason: CONSTIPATION Pramipexole Dihydrochloride (Mirapex -) 0.5 mg PO TID [facility] Last Admin: 03/13/18 06:53 Dose: 0.5 mg Promethazine HCl (Phenergan Injection -) 12.5 mg IVPB Q6H PRN PRN Reason: NAUSEA AND/OR VOMITING Quetiapine Fumarate (Seroquel -) 25 mg PO HS [facility] Last Admin: 03/12/18 21:21 Dose: 25 mg Senna (Senna -) 2 tab PO [facility] Last Admin: 03/12/18 21:21 Dose: 2 tab - Objective Vital Signs: Vital Signs Temperature 100.3 F H 03/13/18 05:25 Pulse Rate 106 H 03/13/18 05:25 Respiratory Rate 22 H 03/13/18 05:25 Blood Pressure 100/64 03/13/18 05:25 O2 Sat by Pulse Oximetry (%) 98 03/12/18 21:00 Cardiovascular: Yes: Regular Rate and Rhythm Respiratory: Yes: Regular, CTA Bilaterally Gastrointestinal: Yes: Normal Bowel Sounds, Soft Labs: CBC, BMP 03/12/18 07:00 03/12/18 07:00 INR, PTT INR 0.94 (0.83-1.09) 03/09/18 08:00 Problem List - Problems (1) Headache Assessment/Plan: -migraine -same meds Code(s): R51 - HEADACHE (2) Back pain Assessment/Plan: Operative Date: 03/09/18 Pre-Operative Diagnosis: Scoliosis, chronic low back pain (mechanical and radicular in nature) Operation: Exploration of spinal fusion with reoperative laminectomies L3/4 and either L2-S1 or T12-S2 decompression, osteotomies and fusion with correction of deformity Post-Operative Diagnosis: Same as Pre-op Surgeon: Spencer Lewis Mental Retardation Nurse: Diego Conti Code(s): M54.9 - DORSALGIA, UNSPECIFIED (3) Abnormal LFTs Assessment/Plan: -repeat trending down -gi -improving Code(s): R94.5 - ABNORMAL RESULTS OF LIVER FUNCTION STUDIES (4) Anemia Assessment/Plan: -follow Code(s): D64.9 - ANEMIA, UNSPECIFIED
[2018-03-13] MEDS: NICOTINE 14 MG/24 HOURS TOPICAL PATCH TD SCH (14:11)
[2018-03-13] MEDS: oxyCODONE HCL 5 MG TABLET PO PRN ×2 (16:14→21:48)
[2018-03-13] MEDS: QUEtiapine FUMARATE 25 MG TABLET (FP) PO SCH (21:40)
[2018-03-13] MEDS: SENNOSIDES 8.6MG TABLET (FP) PO SCH (21:40)
[2018-03-14] MEDS: oxyCODONE HCL 5 MG TABLET PO PRN ×4 (05:50→21:33)
[2018-03-14] MEDS: PRAMIPEXOLE DIHYDROCHLORIDE 0.5 MG TABLET PO SCH ×3 (05:51→21:43)
[2018-03-14] MEDS: HEPARIN NA (PORCINE) 5,000 UNITS/ML 1ML VIAL SQ SCH ×3 (05:51→21:42)
[2018-03-14 08:46] LABS: BASO % 0.2 % (0-2.0); EOS % 4.5 % (0-4.5); HEMATOCRIT 21.7 % (32.4-45.2); LYMPH % 13.3 % (8-40); MCH 27.5 pg (25.7-33.7); MCHC 32.4 g/dl (32.0-36.0); MEAN PLT VOLUME 8.2 fl (7.5-11.1); MONO % 9.9 % (3.8-10.2); NEUT % 72.1 % (42.8-82.8); PLATELET COUNT 347 K/MM3 (134-434); RBC 2.56 M/mm3 (3.60-5.2); RDW 16.1 % (11.6-15.6); WHITE BLOOD COUNT 9.1 K/mm3 (4.0-10.0)
[2018-03-14 09:08] LABS: ALBUMIN 2.5 g/dl (3.4-5.0); ALK PHOS 72 U/L (45-117); ANION GAP 9 MMOL/L (8-16); BILIRUBIN,TOTAL 0.2 mg/dL (0.2-1); BLOOD UREA NITROGEN 9 mg/dL (7-18); CALCIUM 8.2 mg/dL (8.5-10.1); CHLORIDE 99 mmol/L (98-107); CO2 29 mmol/L (21-32); CREATININE 0.4 mg/dL (0.55-1.3); GLUCOSE,RANDOM 82 mg/dL (74-106); POTASSIUM 4.5 mmol/L (3.5-5.1); SGOT/AST 14 U/L (15-37); SGPT/ALT 57 U/L (13-61); SODIUM 137 mmol/L (136-145); TOT PROT 5.7 g/dl (6.4-8.2)
[2018-03-14] MEDS: clonazePAM 0.5 MG TABLET PO PRN (09:41)
[2018-03-14] MEDS: AMINO ACIDS/PROTEIN HYDROLYS 30 ML LIQUID.PKT PO SCH ×2 (09:41→17:26)
[2018-03-14] MEDS: FERROUS SO4 325 MG TABLET (FP) PO SCH (09:41)
[2018-03-14] MEDS: FOLIC ACID 1 MG TABLET (FP) PO SCH (09:41)
[2018-03-14] MEDS: MULTIVITAMINS (DAILY MVI) TABLET (FP) PO SCH (09:42)
[2018-03-14] MEDS: DIVALPROEX NA *ER* EXTEND REL 500 MG TABLET.SA (FP) PO SCH ×2 (09:42→21:42)
[2018-03-14] MEDS: morphine SO4 SUSTAINED ACTING 30 MG TABLET.SA PO SCH ×2 (09:43→21:43)
[2018-03-14] MEDS: NICOTINE 14 MG/24 HOURS TOPICAL PATCH TD SCH (09:45)
--- NOTE | 2018-03-14 11:50 | PN ---
Progress Note, Physician - Current Medication List Current Medications: Active Medications Acetaminophen (Tylenol -) 650 mg PO Q6H PRN PRN Reason: FEVER Last Admin: 03/13/18 06:54 Dose: 650 mg Amino Acids (Prosource No Carb Liquid Pkt) 30 ml PO BID@0800,1730 [facility] Last Admin: 03/14/18 09:41 Dose: 30 ml Clonazepam (Klonopin -) 1 mg PO BID PRN PRN Reason: ANXIETY Last Admin: 03/14/18 09:41 Dose: 1 mg Divalproex Sodium (Depakote *Er* -) 500 mg PO BID [facility] Last Admin: 03/14/18 09:42 Dose: 500 mg Ferrous Sulfate (Feosol -) 325 mg PO DAILY [facility] Last Admin: 03/14/18 09:41 Dose: 325 mg Folic Acid (Folic Acid -) 1 mg PO DAILY [facility] Last Admin: 03/14/18 09:41 Dose: 1 mg Heparin Sodium (Porcine) (Heparin -) 5,000 unit SQ TID [facility] Last Admin: 03/14/18 05:51 Dose: 5,000 unit Morphine Sulfate (Ms Contin -) 60 mg PO BID [facility] Last Admin: 03/14/18 09:43 Dose: 60 mg Multivitamins/Minerals/Vitamin C (Tab-A-Vit -) 1 tab PO DAILY [facility] Last Admin: 03/14/18 09:42 Dose: 1 tab Nicotine (Nicoderm Patch -) 14 mg TD DAILY [facility] Last Admin: 03/14/18 09:45 Dose: 14 mg Ondansetron HCl (Zofran Injection) 4 mg IVPUSH Q4H PRN PRN Reason: NAUSEA AND/OR VOMITING Oxycodone HCl (Roxicodone -) 10 mg PO Q4H PRN PRN Reason: PAIN SCALE > 5 Last Admin: 03/14/18 11:04 Dose: 10 mg Polyethylene Glycol (Miralax (For Daily Use) -) 17 gm PO BID PRN PRN Reason: CONSTIPATION Pramipexole Dihydrochloride (Mirapex -) 0.5 mg PO TID [facility] Last Admin: 03/14/18 05:51 Dose: 0.5 mg Promethazine HCl (Phenergan Injection -) 12.5 mg IVPB Q6H PRN PRN Reason: NAUSEA AND/OR VOMITING Quetiapine Fumarate (Seroquel -) 25 mg PO HS [facility] Last Admin: 03/13/18 21:40 Dose: 25 mg Senna (Senna -) 2 tab PO [facility] Last Admin: 03/13/18 21:40 Dose: 2 tab - Objective Vital Signs: Vital Signs Temperature 98.8 F 03/14/18 06:22 Pulse Rate 97 H 03/14/18 06:22 Respiratory Rate 20 03/14/18 06:22 Blood Pressure 103/63 03/14/18 06:22 O2 Sat by Pulse Oximetry (%) 98 03/13/18 21:00 Cardiovascular: Yes: S1, S2 Respiratory: Yes: Regular, CTA Bilaterally Gastrointestinal: Yes: Normal Bowel Sounds, Soft Musculoskeletal: Yes: Other (no erythema--upper wound swelling above staple-- apears to be soft tissue) Labs: CBC, BMP 03/14/18 07:45 03/14/18 07:45 INR, PTT INR 0.94 (0.83-1.09) 03/09/18 08:00 Problem List - Problems (1) Headache Assessment/Plan: -migraine -same meds Code(s): R51 - HEADACHE (2) Back pain Assessment/Plan: Operative Date: 03/09/18 Pre-Operative Diagnosis: Scoliosis, chronic low back pain (mechanical and radicular in nature) Operation: Exploration of spinal fusion with reoperative laminectomies L3/4 and either L2-S1 or T12-S2 decompression, osteotomies and fusion with correction of deformity Post-Operative Diagnosis: Same as Pre-op Surgeon: pSencer Lewis Hospitality Director: Diego Conti Surgical Follow up fro wound check Code(s): M54.9 - DORSALGIA, UNSPECIFIED (3) Abnormal LFTs Assessment/Plan: -repeat trending down -gi -improving Code(s): R94.5 - ABNORMAL RESULTS OF LIVER FUNCTION STUDIES (4) Anemia Assessment/Plan: -follow Code(s): D64.9 - ANEMIA, UNSPECIFIED
[2018-03-14] MEDS: SENNOSIDES 8.6MG TABLET (FP) PO SCH (21:43)
[2018-03-14] MEDS: QUEtiapine FUMARATE 25 MG TABLET (FP) PO SCH (21:44)
[2018-03-15] MEDS: oxyCODONE HCL 5 MG TABLET PO PRN (02:54)
[2018-03-15] MEDS: PRAMIPEXOLE DIHYDROCHLORIDE 0.5 MG TABLET PO SCH ×2 (05:54→13:53)
[2018-03-15] MEDS: HEPARIN NA (PORCINE) 5,000 UNITS/ML 1ML VIAL SQ SCH ×2 (05:56→13:54)
[2018-03-15] MEDS ORDERED: PT OWN MED DRAWER 7, Y5N ONE ×3 (06:09→13:50)
[2018-03-15 07:23] LABS: BASO % 0.5 % (0-2.0); EOS % 8.8 % (0-4.5); HEMATOCRIT 20.5 % (32.4-45.2); HEMOGLOBIN 7.2 GM/dL (10.7-15.3); LYMPH % 20.9 % (8-40); MCH 29.4 pg (25.7-33.7); MEAN CELL VOLUME 84.2 fl (80-96); MEAN PLT VOLUME 7.8 fl (7.5-11.1); MONO % 14.5 % (3.8-10.2); NEUT % 55.3 % (42.8-82.8); PLATELET COUNT 309 K/MM3 (134-434); RBC 2.44 M/mm3 (3.60-5.2); RDW 15.8 % (11.6-15.6); WHITE BLOOD COUNT 5.5 K/mm3 (4.0-10.0)
[2018-03-15 08:01] LABS: ALBUMIN 2.1 g/dl (3.4-5.0); ALK PHOS 60 U/L (45-117); ANION GAP 4 MMOL/L (8-16); BILIRUBIN,TOTAL 0.5 mg/dL (0.2-1); BLOOD UREA NITROGEN 9 mg/dL (7-18); CALCIUM 7.9 mg/dL (8.5-10.1); CHLORIDE 102 mmol/L (98-107); CO2 33 mmol/L (21-32); CREATININE 0.4 mg/dL (0.55-1.3); GLUCOSE,RANDOM 82 mg/dL (74-106); POTASSIUM 3.9 mmol/L (3.5-5.1); SGOT/AST 14 U/L (15-37); SGPT/ALT 37 U/L (13-61); SODIUM 140 mmol/L (136-145); TOT PROT 4.8 g/dl (6.4-8.2)
--- NOTE | 2018-03-15 08:27 | PN ---
Progress Note (short form) - Note Progress Note: POD 6 Pt seen and examined. States she is doing well. Has been oob ambulating in the room and reilly. Voiding without issue. Tolerating PO without n/v. Denies cp/sob, headaches, dizziness, worsening motor/sensory deficits. Vital Signs Temp 98.9 F 03/15/18 05:35 Pulse 101 H 03/15/18 05:35 Resp 18 03/15/18 05:35 BP 104/58 L 03/15/18 05:35 Pulse Ox 98 03/14/18 21:00 Intake & Output 03/14/18 03/14/18 03/15/18 11:59 23:59 11:59 Intake Total 1110 240 Output Total 20 22 Balance -20 1110 218 Intake: Oral 750 240 Packed Cells 360 Output: Drainage 20 22 Back 20 22 Other: Voiding Method Toilet Toilet # Unmeasured Voids Void 3 Bowel Movement No CBC, BMP 03/15/18 06:30 03/15/18 06:30 Gen: awake, alert, nad. Walking around room without issue. Resp: cta b/l CV: rrr, s1s2 UE's: Able to lift b/l ue's antigravity to 90 degrees. B/L bundle cutter strength intact , biceps/triceps/deltoids 5/5 b/l. Sensation diminished in L hand (baseline per pt) LE's: B/L le dorsiflexion/plantar flexion/ knee flexion/extension 5/5. Sensation diminished in L leg/foot (baseline per pt) Back: Lower back dressing in place, c/d/i, approx 2cm area of ?scar tissue proximally, no ttp. PEDRO drain stripped. PEDRO with approx 5cc serosanguionous drainage in reservoir. A/P: 42 y/o F w/ PMHx of SBO s/p bowel resection, Colitis, h/o Pancreatitis, GIB , Anemia, Hypotension, Hypoglycemia, Anxiety, Chronic Back Pain/Scoliosis, Brain cyst, now s/p exploration of spinal fusion with reoperative laminectomies L3/4 and with L2-S1 decompression, osteotomies and fusion with correction of deformity on 03/09. Doing well post op. Has been oob, voiding, neuro exam stable. PEDRO output 22ml overnight, approx 5ml in reservoir now. Fevers resolved. Being followed and worked up for transaminitis by GI. Labs pending PEDRO removed without issue, tip intact, pt tolerated well. Dermaboond applied to ostium Incentive spirometer strongly encouraged Pain control as ordered (chronic pain pt) DVT prophylaxis with b/l scds, heparin sq 5000 units TID Pulmonary Toileting OOB with Physical Therapy Monitor/record I/Os TLSO brace Diet as tolerated IV abx to continue while PEDRO drain in D/c later today pending labs and attending evaluation above d/w attending Dr Purcell
[2018-03-15] MEDS: FOLIC ACID 1 MG TABLET (FP) PO SCH (09:19)
[2018-03-15] MEDS: FERROUS SO4 325 MG TABLET (FP) PO SCH (09:19)
[2018-03-15] MEDS: MULTIVITAMINS (DAILY MVI) TABLET (FP) PO SCH (09:19)
[2018-03-15] MEDS: morphine SO4 SUSTAINED ACTING 30 MG TABLET.SA PO SCH (09:19)
[2018-03-15] MEDS: NICOTINE 14 MG/24 HOURS TOPICAL PATCH TD SCH (09:20)
[2018-03-15] MEDS: AMINO ACIDS/PROTEIN HYDROLYS 30 ML LIQUID.PKT PO SCH (09:20)
[2018-03-15] MEDS: DIVALPROEX NA *ER* EXTEND REL 500 MG TABLET.SA (FP) PO SCH (09:20)
--- NOTE | 2018-03-15 11:22 | PN ---
Progress Note, Physician Chief Complaint: Headache, Vision Changes, Flank Pain, Abdominal Pain History of Present Illness: POD #7 s/p exploration of spinal fusion with reoperative laminectomies L3/4 and with L2 -S1 decompression, osteotomies and fusion with correction of deformity on 03/09. Others' Prescriptions Patient Name: Padmini Phillips Date: 1975 Address: [address] [place] [address] Sex: Female Rx Written Rx Dispensed Drug Quantity Days Supply Prescriber Name 02/08/2018 02/10/2018 morphine sulf er 60 mg tablet 60 30 Luis Enrique Bell,Sergio D 02/08/2018 02/10/2018 clonazepam 1 mg tablet 60 30 Luis Enrique Bell,Sergio D 02/08/2018 02/10/2018 zolpidem tartrate 10 mg tablet 30 30 Luis Enrique Bell,Sergio D 02/08/2018 02/08/2018 oxycodone hcl 10 mg tablet 90 30 Luis Enrique Bell,Sergio D 01/05/2018 01/13/2018 morphine sulf er 60 mg tablet 60 30 Luis Enrique Bell, D 01/05/2018 01/13/2018 oxycodone hcl 10 mg tablet 90 30 Luis Enrique Bell,Sergio D 01/05/2018 01/13/2018 clonazepam 1 mg tablet 60 30 Luis Enrique Bell,Sergio D 01/05/2018 01/13/2018 zolpidem tartrate 10 mg tablet 30 30 Luis Enrique Bell,Sergio D 12/11/2017 12/14/2017 clonazepam 1 mg tablet 60 30 Luis Enrique Bell,Sergio D 12/11/2017 12/11/2017 oxycodone hcl 10 mg tablet 90 30 Luis Enrique Bell,Sergio D 12/11/2017 12/11/2017 morphine sulf er 60 mg tablet 60 30 Luis Enrique Bell,Sergio D 12/11/2017 12/11/2017 zolpidem tartrate 10 mg tablet 30 30 Luis Enrique Bell,Sergio D 12/10/2017 12/10/2017 oxycodone hcl 5 mg tablet 6 1 Mario Obrien MD 12/10/2017 12/10/2017 clonazepam 1 mg tablet 6 3 Mario Obrien MD 10/23/2017 10/31/2017 clonazepam 1 mg tablet 60 30 Luis Enrique Bell M D 10/29/2017 10/29/2017 morphine sulf er 60 mg tablet 60 30 Luis Enrique Bell M D 10/23/2017 10/28/2017 oxycodone hcl 15 mg tablet 90 30 Luis Enrique Bell M D 10/23/2017 10/27/2017 zolpidem tartrate 10 mg tablet 30 30 Luis Enrique Bell M D - Current Medication List Current Medications: Active Medications Acetaminophen (Tylenol -) 650 mg PO Q6H PRN PRN Reason: FEVER Last Admin: 03/13/18 06:54 Dose: 650 mg Amino Acids (Prosource No Carb Liquid Pkt) 30 ml PO BID@0800,1730 [facility] Last Admin: 03/15/18 09:20 Dose: 30 ml Divalproex Sodium (Depakote *Er* -) 500 mg PO BID [facility] Last Admin: 03/15/18 09:20 Dose: 500 mg Ferrous Sulfate (Feosol -) 325 mg PO DAILY [facility] Last Admin: 03/15/18 09:19 Dose: 325 mg Folic Acid (Folic Acid -) 1 mg PO DAILY [facility] Last Admin: 03/15/18 09:19 Dose: 1 mg Heparin Sodium (Porcine) (Heparin -) 5,000 unit SQ TID [facility] Last Admin: 03/15/18 05:56 Dose: 5,000 unit Morphine Sulfate (Ms Contin -) 60 mg PO BID [facility] Last Admin: 03/15/18 09:19 Dose: 60 mg Multivitamins/Minerals/Vitamin C (Tab-A-Vit -) 1 tab PO DAILY [facility] Last Admin: 03/15/18 09:19 Dose: 1 tab Nicotine (Nicoderm Patch -) 14 mg TD DAILY [facility] Last Admin: 03/15/18 09:20 Dose: 14 mg Ondansetron HCl (Zofran Injection) 4 mg IVPUSH Q4H PRN PRN Reason: NAUSEA AND/OR VOMITING Oxycodone HCl (Roxicodone -) 10 mg PO Q4H PRN PRN Reason: PAIN SCALE > 5 Last Admin: 03/15/18 02:54 Dose: 10 mg Polyethylene Glycol (Miralax (For Daily Use) -) 17 gm PO BID PRN PRN Reason: CONSTIPATION Last Admin: 03/14/18 13:31 Dose: 17 gm Pramipexole Dihydrochloride (Mirapex -) 0.5 mg PO TID [facility] Last Admin: 03/15/18 05:54 Dose: 0.5 mg Promethazine HCl (Phenergan Injection -) 12.5 mg IVPB Q6H PRN PRN Reason: NAUSEA AND/OR VOMITING Quetiapine Fumarate (Seroquel -) 25 mg PO [facility] Last Admin: 03/14/18 21:44 Dose: 25 mg Senna (Senna -) 2 tab PO [facility] Last Admin: 03/14/18 21:43 Dose: 2 tab - Objective Vital Signs: Vital Signs Temperature 98.9 F 03/15/18 05:35 Pulse Rate 101 H 03/15/18 05:35 Respiratory Rate 18 03/15/18 05:35 Blood Pressure 104/58 L 03/15/18 05:35 O2 Sat by Pulse Oximetry (%) 98 03/14/18 21:00 Constitutional: Yes: No Distress, Calm, Thin Cardiovascular: Yes: Regular Rate and Rhythm Respiratory: Yes: Regular Gastrointestinal: Yes: Normal Bowel Sounds, Soft Genitourinary: Yes: WNL Musculoskeletal: Yes: WNL Extremities: Yes: WNL Edema: No Peripheral Pulses WNL: Yes Wound/Incision: Yes: Dressing Dry and Intact (Lower back), Draining Neurological: Yes: Alert, Oriented Psychiatric: Yes: Alert, Oriented Labs: CBC, BMP 03/15/18 06:30 03/15/18 06:30 INR, PTT INR 0.94 (0.83-1.09) 03/09/18 08:00 Problem List - Problems (1) Headache Assessment/Plan: s/p exploration of spinal fusion with reoperative laminectomies L3/4 and with L2 -S1 decompression, osteotomies and fusion with correction of deformity on 03/09. -denies any headache or pain at this time. Pain well controlled on current regimen Code(s): R51 - HEADACHE (2) Anemia Assessment/Plan: -2/2 to blood loss and ABDIAS -Venofer 300 mg x 1 -Started on Ferrous sulfate 325 mg po daily -repeat labs in 1 week outpatient -with hold transfusion at this time due to chronic anemia Code(s): D64.9 - ANEMIA, UNSPECIFIED Qualifiers: Anemia type: iron deficiency (3) Constipation Assessment/Plan: -2/2 chronic opiod use -may benefit from [employer] outpatient if insurance covers -Continue Colace 300 mg po HS -Added Senna 2 tabs HS -Added Miralax 17 gm daily -encouraged dietary fiber and hydration Code(s): K59.00 - CONSTIPATION, UNSPECIFIED Assessment/Plan see problem list Physical therapy D/C home with [facility]
[2018-03-15] MEDS ORDERED: IRON SUCROSE INJECTION 300 MG in SODIUM CHLORIDE 235 ML IVPB ONE (11:26)
--- NOTE | 2018-03-15 11:28 | DS ---
Physical Examination Vital Signs: Vital Signs Temperature 98.9 F 03/15/18 05:35 Pulse Rate 101 H 03/15/18 05:35 Respiratory Rate 18 03/15/18 05:35 Blood Pressure 104/58 L 03/15/18 05:35 O2 Sat by Pulse Oximetry (%) 98 03/14/18 21:00 Findings/Remarks: 42 y/o woman with a PMHx of SBO, Colitis, Bowel Resection, Pancreatitis, GIB, Anemia, Hypotension, Hypoglycemia, Anxiety, Chronic Back Pain, MRI Brain hx incidental cyst. Who returns to the ED after eloping 03/03/18 from the ED for right peripheral vision loss, occipital LI, Abdominal Pain, B/L Flank Pain, bilious non-bloody vomiting, non-bloody loose diarrhea x 4-5 days. Patient reports having a mechanical fall hitting her left ankle last Thursday. Patient denies LOC or head injury. Patient reports having dysuria. Patient denies fever , chills, dizziness, SOB, CP, constipation, melena, hematochezia, hematuria. Constitutional: Yes: No Distress, Calm, Thin Cardiovascular: Yes: Regular Rate and Rhythm Respiratory: Yes: Regular Gastrointestinal: Yes: Normal Bowel Sounds, Soft Musculoskeletal: Yes: Back Pain Extremities: Yes: WNL Edema: No Peripheral Pulses WNL: Yes Neurological: Yes: Alert, Oriented Psychiatric: Yes: Alert, Oriented Labs: CBC, BMP 03/15/18 06:30 03/15/18 06:30 Discharge Summary Reason For Visit: HEADACHE UTI Current Active Problems Abnormal LFTs (Acute) Anemia (Acute) Cerebral cyst (Acute) Constipation (Acute) Headache (Acute) Peripheral visual field defect of right eye (Acute) Scoliosis (Acute) UTI (urinary tract infection) (Acute) Hospital Course: Laboratory Last Values WBC 5.5 K/mm3 (4.0-10.0) 03/15/18 06:30 RBC 2.44 M/mm3 (3.60-5.2) L 03/15/18 06:30 Hgb 7.2 GM/dL (10.7-15.3) L 03/15/18 06:30 Hct 20.5 % (32.4-45.2) L 03/15/18 06:30 MCV 84.2 fl (80-96) 03/15/18 06:30 MCH 29.4 pg (25.7-33.7) 03/15/18 06:30 MCHC 35.0 g/dl (32.0-36.0) 03/15/18 06:30 RDW 15.8 % (11.6-15.6) H 03/15/18 06:30 Plt Count 309 K/MM3 (134-434) 03/15/18 06:30 MPV 7.8 fl (7.5-11.1) 03/15/18 06:30 Absolute Neuts (auto) 3.0 K/mm3 (1.5-8.0) 03/15/18 06:30 Neutrophils % 55.3 % (42.8-82.8) D 03/15/18 06:30 Lymphocytes % 20.9 % (8-40) D 03/15/18 06:30 Monocytes % 14.5 % (3.8-10.2) H 03/15/18 06:30 Eosinophils % 8.8 % (0-4.5) H D 03/15/18 06:30 Basophils % 0.5 % (0-2.0) 03/15/18 06:30 Nucleated RBC % 0 % (0-0) 03/15/18 06:30 PT with INR 11.10 SEC (9.7-13.0) 03/09/18 08:00 INR 0.94 (0.83-1.09) 03/09/18 08:00 PTT (Actin FS) 32.5 SECONDS (25.2-36.5) 03/09/18 08:00 Sodium 140 mmol/L (136-145) 03/15/18 06:30 Potassium 3.9 mmol/L (3.5-5.1) 03/15/18 06:30 Chloride 102 mmol/L (98-107) 03/15/18 06:30 Carbon Dioxide 33 mmol/L (21-32) H 03/15/18 06:30 Anion Gap 4 MMOL/L (8-16) L 03/15/18 06:30 BUN 9 mg/dL (7-18) 03/15/18 06:30 Creatinine 0.4 mg/dL (0.55-1.3) L 03/15/18 06:30 Creat Clearance w eGFR > 60 (>60) 03/15/18 06:30 Random Glucose 82 mg/dL (74-106) 03/15/18 06:30 Calcium 7.9 mg/dL (8.5-10.1) L 03/15/18 06:30 Phosphorus 3.4 mg/dL (2.5-4.9) 03/05/18 06:00 Magnesium 2.1 mg/dL (1.8-2.4) 03/05/18 06:00 Iron 15 ug/dL (27-159) L 03/11/18 06:00 TIBC 292 ug/dL (250-450) 03/05/18 06:00 Iron Saturation 8 % (15-55) L 03/05/18 06:00 Ferritin 253.0 ng/ml (8-388) 03/11/18 15:15 Total Bilirubin 0.5 mg/dL (0.2-1) 03/15/18 06:30 Direct Bilirubin 0.1 mg/dL (0.0-0.2) 03/10/18 13:15 AST 14 U/L (15-37) L 03/15/18 06:30 ALT 37 U/L (13-61) 03/15/18 06:30 Alkaline Phosphatase 60 U/L (45-117) 03/15/18 06:30 LD Total 137 U/L (84-246) 03/11/18 06:00 Total Protein 4.8 g/dl (6.4-8.2) L 03/15/18 06:30 Albumin 2.1 g/dl (3.4-5.0) L 03/15/18 06:30 Lipase 38 U/L (73-393) L 03/11/18 06:00 Vitamin B12 1013 pg/ml (193-986) H 03/11/18 15:15 Serum , Qual Negative 03/09/18 08:00 Urine Color Yellow 03/11/18 10:00 Urine Appearance Clear 03/11/18 10:00 Urine pH 6.0 (5.0-8.0) 03/11/18 10:00 Ur Specific [place] 1.016 (1.010-1.035) 03/11/18 10:00 Urine Protein Negative (NEGATIVE) 03/11/18 10:00 Urine Glucose (UA) Negative (NEGATIVE) 03/11/18 10:00 Urine Ketones Negative (NEGATIVE) 03/11/18 10:00 Urine Blood Negative (NEGATIVE) 03/11/18 10:00 Urine Nitrite Negative (NEGATIVE) 03/11/18 10:00 Urine Bilirubin Negative (<2.0 mg/dL) 03/11/18 10:00 Urine Urobilinogen Negative mg/dL (0.2-1.0) 03/11/18 10:00 Ur Leukocyte Esterase Negative (NEGATIVE) 03/11/18 10:00 PAULO Screen Negative (.) 03/11/18 06:00 Smooth Musc &SHOP COOPER Intrp 2 Units (0-19) 03/11/18 06:00 Hepatitis A IgM Ab Negative (Negative) 03/10/18 13:15 Hep Bs Antigen Negative (Negative) 03/10/18 13:15 Hep B Core IgM Ab Negative (Negative) 03/10/18 13:15 Hepatitis C Antibody <0.1 s/co ratio (0.0-0.9) 03/10/18 13:15 Blood Type O POSITIVE 03/14/18 12:45 Antibody Screen Negative 03/14/18 12:45 Crossmatch See Detail 03/14/18 12:45 Microbiology 03/10/18 20:15 Blood - Peripheral Venous Blood Culture - Preliminary NO GROWTH OBTAINED AFTER 96 HOURS, INCUBATION TO CONTINUE FOR 1 DAYS. 03/10/18 20:35 Blood - Peripheral Venous Blood Culture - Preliminary NO GROWTH OBTAINED AFTER 96 HOURS, INCUBATION TO CONTINUE FOR 1 DAYS. 03/11/18 10:00 Urine - Urine Clean Catch Urine Culture - Final NO GROWTH OBTAINED Condition: Stable - Instructions Referrals: Georgia Mott DO [Staff Physician] - Katia Campbell [Primary Care Provider] - Disposition: [facility]/HOME HEALTH CARE - Home Medications Comprehensive Discharge Medication List: Ambulatory Orders Morphine *Sr* [MS Contin -] 60 mg PO Q12H 07/13/15 Oxycodone HCl 15 mg PO TID PRN 08/11/17 Acetaminophen [Tylenol .Regular Strength -] 650 mg PO Q6H PRN tablet 09/24/17 Docusate Sodium [Colace -] 300 mg PO HS #30 capsule 09/24/17 Pantoprazole Sodium [Protonix -] 40 mg PO BID #60 tablet.ec 09/24/17 Pramipexole Dihydrochloride [Mirapex -] 0.125 mg PO HS@2000 #30 tablet 09/24/17 Quetiapine Fumarate [Seroquel -] 25 mg PO HS #30 tablet 09/24/17 Sucralfate Oral Suspension [Carafate Oral Suspension -] 1 gm PO QID 10 Days ml 09/24/17 clonazePAM [Klonopin -] 1 mg PO BID PRN tablet MDD 2 09/24/17 Cephalexin Monohydrate [Keflex -] 500 mg PO BID #14 capsule 03/03/18
[2018-03-15 14:02] VITALS: BP 91/49; PULSE 94; TEMP 98.4
[2018-03-17 17:09] LABS: SERUM IRON SATURATION 8; UIBC 239
[2018-03-17 17:10] LABS: TOTAL IRON BINDING CAPACITY 260
== END 2018-03-15 15:45 | disposition home health service (06) | DRG 303 ==
LOC: JER 00:21 → JERBED 00:46 → UNDOADMOB 02:19 → J7W 03:04 → OBSVTOIN 18:46 → J4W 03-09 17:45 → J6S 03-10 09:08
PROVIDERS: ADMIT Internal Medicine; ATTEND Family Medicine
PROC: 0SG10AJ Fusion of 2 or more Lumbar Vertebral Joints with Interbody Fusion Device, Posterior Approach, Anterior Column, Open Approach (ICD-10-PCS; 2018-03-09)
PROC: 0SG30AJ Fusion of Lumbosacral Joint with Interbody Fusion Device, Posterior Approach, Anterior Column, Open Approach (ICD-10-PCS; 2018-03-09)
PROC: 00NY0ZZ Release Lumbar Spinal Cord, Open Approach (ICD-10-PCS; 2018-03-09)
PROC: 0ST20ZZ Resection of Lumbar Vertebral Disc, Open Approach (ICD-10-PCS; 2018-03-09)
PROC: 00QT0ZZ Repair Spinal Meninges, Open Approach (ICD-10-PCS; 2018-03-09)
PROC: B01BZZZ Fluoroscopy of Spinal Cord (ICD-10-PCS; 2018-03-09)
PROC: 0JR707Z Replacement of Back Subcutaneous Tissue and Fascia with Autologous Tissue Substitute, Open Approach (ICD-10-PCS; 2018-03-09)
PROC: 0SP00AZ Removal of Interbody Fusion Device from Lumbar Vertebral Joint, Open Approach (ICD-10-PCS; principal; 2018-03-09 09:00)
DX: M41.9 Scoliosis, unspecified (principal); M48.061 Spinal stenosis, lumbar region without neurogenic claudication; E16.2 Hypoglycemia, unspecified; F41.9 Anxiety disorder, unspecified; M54.9 Dorsalgia, unspecified; G93.0 Cerebral cysts; H54.7 Unspecified visual loss; H53.451 Other localized visual field defect, right eye; N39.0 Urinary tract infection, site not specified; G89.29 Other chronic pain; D50.9 Iron deficiency anemia, unspecified; R10.30 Lower abdominal pain, unspecified; G43.909 Migraine, unspecified, not intractable, without status migrainosus; G25.81 Restless legs syndrome; K59.00 Constipation, unspecified; R74.0 Nonspecific elevation of levels of transaminase and lactic acid dehydrogenase [LDH]; G96.11 Dural tear; R94.5 Abnormal results of liver function studies
CPT/HCPCS: 36415; 36430; 36511; 70551-TC; 72131-TC; 76000-TC-FY; 76705-TC; 80048; 80053; 80074; 80076; 81003; 82607; 82728; 83516; 83540; 83550; 83615; 83690; 83735; 84100; 84703; 85025; 85027; 85610; 85730; 86038; 86850; 86900; 86901; 86922; 87040; 87086; 94010; 94760; 97116-GP; 97161-GP; 99282-25; G0378; J1644; J1756; J7030; P9038; P9058

== ENCOUNTER 2018-07-07 07:11 | Emergency (ER) | payer OTHER ==
[2018-07-07 07:18] VITALS: BP 116/76; PULSE 99; TEMP 97.5; BMI 19.5
[2018-07-07] MEDS ORDERED: SODIUM CHLORIDE 500 ML IV STA (08:03)
[2018-07-07] MEDS ORDERED: ACETAMINOPHEN 1000 MG/100 ML VIAL (NON FORMULARY) IVPB ONE (08:03)
--- NOTE | 2018-07-07 08:10 | PDOC ---
History of Present Illness - General Chief Complaint: Pain Stated Complaint: BACK PAIN,ABD PAIN,N/V/D Time Seen by Provider: 07/07/18 07:52 History Source: Patient Exam Limitations: Clinical Condition - History of Present Illness Initial Comments: 07/07/18 08:04 Patient with history of chronic back pain on oxycodone and morphine home. Colitis. Multiple bowel surgeries, Scoliosis present with complaint of three- day history of back pain and abdominal pain on the left lower quadrant with nausea. Patient reported he was seen in [facility] last night and nothing was done for her so she came here. Patient reported was done in [facility]. Patient is being followed up by ortho spine surgery for lump in the thoracic spinal region which patient reported had follow-up appointment last month but had to be canceled and does have new follow-up appointment with Dr. Baer. Patient denies fever, chills. Patient reported taking morphine and oxycodone still have pain. Patient feels she might have colitis flareup. Timing/Duration: other (3 days) Past History - Past Medical History Allergies/Adverse Reactions: Allergies Allergy/AdvReac Type Severity Reaction Status Date / Time No Known Allergies Allergy Verified 07/07/18 07:17 Home Medications: Ambulatory Orders Acetaminophen [Tylenol .Regular Strength -] 650 mg PO Q6H PRN tablet 09/24/17 Docusate Sodium [Colace -] 300 mg PO HS #30 capsule 09/24/17 Pantoprazole Sodium [Protonix -] 40 mg PO BID #60 tablet.ec 09/24/17 Pramipexole Dihydrochloride [Mirapex -] 0.125 mg PO HS@2000 #30 tablet 09/24/17 Quetiapine Fumarate [Seroquel -] 25 mg PO HS #30 tablet 09/24/17 clonazePAM [Klonopin -] 1 mg PO BID PRN tablet MDD 2 09/24/17 Acetaminophen [Tylenol .Regular Strength -] 650 mg PO Q6H PRN #120 tablet Amino Acids/Protein Hydrolys [Prosource No Carb Liquid Pkt] 30 ml PO BID@0800, 1730 #1 bottle 03/15/18 Divalproex *ER* [Depakote *ER* -] 500 mg PO BID #60 tablet.sa 03/15/18 Divalproex [Depakote -] 500 mg PO BID #60 tablet.ec 03/15/18 Ferrous Sulfate [Feosol] 325 mg PO DAILY #30 ud 03/15/18 Folic Acid - 1 mg PO DAILY #30 tablet 03/15/18 Morphine *Sr* [MS Contin -] 60 mg PO BID #20 tablet.sa MDD 4 03/15/18 Morphine *Sr* [MS Contin -] 60 mg PO Q12H #10 tablet.sa MDD 2 03/15/18 Morphine Sulfate [Arymo ER] 60 mg PO BID #10 tab.po.er MDD 2 03/15/18 Multivitamins [Multivit ([facility] Formulary)] 1 tab PO DAILY #30 tab 03/15/18 Nicotine Patch [Nicoderm Patch -] 14 mg TD DAILY #30 patch 03/15/18 Oxycodone HCl 10 mg PO TID PRN #15 tablet MDD 3 03/15/18 Polyethylene Glycol 3350 [Miralax 119 gm Btl -] 17 gm PO BID PRN #1 bottle 03/15 Pramipexole Dihydrochloride [Mirapex -] 0.5 mg PO TID tablet 03/15/18 Sennosides [Senna -] 2 tab PO HS #60 tablet 03/15/18 clonazePAM [Klonopin -] 1 mg PO BID PRN #10 tablet MDD 2 03/15/18 Anemia: Yes Asthma: Yes Cancer: No Cardiac Disorders: Yes (SVT,MVP) CVA: No COPD: Yes CHF: No DVT: No Dementia: No Diabetes: No GI Disorders: Yes (ULCER,TWISTED BOWELS,COLITIS) Disorders: No HTN: No (HYPOTENSION) Hypercholesterolemia: No Liver Disease: No Psychiatric Problems: Yes (ANXIETY) Seizures: No Thyroid Disease: No - Surgical History Abdominal Surgery: Yes (GASTRIC BYPASS, VENTRAL HERNIA, SCAR TISSUE REMOVAL FROM ABD.) Appendectomy: No Cardiac Surgery: No Cholecystectomy: Yes Lung Surgery: No Neurologic Surgery: Yes (back X3) Orthopedic Surgery: No - Immunization History Td Vaccination: Yes TDAP Vaccination: Yes Immunization Up to Date: Yes - Suicide/Smoking/Psychosocial Hx Smoking Status: Yes Smoking History: Current every day smoker Years of Tobacco Use: 25 Have you smoked in the past 12 months: Yes Number of Cigarettes Smoked Daily: 20 Cigars Per Day: 0 Information on smoking cessation initiated: Yes 'Breaking Loose' booklet given: 03/04/18 Hx Alcohol Use: No Drug/Substance Use Hx: No Substance Use Type: None Hx Substance Use Treatment: No Review of Systems - Review of Systems Able to Perform ROS?: Yes Is the patient limited Tamazight proficient: No Constitutional: Yes: Malaise. No: Chills, Fever HEENTM: No: Symptoms Reported, See HPI, Eye Pain, Blurred Vision, Tearing, Recent change in vision, Double Vision, Cataracts, Ear Pain, Ocular Prothesis, Ear Discharge, Nose Pain, Nose Congestion, Tinnitus, Nose Bleeding, Hearing Loss , Throat Pain, Throat Swelling, Mouth Pain, Dental Problems, Difficulty Swallowing, Mouth Swelling, Other Respiratory: No: Symptoms reported, See HPI, Cough, Orthopnea, Shortness of Breath, SOB with Exertion, SOB at Rest, Stridor, Wheezing, Productive cough, Hemoptysis, Other Cardiac (ROS): No: Symptoms Reported, See HPI, Chest Pain, Edema, Irregular Heart Rate, Lightheadedness, Palpitations, Syncope, Chest Tightness, Other ABD/GI: Yes: See HPI, Nausea, Vomiting, Abdominal cramping (llq). No: Abd. Pain w/ defecation, Blood Streaked Bowels, Constipated, Diarrhea, Difficulty Swallowing, Rectal Bleeding : No: Burning, Dysuria, Discharge, Frequency, Flank Pain, Pain, Urgency All Other Systems: Reviewed and Negative *Physical Exam - Vital Signs Last Vital Signs Temp Pulse Resp BP Pulse Ox 97.5 F L 99 H 18 116/76 100 07/07/18 07:15 07/07/18 07:15 07/07/18 07:15 07/07/18 07:15 07/07/18 07:15 - Physical Exam Comments: 07/07/18 08:08 GENERAL: Well developed, well nourished. Awake and alert. No acute distress. HEENT: Normocephalic, atraumatic. PERRLA, EOMI. No conjunctival pallor. Sclera are non-icteric. Moist mucous membranes. Oropharynx is clear. NECK: Supple. Full ROM. CARDIOVASCULAR: Regular rate and rhythm. No murmurs, rubs, or gallops. Distal pulses are 2+ and symmetric. PULMONARY: No evidence of respiratory distress. Lungs clear to auscultation bilaterally. No wheezing, rales or rhonchi. ABDOMINAL: mild tenderness to LLQ.Soft. Non-distended. No rebound or guarding. No organomegaly. Normoactive bowel sounds. MUSCULOSKELETAL : moderate tenderness to thoracic pine with small palpable lump over thoracic spine and scoliosis. Normal range of motion at all joints. EXTREMITIES: No cyanosis. No clubbing. No edema. No calf tenderness. SKIN: Warm and dry. Normal capillary refill. No rashes. NEUROLOGICAL: Alert, awake, appropriate. Gait without ataxia with cane. PSYCHIATRIC: Cooperative. Good eye contact. Appropriate mood General Appearance: Yes: Nourished, Appropriately Dressed. No: Apparent Distress Moderate Sedation - Procedure Monitoring Vital Signs: Procedure Monitoring Vital Signs Temperature 97.5 F L 07/07/18 07:15 Pulse Rate 99 H 07/07/18 07:15 Respiratory Rate 18 07/07/18 07:15 Blood Pressure 116/76 07/07/18 07:15 O2 Sat by Pulse Oximetry (%) 100 07/07/18 07:15 ED Treatment Course - LABORATORY CBC & Chemistry Diagram: 07/07/18 08:26 07/07/18 08:26 Medical Decision Making - Medical Decision Making 07/07/18 08:10 Patient with history of scoliosis, chronic back pains, lump and thoracic spine and colitis present with complaint of persistent worsening left lower quadrant abdominal pain and back pain with nausea vomiting. Patient taking home oxycodone and morphine for pain But report still having pain. Exam significant for significant scoliosis spine when palpable lump in the thoracic region. Mild tenderness left lower quadrant. Symptoms likely colitis versus chronic back pains versus drug-seeking behavior. CBC, CMP and lipase lab ordered. IV Tylenol ordered for pain. UA urine culture lab ordered. Will consider imaging based on lab results 07/07/18 10:10 CBC and chemistry labs with no acute pathology. LFTs normal. abd CT pending 07/07/18 13:29 Patient came back from CT and request more pains as she still in the same pain after IV tylenol and morphine. Patient advised to wait few minutes for CT result as it will determine treatment plan and patient report if she cannot get any more pain meds then she will rather go home to take her oxycodone and morphine. Advised patient against leaving as her work-up is not complete but patient insist on leaving unless being given more stronger pain meds which is not Tylenol or NSAIDS. Advised patient on the risk of leaving against medical advise including worsening of symptom and Patient still insist on leaving to take home pain meds. Patient refused to sign AMA forms and walked out after IV was removed *DC/Admit/Observation/Transfer Diagnosis at time of Disposition: Back pain Qualifiers: Back pain location: thoracic back pain Chronicity: chronic Back pain laterality : midline Qualified Code(s): M54.6 - Pain in thoracic spine; G89.29 - Other chronic pain - Discharge Dispostion Disposition: AGAINST MEDICAL ADVICE Condition at time of disposition: Stable Decision to Admit order: No - Referrals Referrals: Katia Campbell [Primary Care Provider] - - Patient Instructions - Post Discharge Activity
[2018-07-07] MEDS ORDERED: ACETAMINOPHEN INJECTION 100 ML IVPB ONE (08:13)
[2018-07-07 08:41] LABS: BASO % 0.6 % (0-2.0); EOS % 0.9 % (0-4.5); HEMATOCRIT 38.8 % (32.4-45.2); HEMOGLOBIN 12.8 GM/dL (10.7-15.3); LYMPH % 18.4 % (8-40); MCH 24.4 pg (25.7-33.7); MEAN CELL VOLUME 73.8 fl (80-96); MONO % 6.7 % (3.8-10.2); NEUT % 73.4 % (42.8-82.8); PLATELET COUNT 323 K/MM3 (134-434); RBC 5.26 M/mm3 (3.60-5.2); RDW 18.7 % (11.6-15.6)
[2018-07-07 09:08] LABS: ALBUMIN 3.9 g/dl (3.4-5.0); ALK PHOS 108 U/L (45-117); ANION GAP 4 MMOL/L (8-16); BILIRUBIN,TOTAL 0.4 mg/dL (0.2-1); BLOOD UREA NITROGEN 6 mg/dL (7-18); CALCIUM 9.3 mg/dL (8.5-10.1); CHLORIDE 104 mmol/L (98-107); CO2 30 mmol/L (21-32); CREATININE 0.5 mg/dL (0.55-1.3); GLUCOSE,RANDOM 100 mg/dL (74-106); LIPASE 94 U/L (73-393); POTASSIUM 4.3 mmol/L (3.5-5.1); SGOT/AST 16 U/L (15-37); SGPT/ALT 16 U/L (13-61); SODIUM 138 mmol/L (136-145)
--- NOTE | 2018-07-07 09:09 | PDOC ---
*Physical Exam - Vital Signs Last Vital Signs Temp Pulse Resp BP Pulse Ox 97.5 F L 99 H 18 116/76 100 07/07/18 07:15 07/07/18 07:15 07/07/18 07:15 07/07/18 07:15 07/07/18 07:15 - Physical Exam Comments: 07/07/18 09:08 The patient was examined by [TETE Marsh] under my direct supervision. I personally evaluated the patient. I concur with the above findings and the plan of care. ED Treatment Course - LABORATORY CBC & Chemistry Diagram: 07/07/18 08:26 07/07/18 08:26 - ADDITIONAL ORDERS Additional order review: 07/07/18 08:26 RBC 5.26 H MCV 73.8 L MCHC 33.0 RDW 18.7 H MPV 8.0 Neutrophils % 73.4 D Lymphocytes % 18.4 Monocytes % 6.7 Eosinophils % 0.9 D Basophils % 0.6 - Medications Given in the ED: ED Medications Discontinued Medications Generic Name Dose Route Start Last Admin Trade Name Darren PRN Reason Stop Dose Admin Acetaminophen 1,000 mg 07/07/18 08:03 07/07/18 08:30 Ofirmev Injection - IVPB 07/07/18 08:04 1,000 mg ONCE ONE Administration Sodium Chloride 500 mls @ 500 mls/hr 07/07/18 08:03 07/07/18 08:30 Normal Saline - IV 07/07/18 09:02 500 mls/hr ASDIR STA Administration *DC/Admit/Observation/Transfer Diagnosis at time of Disposition: Abdominal pain, Back pain - Discharge Dispostion Disposition: AGAINST MEDICAL ADVICE Condition at time of disposition: Stable - Referrals Referrals: Katia Campbell [Primary Care Provider] - - Patient Instructions - Post Discharge Activity
[2018-07-07] MEDS ORDERED: morphine CARPU-JECT 4 MG/1 ML DISP.SYRIN IVPUSH ONE (09:18)
[2018-07-07] MEDS ORDERED: morphine SULFATE 4 MG/ML VIAL ONE (10:00)
[2018-07-07] MEDS ORDERED: FAMOTIDINE 20 MG/50 ML IVPB 20 MG/50 ML MG IVPB ONE ×2 (11:38→12:29)
== END 2018-07-07 14:03 | disposition left against medical advice (07) ==
LOC: JER 07:11
PROC: 3E033NZ Introduction of Analgesics, Hypnotics, Sedatives into Peripheral Vein, Percutaneous Approach (ICD-10-PCS; principal; 2018-07-07)
PROC: 3E033GC Introduction of Other Therapeutic Substance into Peripheral Vein, Percutaneous Approach (ICD-10-PCS; 2018-07-07)
PROC: 3E0337Z Introduction of Electrolytic and Water Balance Substance into Peripheral Vein, Percutaneous Approach (ICD-10-PCS; 2018-07-07)
DX: M54.6 Pain in thoracic spine (principal); G89.29 Other chronic pain; M41.9 Scoliosis, unspecified
CPT/HCPCS: 36415; 74177-TC; 80053; 83690; 84702; 85025; 96361; 96365; 96375; 99282-25; J0131; Q9967

== ENCOUNTER 2018-10-12 18:51 | Emergency (ER) | payer OTHER | END 2018-10-12 21:00 | disposition left against medical advice (07) | LOC: JER 18:51 ==

== ENCOUNTER 2019-03-24 16:56 | Emergency (ER) | payer OTHER ==
[2019-03-24 17:37] VITALS: BP 117/79; PULSE 88; TEMP 98.3; BMI 22.3
[2019-03-24] MEDS ORDERED: MECLIZINE HCL 25 MG TABLET (FP) PO ONE (18:28)
[2019-03-24] MEDS ORDERED: MECLIZINE HCL 25 MG TABLET (FP) ONE (18:42)
--- NOTE | 2019-03-24 19:06 | PDOC ---
History of Present Illness - General Chief Complaint: Pain Stated Complaint: SENT BY DR AYSE CAMPBELL History Source: Patient - History of Present Illness Initial Comments: 03/24/19 19:05 Patient is a 43 year old female with PMH of SBO, colitis, multiple bowel surgeries, brain cyst, pancreatitis, GIB, anemia, anxiety who presents with lightheadedness and vertigo. Reports she has been experiencing intermittent imbalance over last 3 days and BL LE swelling. Pt's dizziness is exacerbated with certain positions. Pt saw her PCP, Dr. Guzman yesterday and was told to come to ER to receive labs (PCP was concerned she was anemic and would need transfusions as she has eneded these in the past). Most recent transfusion was ~8 months ago, anemia has been attributed to malnutrition and vitamin deficiency 2/2 gastric bypass. Denies fevers, abd pain, nausea, vomiting, chest pain, SOB. PCP: Dr. Guzman Allergies: NKDA 03/24/19 19:43 Past History - Past Medical History Allergies/Adverse Reactions: Allergies Allergy/AdvReac Type Severity Reaction Status Date / Time No Known Allergies Allergy Verified 03/24/19 17:32 Home Medications: Ambulatory Orders Docusate Sodium [Colace -] 300 mg PO HS #30 capsule 09/24/17 Pantoprazole Sodium [Protonix -] 40 mg PO BID #60 tablet.ec 09/24/17 Amino Acids/Protein Hydrolys [Prosource No Carb Liquid Pkt] 30 ml PO BID@0800, 1730 #1 bottle 03/15/18 Ferrous Sulfate [Feosol] 325 mg PO DAILY #30 ud 03/15/18 Folic Acid - 1 mg PO DAILY #30 tablet 03/15/18 Morphine *Sr* [MS Contin -] 60 mg PO Q12H #10 tablet.sa MDD 2 03/15/18 Multivitamins [Multivit ([facility] Formul[facility])] 1 tab PO DAILY #30 tab 03/15/18 Oxycodone HCl 10 mg PO TID PRN #15 tablet MDD 3 03/15/18 Polyethylene Glycol 3350 [Miralax 119 gm Btl -] 17 gm PO BID PRN #1 bottle 03/15 clonazePAM [Klonopin -] 1 mg PO BID PRN #10 tablet MDD 2 03/15/18 Quetiapine Fumarate [Seroquel -] 200 mg PO HS 03/24/19 Sennosides [Senna -] 2 tab PO PRN 03/24/19 Anemia: Yes Asthma: Yes Cancer: No Cardiac Disorders: Yes (SVT,MVP) CVA: No COPD: Yes CHF: No DVT: No Dementia: No Diabetes: No GI Disorders: Yes (ULCER,TWISTED BOWELS,COLITIS) Disorders: No HTN: No (HYPOTENSION) Hypercholesterolemia: No Liver Disease: No Psychiatric Problems: Yes (ANXIETY) Seizures: No Thyroid Disease: No - Surgical History Abdominal Surgery: Yes (GASTRIC BYPASS, VENTRAL HERNIA, SCAR TISSUE REMOVAL FROM ABD.) Appendectomy: No Cardiac Surgery: No Cholecystectomy: Yes Lung Surgery: No Neurologic Surgery: Yes (back X2) Orthopedic Surgery: No - Immunization History Td Vaccination: Yes TDAP Vaccination: Yes Immunization Up to Date: Yes - Psycho Social/Smoking Cessation Hx Smoking Status: Yes Smoking History: Current every day smoker Years of Tobacco Use: 25 Have you smoked in the past 12 months: Yes Number of Cigarettes Smoked Daily: 20 Cigars Per Day: 0 Information on smoking cessation initiated: Yes 'Breaking Loose' booklet given: 03/04/18 Hx Alcohol Use: No Drug/Substance Use Hx: No Substance Use Type: None Hx Substance Use Treatment: No Review of Systems - Review of Systems Able to Perform ROS?: Yes Constitutional: No: Chills, Diaphoresis, Fever, Loss of Appetite, Malaise, Night Sweats, Weakness, Weight Stable, Unintentional Wgt. Loss, Unexplained wgt Loss, Other *Physical Exam - Vital Signs Last Vital Signs Temp Pulse Resp BP Pulse Ox 98.3 F 88 18 117/79 98 03/24/19 17:32 03/24/19 17:32 03/24/19 17:32 03/24/19 17:32 03/24/19 17:32 ED Treatment Course - LABORATORY CBC & Chemistry Diagram: 03/24/19 18:15 03/24/19 18:15 - Medications Given in the ED: ED Medications Discontinued Medications Generic Name Dose Route Start Last Admin Trade Name Freq PRN Reason Stop Dose Admin Meclizine HCl 25 mg 03/24/19 18:28 03/24/19 18:40 Antivert - PO 03/24/19 18:29 25 mg ONCE ONE Administration Medical Decision Making - Medical Decision Making 03/24/19 20:07 Pt eloped before receiving Head CT and all of her lab results. Discharge - Discharge Information Problems reviewed: Yes Clinical Impression/Diagnosis: Pain, Eloped from emergency department Disposition: ELOPED - Follow up/Referral Referrals: Katia Campbell [Primary Care Provider] - - Patient Discharge Instructions - Post Discharge Activity
[2019-03-24 19:09] LABS: BASO % 0.7 % (0-2.0); EOS % 4.6 % (0-4.5); HEMATOCRIT 38.4 % (32.4-45.2); HEMOGLOBIN 12.4 GM/dL (10.7-15.3); LYMPH % 25.6 % (8-40); MCH 26.8 pg (25.7-33.7); MCHC 32.3 g/dl (32.0-36.0); MEAN CELL VOLUME 82.9 fl (80-96); MONO % 9.8 % (3.8-10.2); NEUT % 59.3 % (42.8-82.8); PLATELET COUNT 308 K/MM3 (134-434); RBC 4.63 M/mm3 (3.60-5.2); RDW 16.8 % (11.6-15.6); WHITE BLOOD COUNT 9.8 K/mm3 (4.0-10.0)
[2019-03-24 19:21] LABS: INR 0.96 (0.83-1.09); PROTHROMBIN TIME (PATIENT) 11.3 SEC (9.7-13.0)
--- NOTE | 2019-03-24 19:33 | PDOC ---
Documentation entered by Denise Monroe SCRIBE, acting as scribe for Antonia Hernandez MD. Antonia Hernandez MD: This documentation has been prepared by the Mabel martinez Nirvannie, SCRIBE, under my direction and personally reviewed by me in its entirety. I confirm that the documentation accurately reflects all work, treatment, procedures, and medical decision making performed by me. Attending Attestation - Resident Resident Name: Robyn Mendosa - ED Attending Attestation I have performed the following: I have examined & evaluated the patient, The case was reviewed & discussed with the resident, I agree w/resident's findings & plan, Exceptions are as noted - HPI HPI: 03/24/19 19:28 43-year-old female history of gastric bypass also has a history of a brain cyst and history of gastritis and anemia here today complaining of feeling lightheaded. Does describe a vertiginous component states that she feels off balance has been intermittent over the last 2 to 3 days. She states that over the last 3 days her legs have become more swollen as well. She saw her primary doctor today Dr. Adrian Guzman who sent her to the ED for lab work with concern that she may in fact require transfusion. Patient denies any nausea or vomiting states that she does not currently feel dizzy does seem worse with certain positions turning corners and turning to the left denies any focal weakness no chest pain no shortness of breath no fevers no chills no history of previous blood clots patient has had required transfusions in the past most recently approximately 6 months to a year ago for her anemia anemia has been attributed to her malnutrition vitamin deficiency secondary to her gastric bypass - Physicial Exam PE: 03/24/19 19:30 Awake alert no acute distress lungs are clear bilaterally heart is regular no murmurs rubs or gallops abdomen is soft nontender extremities are warm and well- perfused there is bilateral non-pitting edema 2+ DP PT pulses which are symmetric bilaterally. Patient is awake alert and oriented x3 strength is 5 out of 5 bilateral upper and lower extremities. Speech is clear gait is normal patient has a negative Romberg normal [id number] does have symptoms with Cameron -Hallpike to the right however there is no nystagmus noted. Alternating hand movements is normal no appreciated rash. skin is warm and dry. - Medical Decision Making 03/24/19 19:31 43 yo F h/o anemia requiring transfusion, brain cyst, and vertigo like sxs hre c /o bilat leg swelling. was concerned for worsening anemia, sent by pcp jennyfer Keen. differential includes anemia, electrolyte abnormality, renal failure, liver dysfunction, thrombocytopena. plan ct head due to h/o prior brain cyst, labs , meclizine. 03/24/19 21:04 pt requesting to leave. labs unremarkable. pt head ct was pending. eloped department prior to getting head ct completed.
[2019-03-24 19:41] LABS: ALBUMIN 3.6 g/dl (3.4-5.0); BILIRUBIN,TOTAL 0.2 mg/dL (0.2-1); BLOOD UREA NITROGEN 6.3 mg/dL (7-18); CALCIUM 8.9 mg/dL (8.5-10.1); CREATININE 0.6 mg/dL (0.55-1.3); POTASSIUM 4.4 mmol/L (3.5-5.1); TOT PROT 6.2 g/dl (6.4-8.2)
--- NOTE | 2019-03-25 11:43 | EKG ---
Test Reason : Blood Pressure : / mmHG Vent. Rate : 080 BPM Atrial Rate : 080 BPM P-R Int : 150 ms QRS Dur : 082 ms QT Int : 392 ms P-R-T Axes : 077 054 057 degrees QTc Int : 452 ms NORMAL SINUS RHYTHM NORMAL ECG WHEN COMPARED WITH ECG OF 12-OCT-2018 19:00, NO SIGNIFICANT CHANGE WAS FOUND Confirmed by EYAD ERWIN MD ([id number]) on 03/25/2019 11:43:08 AM Referred By: Confirmed By:EYAD ERWIN MD
== END 2019-03-24 19:57 | disposition left against medical advice (07) ==
LOC: JER 16:56
DX: R52 Pain, unspecified (principal); E03.9 Hypothyroidism, unspecified; F41.9 Anxiety disorder, unspecified; K92.9 Disease of digestive system, unspecified; J45.909 Unspecified asthma, uncomplicated; I47.1 Supraventricular tachycardia
CPT/HCPCS: 36415; 80053; 84703; 85025; 85610; 85730; 86850; 86900; 86901; 93005; 93010; 99283-25

== ENCOUNTER 2019-04-11 06:29 | Inpatient (IN) | payer OTHER ==
--- NOTE | 2019-04-11 07:11 | PDOC ---
History of Present Illness - General History Source: Patient Exam Limitations: No Limitations - History of Present Illness Initial Comments: 04/11/19 07:21 43yF w PMHx SBO, colitis, gastric bypass, brain cyst, vertebral fusion, pancreatitis, GI bleed, asthma, anemia, anxiety presenting w epigastric/ periumbilical pain, nausea, constipation. 2d progressively worsening epigastric and periumbilical sharp pain radiating out to diffuse abdomen, associated nausea no vomiting, chest pain, SOB, poor appetite, lethargy, falls x3 (no LOC/ head trauma). Has not been able to take home meds inc pain meds for past 2d. Similar to past SBO few years ago. Last bowel movement 4d ago. Denies alcohol, smoking, illicit drugs. Denies fever, headache, cough, distended AB, urinary symptoms. ABD MRI 02/2018 showed dilated CBD 1.5cm <Partha Duncan - Last Filed: 04/11/19 15:54> <Thelma Ramirez - Last Filed: 04/11/19 16:56> - General Chief Complaint: Pain Stated Complaint: GENERALIZED BODY ACHE Time Seen by Provider: 04/11/19 07:11 Past History - Past Medical History Anemia: Yes Asthma: Yes Cancer: No Cardiac Disorders: Yes (SVT,MVP) CVA: No COPD: Yes CHF: No DVT: No Dementia: No Diabetes: No GI Disorders: Yes (ULCER,TWISTED BOWELS,COLITIS) Disorders: No HTN: No (HYPOTENSION) Hypercholesterolemia: No Liver Disease: No Psychiatric Problems: Yes (ANXIETY) Seizures: No Thyroid Disease: No - Surgical History Abdominal Surgery: Yes (GASTRIC BYPASS, VENTRAL HERNIA, SCAR TISSUE REMOVAL FROM ABD.) Appendectomy: No Cardiac Surgery: No Cholecystectomy: Yes Lung Surgery: No Neurologic Surgery: Yes (back X2) Orthopedic Surgery: No - Immunization History Td Vaccination: Yes TDAP Vaccination: Yes Immunization Up to Date: Yes - Psycho Social/Smoking Cessation Hx Smoking Status: Yes Smoking History: Current every day smoker Years of Tobacco Use: 25 Have you smoked in the past 12 months: Yes Number of Cigarettes Smoked Daily: 20 Cigars Per Day: 0 Information on smoking cessation initiated: No 'Breaking Loose' booklet given: 03/04/18 Hx Alcohol Use: No Drug/Substance Use Hx: No Substance Use Type: None Hx Substance Use Treatment: No <Partha Duncan - Last Filed: 04/11/19 15:54> <Thelma Ramirez - Last Filed: 04/11/19 16:56> - Past Medical History Allergies/Adverse Reactions: Allergies Allergy/AdvReac Type Severity Reaction Status Date / Time No Known Allergies Allergy Verified 04/11/19 06:42 Home Medications: Ambulatory Orders Docusate Sodium [Colace -] 300 mg PO HS #30 capsule 09/24/17 Pantoprazole Sodium [Protonix -] 40 mg PO BID #60 tablet.ec 09/24/17 Amino Acids/Protein Hydrolys [Prosource No Carb Liquid Pkt] 30 ml PO BID@0800, 1730 #1 bottle 03/15/18 Ferrous Sulfate [Feosol] 325 mg PO DAILY #30 ud 03/15/18 Folic Acid - 1 mg PO DAILY #30 tablet 03/15/18 Morphine *Sr* [MS Contin -] 60 mg PO Q12H #10 tablet.sa MDD 2 03/15/18 Multivitamins [Multivit ([facility] Formul[facility])] 1 tab PO DAILY #30 tab 03/15/18 Oxycodone HCl 10 mg PO TID PRN #15 tablet MDD 3 03/15/18 Polyethylene Glycol 3350 [Miralax 119 gm Btl -] 17 gm PO BID PRN #1 bottle 03/15 clonazePAM [Klonopin -] 1 mg PO BID PRN #10 tablet MDD 2 03/15/18 Quetiapine Fumarate [Seroquel -] 200 mg PO HS 03/24/19 Review of Systems - Review of Systems Constitutional: No: Chills, Fever HEENTM: No: Eye Pain, Nose Pain, Nose Congestion, Nose Bleeding, Throat Pain Respiratory: No: Cough, Shortness of Breath Cardiac (ROS): No: Chest Pain, Palpitations, Syncope ABD/GI: Yes: Constipated, Nausea, Poor Appetite. No: Abdominal Distended, Diarrhea, Vomiting : No: Burning, Dysuria, Hematuria Musculoskeletal: No: Back Pain, Neck Pain Integumentary: No: Bruising, Flushing, Lesions Neurological: No: Headache, Seizure, Tingling Psychiatric: No: Anxiety, Depression Endocrine: No: Excessive Sweating, Flushing, Intolerance to Cold, Intolerance to Heat Hematologic/Lymphatic: No: Anemia, Blood Clots <Partha Duncan - Last Filed: 04/11/19 15:54> *Physical Exam - Vital Signs Last Vital Signs Temp Pulse Resp BP Pulse Ox 97.8 F 95 H 20 117/87 100 04/11/19 06:38 04/11/19 06:38 04/11/19 06:38 04/11/19 06:38 04/11/19 06:38 - Physical Exam General Appearance: Yes: Nourished, Appropriately Dressed, Moderate Distress HEENT: positive: EOMI, KAREL, Normal Voice, Hearing Grossly Normal. negative: Scleral Icterus (R), Scleral Icterus (L), Nasal Congestion, Rhinorrhea Respiratory/Chest: positive: Lungs Clear, Normal Breath Sounds. negative: Chest Tender, Respiratory Distress, Crackles, Rales, Rhonchi, Stridor, Wheezing Cardiovascular: positive: Regular Rhythm, S1, S2, Tachycardia. negative: Edema , Murmur Gastrointestinal/Abdominal: positive: Normal Bowel Sounds, Tender (moderate epigastric/periumbilical), Flat, Soft. negative: Organomegaly, Distended, Guarding, Hernia, Mass Musculoskeletal: negative: CVA Tenderness (R), CVA Tenderness (L) Extremity: positive: Delayed Capillary Refill Integumentary: positive: Normal Color, Dry Neurologic: positive: Fully Oriented, Alert, Normal Response, Responsive. negative: Sensory Deficit, Confused, Disoriented <Partha Duncan - Last Filed: 04/11/19 15:54> - Vital Signs Last Vital Signs Temp Pulse Resp BP Pulse Ox 97.9 F 92 H 14 118/77 100 04/11/19 14:33 04/11/19 16:48 04/11/19 16:48 04/11/19 16:48 04/11/19 16:48 <AshleyThelmaeh Angel - Last Filed: 04/11/19 16:56> ED Treatment Course - LABORATORY CBC & Chemistry Diagram: 04/11/19 08:00 04/11/19 08:00 <Partha Duncan - Last Filed: 04/11/19 15:54> - LABORATORY CBC & Chemistry Diagram: 04/11/19 08:00 04/11/19 08:00 - ADDITIONAL ORDERS Additional order review: Laboratory Results 04/11/19 04/11/1904/11/19 13:40 13:40 09:00 PT with INR INR Sodium Potassium Chloride Carbon Dioxide Anion Gap BUN Creatinine Est GFR (CKD-EPI)AfAm Est GFR (CKD-EPI)NonAf Random Glucose Calcium Total Bilirubin AST ALT Alkaline Phosphatase Creatine Kinase Troponin I Total Protein Albumin Lipase Serum , Qual Urine Color Yellow Urine Appearance Clear Urine pH 7.0 Ur Specific Hopkins 1.056 H Urine Protein Negative Urine Glucose (UA) Negative Urine Ketones Negative Urine Blood Negative Urine Nitrite Negative Urine Bilirubin Negative Urine Urobilinogen 1.0 Ur Leukocyte Esterase Negative Urine WBC (Auto) 1.1 Urine RBC (Auto) 1.4 Urine Casts (Auto) 0.73 U Epithel Cells (Auto) 2.1 Urine Bacteria (Auto) 15 Urine HCG, Qual Negative Blood Type O POSITIVE Antibody Screen Negative 04/11/19 04/11/19 04/11/19 09:00 08:00 08:00 PT with INR 10.80 INR 0.92 Sodium Potassium Chloride Carbon Dioxide Anion Gap BUN Creatinine Est GFR (CKD-EPI)AfAm Est GFR (CKD-EPI)NonAf Random Glucose Calcium Total Bilirubin AST ALT Alkaline Phosphatase Creatine Kinase Troponin I Total Protein Albumin Lipase Serum , Qual Negative Urine Color Urine Appearance Urine pH Ur Specific Hopkins Urine Protein Urine Glucose (UA) Urine Ketones Urine Blood Urine Nitrite Urine Bilirubin Urine Urobilinogen Ur Leukocyte Esterase Urine WBC (Auto) Urine RBC (Auto) Urine Casts (Auto) U Epithel Cells (Auto) Urine Bacteria (Auto) Urine HCG, Qual Blood Type Cancelled Antibody Screen Cancelled 04/11/19 08:00 PT with INR INR Sodium 137 Potassium 5.4 H Chloride 98 Carbon Dioxide 31 Anion Gap 8 BUN 11.7 Creatinine 0.5 L Est GFR (CKD-EPI)AfAm 135.47 Est GFR (CKD-EPI)NonAf 116.89 Random Glucose 103 Calcium 10.0 Total Bilirubin 0.5 AST 44 H ALT 29 Alkaline Phosphatase 118 H Creatine Kinase 69 Troponin I < 0.02 Total Protein 7.3 Albumin 3.9 Lipase 52 L Serum , Qual Urine Color Urine Appearance Urine pH Ur Specific Hopkins Urine Protein Urine Glucose (UA) Urine Ketones Urine Blood Urine Nitrite Urine Bilirubin Urine Urobilinogen Ur Leukocyte Esterase Urine WBC (Auto) Urine RBC (Auto) Urine Casts (Auto) U Epithel Cells (Auto) Urine Bacteria (Auto) Urine HCG, Qual Blood Type Antibody Screen 04/11/19 08:00 RBC 5.98 H MCV 81.5 MCHC 31.6 L RDW 16.2 H MPV 7.9 Neutrophils % 79.9 D Lymphocytes % 13.0 D Monocytes % 6.3 Eosinophils % 0.4 D Basophils % 0.4 - Medications Given in the ED: ED Medications Discontinued Medications Generic Name Dose Route Start Last Admin Trade Name Darren PRN Reason Stop Dose Admin Acetaminophen 1,000 mg 04/11/19 07:29 04/11/19 08:03 Ofirmev Injection - IVPB 04/11/19 07:30 1,000 mg ONCE ONE Administration Metoclopramide HCl 10 mg 04/11/19 08:04 04/11/19 08:31 Reglan Injection - IVPUSH 04/11/19 08:05 10 mg ONCE ONE Administration Morphine Sulfate 4 mg 04/11/19 08:03 04/11/19 08:31 Morphine Injection - IVPUSH 04/11/19 08:04 4 mg ONCE ONE Administration Morphine Sulfate 2 mg 04/11/19 12:24 04/11/19 12:32 Morphine Injection - IVPUSH 04/11/19 12:25 2 mg ONCE ONE Administration Morphine Sulfate 2 mg 04/11/19 15:53 04/11/19 16:46 Morphine Injection - IVPUSH 04/11/19 15:54 2 mg ONCE ONE Administration Ondansetron HCl 4 mg 04/11/19 07:29 04/11/19 08:10 Zofran Injection IVPUSH 04/11/19 07:30 4 mg NOW ONE Administration Sodium Chloride 1,000 ml 04/11/19 07:29 04/11/19 08:02 Normal Saline - IV 04/11/19 07:30 1,000 ml ONCE ONE Administration Sodium Chloride 500 ml 04/11/19 08:58 04/11/19 09:57 Normal Saline - IV 04/11/19 08:59 Not Given ONCE ONE Sodium Chloride 500 ml 04/11/19 09:42 04/11/19 10:00 Normal Saline - IV 04/11/19 09:43 500 ml ONCE ONE Administration Sodium Chloride 1,000 ml 04/11/19 09:44 04/11/19 09:50 Normal Saline - IV 04/11/19 09:45 1,000 ml ONCE ONE Administration Thelma Cruz - Last Filed: 04/11/19 16:56> Medical Decision Making - Medical Decision Making 04/11/19 07:30 CBC CMP lipase HCG trop UA Ucx L lateral decubitus XR did not show SBO CXR shows clear lungs EKG shows NSR, HR 86, QTc 452, no ST changes CT A/P w oral/IV contrast does not show SBO or acute pathology, mild fatty liver , moderate dilation of CBD 1.5cm s/p cholecystectomy 2L NS tylenol zofran 6 morphine reglan AST 44 ALP 118, WBC 10.4, K 5.4 --- 43yF w PMHx SBO, colitis, gastric bypass, brain cyst, vertebral fusion, pancreatitis, GI bleed, asthma, anemia, anxiety presenting w 2d epigastric/ periumbilical pain, nausea, weakness, constipation d/t unknown source. Consider constipation (last BM 4d ago) vs CBD dilation seen on CT. Pain not relieved after 2L NS tylenol zofran 6 morphine reglan. Mild leukocytosis 10.4, K 5.4, elevated AST 44, ALP 118. Low concern for ACS ( neg trop, NSR EKG) vs pancreatitis (low lipase) vs (neg HCG) vs SBO (r /o o CT) vs PNA (clear lungs CXR). Admitted m/s Rena for weakness, constipation, intractable AB pain d/t unknown source. Consider CBD dilation on CT requiring MRCP Consulted GI Dr Davis - ordered MRCP for dilated CBD, made NPO - pending UA PCP Adrian Chase <Partha Duncan - Last Filed: 04/11/19 15:54> Discharge - Discharge Information Problems reviewed: Yes <Partha Duncan - Last Filed: 04/11/19 15:54> - Admission Yes <Thelma Ramirez - Last Filed: 04/11/19 16:56> - Discharge Information Clinical Impression/Diagnosis: Lethargy Abdominal pain Qualifiers: Abdominal location: epigastric Qualified Code(s): R10.13 - Epigastric pain Condition: Fair
[2019-04-11] MEDS ORDERED: ACETAMINOPHEN 1000 MG/100 ML VIAL (NON FORMULARY) IVPB ONE (07:29)
[2019-04-11] MEDS ORDERED: SODIUM CHLORIDE 0.9% 500 ML INFUS.BAG IV ONE ×4 (07:29→09:44)
[2019-04-11] MEDS ORDERED: ONDANSETRON 4 MG/2 ML VIAL IVPUSH ONE (07:29)
[2019-04-11] MEDS ORDERED: ACETAMINOPHEN INJECTION 100 ML IVPB ONE (07:38)
[2019-04-11] MEDS ORDERED: ONDANSETRON 4 MG/2 ML VIAL ONE (07:39)
--- NOTE | 2019-04-11 07:48 | PDOC ---
Attending Attestation - Resident Resident Name: Partha Duncan - ED Attending Attestation I have performed the following: I have examined & evaluated the patient, The case was reviewed & discussed with the resident, I agree w/resident's findings & plan - HPI HPI: 04/11/19 07:47 43 YOF PMHx SBO, colitis, gastric bypass, brain cyst, pancreatitis, GIB, anemia , anxiety, chronic back pain/scoliosis presenting with abdominal pain x 2 days, a/w Nausea and vomiting, inability to dorinda PO intake. +constipated, (-)flatus. feels similar to prior SBO usually takes morphine/oxycodone for her chronic back pain. 04/11/19 07:51 04/11/19 08:04 - Physicial Exam PE: 04/11/19 07:47 Agree with the resident's HPI and PE as documented in the electronic medical record. malaised appearing, EOMI, PERRL, nl conjunctiva, anicteric; dry mucus membranes , neck supple. lungs clear, RRR, abdomen soft +diffusely tender. no rebound, guarding. no CVAT. Back nontender. SOTO x4, no focal neuro deficits. No peripheral edema. normal color for ethnicity, WWP. 04/11/19 08:04 - Medical Decision Making 04/11/19 07:48 Vital Signs Temp Pulse Resp BP Pulse Ox 97.8 F 95 H 20 117/87 100 04/11/19 06:38 04/11/19 06:38 04/11/19 06:38 04/11/19 06:38 04/11/19 06:38 DDx abdominal pain: Renal colic, biliary colic, metabolic/electrolyte derangements. GERD, PUD, esophageal spasm, pancreatitis, hepatitis, constipation , colitis, gastroenteritis, cholecystitis, UTI, pyelonephritis, ileus, SBO, medication side effect, hernia, appendicitis, diverticulitis, msk strain, mesenteric adenitis, psoas abscess. , perf vicus. VS reviewed wnl, HD appropriate. ED interventions include Zofran/Reglan, IV fluids, analgesia. Morphine for analgesia as patient is on home opioids for management of her chronic back pain so we will give appropriate dosing of morphine to reflect her current pain. Differential includes SBO versus constipation versus mass versus intra- abdominal pathology/infection. Will attempt p.o. contrast given her prior history of gastric bypass and resection and complications to evaluate hollow viscus, fistula, anastomoses. CT abdomen and pelvis indicated for above presentation labs and lytes wnl, reassuring. neg preg test UA unremarkable CT a/p: CT with diffuse fatty liver noticed, status post cholecystectomy with dilatation of the biliary tree without obvious obstruction. No evidence of bowel obstruction or acute intra-abdominal process within the abdomen or pelvis. No mass lesions noted. Enlarged spleen with incidental cyst is noted. Admitted m/s Rena for weakness, constipation, intractable AB pain d/t unknown source. Consider CBD dilation on CT requiring MRCP Consulted GI Dr Davis - ordered MRCP for dilated CBD, made NPO PCP Adrian Chase - admit to service 04/11/19 16:56 Heart Score/ECG Review #1 ECG reviewed & interpreted by me at: 08:00 General ECG Interpretation: Sinus Rhythm, Normal Rate, Normal Intervals 04/11/19 08:07 EKG normal sinus rhythm at 86 bpm, no interval abnormalities, narrow QRS, ST and T wave segments and morphology normal.
[2019-04-11] MEDS ORDERED: morphine CARPU-JECT 4 MG/1 ML DISP.SYRIN IVPUSH ONE ×3 (08:03→15:53)
[2019-04-11] MEDS ORDERED: METOCLOPRAMIDE HCL INJECTION 10 MG/2 ML VIAL IVPUSH ONE (08:04)
[2019-04-11 08:15] LABS: BASO % 0.4 % (0-2.0); EOS % 0.4 % (0-4.5); HEMATOCRIT 48.7 % (32.4-45.2); HEMOGLOBIN 15.4 GM/dL (10.7-15.3); MCH 25.8 pg (25.7-33.7); MCHC 31.6 g/dl (32.0-36.0); MEAN CELL VOLUME 81.5 fl (80-96); MEAN PLT VOLUME 7.9 fl (7.5-11.1); MONO % 6.3 % (3.8-10.2); NEUT % 79.9 % (42.8-82.8); PLATELET COUNT 399 K/MM3 (134-434); RBC 5.98 M/mm3 (3.60-5.2); RDW 16.2 % (11.6-15.6); WHITE BLOOD COUNT 10.4 K/mm3 (4.0-10.0)
[2019-04-11] MEDS ORDERED: METOCLOPRAMIDE HCL INJECTION 10 MG/2 ML VIAL ONE (08:20)
[2019-04-11] MEDS ORDERED: morphine SULFATE 4 MG/ML VIAL ONE (08:20)
[2019-04-11 08:40] LABS: INR 0.92 (0.83-1.09); PROTHROMBIN TIME (PATIENT) 10.8 SEC (9.7-13.0)
[2019-04-11 08:49] LABS: ALBUMIN 3.9 g/dl (3.4-5.0); ALK PHOS 118 U/L (45-117); ANION GAP 8 MMOL/L (8-16); BILIRUBIN,TOTAL 0.5 mg/dL (0.2-1); BLOOD UREA NITROGEN 11.7 mg/dL (7-18); CHLORIDE 98 mmol/L (98-107); CO2 31 mmol/L (21-32); CREATININE 0.5 mg/dL (0.55-1.3); GLUCOSE,RANDOM 103 mg/dL (74-106); LIPASE 52 U/L (73-393); POTASSIUM 5.4 mmol/L (3.5-5.1); SGOT/AST 44 U/L (15-37); SGPT/ALT 29 U/L (13-61); SODIUM 137 mmol/L (136-145); TOT PROT 7.3 g/dl (6.4-8.2)
[2019-04-11] MEDS ORDERED: MORPHINE SULFATE 2 MG/ML VIAL ONE ×2 (12:28→16:30)
--- NOTE | 2019-04-11 13:26 | EKG ---
Test Reason : Blood Pressure : / mmHG Vent. Rate : 086 BPM Atrial Rate : 086 BPM P-R Int : 142 ms QRS Dur : 082 ms QT Int : 378 ms P-R-T Axes : 065 070 076 degrees QTc Int : 452 ms NORMAL SINUS RHYTHM NORMAL ECG WHEN COMPARED WITH ECG OF 24-MAR-2019 18:58, NO SIGNIFICANT CHANGE WAS FOUND Confirmed by CALE PATTERSON MD ([id number]) on 04/11/2019 1:26:10 PM Referred By: Confirmed By:CALE PATTERSON MD
[2019-04-11 15:48] LABS: URINE APPEARANCE CLEAR; URINE BILIRUBIN NEGATIVE (NEGATIVE); URINE COLOR YELLOW; URINE GLUCOSE (UA) NEGATIVE (NEGATIVE); URINE KETONE NEGATIVE (NEGATIVE); URINE NITRITE NEGATIVE (NEGATIVE); URINE PROTEIN NEGATIVE (NEGATIVE)
[2019-04-11 15:49] LABS: EPI CELLS 2.1 /HPF (0-5/HPF); HYALINE CASTS 0.73 /lpf (0-8); URINE BACTERIA 15 /hpf (NEGATIVE); URINE LEUK ESTERASE NEGATIVE (NEGATIVE); URINE RBC 1.4 /hpf (0-4); URINE WBC 1.1 /hpf (0-5)
[2019-04-11] MEDS ORDERED: KETOROLAC TROMETHAMINE 15 MG/ML VIAL IVPUSH PRN (16:04)
--- NOTE | 2019-04-11 16:04 | CON.GI ---
Consult Consult Specialty:: GI Referred by:: ED Dr. Duncan Reason for Consultation:: abdominal pain, dilated CBD on CT - History of Present Illness Chief Complaint: abdominal pain History of Present Illness: 43F with h/o RYGB, h/o anastomotic ulcer 2012, chronic constipation on opiates, h/o lower back spinal fusion, h/o cholecystectomy for gallstones, h/o SBO s/p ANGELO, depression, here for evaluation of acute onset abdominal pain that began out of nowhere two days ago, constant, epigastric/periumbilical and radiating outward bilaterally. +nausea, no emesis. Normally takes colace for constipation. Has been unable to take meds for 2 days since pain began. Reports an episode of witnessed syncope yesterday at home. Came in today bc abdominal pain not improving. Denies flatus and denies bm x3d. Reports feeling like this before when had intestinal blockage and when had gallstones. Previously a pt of Dr. Judd, had EGD early 2017 that showed some erythema in pouch but otherwise unremarkable. h/o FOBT+ stool for which she did not complete bowel prep 10/2017 and did not follow up for outpatient colonoscopy. In ED, given analgesia. CT A/P unremarkable except for CBD 1.5cm, stable from CT one year ago. Last MRCP 2012 no stones but CBD was 1.1cm - History Source History Provided By: Patient Limitations to Obtaining History: No Limitations - Past Medical History ...LMP: 07/19/15 Psych: Yes: Anxiety Musculoskeletal: Yes: Other (Chronic pain (on pain magagement)) - Past Surgical History Past Surgical History: Yes: Cholecystectomy Additional Surgical History: lumbar fusion. ANGELO - Alcohol/Substance Use Hx Alcohol Use: No - Smoking History Smoking history: Current every day smoker Have you smoked in the past 12 months: Yes Aproximately how many cigarettes per day: 20 - Social History History of Recent Travel: No Home Medications - Allergies Allergies/Adverse Reactions: Allergies Allergy/AdvReac Type Severity Reaction Status Date / Time No Known Allergies Allergy Verified 04/11/19 06:42 - Home Medications Home Medications: Ambulatory Orders Docusate Sodium [Colace -] 300 mg PO HS #30 capsule 09/24/17 Pantoprazole Sodium [Protonix -] 40 mg PO BID #60 tablet.ec 09/24/17 Amino Acids/Protein Hydrolys [Prosource No Carb Liquid Pkt] 30 ml PO BID@0800, 1730 #1 bottle 03/15/18 Ferrous Sulfate [Feosol] 325 mg PO DAILY #30 ud 03/15/18 Folic Acid - 1 mg PO DAILY #30 tablet 03/15/18 Morphine *Sr* [MS Contin -] 60 mg PO Q12H #10 tablet.sa MDD 2 03/15/18 Multivitamins [Multivit ([facility] Form[facility])] 1 tab PO DAILY #30 tab 03/15/18 Oxycodone HCl 10 mg PO TID PRN #15 tablet MDD 3 03/15/18 Polyethylene Glycol 3350 [Miralax 119 gm Btl -] 17 gm PO BID PRN #1 bottle 03/15 clonazePAM [Klonopin -] 1 mg PO BID PRN #10 tablet MDD 2 03/15/18 Quetiapine Fumarate [Seroquel -] 200 mg PO HS 03/24/19 Review of Systems - Review of Systems Constitutional: reports: No Symptoms Eyes: reports: No Symptoms HENT: reports: No Symptoms Neck: reports: No Symptoms Cardiovascular: reports: No Symptoms Respiratory: reports: No Symptoms Gastrointestinal: reports: Abdominal Pain, Constipation, Nausea. denies: Vomiting Integumentary: reports: No Symptoms Neurological: reports: Change in LOC Endocrine: reports: No Symptoms Hematology/Lymphatic: reports: No Symptoms Psychiatric: reports: No Symptoms Physical Exam-GI Vital Signs: Vital Signs Temperature 97.9 F 04/11/19 14:33 Pulse Rate 99 H 04/11/19 14:33 Respiratory Rate 18 04/11/19 14:33 Blood Pressure 125/70 04/11/19 14:33 O2 Sat by Pulse Oximetry (%) 98 04/11/19 14:33 Constitutional: Yes: Well Nourished, No Distress Eyes: Yes: Conjunctiva Clear Cardiovascular: Yes: Regular Rate and Rhythm (borderline tachycardia) Respiratory: Yes: CTA Bilaterally Gastrointestinal Inspection: Yes: Scars ...Palpate: Yes: Soft, Tenderness (diffusely, making patient tearful, but no guarding/rebound) ...Rectal Exam: Yes: Deferred Musculoskeletal: Yes: Back Pain Edema: No Neurological: Yes: Alert, Oriented Psychiatric: Yes: Alert, Oriented Labs: CBC, BMP 04/11/19 08:00 04/11/19 08:00 INR, PTT INR 0.92 (0.83-1.09) 04/11/19 08:00 Hepatic Panel Total Bilirubin 0.5 mg/dL (0.2-1) 04/11/19 08:00 AST 44 U/L (15-37) H 04/11/19 08:00 ALT 29 U/L (13-61) 04/11/19 08:00 Alkaline Phosphatase 118 U/L (45-117) H 04/11/19 08:00 Albumin 3.9 g/dl (3.4-5.0) 04/11/19 08:00 Urine SG 1.05 Imaging - Results Cat Scan: Report Reviewed, Image Reviewed (Discussed w radiology Dr. White - portal vein is dilated but patent, ? portal HTN; celiac axis patent, SMA patient , unable to see CRISTINA origin but vessels look filled) Assessment/Plan Abdominal pain - of unclear etiology. Pain seems out of proportion to exam, but per radiology vessels are patent. Seems too much pain for an ulcer. Possible de paco CBD stone given CBD now 1.5cm and rise in AP and AST from baseline. Patient appears dehydrated and labs support this Radiologist commented re PV dilation on CT - and spleen is enlarged on CT, raising question of portal HTN -- likely a separate issue that can be addressed less urgently. Suggest: MRCP to assess CBD for obstruction Trend LFTs daily IV hydration Anti-emetics Bowel regimen with daily Miralax standing Will follow
[2019-04-11] MEDS ORDERED: POLYETHYLENE GLYCOL 3350 119 GM BTL PO PRN (16:08)
[2019-04-11] MEDS ORDERED: clonazePAM 0.5 MG TABLET PO PRN (16:08)
[2019-04-11] MEDS ORDERED: PATIENT'S OWN MEDICATION (NON-FORMULARY) (Oxycodone Hcl [Oxycodone Hcl] 10 MG) PO PRN ×2 (16:08→18:49)
[2019-04-11] MEDS ORDERED: SODIUM CHLORIDE 1,000 ML IV SCH (16:15)
[2019-04-11 18:23] VITALS: BMI 20.8
[2019-04-11] MEDS ORDERED: LORazepam 2 MG/ML SDV VIAL IVPUSH ONE (18:50)
[2019-04-11] MEDS ORDERED: MORPHINE SULFATE 2 MG/ML VIAL IVPUSH ONE (20:09)
[2019-04-11] MEDS: AMINO ACIDS/PROTEIN HYDROLYS 30 ML LIQUID.PKT PO SCH (20:32)
[2019-04-11] MEDS: HEPARIN NA (PORCINE) 5,000 UNITS/ML 1ML VIAL SQ SCH (21:23)
[2019-04-11] MEDS: PANTOPRAZOLE 40 MG TABLET (FP) PO SCH (21:23)
[2019-04-11] MEDS ORDERED: QUEtiapine FUMARATE 100 MG TABLET (FP) PO SCH (22:00)
[2019-04-11] MEDS ORDERED: DOCUSATE SODIUM 100 MG CAPSULE (FP) PO SCH (22:00)
[2019-04-12 07:35] LABS: BASO % 0.6 % (0-2.0); EOS % 1.1 % (0-4.5); HEMATOCRIT 39.9 % (32.4-45.2); LYMPH % 23.2 % (8-40); MCH 26.3 pg (25.7-33.7); MCHC 32.6 g/dl (32.0-36.0); MEAN CELL VOLUME 80.6 fl (80-96); MEAN PLT VOLUME 7.8 fl (7.5-11.1); MONO % 7.8 % (3.8-10.2); NEUT % 67.3 % (42.8-82.8); PLATELET COUNT 268 K/MM3 (134-434); RBC 4.94 M/mm3 (3.60-5.2); RDW 15.6 % (11.6-15.6); WHITE BLOOD COUNT 5.1 K/mm3 (4.0-10.0)
--- NOTE | 2019-04-12 07:43 | HP ---
Admitting History and Physical - Primary Care Physician PCP: Darrain Chase - Admission Chief Complaint: ABD PAIN, N/V History of Present Illness: 43yF w PMHx SBO, colitis, gastric bypass, brain cyst, vertebral fusion, pancreatitis, GI bleed, asthma, anemia, anxiety presenting w epigastric/ periumbilical pain, nausea, constipation. 2d progressively worsening epigastric and periumbilical sharp pain radiating out to diffuse abdomen, associated nausea no vomiting, chest pain, SOB, poor appetite, lethargy, falls x3 (no LOC/ head trauma). Has not been able to take home meds inc pain meds for past 2d. Similar to past SBO few years ago. Last bowel movement 4d ago. Denies alcohol, smoking, illicit drugs. Denies fever, headache, cough, distended AB, urinary symptoms. History Source: Medical Record Limitations to Obtaining History: Poor Historian - Past Medical History ...LMP: 07/19/15 Psych: Yes: Anxiety Musculoskeletal: Yes: Other (Chronic pain (on pain magagement)) - Past Surgical History Past Surgical History: Yes: Cholecystectomy - Smoking History Smoking history: Current every day smoker Have you smoked in the past 12 months: Yes Aproximately how many cigarettes per day: 20 - Alcohol/Substance Use Hx Alcohol Use: No - Social History History of Recent Travel: No Home Medications - Allergies Allergies/Adverse Reactions: Allergies Allergy/AdvReac Type Severity Reaction Status Date / Time No Known Allergies Allergy Verified 04/11/19 06:42 - Home Medications Home Medications: Ambulatory Orders Docusate Sodium [Colace -] 300 mg PO HS #30 capsule 09/24/17 Pantoprazole Sodium [Protonix -] 40 mg PO BID #60 tablet.ec 09/24/17 Amino Acids/Protein Hydrolys [Prosource No Carb Liquid Pkt] 30 ml PO BID@0800, 1730 #1 bottle 03/15/18 Ferrous Sulfate [Feosol] 325 mg PO DAILY #30 ud 03/15/18 Folic Acid - 1 mg PO DAILY #30 tablet 03/15/18 Morphine *Sr* [MS Contin -] 60 mg PO Q12H #10 tablet.sa MDD 2 03/15/18 Multivitamins [Multivit ([facility] Form[facility])] 1 tab PO DAILY #30 tab 03/15/18 Oxycodone HCl 10 mg PO TID PRN #15 tablet MDD 3 03/15/18 Polyethylene Glycol 3350 [Miralax 119 gm Btl -] 17 gm PO BID PRN #1 bottle 03/15 clonazePAM [Klonopin -] 1 mg PO BID PRN #10 tablet MDD 2 03/15/18 Quetiapine Fumarate [Seroquel -] 200 mg PO HS 03/24/19 Review of Systems - Review of Systems Constitutional: reports: Weakness Eyes: reports: No Symptoms HENT: reports: No Symptoms Neck: reports: No Symptoms Cardiovascular: reports: No Symptoms Respiratory: reports: No Symptoms Gastrointestinal: reports: Constipation, Indigestion, Nausea Genitourinary: reports: No Symptoms Musculoskeletal: reports: Back Pain Integumentary: reports: No Symptoms Neurological: reports: Pre-Existing Deficit Psychiatric: reports: Anxiety, Other Physical Examination Vital Signs: Vital Signs Temperature 97.7 F 04/12/19 07:12 Pulse Rate 65 04/12/19 07:12 Respiratory Rate 20 04/12/19 07:12 Blood Pressure 140/78 04/12/19 07:12 O2 Sat by Pulse Oximetry (%) 100 04/12/19 00:00 Constitutional: Yes: No Distress Cardiovascular: Yes: WNL Respiratory: Yes: WNL Gastrointestinal: Yes: Soft Renal/: Yes: WNL Musculoskeletal: Yes: Back Pain, Muscle Weakness Edema: No Peripheral Pulses WNL: Yes Integumentary: Yes: WNL Neurological: Yes: Pre-Existing Deficit ...Motor Strength: LLE, RLE Psychiatric: Yes: Other Imaging - Results Cat Scan: Report Reviewed Problem List - Problems (1) Abdominal pain in female Code(s): R10.9 - UNSPECIFIED ABDOMINAL PAIN (2) Anemia Code(s): D64.9 - ANEMIA, UNSPECIFIED Qualifiers: Anemia type: iron deficiency (3) Autoimmune thyroiditis Code(s): E06.3 - AUTOIMMUNE THYROIDITIS (4) Cerebral cyst Code(s): G93.0 - CEREBRAL CYSTS (5) Colitis Code(s): K52.9 - NONINFECTIVE GASTROENTERITIS AND COLITIS, UNSPECIFIED (6) Constipation Code(s): K59.00 - CONSTIPATION, UNSPECIFIED (7) Iron deficiency anemia Code(s): D50.9 - IRON DEFICIENCY ANEMIA, UNSPECIFIED (8) Syncope Code(s): R55 - SYNCOPE AND COLLAPSE Assessment/Plan PATIENT IS AWAKE LAERT COMFORTABLE CT ABD WAS NEGATIVE FOR ACUTE DISEASE FLEET ENEMA AND MIRALX AFTER BOWEL MOVEMENT CAN GO HOME F/U OUTPATIENT FOR CHRONIC ANEMIA SYNCOPE LIKELY VASOVAGAL FROM STRAINING SECONDARY TO CONSTIPATION OOB TO CHAIR WITH PT EVAL
[2019-04-12] MEDS ORDERED: SODIUM PHOSPHATE/NA BIPHOS 133 ML ENEMA PR ONE (07:45)
--- NOTE | 2019-04-12 07:51 | DS ---
Physical Examination Vital Signs: Vital Signs Temperature 97.7 F 04/12/19 07:12 Pulse Rate 65 04/12/19 07:12 Respiratory Rate 20 04/12/19 07:12 Blood Pressure 140/78 04/12/19 07:12 O2 Sat by Pulse Oximetry (%) 100 04/12/19 00:00 Constitutional: Yes: No Distress Cardiovascular: Yes: Regular Rate and Rhythm Respiratory: Yes: WNL Gastrointestinal: Yes: WNL Edema: No Neurological: Yes: Pre-Existing Deficit ...Motor Strength: LLE, RLE Psychiatric: Yes: Other Discharge Summary Problems reviewed: Yes Reason For Visit: DILATION OF COMMON BILE DUCT Current Active Problems Abdominal pain (Acute) Lethargy (Acute) Procedures: Principal: CT ABD Hospital Course: ADMITTED FOR SYNCOPE, CONSTIPATION, N/V RESOLVING. CT ABD NEGATIVE. CHRONIC CONSTIPATION MOVANTIC OUTPATIENT HIGH FIBERS RECOMMEND Plan of Treatment: SEE YOUR DOCTOR FRANCO IN 2-3 DAYS Condition: Improved - Instructions Diet, Activity, Other Instructions: HIGH FIBER DIET SEE DR CAMPBELL 2-3 DAYS Referrals: Katia Campbell [Primary Care Provider] - Disposition: HOME - Home Medications Comprehensive Discharge Medication List: Ambulatory Orders Docusate Sodium [Colace -] 300 mg PO HS #30 capsule 09/24/17 Pantoprazole Sodium [Protonix -] 40 mg PO BID #60 tablet.ec 09/24/17 Amino Acids/Protein Hydrolys [Prosource No Carb Liquid Pkt] 30 ml PO BID@0800, 1730 #1 bottle 03/15/18 Ferrous Sulfate [Feosol] 325 mg PO DAILY #30 ud 03/15/18 Folic Acid - 1 mg PO DAILY #30 tablet 03/15/18 Morphine *Sr* [MS Contin -] 60 mg PO Q12H #10 tablet.sa MDD 2 03/15/18 Multivitamins [Multivit ([facility] Form[facility])] 1 tab PO DAILY #30 tab 03/15/18 Oxycodone HCl 10 mg PO TID PRN #15 tablet MDD 3 03/15/18 Polyethylene Glycol 3350 [Miralax 119 gm Btl -] 17 gm PO BID PRN #1 bottle 03/15 clonazePAM [Klonopin -] 1 mg PO BID PRN #10 tablet MDD 2 03/15/18 Quetiapine Fumarate [Seroquel -] 200 mg PO HS 03/24/19 Naloxegol Oxalate [Movantik] 12.5 mg PO DAILY #30 tablet 04/12/19 Prescription Drug Monitoring Program (I-STOP) results: I-STOP reviewed and issues identified
[2019-04-12 08:09] LABS: ALBUMIN 3.1 g/dl (3.4-5.0); BILIRUBIN,DIRECT 0.1 mg/dL (0.0-0.2); BILIRUBIN,TOTAL 0.6 mg/dL (0.2-1); TOT PROT 5.7 g/dl (6.4-8.2)
[2019-04-12 08:20] LABS: ALBUMIN 3.1 g/dl (3.4-5.0); BILIRUBIN,TOTAL 0.5 mg/dL (0.2-1); BLOOD UREA NITROGEN 8.7 mg/dL (7-18); CALCIUM 8.8 mg/dL (8.5-10.1); CREATININE 0.5 mg/dL (0.55-1.3); MAGNESIUM 2.1 mg/dL (1.8-2.4); POTASSIUM 4.2 mmol/L (3.5-5.1); TOT PROT 5.7 g/dl (6.4-8.2)
[2019-04-12] MEDS ORDERED: oxyCODONE HCL 5 MG TABLET PO ONE (09:10)
[2019-04-12] MEDS: AMINO ACIDS/PROTEIN HYDROLYS 30 ML LIQUID.PKT PO SCH ×2 (09:48→09:57)
[2019-04-12] MEDS: PANTOPRAZOLE 40 MG TABLET (FP) PO SCH (09:48)
[2019-04-12] MEDS: HEPARIN NA (PORCINE) 5,000 UNITS/ML 1ML VIAL SQ SCH (09:49)
[2019-04-12] MEDS ORDERED: FERROUS SO4 325 MG TABLET (FP) PO SCH (10:00)
[2019-04-12] MEDS ORDERED: FOLIC ACID 1 MG TABLET (FP) PO SCH (10:00)
[2019-04-12] MEDS ORDERED: MULTIVITAMINS (DAILY MVI) TABLET (FP) PO SCH (10:00)
--- NOTE | 2019-04-12 10:16 | PN.GI ---
GI Progress Note Subjective: No acute events No - Objective Vital Signs: Vital Signs Temperature 97.7 F 04/12/19 07:12 Pulse Rate 65 04/12/19 07:12 Respiratory Rate 20 04/12/19 07:12 Blood Pressure 140/78 04/12/19 07:12 O2 Sat by Pulse Oximetry (%) 100 04/12/19 00:00 Labs: CBC, BMP 04/12/19 07:00 04/12/19 07:00 INR, PTT INR 0.92 (0.83-1.09) 04/11/19 08:00
--- NOTE | 2019-04-12 10:21 | PN.GI ---
GI Progress Note Subjective: No acute events laying comfortably watching TV States still having the same amount of pain Last BM 2 days ago - Objective Vital Signs: Vital Signs Temperature 97.7 F 04/12/19 07:12 Pulse Rate 65 04/12/19 07:12 Respiratory Rate 20 04/12/19 07:12 Blood Pressure 140/78 04/12/19 07:12 O2 Sat by Pulse Oximetry (%) 100 04/12/19 00:00 Constitutional: Calm Eyes: No: Sclera Icterus Cardiovascular: Yes: Regular Rate and Rhythm Respiratory: Yes: CTA Bilaterally Gastrointestinal Inspection: No: Distention ...Auscultate: Yes: Normoactive Bowel Sounds ...Palpate: Yes: Soft, Tenderness (diffusely). No: Guarding, Tenderness, Rebound Edema: No (No LE edema) Neurological: Yes: Alert Labs: CBC, BMP 04/12/19 07:00 04/12/19 07:00 INR, PTT INR 0.92 (0.83-1.09) 04/11/19 08:00 Hepatic Panel Total Bilirubin 0.5 mg/dL (0.2-1) 04/12/19 07:00 Direct Bilirubin 0.1 mg/dL (0.0-0.2) 04/12/19 07:00 AST 23 U/L (15-37) 04/12/19 07:00 ALT 20 U/L (13-61) 04/12/19 07:00 Alkaline Phosphatase 90 U/L (45-117) 04/12/19 07:00 Albumin 3.1 g/dl (3.4-5.0) L 04/12/19 07:00 Problem List - Problems (1) Abdominal pain Assessment/Plan: Continued abdominal pain of unclear etiology MRCP pending to evaluate dilated biliary tract. Normal liver chemistries NPO, IV hydration If worsening pain, surgical evaluation Code(s): R10.9 - UNSPECIFIED ABDOMINAL PAIN Qualifiers: Abdominal location: epigastric Qualified Code(s): R10.13 - Epigastric pain
[2019-04-12 12:42] VITALS: BP 135/87; PULSE 67; TEMP 98.2
== END 2019-04-12 13:47 | disposition home or self-care (01) ==
LOC: JER 06:29 → JERBED 14:37 → J8W 17:36
PROVIDERS: ADMIT Family Medicine; ATTEND Family Medicine
DX: K83.8 Other specified diseases of biliary tract (principal); F41.9 Anxiety disorder, unspecified; J45.909 Unspecified asthma, uncomplicated; F17.210 Nicotine dependence, cigarettes, uncomplicated; K59.09 Other constipation; F32.9 Major depressive disorder, single episode, unspecified; G89.29 Other chronic pain; G93.0 Cerebral cysts; D50.9 Iron deficiency anemia, unspecified; R55 Syncope and collapse
CPT/HCPCS: 36415; 71046-TC-FY; 74177-TC; 74190-TC-FY; 80053; 80076; 81003; 82550; 82962; 83690; 83735; 84436; 84443; 84484; 84703; 85025; 85610; 86850; 86900; 86901; 87086; 87186; 93005; 93010; 99285-25; J0131; J1644; J7030; Q9967

== ENCOUNTER 2021-01-13 14:07 | Inpatient (IN) | payer OTHER ==
[2021-01-13] MEDS ORDERED: METOCLOPRAMIDE HCL INJECTION 10 MG/2 ML VIAL IVPUSH ONE ×2 (15:45→22:51)
[2021-01-13] MEDS ORDERED: SODIUM CHLORIDE 0.9% 500 ML INFUS.BAG IV ONE (15:46)
[2021-01-13] MEDS ORDERED: METOCLOPRAMIDE HCL INJECTION 10 MG/2 ML VIAL ONE ×2 (15:56→23:00)
[2021-01-13] MEDS ORDERED: morphine CARPU-JECT 4 MG/1 ML DISP.SYRIN IVPUSH ONE (16:58)
[2021-01-13 17:03] LABS: BASO % 0.5 % (0-2.0); EOS % 3.6 % (0-4.5); HEMOGLOBIN 11.7 GM/dL (10.7-15.3); LYMPH % 29.3 % (8-40); MCH 24.4 pg (25.7-33.7); MCHC 31.6 g/dl (32.0-36.0); MEAN CELL VOLUME 77.3 fl (80-96); MEAN PLT VOLUME 7.9 fl (7.5-11.1); MONO % 6.7 % (3.8-10.2); NEUT % 59.9 % (42.8-82.8); PLATELET COUNT 262 10^3/uL (134-434); RBC 4.78 M/mm3 (3.60-5.2); RDW 18.2 % (11.6-15.6); WHITE BLOOD COUNT 8.2 K/mm3 (4.0-10.0)
[2021-01-13] MEDS ORDERED: morphine SULFATE 4 MG/ML VIAL ONE (17:12)
[2021-01-13 17:20] LABS: CHLORIDE 109 mmol/L (98-107); SODIUM 141 mmol/L (136-145)
[2021-01-13 17:22] LABS: CALCIUM 8.6 mg/dL (8.5-10.1)
[2021-01-13 17:24] LABS: ALBUMIN 3.4 g/dl (3.4-5.0); ANION GAP 3 MMOL/L (8-16); CO2 29 mmol/L (21-32); GLUCOSE,RANDOM 78 mg/dL (74-106)
[2021-01-13 17:26] LABS: CREATININE 0.5 mg/dL (0.55-1.3); SGOT/AST 17 U/L (15-37); SGPT/ALT 22 U/L (13-61)
[2021-01-13 17:28] LABS: BILIRUBIN,TOTAL 0.4 mg/dL (0.2-1); TOT PROT 6.3 g/dl (6.4-8.2)
[2021-01-13 17:29] LABS: ALK PHOS 84 U/L (45-117)
[2021-01-13] MEDS ORDERED: oxyCODONE HCL 5 MG TABLET PO ONE (22:45)
[2021-01-13] MEDS ORDERED: morphine SO4 SUSTAINED ACTING 30 MG TABLET.SA PO ONE ×2 (22:45→23:01)
[2021-01-13] MEDS ORDERED: DEXAMETHASONE SOD PHOSPHATE 10 MG/1 ML VIAL IVPUSH ONE (22:52)
[2021-01-13] MEDS ORDERED: DEXAMETHASONE SOD PHOSPHATE 10 MG/1 ML VIAL ONE (23:00)
[2021-01-13] MEDS ORDERED: oxyCODONE HCL 5 MG TABLET ONE (23:01)
[2021-01-14] MEDS ORDERED: clonazePAM 0.5 MG TABLET PO PRN (01:23)
[2021-01-14] MEDS ORDERED: PNEUMOC 13-VAL CONJ-DIP CRM/PF 0.5 ML DISP.SYRIN IM ONE (03:16)
[2021-01-14 03:19] VITALS: BMI 24.0
[2021-01-14] MEDS: GABAPENTIN 300 MG CAPSULE PO SCH ×3 (06:09→21:56)
[2021-01-14 07:43] LABS: BASO % 0.1 % (0-2.0); EOS % 0.1 % (0-4.5); HEMOGLOBIN 11.2 GM/dL (10.7-15.3); LYMPH % 12.3 % (8-40); MCH 24.2 pg (25.7-33.7); MCHC 31.9 g/dl (32.0-36.0); MEAN CELL VOLUME 76.1 fl (80-96); MEAN PLT VOLUME 8.2 fl (7.5-11.1); MONO % 1.6 % (3.8-10.2); NEUT % 85.9 % (42.8-82.8); PLATELET COUNT 256 10^3/uL (134-434); RBC 4.61 M/mm3 (3.60-5.2); RDW 17.7 % (11.6-15.6); WHITE BLOOD COUNT 6.1 K/mm3 (4.0-10.0)
[2021-01-14 08:11] LABS: CALCIUM 8.6 mg/dL (8.5-10.1)
[2021-01-14 08:12] LABS: BLOOD UREA NITROGEN 10.2 mg/dL (7-18)
[2021-01-14 08:15] LABS: CREATININE 0.7 mg/dL (0.55-1.3)
[2021-01-14] MEDS: NICOTINE 7 MG/24 HOURS TOPICAL PATCH TD SCH (09:26)
[2021-01-14] MEDS: HEPARIN NA (PORCINE) 5,000 UNITS/ML 1ML VIAL SQ SCH ×2 (09:27→22:05)
[2021-01-14] MEDS: oxyCODONE HCL 5 MG TABLET PO PRN ×2 (09:37→17:20)
[2021-01-14] MEDS: clonazePAM 0.5 MG TABLET PO PRN ×2 (09:37→22:05)
[2021-01-14] MEDS ORDERED: PNEUMOCOCCAL 23 VACCINE 0.5 ML VIAL IM ONE (10:00)
[2021-01-14] MEDS ORDERED: morphine SO4 SUSTAINED ACTING 30 MG TABLET.SA PO PRN (11:00)
[2021-01-14] MEDS: morphine SO4 SUSTAINED ACTING 30 MG TABLET.SA PO SCH ×2 (11:32→22:02)
[2021-01-14] MEDS ORDERED: SODIUM ZIRCONIUM CYCLOSILICATE (LOKELMA) 5 GM PACKET PO ONE (14:46)
[2021-01-14] MEDS ORDERED: QUEtiapine FUMARATE 50 MG TABLET ONE (21:49)
[2021-01-14] MEDS: DIVALPROEX NA *ER* EXTEND REL 250 MG TABLET.SA PO SCH (21:56)
[2021-01-14] MEDS: PRAMIPEXOLE DIHYDROCHLORIDE 0.25 MG TABLET PO SCH (21:57)
[2021-01-14] MEDS ORDERED: DOCUSATE SODIUM 100 MG CAPSULE (FP) PO SCH (22:00)
[2021-01-14] MEDS ORDERED: QUEtiapine FUMARATE 100 MG TABLET (FP) PO SCH (22:00)
[2021-01-14] MEDS ORDERED: PT OWN MED DRAWER 7, Y5N ONE (22:01)
[2021-01-15] MEDS: GABAPENTIN 300 MG CAPSULE PO SCH ×3 (05:20→21:18)
[2021-01-15] MEDS: oxyCODONE HCL 5 MG TABLET PO PRN ×2 (05:24→14:01)
[2021-01-15 07:45] LABS: HEMATOCRIT 32.4 % (32.4-45.2); HEMOGLOBIN 10.3 GM/dL (10.7-15.3); MCH 24.2 pg (25.7-33.7); MCHC 31.9 g/dl (32.0-36.0); MEAN PLT VOLUME 8.3 fl (7.5-11.1); PLATELET COUNT 225 10^3/uL (134-434); RBC 4.27 M/mm3 (3.60-5.2); RDW 17.7 % (11.6-15.6)
[2021-01-15 07:55] LABS: CALCIUM 8.3 mg/dL (8.5-10.1)
[2021-01-15 07:56] LABS: BLOOD UREA NITROGEN 16.8 mg/dL (7-18); MAGNESIUM 2.2 mg/dL (1.8-2.4)
[2021-01-15 07:59] LABS: CREATININE 0.7 mg/dL (0.55-1.3)
[2021-01-15 08:00] LABS: BILIRUBIN,TOTAL 0.2 mg/dL (0.2-1)
[2021-01-15 08:01] LABS: TOT PROT 5.3 g/dl (6.4-8.2)
[2021-01-15 08:02] LABS: ALBUMIN 2.7 g/dl (3.4-5.0)
[2021-01-15 08:11] LABS: IRON SERUM 54 ug/dL (50-175)
[2021-01-15 08:13] LABS: TOTAL IRON BINDING CAPACITY 389 ug/dL (250-450)
[2021-01-15] MEDS: NICOTINE 7 MG/24 HOURS TOPICAL PATCH TD SCH (09:42)
[2021-01-15] MEDS: clonazePAM 0.5 MG TABLET PO PRN ×2 (09:42→21:17)
[2021-01-15] MEDS: HEPARIN NA (PORCINE) 5,000 UNITS/ML 1ML VIAL SQ SCH (09:42)
[2021-01-15] MEDS: morphine SO4 SUSTAINED ACTING 30 MG TABLET.SA PO SCH ×2 (10:26→23:14)
[2021-01-15] MEDS ORDERED: ALPRAZolam 1 MG TABLET PO ONE ×2 (17:15→17:30)
[2021-01-15] MEDS: POLYETHYLENE GLYCOL (HEALTHYLAX) 3350 17 GM PACKET PO SCH ×2 (17:22→21:17)
[2021-01-15] MEDS ORDERED: PT OWN MED DRAWER 7, Y5N ONE (21:07)
[2021-01-15] MEDS: DIVALPROEX NA *ER* EXTEND REL 250 MG TABLET.SA PO SCH (21:16)
[2021-01-15] MEDS: PRAMIPEXOLE DIHYDROCHLORIDE 0.25 MG TABLET PO SCH (21:16)
[2021-01-15] MEDS: QUEtiapine FUMARATE 200 MG TABLET PO SCH (21:17)
[2021-01-16] MEDS: GABAPENTIN 300 MG CAPSULE PO SCH ×3 (05:03→21:55)
[2021-01-16] MEDS: POLYETHYLENE GLYCOL (HEALTHYLAX) 3350 17 GM PACKET PO SCH ×3 (05:03→21:56)
[2021-01-16 07:49] LABS: AMYLASE 42 U/L (25-115); LIPASE 47 U/L (73-393)
[2021-01-16 07:54] LABS: ALBUMIN 2.7 g/dl (3.4-5.0)
[2021-01-16 07:55] LABS: BILIRUBIN,TOTAL 0.3 mg/dL (0.2-1)
[2021-01-16 07:56] LABS: TOT PROT 5.3 g/dl (6.4-8.2)
[2021-01-16 07:57] LABS: BILIRUBIN,DIRECT 0.1 mg/dL (0.0-0.2)
[2021-01-16] MEDS: oxyCODONE HCL 5 MG TABLET PO PRN ×2 (08:25→20:28)
[2021-01-16] MEDS: NICOTINE 7 MG/24 HOURS TOPICAL PATCH TD SCH (09:24)
[2021-01-16] MEDS: PANTOPRAZOLE 40 MG TABLET PO SCH ×2 (09:24→13:19)
[2021-01-16] MEDS: morphine SO4 SUSTAINED ACTING 30 MG TABLET.SA PO SCH ×2 (11:00→13:18)
[2021-01-16] MEDS: clonazePAM 0.5 MG TABLET PO PRN ×2 (13:19→21:55)
[2021-01-16] MEDS ORDERED: PT OWN MED DRAWER 7, Y5N ONE (21:51)
[2021-01-16] MEDS: PRAMIPEXOLE DIHYDROCHLORIDE 0.25 MG TABLET PO SCH (21:56)
[2021-01-16] MEDS: HEPARIN NA (PORCINE) 5,000 UNITS/ML 1ML VIAL SQ SCH (21:56)
[2021-01-16] MEDS ORDERED: DIVALPROEX NA *ER* EXTEND REL 500 MG TABLET.SA (FP) PO SCH (22:00)
[2021-01-16] MEDS: QUEtiapine FUMARATE 200 MG TABLET PO SCH (22:21)
[2021-01-17] MEDS: morphine SO4 SUSTAINED ACTING 30 MG TABLET.SA PO SCH ×2 (00:15→10:44)
[2021-01-17] MEDS: POLYETHYLENE GLYCOL (HEALTHYLAX) 3350 17 GM PACKET PO SCH ×2 (05:28→13:00)
[2021-01-17] MEDS: GABAPENTIN 300 MG CAPSULE PO SCH ×2 (05:28→14:51)
[2021-01-17 07:29] LABS: ALBUMIN 2.9 g/dl (3.4-5.0)
[2021-01-17 07:32] LABS: BILIRUBIN,DIRECT < 0.1 mg/dL (0.0-0.2); SGPT/ALT 51 U/L (13-61)
[2021-01-17 07:33] LABS: SGOT/AST 27 U/L (15-37)
[2021-01-17 07:34] LABS: BILIRUBIN,TOTAL 0.3 mg/dL (0.2-1); TOT PROT 5.8 g/dl (6.4-8.2)
[2021-01-17 07:36] LABS: ALK PHOS 81 U/L (45-117)
[2021-01-17] MEDS: NICOTINE 7 MG/24 HOURS TOPICAL PATCH TD SCH (09:09)
[2021-01-17] MEDS: PANTOPRAZOLE 40 MG TABLET PO SCH (09:10)
[2021-01-17] MEDS: HEPARIN NA (PORCINE) 5,000 UNITS/ML 1ML VIAL SQ SCH (09:10)
[2021-01-17] MEDS ORDERED: PT OWN MED DRAWER 7, Y5N ONE (10:17)
[2021-01-17 13:43] VITALS: BP 108/62; PULSE 80; TEMP 98.2
[2021-01-17 17:07] LABS: GLIADIN ANTIBODY IGA 3 units (0-19); GLIADIN ANTIBODY IGG 2 units (0-19); TRANSGLUTAMINASE IGG < 2 U/mL (0-5)
== END 2021-01-17 14:34 | disposition home or self-care (01) | DRG 54 ==
LOC: JER 14:07 → JERBED 21:45 → J7W 01-14 02:51
PROVIDERS: ADMIT Internal Medicine; ATTEND Family Medicine
PROC: 0DB68ZX Excision of Stomach, Via Natural or Artificial Opening Endoscopic, Diagnostic (ICD-10-PCS; 2021-01-16)
PROC: 0DBA8ZX Excision of Jejunum, Via Natural or Artificial Opening Endoscopic, Diagnostic (ICD-10-PCS; principal; 2021-01-16 11:52)
DX: G43.909 Migraine, unspecified, not intractable, without status migrainosus (principal); K28.9 Gastrojejunal ulcer, unspecified as acute or chronic, without hemorrhage or perforation; F11.20 Opioid dependence, uncomplicated; F41.9 Anxiety disorder, unspecified; G25.81 Restless legs syndrome; R29.810 Facial weakness; K21.00 Gastro-esophageal reflux disease with esophagitis, without bleeding; J44.9 Chronic obstructive pulmonary disease, unspecified; M41.9 Scoliosis, unspecified; H53.8 Other visual disturbances; G89.29 Other chronic pain; G93.0 Cerebral cysts; I34.1 Nonrheumatic mitral (valve) prolapse; R53.1 Weakness; D50.9 Iron deficiency anemia, unspecified; K76.0 Fatty (change of) liver, not elsewhere classified; K43.9 Ventral hernia without obstruction or gangrene; K83.8 Other specified diseases of biliary tract; D64.9 Anemia, unspecified; F17.210 Nicotine dependence, cigarettes, uncomplicated; M54.6 Pain in thoracic spine; K59.03 Drug induced constipation; T40.2X5A Adverse effect of other opioids, initial encounter; R94.5 Abnormal results of liver function studies; M54.5 Low back pain; Z98.84 Bariatric surgery status
CPT/HCPCS: 36415; 70450-TC; 71045-TC-FY; 72131-TC; 74181-TC; 80048; 80053; 80076; 82150; 82550; 82607; 82746; 82784; 83516; 83540; 83550; 83690; 83735; 84484; 84703; 85025; 85027; 85045; 85651; 86140; 90732; 93005; 93010; 97116-GP; 97161-GP; 99285-25; C9803; G0009; J1100; J1644; U0003; U0005